=== PATIENT | male | born 1950 | race Caucasian/White ===

== ENCOUNTER 2018-07-19 16:32 | Observation (INO) | payer OTHER ==
[~2018-07-19] VITALS: Ht 170.2 cm; Wt 92.1 kg
[2018-07-19] MEDS ORDERED: ASPIRIN 81 MG CHEW TAB PO STA (17:14)
[2018-07-19] MEDS ORDERED: ASPIRIN 81 MG CHEW TAB PO ONE ×2 (17:15→20:00)
[2018-07-19 17:37] LABS: BASOPHILS % 0.6 % (0.0-1.0); EOSINOPHILS # (AUTO) 0.3 (0.0-0.4); EOSINOPHILS % 4.1 % (0.0-6.0); HEMATOCRIT 43.2 % (38.2-49.6); HEMOGLOBIN 15.3 g/dL (14.0-18.0); LYMPHOCYTES # (AUTO) 2.1 (1.0-3.2); LYMPHOCYTES % 31.2 % (18.0-39.1); MEAN CORPUSCULAR HGB CONC 35.4 g/dL (31-35); MEAN CORPUSCULAR VOLUME 90.4 fL (81-99); MONOCYTES # (AUTO) 0.6 (0.2-0.8); MONOCYTES % 8.5 % (4.4-11.3); NEUTROPHILS # (AUTO) 3.8 (2.1-6.9); NEUTROPHILS % 55.2 % (38.7-80.0); PLATELET COUNT 213 x10e3/uL (140-360); RED BLOOD COUNT 4.78 x10e6/uL (4.3-5.7); RED CELL DISTRIBUTION WIDTH 12.4 % (11.7-14.4)
[2018-07-19 17:47] LABS: INR 1.02; PARTIAL THROMBOPLASTIN TIME 29.5 seconds (23.8-35.5); PROTHROMBIN TIME 12.6 seconds (11.9-14.5)
[2018-07-19 17:56] LABS: ALANINE AMINOTRANSFERASE 61 IU/L (0-55); ALBUMIN 3.9 g/dL (3.5-5.0); ALKALINE PHOSPHATASE 102 IU/L (40-150); ANION GAP 18.2 mmol/L (8-16); BLOOD UREA NITROGEN 17 mg/dL (7-26); BUN/CREATININE RATIO 17 (6-25); CALCIUM 9.8 mg/dL (8.4-10.2); CARBON DIOXIDE 22 mmol/L (22-29); CHLORIDE 104 mmol/L (98-107); CREATINE KINASE 132 IU/L (30-200); CREATININE, SERUM 1.02 mg/dL (0.72-1.25); EST GLOMERULAR FILTRATION RATE > 60 ML/MIN (60-); GLUCOSE 88 mg/dL (74-118); POTASSIUM 4.2 mmol/L (3.5-5.1); SODIUM 140 mmol/L (136-145)
--- NOTE | 2018-07-19 18:16 | Diagnostic Imaging Report ---
EXAMINATION: CHEST SINGLE (NOT PORTABLE) INDICATION: \S\ERMD ORDER \S\[id number] \S\1737 \S\Y COMPARISON: 03/31/2011 FINDINGS: AP view TUBES and LINES: None. LUNGS: Low lung volumes. There is no evidence of pneumonia or pulmonary edema. PLEURA: No pleural effusion or pneumothorax. HEART AND MEDIASTINUM: The cardiac silhouette is enlarged, accentuated by low lung volumes. BONES AND SOFT TISSUES: No acute osseous lesion. Soft tissues are unremarkable. UPPER ABDOMEN: No free air under the diaphragm. IMPRESSION: No acute thoracic abnormality. Enlarged cardiac silhouette, accentuated by low lung volumes. Signed by: Dr. Pal Cho MD on 07/19/2018 6:11 PM
[2018-07-19 18:43] LABS: BILIRUBIN,URINE NEGATIVE (NEGATIVE); CLARITY,URINE CLEAR (CLEAR); COLOR,URINE YELLOW (YELLOW); KETONES,URINE NEGATIVE (NEGATIVE); LEUKOCYTE ESTERASE ,URINE NEGATIVE (NEGATIVE); NITRITE,URINE NEGATIVE (NEGATIVE); PROTEIN,URINE DIPSTICK NEGATIVE (NEGATIVE); URINE UROBILINOGEN 0.2 mg/dL (0.2 - 1)
[2018-07-19 19:15] LABS: EPITHELIAL CELLS,URINE RARE /LPF; MUCUS,URINE FEW (RARE)
[2018-07-19] MEDS ORDERED: ONDANSETRON HCL INJ 2 MG/ML VIAL IV PRN (20:00)
[2018-07-19] MEDS ORDERED: METFORMIN HCL1000 MG PO (20:57)
[2018-07-19] MEDS ORDERED: ENALAPRIL MALEA20 MG PO (20:57)
[2018-07-19] MEDS ORDERED: JANUVIA100 MG PO (20:57)
[2018-07-19] MEDS ORDERED: ASPIRIN 81 MG CHEW TAB ONE (21:03)
[2018-07-19 21:44] VITALS: BP 140/82
[2018-07-19 21:46] VITALS: BP 140/82
[2018-07-19 21:47] VITALS: BP 140/82
[2018-07-20 00:07] VITALS: BP 154/80
[2018-07-20 02:52] LABS: CREATINE KINASE MB 1.1 ng/mL (0-5.0)
[2018-07-20 04:01] VITALS: BP 175/89
[2018-07-20 05:27] LABS: CHOL/HDL RATIO 4.7 (3.9-4.7)
[2018-07-20 07:51] VITALS: BP 165/75
[2018-07-20] MEDS ORDERED: ASPIRIN 325 MG TAB EC PO SCH (09:00)
[2018-07-20] MEDS ORDERED: ENALAPRIL MALEATE 10 MG TAB PO SCH (09:30)
--- NOTE | 2018-07-20 09:50 | Discharge Summary ---
Please review my history and physical and discharge planning. The patient will follow up with Dr. Valverde as an outpatient. He will resume his home medications. The patient is otherwise stable. No further workup inpatient at this time. Nonspecific EKG changes. Cardiac enzymes are negative. The patient just recently put a roof on his house without any symptoms. His symptoms are more abdominal bloating with eating. There is no sign of cardiac issue at this time. Job#: [id number] LEATHA
--- NOTE | 2018-07-20 09:55 | History and Physical ---
PCP: Dr. Dontae Valverde CHIEF COMPLAINT: Abdominal bloating. HISTORY OF PRESENT ILLNESS: Patient is a 67-year-old female who has some abdominal bloating. He recalled when he had this symptom in the past he had some right lung drainage of fluid out of his lung years ago. But, at that time, he did have pneumonia. The patient is otherwise stable. Chest x-ray is unremarkable in the emergency room. The patient came to see his PCP, Dr. Valverde, and he had an EKG done. There was no comparison per patient from previous EKG. The patient was brought into the hospital for evaluation. At baseline, the patient does have compensated congestive heart failure. He also has diabetes and hypertension. He seemed to be doing okay. He is asymptomatic. The patient stated that he never had any chest pain. His lab work is otherwise unremarkable. The imaging chest x-ray showed that he has no acute thoracic abnormality. He does have enlarged cardiac silhouette, which is known. The patient is otherwise stable. EKG showed nonspecific changes, but no acute findings. PAST MEDICAL HISTORY: Hypertension, diabetes type 2, compensated heart failure and history of remote right lung fluid that was drained. HOME MEDICATIONS: List is reviewed. He is on enalapril, metformin and Januvia. ALLERGIES: NO KNOWN ALLERGIES. SOCIAL HISTORY: Patient does not smoke or use alcohol. No recreational drug use. He lives with his spouse. He just recently put a roof on his house without any symptoms. REVIEW OF SYSTEMS: Unremarkable. No chest pain or shortness of breath. No abdominal pain. PHYSICAL EXAMINATION GENERAL: The patient is in no acute distress. He is awake. VITAL SIGNS: Temperature is 97. Blood pressure 140/82. Pulse rate is 91. Respirations 18. HEENT: Normocephalic, atraumatic. Anicteric. NECK: Supple grossly. PULMONARY: Clear. CARDIOVASCULAR: Regular rate and rhythm. ABDOMEN: Soft and unremarkable. EXTREMITIES: No cyanosis or edema. NEUROLOGIC: No focal deficit. Chest x-ray is unremarkable. Cardiac enzymes are negative. EKG: Nonspecific T-wave changes. IMPRESSION 1. Abdominal bloating. 2. Baseline multiple chronic medical problems. No chest pain. No shortness of breath. PLAN: The patient should be ready to go home. I advised the patient to have an outpatient followup with a car pusher. The patient is stable. He prefers that without wanting to wait another day for possible further workup. Patient is stable for discharge home today. Resume home medications. Job#: [id number]
[2018-07-20 11:25] VITALS: BP 181/90
[2018-07-20 13:10] VITALS: BP 151/79
[2018-07-20] MEDS ORDERED: METFORMIN HCL 500 MG TAB PO SCH (17:00)
[2018-07-21] MEDS ORDERED: SITAGLIPTIN 100 MG TAB PO SCH (09:00)
== END 2018-07-20 14:30 | disposition home or self-care (01) ==
LOC: ER 16:32 → ERHOLD 20:06 → IMCU 21:22
PROVIDERS: ADMIT Internal Medicine; ATTEND Internal Medicine
DX: R14.0 Abdominal distension (gaseous) (principal); R07.9 Chest pain, unspecified; E11.9 Type 2 diabetes mellitus without complications; I11.0 Hypertensive heart disease with heart failure; I50.9 Heart failure, unspecified; R07.89 Other chest pain
CPT/HCPCS: 36415; 71045; 80048; 80053; 80061; 81001; 82550 ×2; 82553 ×2; 83880; 84484 ×2; 85025; 85610; 85730; 93005; 99284; G0378 ×2

== ENCOUNTER 2019-09-13 08:11 | Inpatient (IN) | payer OTHER ==
[~2019-09-13] VITALS: Ht 170.2 cm; Wt 88.6 kg
[~2019-09-13 08:11] MED LIST: ENALAPRIL MALEA20 MG PO; JANUVIA100 MG PO; METFORMIN HCL1000 MG PO
[2019-09-13] MEDS ORDERED: ASPIRIN 81 MG CHEW TAB PO ONE (08:30)
[2019-09-13 08:57] LABS: BASOPHILS % 0.4 % (0.0-1.0); EOSINOPHILS # (AUTO) 0.1 (0.0-0.4); EOSINOPHILS % 2.3 % (0.0-6.0); HEMATOCRIT 39.8 % (38.2-49.6); HEMOGLOBIN 13.2 g/dL (14.0-18.0); LYMPHOCYTES # (AUTO) 0.9 (1.0-3.2); LYMPHOCYTES % 17.9 % (18.0-39.1); MEAN CORPUSCULAR HEMOGLOBIN 30.9 pg (28-32); MEAN CORPUSCULAR HGB CONC 33.2 g/dL (31-35); MEAN CORPUSCULAR VOLUME 93.2 fL (81-99); MONOCYTES # (AUTO) 0.5 (0.2-0.8); NEUTROPHILS # (AUTO) 3.3 (2.1-6.9); NEUTROPHILS % 69.2 % (38.7-80.0); PLATELET COUNT 212 x10e3/uL (140-360); RED BLOOD COUNT 4.27 x10e6/uL (4.3-5.7); RED CELL DISTRIBUTION WIDTH 13.2 % (11.7-14.4)
--- NOTE | 2019-09-13 08:59 | Diagnostic Imaging Report ---
EXAMINATION: CHEST SINGLE (PORTABLE) INDICATION: Shortness of breath COMPARISON: Chest radiograph of 07/19/2018 FINDINGS: LINES/TUBES:None LUNGS:The lungs are moderately inflated. There is perihilar fullness and indistinctness of the pulmonary vasculature. No focal consolidation. PLEURA:No pleural effusion or pneumothorax. MEDIASTINUM:Prominent cardiomegaly. BONES/SOFT TISSUES:No acute osseous injury. ABDOMEN:No free air under the diaphragm. IMPRESSION: Cardiomegaly and pulmonary edema. Signed by: Quinn Tobar MD on 09/13/2019 8:56 AM
[2019-09-13 09:00] LABS: BILIRUBIN,URINE NEGATIVE (NEGATIVE); CLARITY,URINE CLEAR (CLEAR); COLOR,URINE YELLOW (YELLOW); KETONES,URINE NEGATIVE (NEGATIVE); LEUKOCYTE ESTERASE ,URINE NEGATIVE (NEGATIVE); NITRITE,URINE NEGATIVE (NEGATIVE); PROTEIN,URINE DIPSTICK NEGATIVE (NEGATIVE); URINE UROBILINOGEN 0.2 mg/dL (0.2 - 1)
[2019-09-13 09:06] LABS: BACTERIA,URINE RARE /HPF; EPITHELIAL CELLS,URINE FEW /LPF; RBC,URINE 0-5 /HPF (0-5)
[2019-09-13 09:07] LABS: INR 1.03
[2019-09-13 09:08] LABS: PARTIAL THROMBOPLASTIN TIME 33.8 seconds (23.8-35.5)
[2019-09-13 09:18] LABS: ALANINE AMINOTRANSFERASE 77 IU/L (0-55); ALBUMIN 3.6 g/dL (3.5-5.0); ALBUMIN/GLOBULIN RATIO 1.1 (0.8-2.0); ALKALINE PHOSPHATASE 89 IU/L (40-150); ANION GAP 13.1 mmol/L (8-16); BLOOD UREA NITROGEN 21 mg/dL (7-26); BUN/CREATININE RATIO 17 (6-25); CALCIUM 9.2 mg/dL (8.4-10.2); CARBON DIOXIDE 23 mmol/L (22-29); CHLORIDE 102 mmol/L (98-107); CREATINE KINASE 145 IU/L (30-200); CREATININE, SERUM 1.21 mg/dL (0.72-1.25); EST GLOMERULAR FILTRATION RATE 60 ML/MIN (60-); GLUCOSE 144 mg/dL (74-118); MAGNESIUM 1.8 MG/DL (1.3-2.1); POTASSIUM 4.1 mmol/L (3.5-5.1); SODIUM 134 mmol/L (136-145)
[2019-09-13] MEDS ORDERED: MORPHINE SULFATE 2 MG/ML SYR 1ML IV PRN (09:30)
[2019-09-13] MEDS ORDERED: ONDANSETRON HCL INJ 2MG/ML 2ML 2 MG/ML VIAL IV PRN (09:30)
[2019-09-13] MEDS ORDERED: NITROGLYCERIN 0.4 MG SUBL SL PRN (09:30)
[2019-09-13] MEDS ORDERED: FUROSEMIDE INJ 10 MG/ML 4 ML VIAL IV ONE (09:45)
[2019-09-13] MEDS: FAMOTIDINE 20 MG/2 ML VIAL IV SCH ×2 (09:59→20:44)
[2019-09-13] MEDS: ASPIRIN 81 MG ENTERIC COATED PO SCH (09:59)
[2019-09-13] MEDS ORDERED: CEFTRIAXONE SOD 1 GM/NS 50 ML 50 ML IV ONE (10:00)
[2019-09-13 11:31] VITALS: BP 137/85
[2019-09-13 12:55] VITALS: BP 137/85
--- NOTE | 2019-09-13 12:55 | Consultation ---
DATE OF CONSULTATION: 09/13/2019 Cardiology Consultation CHIEF COMPLAINT: The patient is a 69-year-old with shortness of breath and dyspnea. HISTORY OF PRESENT ILLNESS: The patient is a 69-year-old, who has had shortness of breath for the last several months, which has been getting worse over the last 3 weeks. The patient is unable to lie down flat. The patient has had no chest pain, no nausea, no vomiting, no abdominal pain. PAST MEDICAL HISTORY: Significant for: 1. Diabetes mellitus. 2. Hypertension. 3. Previous back surgery. 4. Previous knee replacement. MEDICATIONS: At home include enalapril and metformin. SOCIAL HISTORY: The patient does not drink and does not smoke. FAMILY HISTORY: There is a known family history of hypertension. PHYSICAL EXAMINATION: GENERAL: The patient is a well-developed, well-nourished male, in no obvious distress. VITAL SIGNS: Included a temperature of 95.2, pulse is 76, and blood pressure of 136/86. HEAD, EARS, EYES, NOSE, AND THROAT: The patient's cranium was normocephalic and atraumatic. Extraocular muscles were intact. Sclerae were anicteric. Pupils were equal, round, and reactive to light. There was no pallor or cyanosis of the oral mucosa. There was no erythema. NECK: Supple. No jugular venous distention. No carotid bruits. CHEST: Demonstrated rales at the bases. CARDIAC: Demonstrated a normal S1 and S2 with a short 2/6 systolic murmur. ABDOMEN: Demonstrated good bowel sounds. No tenderness and no masses. EXTREMITIES: There were no clubbing, no cyanosis, and no edema. NEUROLOGIC: The patient was alert and oriented x3. Cranial nerves II through XII were intact. Motor strength was +5/+5 in all limbs. DIAGNOSTIC DATA: The patient's EKG demonstrated normal sinus rhythm with nonspecific ST and T-wave changes. IMPRESSION: The patient is a 69-year-old, admitted with new onset congestive heart failure. RECOMMENDATIONS: My recommendations are as follows: 1. The patient will need to be diuresed with IV Lasix. 2. The patient's enalapril will need to be continued. 3. The patient will be started on beta blockers. 4. An echocardiogram has been ordered. 5. Further management decisions will be made after obtaining the results of the echocardiogram. MD SIMONE Whitney/ASHVIN /[id number] cc: Trung Morse MD
[2019-09-13] MEDS ORDERED: DEXTROSE 50% SYRINGE 50 ML IV PRN (13:00)
[2019-09-13 13:02] VITALS: BP 137/85
[2019-09-13] MEDS: INSULIN LISPRO 100 UNIT/1 ML 3ML VIAL SQ SCH ×3 (13:06→20:22)
--- NOTE | 2019-09-13 15:41 | History and Physical ---
CHIEF COMPLAINT: Shortness of breath on dyspnea and unable to lay down flat. HISTORY OF PRESENT ILLNESS: A 69-year-old male started to have orthopnea at night and shortness of breath especially with exertion. The patient has symptoms progressive for the past 2 weeks. The patient came into the hospital for evaluation after he seen his primary physician. The patient is otherwise stable. PAST MEDICAL HISTORY: Diabetes type 2, hypertension, and chronic lower back pain. PAST SURGICAL HISTORY: Lower back surgery. SOCIAL HISTORY: The patient does not smoke or use alcohol. No regular drugs. ALLERGIES: NO KNOWN ALLERGIES. HOME MEDICATIONS: Enalapril, metformin, and Januvia. PHYSICAL EXAMINATION: VITAL SIGNS: Temperature is 96, blood pressure 137/85, pulse rate 76, and respirations 18. GENERAL: The patient is not in acute distress. He is awake. HEENT: Normocephalic and atraumatic. Pupils reactive. Anicteric. NECK: Supple grossly. PULMONARY: Diminished breath sounds bilaterally with coarses. CARDIOVASCULAR: S1 and S2. Regular rate and rhythm. ABDOMEN: Soft. EXTREMITIES: 2+ edema. NEUROLOGIC: No focal deficit. LABORATORY DATA: Sodium is 134, potassium 4.1, chloride 102, bicarb 23, BUN 21, creatinine 1.2, and glucose 144. WBC is 4.8, hemoglobin 13.2, hematocrit 39.8, and platelets is 212. Echocardiogram showed ejection fraction less than 20%. IMPRESSION: 1. [id number] systolic dysfunction, congestive heart failure. The patient has heart failure previously, but not completely evaluated and treated. 2. Baseline hypertension, dyslipidemia, and diabetes type 2. PLAN: Echocardiogram official reading. Consultation with Dr. Michael Brambila. Continue with diuresis. We will monitor the patient closely. The patient will need either a LifeVest or subsequent ICD pending on cardiac workup prior to his discharge. MD DAVE Correa/MODL /[id number]
[2019-09-13 16:06] VITALS: BP 145/79
[2019-09-13] MEDS: CARVEDILOL 3.125 MG TAB PO SCH (16:38)
[2019-09-13] MEDS: ENALAPRIL MALEATE 10 MG TAB PO SCH (16:39)
[2019-09-13] MEDS: METFORMIN HCL 500 MG TAB PO SCH (16:39)
[2019-09-13] MEDS ORDERED: NON-FORMULARY MEDICATION (Enalapril Maleate 20 MG) PO SCH (17:00)
[2019-09-13] MEDS ORDERED: NON-FORMULARY MEDICATION (Metformin Hcl 1,000 MG) PO SCH (17:00)
[2019-09-13 17:43] LABS: CREATINE KINASE 142 IU/L (30-200)
[2019-09-13 20:00] VITALS: BP 118/73
[2019-09-13] MEDS: FUROSEMIDE INJ 10 MG/ML 4 ML VIAL IV SCH (20:44)
[2019-09-13 21:00] VITALS: BP 118/73
[2019-09-14] VITALS (8 sets, daily range): BP systolic 113–139; BP diastolic 59–91
[2019-09-14 04:38] LABS: HEMATOCRIT 40.3 % (38.2-49.6); HEMOGLOBIN 13.5 g/dL (14.0-18.0); MEAN CORPUSCULAR VOLUME 92.6 fL (81-99); RED BLOOD COUNT 4.35 x10e6/uL (4.3-5.7)
[2019-09-14 04:39] LABS: BASOPHILS # (AUTO) 0.1 (0.0-0.1); BASOPHILS % 0.8 % (0.0-1.0); EOSINOPHILS # (AUTO) 0.2 (0.0-0.4); EOSINOPHILS % 3.5 % (0.0-6.0); LYMPHOCYTES # (AUTO) 0.9 (1.0-3.2); LYMPHOCYTES % 13.9 % (18.0-39.1); MEAN CORPUSCULAR HGB CONC 33.5 g/dL (31-35); MONOCYTES # (AUTO) 0.6 (0.2-0.8); MONOCYTES % 8.8 % (4.4-11.3); NEUTROPHILS # (AUTO) 4.6 (2.1-6.9); NEUTROPHILS % 72.5 % (38.7-80.0); PLATELET COUNT 223 x10e3/uL (140-360)
[2019-09-14 04:51] LABS: CREATINE KINASE 100 IU/L (30-200)
[2019-09-14 05:00] LABS: SODIUM 138 mmol/L (136-145)
[2019-09-14 05:01] LABS: ALBUMIN 3.6 g/dL (3.5-5.0); ALBUMIN/GLOBULIN RATIO 1.1 (0.8-2.0); ALKALINE PHOSPHATASE 81 IU/L (40-150); ANION GAP 14.9 mmol/L (8-16); CALCIUM 9.7 mg/dL (8.4-10.2); CARBON DIOXIDE 25 mmol/L (22-29); CHLORIDE 102 mmol/L (98-107); CREATININE, SERUM 1.19 mg/dL (0.72-1.25); EST GLOMERULAR FILTRATION RATE > 60 ML/MIN (60-); GLUCOSE 127 mg/dL (74-118); POTASSIUM 3.9 mmol/L (3.5-5.1)
[2019-09-14 05:27] LABS: ALANINE AMINOTRANSFERASE 70 IU/L (0-55); BLOOD UREA NITROGEN 22 mg/dL (7-26); BUN/CREATININE RATIO 18 (6-25)
[2019-09-14 05:28] LABS: CHOL/HDL RATIO 4.6 (3.9-4.7); CHOLESTEROL 188 MD/DL (0-199); HDL CHOLESTEROL 41 MG/DL (40-60); LDL CHOLESTEROL 125 MG/DL (60-130); TRIGLYCERIDES 108 MG/DL (0-149)
--- NOTE | 2019-09-14 07:18 | NUR ---
pt alert resp even and unlabored at this time no distress noted pt able to make needs known, pt ambulating in room no c/o pain when asked, call light in reach.
[2019-09-14] MEDS: METFORMIN HCL 500 MG TAB PO SCH ×2 (08:00→20:16)
[2019-09-14] MEDS: FUROSEMIDE INJ 10 MG/ML 4 ML VIAL IV SCH ×2 (09:00→20:45)
[2019-09-14] MEDS: FAMOTIDINE 20 MG/2 ML VIAL IV SCH ×2 (09:00→20:45)
[2019-09-14] MEDS: CARVEDILOL 3.125 MG TAB PO SCH ×2 (09:00→20:16)
[2019-09-14] MEDS: ASPIRIN 81 MG ENTERIC COATED PO SCH (09:00)
[2019-09-14] MEDS: ENALAPRIL MALEATE 10 MG TAB PO SCH ×2 (09:00→20:17)
[2019-09-14] MEDS: SITAGLIPTIN 100 MG TAB PO SCH (09:00)
[2019-09-14] MEDS: POTASSIUM CHLORIDE 10MEQ EA PO SCH (09:00)
[2019-09-14] MEDS: INSULIN LISPRO 100 UNIT/1 ML 3ML VIAL SQ SCH ×4 (11:30→20:45)
[2019-09-14 12:04] LABS: CREATINE KINASE 156 IU/L (30-200)
--- NOTE | 2019-09-14 15:39 | NUR ---
Nutrition Screen Note RD Recommendation for Physician: -Recommend cardiac/diabetic diet Plan of Care: RD following, monitoring for tolerance and adequacy Nutrition reason for involvement: Diagnosis - CHF Primary Diagnose(s): CHF PMH: type 2 diabetes, HTN, chronic low back pain Ht: 67 in Wt:203 lb BMI: 31.8 kg/m2 IBW:[address] Assessment: (09/14/19) Chart reviewed. Labs and meds reviewed. Pt is a 69 year old male admitted with CHF. Pt stated his appetite has been good and eating all of his meals during admission. Per documentation in chart, pt has been eating 75-100% of meals during admission. Prior to admission, pt reported he was eating <50% of meals for 3 weeks. Pt mentioned he usually weighs 200 lbs. Pt currently has a wt of 203 lbs in chart. No N/V/D/C reported and no chewing/swallowing issues. Will continue to monitor. Current Diet: ADA Diet Malnutrition Evaluation (09/14/19) The patient does not meet criteria for a specified degree of malnutrition at this time. Will re-evaluate at follow-up as appropriate. Diet Education Needs Assessment: Pt was not interested in diet education at time of visit. Nutrition Care Level: Low Signed: Devi Pinedo, RD, LD
--- NOTE | 2019-09-14 16:58 | NUR ---
consent signed for procedure.
--- NOTE | 2019-09-14 19:25 | NUR ---
report given to oncoming nurse .pt stable.
[2019-09-15] VITALS (15 sets, daily range): BP systolic 99–160; BP diastolic 66–96
--- NOTE | 2019-09-15 07:08 | NUR ---
BEDSIDE REPORT COMPLETED WITH KARINA RN AT THIS TIME. PT IN RESTROOM AT THIS TIME. WILL CONTINUE TO MONITOR CLOSELY.
[2019-09-15] MEDS: INSULIN LISPRO 100 UNIT/1 ML 3ML VIAL SQ SCH ×4 (07:30→20:28)
[2019-09-15] MEDS: METFORMIN HCL 500 MG TAB PO SCH ×2 (08:00→18:29)
[2019-09-15] MEDS: FAMOTIDINE 20 MG/2 ML VIAL IV SCH (09:00)
[2019-09-15] MEDS: ENALAPRIL MALEATE 10 MG TAB PO SCH ×2 (09:00→18:29)
[2019-09-15] MEDS: POTASSIUM CHLORIDE 10MEQ EA PO SCH (09:00)
[2019-09-15] MEDS: SITAGLIPTIN 100 MG TAB PO SCH (09:00)
[2019-09-15] MEDS: CARVEDILOL 3.125 MG TAB PO SCH ×2 (09:00→18:28)
[2019-09-15] MEDS: FUROSEMIDE INJ 10 MG/ML 4 ML VIAL IV SCH (09:00)
[2019-09-15] MEDS: ASPIRIN 81 MG ENTERIC COATED PO SCH (09:00)
[2019-09-15] MEDS ORDERED: HEPARIN SOD (PORCINE) 1000 UNIT/ML 30ML ONE (11:37)
[2019-09-15] MEDS ORDERED: LIDOCAINE HCL 2% LOCAL 20 ML VIAL ONE (11:37)
[2019-09-15] MEDS ORDERED: VERAPAMIL HCL 2.5 MG/ML 2 ML VIAL ONE (11:37)
[2019-09-15] MEDS ORDERED: FENTANYL CITRATE/PF 100MCG/2 ML INJ ONE (11:37)
[2019-09-15] MEDS ORDERED: MIDAZOLAM HCL 2 MG/2 ML VIAL ONE (11:37)
[2019-09-15] MEDS ORDERED: IOPAMIDOL 370 MG/ML 200 ML INFUS..BTL INJ ONE ×2 (11:38→12:33)
[2019-09-15] MEDS ORDERED: HEPARIN SOD/SOD CHLORIDE 2,000 ML ONE (11:38)
[2019-09-15] MEDS ORDERED: NITROGLYCERIN/D5W 200 MCG/ML 250 ML ONE (11:39)
[2019-09-15] MEDS ORDERED: SODIUM CHLORIDE 0.9% 1000ML 1,000 ML ONE (11:39)
--- NOTE | 2019-09-15 12:02 | NUR ---
PT OFF UNIT FOR HEART CATH AT THIS TIME
--- NOTE | 2019-09-15 12:44 | NUR ---
1244bedside report received from Mario Mcguire RN. Alert oriented and appropriate, PERRLA, respirations even and unlabored to room air. Pulses x4 extremities equal and strong. Pedal pulses PT/DP x4 and marked. Cap fill brisk < 3 sec. TR band ok to remove at 1330pm.Needs potential surgical evaluation per Dr Brambila CD given to pt family/.Dc papers for tr band teaching tool,scripts and tx explained to pt. Skin warm and dry integrity appears D/I. IV 18g to left ac presents healthy w/o s/s of infiltration or complaint. 100cc removed from 0.9Ns bag in procedural area. Abdomen soft and supple. pt offered toileting, denies need to urinate or defecate. No personal affects with patient. Family/ at bedside.. Pt and family verbalizes understanding of POC. Currently w/o complaint of pain or need. ds/rn
[2019-09-15] MEDS ORDERED: ONDANSETRON HCL 4 MG ORAL DISINTEGRATING TAB PO PRN (13:15)
--- NOTE | 2019-09-15 13:30 | NUR ---
1330 RADIAL Compression removal: Initial Cuff volume 10 cc 1300 -2cc Removed No hematoma/bleeding noted with normal neurovascular function. 1315 -3cc Removed No hematoma/ bleeding noted with normal neurovascular function. 1330 -3cc Removed No hematoma/bleeding noted with normal neurovascular function. 1345 -2cc Removed No hematoma/ bleeding noted with normal neurovascular function. Air removal completed. Stasis achieved sterile 2x2,Tegaderm, Coban dressing No hematoma, bleeding noted with normal neurovascular function. Wrist splint in place. Pt instructed on POC. Ds/Rn
--- NOTE | 2019-09-15 14:15 | NUR ---
8518 Phoned report to Hattie Mcguire.NO gross issues pain,pallor ,pressure or dysrhythmia. Transported to floor care per Christina Report to tele rm and bedside nurse hand off completed. Pt left in room, call light at bedside,side rails up and aware of importance to call for help.deysi/gisella
--- NOTE | 2019-09-15 14:35 | NUR ---
PT BACK IN ROOM FROM CATH AT THIS TIME. PT ALERT AND ORIENTED X3. PT RIGHT WRIST SITE WRAPPED AND SPLINT IS IN PLACE. CAP REFILL IS <3 SECONDS. WILL CONTINUE TO MONITOR PT CLOSELY.
[2019-09-15] MEDS: FAMOTIDINE 20 MG TAB PO SCH (16:30)
--- NOTE | 2019-09-15 17:06 | NUR ---
PT EXPRESSED THAT HE HAS DECIDED HE WANTS THE STENTS PLACED AND WOULD LIKE NURSE TO CALL DR. JONES. DR. JONES PAGED AT THIS TIME.
--- NOTE | 2019-09-15 19:09 | Operative Report ---
DATE OF PROCEDURE: 09/15/2019 SURGEON: Michael Brambila MD PROCEDURE: Left heart catheterization. INDICATION: Acute systolic congestive heart failure. COMPLICATIONS: None. ANESTHESIA: Versed, fentanyl, and lidocaine. TECHNIQUE: The right wrist was draped and prepped in the usual fashion. The area was anesthetized with lidocaine. Standard Seldinger technique was used to place a 6-Micronesian sheath into the right radial artery without difficulty. A Shar catheter was used to selectively engage the left coronary artery and to selectively engage the right coronary artery. A left ventriculogram was not done. RESULTS: As follows: 1. There is a normal left main trunk. 2. Large left anterior descending artery, which gave rise to a medium-sized diagonal branch, was 50-60% cylindrical narrowing proximal portion of the left anterior descending artery. 3. There was a medium sized AV circumflex artery, which gave rise to a medium- sized first obtuse marginal branch and a large bifurcating second obtuse marginal branch. There was 70% cylindrical narrowing in the midportion of the AV circumflex artery. There was about 50% narrowing at the origin of the first obtuse marginal branch. 4. There was a large dominant right coronary artery with 99% stenosis in the mid vessel. 5. The left ventriculogram was not done, but the ejection fraction was 20% on the echocardiogram. CONCLUSION: The patient has a severe multivessel coronary artery disease and options for revascularization including coronary artery bypass grafting will be discussed with the patient. Michael Brambila MD DSH/MODL /[id number] cc: Trung Morse MD MTDD
[2019-09-16] VITALS: BP 118/76
[2019-09-16 04:00] VITALS: BP 124/82
[2019-09-16] MEDS: INSULIN LISPRO 100 UNIT/1 ML 3ML VIAL SQ SCH (07:30)
[2019-09-16 07:37] VITALS: BP 115/60
[2019-09-16 07:51] VITALS: BP 115/60
[2019-09-16] MEDS: CARVEDILOL 3.125 MG TAB PO SCH (08:00)
[2019-09-16] MEDS: METFORMIN HCL 500 MG TAB PO SCH (08:00)
[2019-09-16] MEDS: SITAGLIPTIN 100 MG TAB PO SCH (08:00)
[2019-09-16] MEDS: FAMOTIDINE 20 MG TAB PO SCH (08:00)
[2019-09-16] MEDS: ASPIRIN 81 MG ENTERIC COATED PO SCH (08:00)
[2019-09-16] MEDS: POTASSIUM CHLORIDE 10MEQ EA PO SCH (08:01)
[2019-09-16] MEDS: ENALAPRIL MALEATE 10 MG TAB PO SCH (08:01)
[2019-09-16] MEDS ORDERED: FUROSEMIDE 40 MG TAB PO SCH (09:00)
--- NOTE | 2019-09-16 09:50 | NUR ---
patient alert and oriented with at bedside. discharge instructions given at this time, patient and verbalized understanding. IV discontinued, catheter in tact and small dressing applied. patient refused wheelchair assistance but will walk with assist to personal auto for to drive home.
--- NOTE | 2019-09-16 17:45 | Discharge Summary ---
PRIMARY CARE PHYSICIAN: Lesley Valverde MD GAS PRODUCER: Dr. Michael Brabmila. FINAL DIAGNOSES: 1. Acute systolic dysfunction, congestive heart failure. Ejection fraction of 20%. 2. Status post cardiac catheterization, multivessel disease, require coronary artery bypass graft surgery. The patient refused coronary artery bypass procedures. The patient to follow up with Dr. Michael Brambila. Dr. Manpreet Everett is the cardiovascular surgeon consulted. SUMMARY: The patient is a 69-year-old male came in with congestive heart failure, shortness of breath with both at rest and on exertion and paroxysmal nocturnal dyspnea. The patient has ejection fraction 20%. He diuresis well. The patient underwent cardiac catheterization and found to have significant coronary artery disease 3-vessel disease. The patient needs bypass surgery. He refused. A LifeVest arranged. The patient to follow up with Dr. Michael Brambila. Dr. Indra Everett is consulted. The patient may follow up when he change his mind and also for high risk coronary intervention at a later date. The patient will be discharged home with enalapril 20 mg daily, Lasix 40 mg daily, potassium 10 mEq daily, Coreg 3.125 mg b.i.d. The patient is otherwise stable. He will go home today with a LifeVest on instructions given. The patient to follow up closely. MD DAVE Correa/MODL /[id number]
== END 2019-09-16 09:55 | disposition home or self-care (01) | DRG 287 ==
LOC: ER 08:11 → ERHOLD 09:24 → MED/SURG2 10:33
PROVIDERS: ADMIT Internal Medicine; ATTEND Internal Medicine
PROC: B2111ZZ Fluoroscopy of Multiple Coronary Arteries using Low Osmolar Contrast (ICD-10-PCS; principal; 2019-09-15)
PROC: 4A023N7 Measurement of Cardiac Sampling and Pressure, Left Heart, Percutaneous Approach (ICD-10-PCS; 2019-09-15)
DX: I11.0 Hypertensive heart disease with heart failure (principal); I50.23 Acute on chronic systolic (congestive) heart failure; E11.9 Type 2 diabetes mellitus without complications; E78.5 Hyperlipidemia, unspecified; Z86.73 Personal history of transient ischemic attack (TIA), and cerebral infarction without residual deficits; Z82.49 Family history of ischemic heart disease and other diseases of the circulatory system; Z79.84 Long term (current) use of oral hypoglycemic drugs; I25.10 Atherosclerotic heart disease of native coronary artery without angina pectoris
CPT/HCPCS: 36415; 71045; 80053; 80061; 81001; 82550; 82553; 82948; 83735; 83880; 84484; 85025; 85610; 85730; 87086; 93005; 93306; 93454; 99152; 99284; C1887; J0696; J1644; J1940; J2001; J2250; J3010; J7030; Q9967

== ENCOUNTER 2020-06-28 16:26 | Inpatient (IN) | payer MEDICARE, OTHER ==
[~2020-06-28] VITALS: Ht 170.2 cm; Wt 86.2 kg
[2020-06-28 16:58] LABS: BASOPHILS % 0.5 % (0.0-1.0); EOSINOPHILS # (AUTO) 0.1 (0.0-0.4); EOSINOPHILS % 2.2 % (0.0-6.0); HEMATOCRIT 36.1 % (38.2-49.6); HEMOGLOBIN 12.1 g/dL (14.0-18.0); LYMPHOCYTES # (AUTO) 1.1 (1.0-3.2); LYMPHOCYTES % 17.3 % (18.0-39.1); MEAN CORPUSCULAR HEMOGLOBIN 31.2 pg (28-32); MEAN CORPUSCULAR HGB CONC 33.5 g/dL (31-35); MONOCYTES # (AUTO) 0.7 (0.2-0.8); MONOCYTES % 10.2 % (4.4-11.3); NEUTROPHILS # (AUTO) 4.4 (2.1-6.9); NEUTROPHILS % 69.5 % (38.7-80.0); PLATELET COUNT 239 x10e3/uL (140-360); RED BLOOD COUNT 3.88 x10e6/uL (4.3-5.7); RED CELL DISTRIBUTION WIDTH 13.1 % (11.7-14.4)
[2020-06-28 17:09] LABS: INR 1.04; PROTHROMBIN TIME 14.1 seconds (11.9-14.5)
[2020-06-28 17:10] LABS: PARTIAL THROMBOPLASTIN TIME 31.5 seconds (23.8-35.5)
--- NOTE | 2020-06-28 17:15 | NUR ---
Assumed care of pt from Eloise PONCE, pt worked up in triage.
[2020-06-28 17:20] LABS: ALBUMIN 3.8 g/dL (3.5-5.0); ALBUMIN/GLOBULIN RATIO 1.1 (0.8-2.0); ANION GAP 18.2 mmol/L (8-16); CALCIUM 9.2 mg/dL (8.4-10.2); CREATININE, SERUM 1.58 mg/dL (0.72-1.25); POTASSIUM 4.2 mmol/L (3.5-5.1)
[2020-06-28 17:27] LABS: CREATINE KINASE MB 6.6 ng/mL (0-5.0)
--- NOTE | 2020-06-28 17:36 | Diagnostic Imaging Report ---
EXAMINATION: CHEST SINGLE (PORTABLE) INDICATION: Chest pain COMPARISON: Chest x-ray on 09/13/2019. FINDINGS: TUBES and LINES: None. LUNGS: Normal lung volumes. There are prominent interstitial lung markings and patchy airspace opacification of the lung bases, right more to left. PLEURA: No pleural effusion or pneumothorax. HEART AND MEDIASTINUM: The cardiomediastinal silhouette is enlarged. BONES AND SOFT TISSUES: No acute osseous lesion. Soft tissues are unremarkable. UPPER ABDOMEN: No free air under the diaphragm. IMPRESSION: 1. Cardiomegaly with pulmonary vascular congestion. 2. Patchy opacification of the bilateral lung bases, right more to left, may represent atelectasis and/or developing pneumonia in the proper clinical setting. Signed by: Damon Pop MD on 06/28/2020 5:32 PM
[2020-06-28] MEDS ORDERED: ASPIRIN 81 MG CHEW TAB PO ONE (17:45)
[2020-06-28] MEDS ORDERED: ASPIRIN 81 MG CHEW TAB ONE (17:53)
--- NOTE | 2020-06-28 17:54 | Emergency Department Note ---
History of Present Illnes History of Present Illness Chief Complaint: Respiratory History of Present Illness This is a 69 year old male arrives to the ED with complaints of shortness of breath, stating he has too much fluid on his lungs. Historian: Patient Arrival Mode: Car Onset (how long ago): day(s) Severity: mild Onset quality: gradual Duration (how long): day(s) Timing of current episode: constant Progression: worsening Chronicity: recurrent Relieving factors: none Exacerbating factors: none Past Medical/Family History Physician Review I have reviewed the patient's past medical and family history. Any updates have been documented here. Past Medical History Recent Fever: No Clinical Suspicion of Infectio: No New/Unexplained Change in Ment: No Past Medical History: Hypertension, Diabetes, CHF, CVA Other Medical History: FATHERS SIDE OF FAMILY Past Surgical History: Knee Replacement, Back Surgery Other Surgery: "FLUID REMOVED FROM LUNG" Social History Smoking Cessation: Never Smoker Counseling Performed: No Alcohol Use: None Any Illegal Drug Use: No Physically hurt or threatened: No Other Last Tetanus: UNKNOWN Any Pre-Existing Lines (PICC,: No Review of Systems Review of Systems Constitutional: Reports as per HPI EENTM: Reports no symptoms Cardiovascular: Reports no symptoms Respiratory: Reports as per HPI Gastrointestinal: Reports no symptoms Genitourinary: Reports no symptoms Musculoskeletal: Reports as per HPI Integumentary: Reports no symptoms Neurological: Reports no symptoms Psychological: Reports no symptoms Endocrine: Reports no symptoms Hematological/Lymphatic: Reports no symptoms Physical Exam Related Data Allergies: Coded Allergies: No Known Allergies (Unverified , 07/19/18) Triage Vital Signs Vital Signs Date Time Temp Pulse Resp B/P (MAP) Pulse Ox O2 Delivery O2 Flow Rate FiO2 06/28/20 16:33 98.8 98 20 109/77 99 Room Air Vital signs reviewed: Yes Physical Exam CONSTITUTIONAL Constitutional: Present well-developed, Present well-nourished, Present obese HENT HENT: Present normocephalic, Present atraumatic, Present oropharynx clear/mois t, Present nose normal HENT L/R: Present left ext ear normal, Present right ext ear normal EYES Eyes: Reports PERRL, Reports conjunctivae normal NECK Neck: Present ROM normal PULMONARY Pulmonary: Present effort normal, Present breath sounds normal CARDIOVASCULAR Cardiovascular: Present regular rhythm, Present heart sounds normal, Present capillary refill normal, Present normal rate GASTROINTESTINAL Abdominal: Present soft, Present nontender, Present bowel sounds normal GENITOURINARY Genitourinary: Present exam deferred SKIN Skin: Present warm, Present dry MUSCULOSKELETAL Musculoskeletal: Present tenderness, Present swelling NEUROLOGICAL Neurological: Present alert, Present oriented x 3, Present no gross motor or sensory deficits PSYCHOLOGICAL Psychological: Present mood/affect normal, Present judgement normal Results Laboratory Result Diagram: 06/28/20 1658 06/28/20 1638 Laboratory Laboratory Tests Test 06/28/20 16:58 06/28/20 16:38 White Blood Count 6.37 x10e3/uL (4.8-10.8) Red Blood Count 3.88 x10e6/uL (4.3-5.7) Hemoglobin 12.1 g/dL (14.0-18.0) Hematocrit 36.1 % (38.2-49.6) Mean Corpuscular Volume 93.0 fL (81-99) Mean Corpuscular Hemoglobin 31.2 pg (28-32) Mean Corpuscular Hemoglobin Concent 33.5 g/dL (31-35) Red Cell Distribution Width 13.1 % (11.7-14.4) Platelet Count 239 x10e3/uL (140-360) Neutrophils (%) (Auto) 69.5 % (38.7-80.0) Lymphocytes (%) (Auto) 17.3 % (18.0-39.1) Monocytes (%) (Auto) 10.2 % (4.4-11.3) Eosinophils (%) (Auto) 2.2 % (0.0-6.0) Basophils (%) (Auto) 0.5 % (0.0-1.0) Neutrophils # (Auto) 4.4 (2.1-6.9) Lymphocytes # (Auto) 1.1 (1.0-3.2) Monocytes # (Auto) 0.7 (0.2-0.8) Eosinophils # (Auto) 0.1 (0.0-0.4) Basophils # (Auto) 0.0 (0.0-0.1) Absolute Immature Granulocyte (auto 0.02 x10e3/uL (0-0.1) Prothrombin Time 14.1 seconds (11.9-14.5) Prothromb Time International Ratio 1.04 Activated Partial Thromboplast Time 31.5 seconds (23.8-35.5) Sodium Level 137 mmol/L (136-145) Potassium Level 4.2 mmol/L (3.5-5.1) Chloride Level 105 mmol/L (98-107) Carbon Dioxide Level 18 mmol/L (22-29) Anion Gap 18.2 mmol/L (8-16) Blood Urea Nitrogen 33 mg/dL (7-26) Creatinine 1.58 mg/dL (0.72-1.25) Estimat Glomerular Filtration Rate 44 ML/MIN (60-) BUN/Creatinine Ratio 21 (6-25) Glucose Level 111 mg/dL (74-118) Calcium Level 9.2 mg/dL (8.4-10.2) Total Bilirubin 0.6 mg/dL (0.2-1.2) Aspartate Amino Transf (AST/SGOT) 51 IU/L (5-34) Alanine Aminotransferase (ALT/SGPT) 67 IU/L (0-55) Alkaline Phosphatase 98 IU/L (40-150) Creatine Kinase 217 IU/L (30-200) Creatine Kinase MB 6.60 ng/mL (0-5.0) Troponin I 1.390 ng/mL (0-0.300) B-Type Natriuretic Peptide 1292.4 pg/mL (0-100) Total Protein 7.4 g/dL (6.5-8.1) Albumin 3.8 g/dL (3.5-5.0) Globulin 3.6 g/dL (2.3-3.5) Albumin/Globulin Ratio 1.1 (0.8-2.0) Lab results reviewed: Yes Imaging Imaging results reviewed: Yes Procedures 12 Lead ECG Interpretation ECG Interpretation : ECG: ECG 1 Shop Mechanic Helper: Interpreted by ED physician Prior ECG tracings: reviewed Rhythm: sinus rhythm T waves flattening: II, III, aVF, V6 Clinical Impression: abnormal ECG Critical Care Time Total Critical Care Time (min): 35 Critical care time exclusive o: separately billable procedures Critcal care necessary due to: cardiac failure Assessment & Plan Medical Decision Making MDM 69-year-old male arrives to the ED with complaints of shortness of breath, marked pedal edema noted. Patient's troponin elevated likely secondary to CHF. Dr. Brambila consult that. Patient given Lasix and admitted for further workup and monitoring. Assessment & Plan Final Impression: (1) CHF (congestive heart failure) (2) NSTEMI (non-ST elevated myocardial infarction) Depart Disposition: ADMITTED Last Vital Signs Date Time Temp Pulse Resp B/P (MAP) Pulse Ox O2 Delivery O2 Flow Rate FiO2 06/28/20 17:42 87 27 101/68 99 Room Air 06/28/20 16:33 98.8 Home Meds Reported Medications Enalapril Maleate (ENALAPRIL MALEATE) 20 Mg Tablet, 20 MG PO BID, #60 07/19/18 Metformin Hcl (METFORMIN HCL) 1,000 Mg Tablet, 1000 MG PO BID, #180 07/19/18 Sitagliptin Phosphate (JANUVIA) 100 Mg Tablet, 100 MG PO DAILY, #90 07/19/18 [place] DO Jun 28, 2020 17:54
[2020-06-28] MEDS ORDERED: FUROSEMIDE INJ 10 MG/ML 4 ML VIAL IV ONE (18:00)
--- OUTSIDE RECORDS SUMMARY | 2020-06-28 18:08 | XMS REPORT | Continuity of Care Document ---
Author Author [facility] t Organization [facility] Address Critical access hospital[address] [place] [address] Phone Unavailable Care Team Providers Care Slab Inspector Name Role Phone CARROLL VALVERDE MD PCP Venus SANCHEZ Attphys Unavailable Macrina VELIZ Attphys Unavailable Micki Baltazar Attphys Payers Payer Name Policy Type Policy Number Effective Date Expiration Date Li Mann [id number] 2017 00:00:00 [facility] Problems Condition Name Condition Details Condition Category Status Onset Date Resolution Date Last Treatment Date Treating Clinician Comments Source S46.091A - INJ [facility]/TEND THE ROTATOR CUF S46.091A - INJ [facility]/TEND THE ROTATOR CUF Active 09/28/2017 WILLIAM OPID [place] Diagnosis Active 2017-09-28 00:01:00 2017-10-22 08:39:00 M wendi Mckee CHF -NEW ONSET, LF SIDED FACIAL [place] CHF -NEW ONSET, LF SIDED FACIAL [place] Active 07/16/2013 [facility] Ac tive 2013-07-16 14:13:00 2013-07-24 21:49:00 M wendi Mckee Chest pain Chest pain Problem Active C [facility] Congestive heart failure CHF (congestive heart failure) Problem Active [facility] Right sided weakness Righ t sided weakness Resolved Problem 07/20/2013 [facility] Problem Resolved 2013-07-20 21:51: 18 Zuleyma Mckee Right hemiparesis (disorder) R ight hemiparesis (disorder) Resolved Problem 10/25/2017 ASHER Rider Problem Resolved 2017-10-25 01:27:14 Zuleyma Mckee CHF NOS CHF NOS Active [facility] Acti ve 2013-07-24 21:49:00 Zuleyma trotter Allergies, Adverse Reactions, Alerts Allergy Name Allergy Type Status Severity Reaction(s) Onset Date Inacti ve Date Treating Clinician Comments Source No Known Allergies DA Active U 2019-09-22 00:00:00 [facility] No Known Allergies DA Active U 2012-06-05 00:00:00 [facility] Medications Ordered Medication Name Filled Medication Name Start Date Stop Da te Current Medication? Ordering Clinician Indication Dosage Frequency Signature (SIG) Comments Components Source Lasix 40 mg oral tablet 2013-07-18 22:00:00 No Homejosh Mcnamarar ique Daniel 40 mg, 1 tab, Route: PO, Drug form: TAB, BID, Dosing Weight 91.818, kg, Start date: 07/18/13 17:00:00, Duration: 30 day, Stop date: 08/17/13 9:00:00 Zuleyma Mckee influenza virus vaccine, inactivated 2013-07-18 16:00:00 No SYSTEM SYSTEM 0.5 ml, Route: IM, Drug Form : SUSP, Start date: 07/18/13 11:00:00, Stop date: 07/18/13 11:00:00 Zuleyma Mckee Lasix 20 mg oral tablet 2013-07-18 15:54:48 Yes Clementina Colónel 20 mg, 1 tab, PO, Daily, 30 tab, 0, 0, Substitution Allowed, TAB Zuleyma Mckee potassium chloride 10 mEq oral capsule, extended release 2013-07-18 15:32:54 Yes Home Amauri Daniel 10 mEq, 1 cap, PO, BID, take it with furosemide, 60 cap, Substitution Allowedtake it with furosemide Zuleyma Mckee lisinopril 5 mg oral tablet 2013-07-18 15:30:05 Yes Home Amauri Daniel 5 mg, 1 tab, PO, Daily, 30 tab, Substitution Allowed, TAB Zuleyma Mckee glipiZIDE 2.5 mg oral tablet, extended release 2013-07-18 15:30:02 Yes Home Amauri Daniel 2.5 mg, 1 tab, PO, Daily, 30 tab, Substitution Allowed, ERTAB [facility] Lasix 40 mg oral tablet 2013-07-18 15:29:59 No Clementina Nagel Jose Juan 40 mg, 1 tab, PO, BID, 60 tab, Substitution Allowed, TAB [facility] carvedilol 6.25 mg oral tablet 2013-07-18 15:29:55 Yes Home Amauri Daniel 6.25 mg, 1 tab, PO, BID, 60 tab, Substitution Allowed, TAB [facility] aspirin 81 mg tablet, enteric coated 2013-07-18 15:29:49 Yes Home Amauri Daniel 81 mg, 1 tab, PO, Daily, 30 tab, Substit ution Allowed, ECTAB [facility] 2013-07-18 02:00:00 No Home Amauri Daniel 6.25 mg, 2 tab, Route: PO, Drug form: TAB, Q12H, Dosing Weight 91.818, kg, Start date: 07/17/13 21:00:00, Duration: 30 day, Stop date: 08/16/13 9:00:00 [facility] glipiZIDE 2013-07-17 14:49:00 No Home Amauri Daniel 2.5 mg, 1 tab, Route: PO, Drug form: ERTAB, Daily, Dosing Weight 91.818, kg, Priority: NOW, Start date: 07/17/13 9:49:00, Duration: 30 day, Stop date: 08/16/13 9:00:00 [facility] pneumococcal 23-valent vaccine 2013-07-17 14:00:00 No S YSTEM SYSTEM 0.5 ml, Route: IM, Drug Form: INJ, Daily, Start date: 07/17/13 9:00:00, Duration: 1 doses or times, Stop date: 07/17/13 9:00:00 [facility] furosemide 2013-07-17 14:00:00 No Home Amauri Daniel 40 mg, 4 mL, Route: IVP, Drug form: INJ, BID, Dosing Weight 91.818, kg, Start date: 07/17/13 9:00:00, Duration: 30 day, Stop date: 08/15/13 17:00:00 [facility] aspirin 81 mg tablet, enteric coated 2013-07-17 14:00:00 No Home Amauri Daniel 81 mg, 1 tab, [place]: PO, Drug form: ECTAB, Daily, Dosing Weight 91.818, kg, Start date: 07/17/13 9:00:00, Duration: 30 day, Stop date: 08/15/13 9:00:00 [facility] Saline Flush 0.9% 2013-07-17 02:00:00 No Home Amauri M ok 5 ml, Route: IVP, Drug Form: INJ, Dosing Weight 91.818, kg, Q12H, Start date: 07/16/13 21:00:00, Duration: 30 day, Stop date: 08/15/13 9:00:00 [facility] nitroglycerin 0.4 mg sublingual tablet 2013-07-16 23:27:00 No Home Amauri Daniel 0.4 mg, 1 tab, R oute: SL, Drug form: TAB, Q5Min, PRN Chest Pain, Start date: 07/16/13 18:27:00, Duration: 30 day, Stop date: 08/15/13 18:26:00 [facility] atropine 2013-07-16 23:27:00 No Home Amauri Daniel 0.5 mg, 5 mL, Route: IVP, Drug form: INJ, PRN, PRN Bradycardia, Start date: 07/16/13 18:27:00, Duration: 30 day, Stop date: 08/15/13 18:26:00 [facility] lisinopril 2013-07-16 23:14:00 No Kun Cassius Jacobo 5 mg, 1 tab, Route: PO, Drug form: TAB, Daily, Dosing Weight 91.818, kg, Priority: NOW, Start date: 07/16/13 18:14:00, Duration: 30 day, Stop date: 08/15/13 9:00:00 [facility] temazepam 2013-07-16 23:11:00 No Home Amauri Daniel 15 mg, 1 cap, Route: PO, Drug form: CAP, Bedtime, Dosing Weight 91.818, kg, PRN Insomnia, Start date: 07/16/13 18:11:00, Duration: 30 day, Stop date: 08/15/13 18:10:00 [facility] ondansetron 2013-07-16 23:11:00 No Home Amauri Daniel 4 mg, 2 mL, Route: IVP, Drug form: INJ, Q8H, Dosing Weight 91.818, kg, PRN Nausea & Vomiting, Start date: 07/16/13 18:11:00, Duration: 30 day, Stop date: 08/15/13 18:10:00 [facility] Saline Flush 0.9% 2013-07-16 23:11:00 No Home Amauri M ok 5 ml, Route: IVP, Drug Form: INJ, Dosing Weight 91.818, kg, PRN, PRN Line Flush, Start date: 07/16/13 18:11:00, Duration: 30 day, Stop date: 08/15/13 18:10:00 [facility] Enalapril Maleate 20 Mg Tablet Enalapril Maleate 20 Mg Tablet Yes 20 Twice A Day [facility] Metformin Hcl 1,000 Mg Tablet Metformin Hcl 1,000 Mg Tablet Yes 1000 Twice A Day [facility] Sitagliptin Phosphate (Januvia) 100 Mg Tablet Sitaglip tin Phosphate (Januvia) 100 Mg Tablet Yes 100 Daily [facility] Vital Signs Vital Name Observation Time Observation Value Comments Source Diastolic (mm Hg) 2013-07-18 17:00:00 Mem [facility] Respitory Rate 2013-07-18 17:00:00 Memori al [facility] Temperature Oral (F) 2013-07-18 17:00:00 99.1 F [facility] Heart Rate 2013-07-18 17:00:00 [facility] Systolic (mm Hg) 2013-07-18 17:00:00 Giovanni rial Conway Respitory Rate 2013-07-18 15:47:00 Memori al [facility] Respitory Rate 2013-07-18 13:00:00 Memori al [facility] Systolic (mm Hg) 2013-07-18 13:00:00 Giovanni rial Conway Diastolic (mm Hg) 2013-07-18 13:00:00 Mem orial [facility] Heart Rate 2013-07-18 13:00:00 [facility] Temperature Oral (F) 2013-07-18 13:00:00 98.5 F [facility] Diastolic (mm Hg) 2013-07-18 09:38:00 Mem o[facility] Heart Rate 2013-07-18 09:38:00 [facility] Temperature Oral (F) 2013-07-18 09:38:00 98.4 F [facility] Systolic (mm Hg) 2013-07-18 09:38:00 Giovanni feliciano [place] Weight 2013-07-16 22:24:00 [facility] Height 2013-07-16 22:24:00 170.18 cm [facility] Procedures This patient has no known procedures. Encounters Start Date/Time End Date/Time Encounter Type Admission Type [facility] Care Department Encounter ID Source 2019-09-13 09:24:00 2019-09-16 09:55:00 Discharged Inpatient 1 SHOSHANA SANCHEZ [facility] [id number] [facility] 2018-07-19 20:06:00 2018-07-20 14:30:00 Discharged Inpatient (obs) 1 BHARAT VELIZ [facility] [id number] [facility] 2017-10-22 08:30:00 2017-10-22 23:59:00 Outpatient Nolberto Baltazar [facility]IP [facility] [id number] Results Test Description Test Time Test Comments Results Result Comments Source CHEST SINGLE (PORTABLE) 2020-06-28 17:27:00 [facility] [address] [place] [address] Patient Name: MICHELLE LY MR #: [id number] : 1950 Age/Sex: 69/M Req #: [id number] Adm Physician: Ordered by: SANTA CORONA DO Report #: [id number] Location: ER Room/Bed: Procedure: [id number] DX/CHEST SINGLE (PORTABLE) Exam Date: 06/28/20 Exam Time: 1650 REPORT STATUS: Signed EXAMINATION: CHEST SINGLE (PORTABLE) INDICATION: Chest pain COMPARISON: Chest x-ray on 09/13/2019. FINDINGS: TUBES and LINES: None. LUNGS: Normal lung volumes. There are prominent interstitial lung markings and patchy airspace opacification of the lung bases, right more to left. PLEURA: No pleural effusion or pneumothorax. HEART AND MEDIASTINUM: The cardiomediastinal silhouette is enlarged. BONES AND SOFT TISSUES: No acute osseous lesion. Soft tissues are unremarkable. UPPER ABDOMEN: No free air under the diaphragm. IMPRESSION: 1. Cardiomegaly with pulmonary vascular congestion. 2. Patchy opacification of the bilateral lung bases, right more to left, may represent atelectasis and/or developing pneumonia in the proper clinical setting. Signed by: Myles Rees MD on 06/28/2020 5:32 PM Dictated By: MYLES REES MD 31 Transcribed By: SERAFIN on 06/28/201731 COPY TO: SANTA CORONA DO GLUBED 2020-06-17 10:31:00 Test Item GLUBED (test code = GLUBED) 120 mg/dL 74-106 H Performed by certified guyline operator at [facility] Novel Coronavirus [id number] 10:06:00* Test Item Value Reference Range Interpretation Comments Novel Coronavirus 2019 Inhouse (test code = [id number]) Negative Negative Positive results are indicative of the presence [id number]-[id number]-4 RNA, clinical correlation with patient historyand other diagnostic information is necessary to determinepatient infection status. Positive results do not rule outbacterial infection or co-infection with other viruses. Negative results do not preclude SARS-CoV-2 infection andshould not be used as the sole basis for patient managementdecisions. Negative results must be combined with otherclinical observations, patient history, and epidemiologicalinformation. Detection of SARS-CoV-2 RNA may be affected bysample collection methods, storage conditions, and/or stageof infection. Viral RNA mutations, vaccinations, antiviraltherapeutics, antibiotics, chemotherapeutic orimmunosuppressant drugs have not been evaluated for effectson detection. Results are for the identification of SARS-CoV-2 RNA usingthe Seo M2000 System under the FDA Emergency UseAuthorization. The testing is performed by personneltrained in the procedures for the Seo M2000 moleculardiagnostic SARS-CoV-2 assay in vitro. Novel Coronavirus [id number] 10:06:00* Test Item Value Reference Range Interpretation Comments Novel Coronavirus 2019 Inhouse (test code = [id number]) Negative Negative Positive results are indicative of the presence gsIXDY-KyW-1 RNA, clinical correlation with patient historyand other diagnostic information is necessary to determinepatient infection status. Positive results do not rule outbacterial infection or co-infection with other viruses. Negative results do not preclude SARS-CoV-2 infection andshould not be used as the sole basis for patient managementdecisions. Negative results must be combined with otherclinical observations, patient history, and epidemiologicalinformation. Detection of SARS-CoV-2 RNA may be affected bysample collection methods, storage conditions, and/or stageof infection. Viral RNA mutations, vaccinations, antiviraltherapeutics, antibiotics, chemotherapeutic orimmunosuppressant drugs have not been evaluated for effectson detection. Results are for the identification of SARS-CoV-2 RNA usingthe Seo M2000 System under the FDA Emergency UseAuthorization. The testing is performed by personneltrained in the procedures for the Seo M2000 moleculardiagnostic SARS-CoV-2 assay in vitro. BASIC METABOLIC [id number] 12:00:00* Test Item Value Reference Range Interpretation Comments SODIUM (test code = NA) 136 mmol/L 136-145 N POTASSIUM (test code = K) 4.6 mmol/L 3.5-5.1 N CHLORIDE (test code = CL) 102.0 mmol/L 98-107 N CARBON DIOXIDE (test code = CO2) 28.0 mmol/L 21-32 N ANION GAP (test code = GAP) 10.6 10-20 N GLUCOSE (test code = GLU) 114 mg/dL 74-106 H BLOOD UREA NITROGEN (test code = BUN) 29 mg/dL 7-18 H GLOMERULAR FILTRATION RATE (test code = GFR) 55 mL/min >=60 Estimated GFR by using Modified MDRD formula.Chronic kidney disease is defined as either kidney damageor GFR <60 mL/min/1.73 m2 for >3 months. CREATININE (test code = CREAT) 1.30 mg/dL 0.7-1.3 N BUN/CREATININE RATIO (test code = BUN/CREA) 23.0 10-20 H CALCIUM (test code = CA) 9.9 mg/dL 8.5-10.1 N LIPID PROFILE (CORONARY RISK)2020-06-13 12:00:00* Test Item Value Reference Range Interpretation Comments TRIGLYCERIDES (test code = TRIG) 256 mg/dL 20-150 H CHOLESTEROL (test code = CHOL) 166 mg/dL 0-200 N CHOLESTEROL/HDL RATIO (test code = CHOLHDL) 4.0 RATIO 0-4.9 N RISK ASSOCIATED WITH CHOL/HDL RATIOS: Risk Male Female1/2 AVERAGE 3.43 3.27AVERAGE 4.97 4.442X AVERAGE 9.55 7.053X AVERAGE 23.39 11.04 REFERENCE VALUE IS RELATED TO RISK LEVELS ASRECOMMENDED BY THE KELLE. HEART, LUNG, AND BLOOD INST. HDL CHOLESTEROL (test code = HDL) 40 mg/dL 40-60 N LIPOPROTEIN LDL (test code = LDL) 100 mg/dL 100-129 N Reference Interval: mg/dL mmol/L Optimal <100 <2.6Near/above optimal 100-129 2.6- 3.3Borderline High 130-159 3.4-4.1High 160-189 4.1-4.9Very High >=190 >=4.9========= This LDL result is a direct measurement.========= BASIC METABOLIC [id number] 11:48:00* Test Item Value Reference Range Interpretation Comments SODIUM (test code = NA) 136 mmol/L 136-145 N POTASSIUM (test code = K) 4.6 mmol/L 3.5-5.1 N CHLORIDE (test code = CL) 102.0 mmol/L 98-107 N CARBON DIOXIDE (test code = CO2) mmol/L 21-32 ANION GAP (test code = GAP) 10-20 GLUCOSE (test code = GLU) mg/dL 74-106 BLOOD UREA NITROGEN (test code = BUN) mg/dL 7-18 GLOMERULAR FILTRATION RATE (test code = GFR) mL/min >=60 CREATININE (test code = CREAT) mg/dL 0.7-1.3 BUN/CREATININE RATIO (test code = BUN/CREA) 10-20 CALCIUM (test code = CA) mg/dL 8.5-10.1 LIPID PROFILE (CORONARY RISK)2020-06-13 11:48:00* Test Item Value Reference Range Interpretation Comments TRIGLYCERIDES (test code = TRIG) mg/dL 20-150 CHOLESTEROL (test code = CHOL) mg/dL 0-200 CHOLESTEROL/HDL RATIO (test code = CHOLHDL) RATIO 0-4.9 HDL CHOLESTEROL (test code = HDL) mg/dL 40-60 LIPOPROTEIN LDL (test code = LDL) mg/dL 100-129 PROTHROMBIN [id number] 11:37:00* Test Item Value Reference Range Interpretation Comments PROTHROMBIN TIME PATIENT (test code = PTP) 11.9 seconds 9.0-14.0 N INTERNATIONAL NORMAL RATIO (test code = INR) 1.0 0.8-1.2 N The therapeutic range for oral anticoagulant therapy formost indications is an international normalized ratio (INR)of between 2.0 and 3.0. The recommended therapeutic INRrange for various clinical situations is listed below: Clinical Situation INR range Pulmonary e mbolism treatment (2.0-3.0)Venous thrombosis treatmentVenous thrombosis prophylaxis (high risk surgery)Prevention of systemic embolism from: Acute myocardial infarction Valvular heart disease Atrial fibrillation Mechanical prosthetic heart valves (2.5-3.5) IS PATIENT ON ANTICOAGULANTS? NTHROMBOPLASTIN TIME [id number] 11:37:00* Test Item Value Reference Range Interpretation Comments THROMBOPLASTIN TIME PARTIAL (test code = PTT) 34.5 seconds 23.0-37. 0 N IS PATIENT ON ANTICOAGULANTS? NCBC W/AUTO [id number] 11:28:00* Test Item Value Reference Range Interpretation Comments WHITE BLOOD CELL (test code = WBC) 8.2 K/mm3 4.5-12.5 N RED BLOOD CELL (test code = RBC) 4.31 mill/mm3 4.0-5.8 N HEMOGLOBIN (test code = HGB) 13.4 gram/dL 13.0-17.5 N HEMATOCRIT (test code = HCT) 40.0 % 42.0-52.0 L MEAN CELL VOLUME (test code = MCV) 92.8 fL 80-98 N MEAN CELL HGB (test code = MCH) 31.1 picogram 27.0-33.0 N MEAN CELL HGB CONCETRATION (test code = MCHC) 33.5 gram/dL 33.0-36. 0 N RED CELL DISTRIBUTION WIDTH (test code = RDW) 12.6 % 11.6-16. 2 N RED CELL DISTRIBUTION WIDTH SD (test code = RDW-SD) 42.7 fL 37 .0-51.0 N PLATELET COUNT (test code = PLT) 258 K/mm3 150-450 N MEAN PLATELET VOLUME (test code = MPV) 9.9 fL 6.7-11.0 N NEUTROPHIL % (test code = NT%) 66.1 % 39.0-69.0 N IMMATURE GRANULOCYTE % (test code = IG%) 0.4 % 0.0-5.0 N LYMPHOCYTE % (test code = LY%) 21.3 % 25.0-55.0 L MONOCYTE % (test code = MO%) 8.9 % 0.0-10.0 N EOSINOPHIL % (test code = EO%) 2.9 % 0.0-5.0 N BASOPHIL % (test code = BA%) 0.4 % 0.0-1.0 N NUCLEATED RBC % (test code = NRBC%) 0.0 % 0-0 N NEUTROPHIL # (test code = NT#) 5.39 K/mm3 1.8-7.7 N IMMATURE GRANULOCYTE # (test code = IG#) 0.03 x10 3/uL 0-0.03 N LYMPHOCYTE # (test code = LY#) 1.74 K/mm3 1.0-5.0 N MONOCYTE # (test code = MO#) 0.73 K/mm3 0-0.8 N EOSINOPHIL # (test code = EO#) 0.24 K/mm3 0.0-0.5 N BASOPHIL # (test code = BA#) 0.03 K/mm3 0.0-0.2 N NUCLEATED RBC # (test code = NRBC#) 0.00 K/mm3 0.0-0.1 N CBC W/AUTO [id number] 11:26:00* Test Item Value Reference Range Interpretation Comments WHITE BLOOD CELL (test code = WBC) K/mm3 4.5-12.5 RED BLOOD CELL (test code = RBC) mill/mm3 4.0-5.8 HEMOGLOBIN (test code = HGB) 13.4 gram/dL 13.0-17.5 N HEMATOCRIT (test code = HCT) % 42.0-52.0 MEAN CELL VOLUME (test code = MCV) fL 80-98 MEAN CELL HGB (test code = MCH) picogram 27.0-33.0 MEAN CELL HGB CONCETRATION (test code = MCHC) gram/dL 33.0-36. 0 RED CELL DISTRIBUTION WIDTH (test code = RDW) % 11.6-16. 2 RED CELL DISTRIBUTION WIDTH SD (test code = RDW-SD) fL 37 .0-51.0 PLATELET COUNT (test code = PLT) 258 K/mm3 150-450 N MEAN PLATELET VOLUME (test code = MPV) fL 6.7-11.0 NEUTROPHIL % (test code = NT%) % 39.0-69.0 IMMATURE GRANULOCYTE % (test code = IG%) % 0.0-5.0 LYMPHOCYTE % (test code = LY%) % 25.0-55.0 MONOCYTE % (test code = MO%) % 0.0-10.0 EOSINOPHIL % (test code = EO%) % 0.0-5.0 BASOPHIL % (test code = BA%) % 0.0-1.0 NEUTROPHIL # (test code = NT#) K/mm3 1.8-7.7 LYMPHOCYTE # (test code = LY#) K/mm3 1.0-5.0 MONOCYTE # (test code = MO#) K/mm3 0-0.8 EOSINOPHIL # (test code = EO#) K/mm3 0.0-0.5 BASOPHIL # (test code = BA#) K/mm3 0.0-0.2 - XR CHEST 2 [id number] 10:23:00 FAX: Carroll Block MD [phone] Paul: O St: PRE FAX: Michael Kemp MD [phone] Name: MALACHIMICHELLE [facility] : 1950 Age/S: 69/M [address] [facility] Unit #: [id number] Loc: [place] [address] Phys: Michael Brambila MD Acct: [id number] Dis Date: Status: [place] [facility] [place] #: [phone] Exam Date: 06/13/2020 1020 FAX #: [phone] Reason: PRE OP EXAMS: CPT CODE: [id number] XR CHEST 2 V 28577 HISTORY: Preop. COMPARISON: Chest x-ray from October 20, 2019. Location: [facility]. AP and lateral view of the chest: No acute infiltrates, effusion or congestion. Cardiomegaly. DJD of the dorsal spine. IMPRESSION: No acute infiltrates, effusion or congestion. at 1023 Reported and signed by: Kunal Joyner M.D. CC: Carroll Valverde MD; Michael Lyn Technologist: RT Niki(R) Trnscrd Date/Time/By: 06/13/2020 (1023) : By: [email or web address] Orig Print D/T: S: 06/13/2020 (6742) PAGE 1 Signed Report [id number] 10:43:00* Test Item Value Reference Range Interpretation Comments GLUBED (test code = GLUBED) 179 MG/DL 70-110 H Performed by certified guyline operator at [facility] BASIC METABOLIC [id number] 09:49:00* Test Item Value Reference Range Interpretation Comments SODIUM (test code = NA) 134 mEq/L 134-147 N POTASSIUM (test code = K) 4.1 mEq/L 3.4-5.0 N CHLORIDE (test code = CL) 104 mEq/L 100-108 N CARBON DIOXIDE (test code = CO2) 24 mEq/L 21-33 N ANION GAP (test code = GAP) 10 0-20 N GLUCOSE (test code = GLU) 232 mg/dL 70-110 H BLOOD UREA NITROGEN (test code = BUN) 18 mg/dL 7-18 N GLOMERULAR FILTRATION RATE (test code = GFR) 74.5 80-90 L Units of measure = ml/min/1.73 m2 CREATININE (test code = CREAT) 1.0 mg/dL 0.6-1.3 N CALCIUM (test code = CA) 8.7 mg/dL 8.0-10.5 N [id number] 07:56:00* Test Item Value Reference Range Interpretation Comments GLUBED (test code = GLUBED) 119 MG/DL 70-110 H Performed by certified guyline operator at [facility] [id number] 21:55:00* Test Item Value Reference Range Interpretation Comments GLUBED (test code = GLUBED) 180 MG/DL 70-110 H Performed by certified guyline operator at [facility] [id number] 08:51:00* Test Item Value Reference Range Interpretation Comments GLUBED (test code = GLUBED) 122 MG/DL 70-110 H Performed by certified guyline operator at [facility] - XR CHEST 2 [id number] 09:28:00 FAX: Michael Kemp MD [phone] Paul: St: PRE Name: MICHELLE LEES [facility] Maxwell Pierre : [birth year] Age/S: 69/M [address] [place] [address] Blvd Unit #: [id number] Loc: [place] [address] Phys: Michael Brambila MD Acct: [id number] Dis Date: Status: PRE SDC PHONE #: [phone] Exam Date: 10/20/2019 0859 FAX #: [phone] Reason: PREOP PCI LAD AND CIR EXAMS: CPT CODE: [id number] XR CHEST 2 V 51931 CHEST RADIOGRAPHS - PA AND LATERAL: COMPARISON: September 22, 2019 CLINICAL HISTORY: PREOP PCI LAD AND CIR Cardiomediastinal silhouette is borderline in size. Lungs are clear. No vascular congestion or p neumothorax. Spondylotic changes are present in the thoracic spin e and lumbar spine. IMPRESSION: No acut e pulmonary abnormality. at 0928 Reported and signed by: Bhavesh pierre M.D. CC: Michael Brambila MD Technologist: Hattie Ivan, RT(R) T rnscrd Date/Time/By: 10/20/2019 (927) : By: [email or web address] Orig Print D/T: S: 10/20/2019 (4808) PAGE 1 Sign ed Report PROTHROMBIN [id number] 09:26:00* Test Item Value Reference Range Interpretation Comments PROTHROMBIN TIME PATIENT (test code = PTP) 11.8 SECONDS 9.3-12.9 N INTERNATIONAL NORMAL RATIO (test code = INR) 1.1 0.8-1.2 N TARGET INR BY INDICATION Indication INR1. Prophylaxis of venous thrombosis 2.0 - 3.0 (orthopedic surgery), Prophylaxis of venous thrombosis (other than high-risk surgery), Treatment of Deep Vein Thrombosis/Pulmonary Embolism, Prevention of systemic embolism - Tissue heart valves, Acute Myocardial Infarction (to prevent systemic embolism), Valvular heart disease, Atrial Fibrillation, Bileaflet mechanical valve in aortic position.2. Mechanical prosthetic valves (high risk), 2.5 - 3.5 Presence of Lupus Anticoagulant or Antiphospholipid Antibodies, Prevention of systemic embolism - Acute Myocardial Infarction (to prevent recurrent infarct). BASIC METABOLIC [id number] 09:25:00* Test Item Value Reference Range Interpretation Comments SODIUM (test code = NA) 140 mEq/L 134-147 N POTASSIUM (test code = K) 3.9 mEq/L 3.4-5.0 N CHLORIDE (test code = CL) 105 mEq/L 100-108 N CARBON DIOXIDE (test code = CO2) 30 mEq/L 21-33 N ANION GAP (test code = GAP) 9 0-20 N GLUCOSE (test code = GLU) 87 mg/dL 70-110 N BLOOD UREA NITROGEN (test code = BUN) 26 mg/dL 7-18 H GLOMERULAR FILTRATION RATE (test code = GFR) 66.8 80-90 L Units of measure = ml/min/1.73 m2 CREATININE (test code = CREAT) 1.1 mg/dL 0.6-1.3 N CALCIUM (test code = CA) 9.7 mg/dL 8.0-10.5 N BASIC METABOLIC [id number] 09:16:00* Test Item Value Reference Range Interpretation Comments SODIUM (test code = NA) 140 mEq/L 134-147 N POTASSIUM (test code = K) 3.9 mEq/L 3.4-5.0 N CHLORIDE (test code = CL) 105 mEq/L 100-108 N CARBON DIOXIDE (test code = CO2) 30 mEq/L 21-33 N ANION GAP (test code = GAP) 9 0-20 N GLUCOSE (test code = GLU) 87 mg/dL 70-110 N BLOOD UREA NITROGEN (test code = BUN) 26 mg/dL 7-18 H GLOMERULAR FILTRATION RATE (test code = GFR) 80-90 CREATININE (test code = CREAT) mg/dL 0.6-1.3 CALCIUM (test code = CA) 9.7 mg/dL 8.0-10.5 N CBC W/AUTO [id number] 09:06:00* Test Item Value Reference Range Interpretation Comments WHITE BLOOD CELL (test code = WBC) 5.27 x10 3/uL 4.5-11.0 N RED BLOOD CELL (test code = RBC) 4.76 x10 6/uL 4.00-5.60 N HEMOGLOBIN (test code = HGB) 14.5 g/dL 12.5-16.9 N HEMATOCRIT (test code = HCT) 43.7 % 37.5-50.7 N MEAN CELL VOLUME (test code = MCV) 91.8 fL 81.0-99.0 N MEAN CELL HGB (test code = MCH) 30.5 pg 27.0-33.0 N MEAN CELL HGB CONCETRATION (test code = MCHC) 33.2 g/dL 33.0-37. 0 N RED CELL DISTRIBUTION WIDTH CV (test code = RDW) 12.2 % 11.5- 14.5 N RED CELL DISTRIBUTION WIDTH SD (test code = RDW-SD) 40.8 fL 37 .0-54.0 N PLATELET COUNT (test code = PLT) 187 x10 3/uL 150-400 N MEAN PLATELET VOLUME (test code = MPV) 9.8 fL 7.0-9.0 H NEUTROPHIL % (test code = NT%) 59.2 % 56.0-77.0 N IMMATURE GRANULOCYTE % (test code = IG%) 0.4 % 0.0-2.0 N LYMPHOCYTE % (test code = LY%) 27.3 % 14.0-32.0 N MONOCYTE % (test code = MO%) 8.9 % 4.8-9.0 N EOSINOPHIL % (test code = EO%) 3.4 % 0.3-3.7 N BASOPHIL % (test code = BA%) 0.8 % 0.0-2.0 N NUCLEATED RBC % (test code = NRBC%) 0.0 % 0-0 N NEUTROPHIL # (test code = NT#) 3.12 x10 3/uL 2.0-7.6 N IMMATURE GRANULOCYTE # (test code = IG#) 0.02 x10 3/uL 0.00-0.03 N LYMPHOCYTE # (test code = LY#) 1.44 x10 3/uL 1.0-3.8 N MONOCYTE # (test code = MO#) 0.47 x10 3/uL 0.1-0.8 N EOSINOPHIL # (test code = EO#) 0.18 x10 3/uL 0.0-0.2 N BASOPHIL # (test code = BA#) 0.04 x10 3/uL 0.0-0.2 N NUCLEATED RBC # (test code = NRBC#) 0.00 x10 3/uL 0.0-0.1 N MANUAL DIFF REQUIRED (test code = MDIFF) NO [id number] 09:35:00* Test Item Value Reference Range Interpretation Comments GLUBED (test code = GLUBED) 226 MG/DL 70-110 H Performed by certified guyline operator at [facility] BASIC METABOLIC [id number] 04:56:00* Test Item Value Reference Range Interpretation Comments SODIUM (test code = NA) 138 mEq/L 134-147 N POTASSIUM (test code = K) 4.0 mEq/L 3.4-5.0 N CHLORIDE (test code = CL) 110 mEq/L 100-108 H CARBON DIOXIDE (test code = CO2) 24 mEq/L 21-33 N ANION GAP (test code = GAP) 8 0-20 N GLUCOSE (test code = GLU) 124 mg/dL 70-110 H BLOOD UREA NITROGEN (test code = BUN) 22 mg/dL 7-18 H GLOMERULAR FILTRATION RATE (test code = GFR) 84.2 80-90 N Units of measure = ml/min/1.73 m2 CREATININE (test code = CREAT) 0.9 mg/dL 0.6-1.3 N CALCIUM (test code = CA) 8.3 mg/dL 8.0-10.5 N CBC W/AUTO [id number] 04:43:00* Test Item Value Reference Range Interpretation Comments WHITE BLOOD CELL (test code = WBC) 5.40 x10 3/uL 4.5-11.0 N RED BLOOD CELL (test code = RBC) 4.15 x10 6/uL 4.00-5.60 N HEMOGLOBIN (test code = HGB) 12.7 g/dL 12.5-16.9 N HEMATOCRIT (test code = HCT) 38.5 % 37.5-50.7 N MEAN CELL VOLUME (test code = MCV) 92.8 fL 81.0-99.0 N MEAN CELL HGB (test code = MCH) 30.6 pg 27.0-33.0 N MEAN CELL HGB CONCETRATION (test code = MCHC) 33.0 g/dL 33.0-37. 0 N RED CELL DISTRIBUTION WIDTH CV (test code = RDW) 12.6 % 11.5- 14.5 N RED CELL DISTRIBUTION WIDTH SD (test code = RDW-SD) 43.0 fL 37 .0-54.0 N PLATELET COUNT (test code = PLT) 169 x10 3/uL 150-400 N MEAN PLATELET VOLUME (test code = MPV) 10.0 fL 7.0-9.0 H NEUTROPHIL % (test code = NT%) 59.4 % 56.0-77.0 N IMMATURE GRANULOCYTE % (test code = IG%) 0.2 % 0.0-2.0 N LYMPHOCYTE % (test code = LY%) 27.6 % 14.0-32.0 N MONOCYTE % (test code = MO%) 8.9 % 4.8-9.0 N EOSINOPHIL % (test code = EO%) 3.3 % 0.3-3.7 N BASOPHIL % (test code = BA%) 0.6 % 0.0-2.0 N NUCLEATED RBC % (test code = NRBC%) 0.0 % 0-0 N NEUTROPHIL # (test code = NT#) 3.21 x10 3/uL 2.0-7.6 N IMMATURE GRANULOCYTE # (test code = IG#) 0.01 x10 3/uL 0.00-0.03 N LYMPHOCYTE # (test code = LY#) 1.49 x10 3/uL 1.0-3.8 N MONOCYTE # (test code = MO#) 0.48 x10 3/uL 0.1-0.8 N EOSINOPHIL # (test code = EO#) 0.18 x10 3/uL 0.0-0.2 N BASOPHIL # (test code = BA#) 0.03 x10 3/uL 0.0-0.2 N NUCLEATED RBC # (test code = NRBC#) 0.00 x10 3/uL 0.0-0.1 N MANUAL DIFF REQUIRED (test code = MDIFF) NO [id number] 20:54:00* Test Item Value Reference Range Interpretation Comments GLUBED (test code = GLUBED) 250 MG/DL 70-110 H Performed by certified guyline operator at [facility] [id number] 15:13:00* Test Item Value Reference Range Interpretation Comments GLUBED (test code = GLUBED) 144 MG/DL 70-110 H Performed by certified guyline operator at [facility] [id number] 09:01:00* Test Item Value Reference Range Interpretation Comments GLUBED (test code = GLUBED) 128 MG/DL 70-110 H Performed by certified guyline operator at [facility] - XR CHEST 2 [id number] 10:59:00 FAX: Michael Kemp MD [phone] Paul: St: PRE Name: MICHELLE LEES [facility] : [birth year] 54 Age/S: 69/M [address] [place] [address] Unit #: [id number] Loc: [place] [address] Phys: Michael Brambila MD Acct: [id number] Dis Date: Status: PRE SDC PHONE #: [phone] Exam Date: 09/22/20191050 FAX #: [phone] Reason: PRE-OP PCI EXAMS: CPT CODE: [id number] XR CHEST 2 V [id number] EXAM: PA and lateral chest. EXAM DATE: September 22, 2019 CLINICAL HISTORY: PRE-OP PCI COMPARISON: June 05, 2012 Cardiomegaly is noted i ncreased since the prior exam.. The lungs appear free of acute disease. Degenerative changes are identified in the intrathoracic spine. IMPRESSION: Progressive cardiomegaly. No acute findings are identi fied. at 1058 Reported and signed by: Haritha Baltazar M.D. CC: Felice Brambila MD Technologist: Taylor alvarado RT(R)(M) Trnscrd Date/Time/By: 09/22/2019 (0743 ) : By: Ary Orig Print D/T: S: 09/22/2019 (1979) PAGE 1 Signed Report BASIC METABOLIC [id number] 10:13:00* Test Item Value Reference Range Interpretation Comments SODIUM (test code = NA) 137 mEq/L 134-147 N POTASSIUM (test code = K) 4.7 mEq/L 3.4-5.0 N CHLORIDE (test code = CL) 104 mEq/L 100-108 N CARBON DIOXIDE (test code = CO2) 29 mEq/L 21-33 N ANION GAP (test code = GAP) 9 0-20 N GLUCOSE (test code = GLU) 106 mg/dL 70-110 N BLOOD UREA NITROGEN (test code = BUN) 30 mg/dL 7-18 H GLOMERULAR FILTRATION RATE (test code = GFR) 55.1 80-90 L Units of measure = ml/min/1.73 m2 CREATININE (test code = CREAT) 1.3 mg/dL 0.6-1.3 N CALCIUM (test code = CA) 9.3 mg/dL 8.0-10.5 N BASIC METABOLIC [id number] 10:09:00* Test Item Value Reference Range Interpretation Comments SODIUM (test code = NA) 137 mEq/L 134-147 N POTASSIUM (test code = K) 4.7 mEq/L 3.4-5.0 N CHLORIDE (test code = CL) 104 mEq/L 100-108 N CARBON DIOXIDE (test code = CO2) 29 mEq/L 21-33 N ANION GAP (test code = GAP) 9 0-20 N GLUCOSE (test code = GLU) 106 mg/dL 70-110 N BLOOD UREA NITROGEN (test code = BUN) 30 mg/dL 7-18 H GLOMERULAR FILTRATION RATE (test code = GFR) 80-90 CREATININE (test code = CREAT) mg/dL 0.6-1.3 CALCIUM (test code = CA) 9.3 mg/dL 8.0-10.5 N PROTHROMBIN [id number] 10:03:00* Test Item Value Reference Range Interpretation Comments PROTHROMBIN TIME PATIENT (test code = PTP) 11.7 SECONDS 9.3-12.9 N INTERNATIONAL NORMAL RATIO (test code = INR) 1.1 0.8-1.2 N TARGET INR BY INDICATION Indication INR1. Prophylaxis of venous thrombosis 2.0 - 3.0 (orthopedic surgery), Prophylaxis of venous thrombosis (other than high-risk surgery), Treatment of Deep Vein Thrombosis/Pulmonary Embolism, Prevention of systemic embolism - Tissue heart valves, Acute Myocardial Infarction (to prevent systemic embolism), Valvular heart disease, Atrial Fibrillation, Bileaflet mechanical valve in aortic position.2. Mechanical prosthetic valves (high risk), 2.5 - 3.5 Presence of Lupus Anticoagulant or Antiphospholipid Antibodies, Prevention of systemic embolism - Acute Myocardial Infarction (to prevent recurrent infarct). CBC W/AUTO [id number] 09:56:00* Test Item Value Reference Range Interpretation Comments WHITE BLOOD CELL (test code = WBC) 5.56 x10 3/uL 4.5-11.0 N RED BLOOD CELL (test code = RBC) 4.88 x10 6/uL 4.00-5.60 N HEMOGLOBIN (test code = HGB) 14.8 g/dL 12.5-16.9 N HEMATOCRIT (test code = HCT) 45.5 % 37.5-50.7 N MEAN CELL VOLUME (test code = MCV) 93.2 fL 81.0-99.0 N MEAN CELL HGB (test code = MCH) 30.3 pg 27.0-33.0 N MEAN CELL HGB CONCETRATION (test code = MCHC) 32.5 g/dL 33.0-37. 0 L RED CELL DISTRIBUTION WIDTH CV (test code = RDW) 12.3 % 11.5- 14.5 N RED CELL DISTRIBUTION WIDTH SD (test code = RDW-SD) 42.9 fL 37 .0-54.0 N PLATELET COUNT (test code = PLT) 248 x10 3/uL 150-400 N MEAN PLATELET VOLUME (test code = MPV) 9.7 fL 7.0-9.0 H NEUTROPHIL % (test code = NT%) 56.6 % 56.0-77.0 N IMMATURE GRANULOCYTE % (test code = IG%) 0.5 % 0.0-2.0 N LYMPHOCYTE % (test code = LY%) 26.4 % 14.0-32.0 N MONOCYTE % (test code = MO%) 11.5 % 4.8-9.0 H EOSINOPHIL % (test code = EO%) 4.1 % 0.3-3.7 H BASOPHIL % (test code = BA%) 0.9 % 0.0-2.0 N NUCLEATED RBC % (test code = NRBC%) 0.0 % 0-0 N NEUTROPHIL # (test code = NT#) 3.14 x10 3/uL 2.0-7.6 N IMMATURE GRANULOCYTE # (test code = IG#) 0.03 x10 3/uL 0.00-0.03 N LYMPHOCYTE # (test code = LY#) 1.47 x10 3/uL 1.0-3.8 N MONOCYTE # (test code = MO#) 0.64 x10 3/uL 0.1-0.8 N EOSINOPHIL # (test code = EO#) 0.23 x10 3/uL 0.0-0.2 H BASOPHIL # (test code = BA#) 0.05 x10 3/uL 0.0-0.2 N NUCLEATED RBC # (test code = NRBC#) 0.00 x10 3/uL 0.0-0.1 N MANUAL DIFF REQUIRED (test code = MDIFF) NO Bedside [id number] 07:38:00* Test Item Value Reference Range Interpretation Comments Bedside Glucose (test code = 77778-5) 144 70-120 H Meter ID: [id number] [facility] 2019-09-14 12:11:00* Test Item Value Reference Range Interpretation Comments Creatine Kinase MB (test code = 89790-2) 3.00 0-5.0 [facility] [id number] 12:11:00* Test Item Value Reference Range Interpretation Comments Troponin I (test code = MJP4147) < 0.001 0-0.300 [facility] CenterCreatine Cwolin5334-52-48 12:07:00* Test Item Value Reference Range Interpretation Comments Creatine Kinase (test code = 2157-6) 156 30-200 [facility] CenterTriglycerides Odxsf7245-10-47 05:28:00* Test Item Value Reference Range Interpretation Comments Triglycerides Level (test code = 2571-8) 108 0-149 [facility] CenterCholesterol Agwcw7615-96-57 05:28:00* Test Item Value Reference Range Interpretation Comments Cholesterol Level (test code = 2093-3) 188 0-199 Less than 200 mg/dL Low Hsas171 - 239 mg/dL Borderline Umdt158 m g/dl and greater High Risk [facility] CenterLDL Mtborocmyqo1882-21-92 05:28:00* Test Item Value Reference Range Interpretation Comments LDL Cholesterol (test code = 2089-1) 125 60-130 [facility] CenterHDL Myrozssgwwx6565-09-68 05:28:00* Test Item Value Reference Range Interpretation Comments HDL Cholesterol (test code = 2085-9) 41 40-60 [facility] CenterCholesterol/HDL Lraax3177-45-36 05:28:00 * Test Item Value Reference Range Interpretation Comments Cholesterol/HDL Ratio (test code = 9830-1) 4.6 3.9-4.7 [facility] CenterBlood Urea Vhelfqmp4816-64-92 05:27:00* Test Item Value Reference Range Interpretation Comments Blood Urea Nitrogen (test code = 3094-0) 22 7-26 [facility] CenterBUN/Creatinine Nagjw9046-29-80 05:27:00* Test Item Value Reference Range Interpretation Comments BUN/Creatinine Ratio (test code = 3097-3) 18 6-25 [facility] CenterAspartate Amino Transf (AST/SGOT) 2019-09-14 05:27:00* Test Item Value Reference Range Interpretation Comments Aspartate Amino Transf (AST/SGOT) (test code = Aspartate Amino Transf (AST/SGOT)) 41 5-34 H [facility] CenterAlanine Aminotransferase (ALT/SGPT) 2019-09-14 05:27:00* Test Item Value Reference Range Interpretation Comments Alanine Aminotransferase (ALT/SGPT) (test code = 1742-6) 70 0-55 H [facility] Uqkhq0810-88-36 05:02:00* Test Item Value Reference Range Interpretation Comments Sodium Level (test code = 2951-2) 138 136-145 [facility] CenterPotassium Ygirw5221-26-51 05:02:00* Test Item Value Reference Range Interpretation Comments Potassium Level (test code = 2823-3) 3.9 3.5-5.1 [facility] CenterChloride Obukk8948-48-48 05:02:00* Test Item Value Reference Range Interpretation Comments Chloride Level (test code = 2075-0) 102 98-107 [facility] CenterCarbon Dioxide Yofvq9366-15-00 05:02:00* Test Item Value Reference Range Interpretation Comments Carbon Dioxide Level (test code = 2028-9) 25 22-29 [facility] CenterAnion Jkz4340-57-04 05:02:00* Test Item Value Reference Range Interpretation Comments Anion Gap (test code = 12387-2) 14.9 8-16 [facility] CenterCreatinine2019-11-14 05:02:00* Test Item Value Reference Range Interpretation Comments Creatinine (test code = 2160-0) 1.19 0.72-1.25 [facility] CenterEstimat Glomerular Filtration Rate 2019-09-14 05:02:00* Test Item Value Reference Range Interpretation Comments Estimat Glomerular Filtration Rate (test code = 403350642) > 60 >60 Ranges were taken from the National Kidney Disease Education Program and the [facility]al Kidney Foundation literature.Reference ranges:60 or greater: Phrgrk40-04 ( for 3 consecutive months): Chronic kidney disease 15 or less: Kidney failureBrooke Army Medical CenterGlucose Bswjk3394-33-36 05:02:00* Test Item Value Reference Range Interpretation Comments Glucose Level (test code = UQI3558) 127 74-118 H [facility] CenterCalcium Hefqe9147-30-50 05:02:00* Test Item Value Reference Range Interpretation Comments Calcium Level (test code = 25542-3) 9.7 8.4-10.2 [facility] CenterTotal Qatvyafwe0443-25-49 05:02:00* Test Item Value Reference Range Interpretation Comments Total Bilirubin (test code = 1975-2) 0.5 0.2-1.2 [facility] CenterTotal Zcxobxm0417-25-17 05:02:00* Test Item Value Reference Range Interpretation Comments Total Protein (test code = 2885-2) 7.0 6.5-8.1 [facility] CenterAlbumin2019-11-14 05:02:00* Test Item Value Reference Range Interpretation Comments Albumin (test code = 1751-7) 3.6 3.5-5.0 [facility] CenterGlobulin2019-11-14 05:02:00* Test Item Value Reference Range Interpretation Comments Globulin (test code = 44814-5) 3.4 2.3-3.5 [facility] CenterAlbumin/Globulin Keqfa0094-45-50 05:02:00 * Test Item Value Reference Range Interpretation Comments Albumin/Globulin Ratio (test code = 1759-0) 1.1 0.8-2.0 [facility] CenterAlkaline Piznuttuymh3300-68-23 05:02:00* Test Item Value Reference Range Interpretation Comments Alkaline Phosphatase (test code = 6768-6) 81 40-150 [facility] CenterWhite Blood Vupmu2196-07-41 04:40:00* Test Item Value Reference Range Interpretation Comments White Blood Count (test code = 6690-2) 6.34 4.8-10.8 [facility] CenterRed Blood Bromn8419-08-36 04:40:00* Test Item Value Reference Range Interpretation Comments Red Blood Count (test code = 789-8) 4.35 4.3-5.7 [facility] CenterHemoglobin2019-11-14 04:40:00* Test Item Value Reference Range Interpretation Comments Hemoglobin (test code = 77500-7) 13.5 14.0-18.0 L [facility] CenterHematocrit2019-11-14 04:40:00* Test Item Value Reference Range Interpretation Comments Hematocrit (test code = 4544-3) 40.3 38.2-49.6 [facility] CenterMean Corpuscular Ucxiqh7903-33-20 04:40:00* Test Item Value Reference Range Interpretation Comments Mean Corpuscular Volume (test code = 787-2) 92.6 81-99 [facility] CenterMean Corpuscular Sppcmsihog3518-43-97 04:40:00* Test Item Value Reference Range Interpretation Comments Mean Corpuscular Hemoglobin (test code = 785-6) 31.0 28-32 [facility] CenterMean Corpuscular Hemoglobin Concent 2019-09-14 04:40:00* Test Item Value Reference Range Interpretation Comments Mean Corpuscular Hemoglobin Concent (test code = 786-4) 33.5 31-35 [facility] CenterRed Cell Distribution Loswi7768-06-12 04:40:00* Test Item Value Reference Range Interpretation Comments Red Cell Distribution Width (test code = 93135-6) 13.0 11.7 -14.4 [facility] CenterPlatelet Nuhhc5676-92-42 04:40:00* Test Item Value Reference Range Interpretation Comments Platelet Count (test code = 777-3) 223 140-360 [facility] CenterNeutrophils (%) (Auto)2019-09-14 04:40:00 * Test Item Value Reference Range Interpretation Comments Neutrophils (%) (Auto) (test code = 42635-2) 72.5 38.7-80.0 [facility] CenterLymphocytes (%) (Auto)2019-09-14 04:40:00 * Test Item Value Reference Range Interpretation Comments Lymphocytes (%) (Auto) (test code = 736-9) 13.9 18.0-39.1 L [facility] CenterMonocytes (%) (Auto)2019-09-14 04:40:00* Test Item Value Reference Range Interpretation Comments Monocytes (%) (Auto) (test code = 5905-5) 8.8 4.4-11.3 [facility] CenterEosinophils (%) (Auto)2019-09-14 04:40:00 * Test Item Value Reference Range Interpretation Comments Eosinophils (%) (Auto) (test code = 713-8) 3.5 0.0-6.0 [facility] CenterBasophils (%) (Auto)2019-09-14 04:40:00* Test Item Value Reference Range Interpretation Comments Basophils (%) (Auto) (test code = 706-2) 0.8 0.0-1.0 [facility] CenterIM GRANULOCYTES %2019-09-14 04:40:00* Test Item Value Reference Range Interpretation Comments IM GRANULOCYTES % (test code = IM GRANULOCYTES %) 0.5 0.0- 1.0 [facility] CenterNeutrophils # (Auto)2019-09-14 04:40:00* Test Item Value Reference Range Interpretation Comments Neutrophils # (Auto) (test code = 751-8) 4.6 2.1-6.9 [facility] CenterLymphocytes # (Auto)2019-09-14 04:40:00* Test Item Value Reference Range Interpretation Comments Lymphocytes # (Auto) (test code = 75145-6) 0.9 1.0-3.2 L [facility] CenterMonocytes # (Auto)2019-09-14 04:40:00* Test Item Value Reference Range Interpretation Comments Monocytes # (Auto) (test code = 742-7) 0.6 0.2-0.8 [facility] CenterEosinophils # (Auto)2019-09-14 04:40:00* Test Item Value Reference Range Interpretation Comments Eosinophils # (Auto) (test code = 711-2) 0.2 0.0-0.4 [facility] CenterBasophils # (Auto)2019-09-14 04:40:00* Test Item Value Reference Range Interpretation Comments Basophils # (Auto) (test code = 704-7) 0.1 0.0-0.1 [facility] CenterAbsolute Immature Granulocyte (auto 2019-09-14 04:40:00* Test Item Value Reference Range Interpretation Comments Absolute Immature Granulocyte (auto (francia t code = Absolute Immature Granulocyte (auto) 0.03 0-0.1 [facility] CenterB-Type Natriuretic Pfpxtcn4693-56-73 09:23:00* Test Item Value Reference Range Interpretation Comments B-Type Natriuretic Peptide (test code = 65064-1) 793.9 0-100 H [facility] CenterMagnesium Ewvxv6836-80-09 09:19:00* Test Item Value Reference Range Interpretation Comments Magnesium Level (test code = 35873-0) 1.8 1.3-2.1 [facility] CenterProthrombin Eawk6397-50-02 09:09:00* Test Item Value Reference Range Interpretation Comments Prothrombin Time (test code = 5902-2) 14.0 11.9-14.5 [facility] CenterProthromb Time International Ratio 2019-09-13 09:09:00* Test Item Value Reference Range Interpretation Comments Prothromb Time International Ratio (test code = 6301-6) 1.03 Oral Anticoagulant Therapy INR Values:1. Low Intensity Therapy 1.5 - 2.02 . Moderate Intensity Therapy 2.0 - 3.03. High Intensity Therapy(1) 2.5 - 3. 54. High Intensity Therapy(2) 3.0 - 4.05. Panic Value INR > 5.0 [facility] CenterActivated Partial Thromboplast Time 2019-09-13 09:09:00* Test Item Value Reference Range Interpretation Comments Activated Partial Thromboplast Time (test code = 92386-2) 33.8 23.8-35.5 [facility] CenterUrine CTQ9979-07-89 09:06:00* Test Item Value Reference Range Interpretation Comments Urine WBC (test code = 5821-4) 6-10 0-5 H [facility] CenterUrine TBY9064-43-99 09:06:00* Test Item Value Reference Range Interpretation Comments Urine RBC (test code = 44940-2) 0-5 0-5 [facility] CenterUrine Cnmcjazt0087-55-93 09:06:00* Test Item Value Reference Range Interpretation Comments Urine Bacteria (test code = 79652-6) RARE NONE [facility] CenterUrine Epithelial Jkdts4452-88-60 09:06:00 * Test Item Value Reference Range Interpretation Comments Urine Epithelial Cells (test code = 07453-4) FEW NONE [facility] CenterUrine Fkwqi5891-91-21 09:01:00* Test Item Value Reference Range Interpretation Comments Urine Color (test code = 5778-6) YELLOW YELLOW [facility] CenterUrine Irgluvt0386-31-84 09:01:00* Test Item Value Reference Range Interpretation Comments Urine Clarity (test code = 95350-3) CLEAR CLEAR [facility] CenterUrine Specific Ghsdzeh9804-37-67 09:01:00 * Test Item Value Reference Range Interpretation Comments Urine Specific [place] (test code = 5811-5) <=1.005 1.010-1.02 5 [facility] CenterUrine vV0920-00-90 09:01:00* Test Item Value Reference Range Interpretation Comments Urine pH (test code = 20985-0) 6 5-7 [facility] CenterUrine Leukocyte Ltummegt9601-06-96 09:01:00* Test Item Value Reference Range Interpretation Comments Urine Leukocyte Esterase (test code = 50249-6) NEGATIVE NEGATIV E [facility] CenterUrine Uedwfjt1569-19-15 09:01:00* Test Item Value Reference Range Interpretation Comments Urine Nitrite (test code = 41109-7) NEGATIVE NEGATIVE [facility] CenterUrine Azniikl9923-34-13 09:01:00* Test Item Value Reference Range Interpretation Comments Urine Protein (test code = 97291-2) NEGATIVE NEGATIVE [facility] Glucose (UA)2019-09-13 09:01:00* Test Item Value Reference Range Interpretation Comments Urine Glucose (UA) (test code = 76978-4) NEGATIVE NEGATIVE [facility] CenterUrine Crdxbiu4956-92-47 09:01:00* Test Item Value Reference Range Interpretation Comments Urine Ketones (test code = 34449-6) NEGATIVE NEGATIVE [facility] Sdlstwqutubf5121-50-06 09:01:00* Test Item Value Reference Range Interpretation Comments Urine Urobilinogen (test code = 14173-6) 0.2 0.2-1 [facility] CenterUrine Knfmvtgjd9845-41-45 09:01:00* Test Item Value Reference Range Interpretation Comments Urine Bilirubin (test code = 1977-8) NEGATIVE NEGATIVE [facility] CenterUrine Lqyzy7350-27-30 09:01:00* Test Item Value Reference Range Interpretation Comments Urine Blood (test code = 33285-0) NEGATIVE NEGATIVE [facility] CenterCHEST SINGLE (PORTABLE)2019-09-13 08:54:00 [facility] [address] [address] Patient Name: MICHELLE LY MR #: [id number] : 1950 Age/Sex: 69/M Req #: [id number] Adm Physician: Ordered by: SHOSHANA SANCHEZ MD Report #: [id number] Location: ER Room/Bed: Procedure: [id number] DX/ CHEST SINGLE (PORTABLE) Exam Date: 09/13/19 Exam Avel e: 0830 REPORT STATUS: Signed EX AMINATION: CHEST SINGLE (PORTABLE) INDICATION: Shortness of breath COMPARISON: Chest radiograph of 07/19/2018 FINDINGS: LINES/TUBES :None LUNGS:The lungs are moderately inflated. There is perihilar fullness and indistinctness of the pulmonary vasculature. No focal consolidation. PLEURA:No pleural effusion or pneumothorax. MEDIASTINUM:Prominent cardiomeg saul. BONES/SOFT TISSUES:No acute osseous injury. ABDOMEN:No free air u nder the diaphragm. IMPRESSION: Cardiomegaly and pulmonary edema. Signed by: Tanisha Cardenas MD on 09/13/2019 8:56 AM Dictated By: TANISHA CARDENAS MD 5 Transcribed By: Macrina ZENG on 09/13/19855 COPY TO: SHOSHANA SANCHEZ MD Triglycerides [id number] 05:28:00* Test Item Value Reference Range Interpretation Comments Triglycerides Level (test code = 2571-8) 146 0-149 [facility] [id number] 05:28:00* Test Item Value Reference Range Interpretation Comments Cholesterol Level (test code = 2093-3) 224 0-199 H Less than 200 mg/dL Low Rshi022 - 239 mg/dL Borderline Lxkc899 m g/dl and greater [facility] [id number] 05:28:00* Test Item Value Reference Range Interpretation Comments LDL Cholesterol (test code = 2089-1) 147 60-130 [facility] [id number] 05:28:00* Test Item Value Reference Range Interpretation Comments HDL Cholesterol (test code = 2085-9) 48 40-60 [facility] CenterCholesterol/HDL Tfcjh5409-86-41 05:28:00 * Test Item Value Reference Range Interpretation Comments Cholesterol/HDL Ratio (test code = 9830-1) 4.7 3.9-4.7 [facility] CenterCreat[facility] Kinase HJ9093-61-76 02:54:00* Test Item Value Reference Range Interpretation Comments Creatine Kinase MB (test code = 14857-7) 1.10 0-5.0 [facility] CenterTroponin Z7492-48-25 02:54:00* Test Item Value Reference Range Interpretation Comments Troponin I (test code = RQI1815) 0.010 0-0.300 [facility] CenterCreatine Aakgnl7741-32-63 02:27:00* Test Item Value Reference Range Interpretation Comments Creatine Kinase (test code = 2157-6) 93 30-200 [facility] CenterUrine QBX0393-01-91 19:15:00* Test Item Value Reference Range Interpretation Comments Urine WBC (test code = 5821-4) NONE 0-5 [facility] CPI6472-18-92 19:15:00* Test Item Value Reference Range Interpretation Comments Urine RBC (test code = 44775-8) NONE 0-5 [facility] Center[facility] Rpwiobfx1645-80-04 19:15:00* Test Item Value Reference Range Interpretation Comments Urine Bacteria (test code = 89595-0) NONE NONE [facility] Center[facility] Epithelial Ulgzw2966-74-76 19:15:00 * Test Item Value Reference Range Interpretation Comments Urine Epithelial Cells (test code = 54276-2) RARE NONE [facility] Center[facility] Mhxpa7675-85-46 19:15:00* Test Item Value Reference Range Interpretation Comments Urine Mucus (test code = 8247-9) FEW RARE H [facility] CenterU[facility] Jtxmh4697-23-92 18:43:00* Test Item Value Reference Range Interpretation Comments Urine Color (test code = 5778-6) YELLOW YELLOW [facility] Uabvokq1727-97-71 18:43:00* Test Item Value Reference Range Interpretation Comments Urine Clarity (test code = 51851-2) CLEAR CLEAR [facility] CenterU[facility] Specific Eutrmhz7634-28-40 18:43:00 * Test Item Value Reference Range Interpretation Comments Urine Specific [place] (test code = 5811-5) 1.020 1.010-1.02 5 [facility] nE9246-37-28 18:43:00* Test Item Value Reference Range Interpretation Comments Urine pH (test code = 02011-8) 5 5-7 [facility] Leukocyte Igmyjxvx3232-77-49 18:43:00* Test Item Value Reference Range Interpretation Comments Urine Leukocyte Esterase (test code = 5799-2) NEGATIVE NEGATIVE [facility] Uwmrlvc8184-89-86 18:43:00* Test Item Value Reference Range Interpretation Comments Urine Nitrite (test code = 42179-9) NEGATIVE NEGATIVE [facility] Jrjcbtp7581-78-49 18:43:00* Test Item Value Reference Range Interpretation Comments Urine Protein (test code = 5804-0) NEGATIVE NEGATIVE [facility] Center[facility] Glucose (UA)2018-07-19 18:43:00* Test Item Value Reference Range Interpretation Comments Urine Glucose (UA) (test code = 2349-9) NEGATIVE NEGATIVE [facility] CenterU[facility] Vpmbrnh4953-45-05 18:43:00* Test Item Value Reference Range Interpretation Comments Urine Ketones (test code = 61213-9) NEGATIVE NEGATIVE [facility] CenterU[facility] Alaahlfcbwum6290-37-48 18:43:00* Test Item Value Reference Range Interpretation Comments Urine Urobilinogen (test code = 87249-6) 0.2 0.2-1 [facility] Center[facility] Ggyojkgqz6310-27-55 18:43:00* Test Item Value Reference Range Interpretation Comments Urine Bilirubin (test code = 1978-6) NEGATIVE NEGATIVE [facility] Center[facility] Aipej6343-70-29 18:43:00* Test Item Value Reference Range Interpretation Comments Urine Blood (test code = 29346-9) NEGATIVE NEGATIVE [facility]2018-07-19 18:10:00 [facility] [address] [address] Patient Name: MICHELLE LY MR #: [id number] : 1950 Age/Sex: 67/M Req #: [id number] Adm Physician: Ordered by: BHARAT VELIZ MD Report #: [id number] Location: ER Room/Bed: Procedure: [id number] DX/CHEST SINGLE (NOT JOHNNY BLE) Exam Date: 07/19/18 Exam Time: 1737 REPOR T STATUS: Signed EXAMINATION: CHEST SINGLE (NOT PORTABLE) INDICATIO N: COMPARISON: 03/31/2011 FINDINGS: AP view TUBES and LINES: None. LUNGS: Low lung volumes. There is no evidence of pneumonia or pulmonary edema. PLEURA: No pleural effusion or pneumothorax. HEART AND MEDIASTINUM: The cardiac silhouette is enlarged, accentuated by low lung volumes. BONES AND SOFT TISSUES: No acute os seous lesion. Soft tissues are unremarkable. UPPER ABDOMEN: No free air under the diaphragm. IMPRESSION: No acute thoracic abnormality. En larged cardiac silhouette, accentuated by low lung volumes. Signed by: Dr. Pal Lang MD on 07/19/2018 6:11 PM Dictated By: PAL LANG MD Darcy ctronically Signed By: PAL LANG MD on 07/19/181810 Transcribed By: GUILLERMO Alvarado on 07/19/181810 COPY TO: BHARAT VELIZ MD B-Type Natriuretic Ugotnhs5234-57-73 18:07:00* Test Item Value Reference Range Interpretation Comments B-Type Natriuretic Peptide (test code = 81586-9) 110.1 0-100 [facility] Nxhbr1616-70-98 18:00:00* Test Item Value Reference Range Interpretation Comments Sodium Level (test code = 2951-2) 140 136-145 [facility] CenterPotassium Htbkp5673-11-96 18:00:00* Test Item Value Reference Range Interpretation Comments Potassium Level (test code = 2823-3) 4.2 3.5-5.1 [facility] CenterChloride Npwwt2351-27-99 18:00:00* Test Item Value Reference Range Interpretation Comments Chloride Level (test code = 2075-0) 104 98-107 [facility] CenterCarbon Dioxide Eckry3263-56-46 18:00:00* Test Item Value Reference Range Interpretation Comments Carbon Dioxide Level (test code = 2028-9) 22 22-29 [facility] CenterAnion Jeu6990-08-13 18:00:00* Test Item Value Reference Range Interpretation Comments Anion Gap (test code = 74619-6) 18.2 8-16 H [facility] CenterBlood Urea Dtxkgdeo1672-87-39 18:00:00* Test Item Value Reference Range Interpretation Comments Blood Urea Nitrogen (test code = 3094-0) 17 7-26 [facility] CenterCreatinine2018-09-18 18:00:00* Test Item Value Reference Range Interpretation Comments Creatinine (test code = 2160-0) 1.02 0.72-1.25 [facility] CenterBUN/Creatinine Ovfai1085-05-04 18:00:00* Test Item Value Reference Range Interpretation Comments BUN/Creatinine Ratio (test code = 3097-3) 17 6-25 [facility] CenterEstimat Glomerular Filtration Rate 2018-07-19 18:00:00* Test Item Value Reference Range Interpretation Comments Estimat Glomerular Filtration Rate (test code = 884536164) 60- >60 Ranges were taken from the National Kidney Disease Education Program and the [facility] Kid[facility] Foundation literature.Reference ranges:60 or greater: Fdmjpa40-94 ( for 3 consecutive months): Chronic kidney disease 15 or less: Kidney failureBro[facility] Medical CenterGlucose Lrnzw4011-72-01 18:00:00* Test Item Value Reference Range Interpretation Comments Glucose Level (test code = ZOF2455) 88 74-118 [facility] CenterCalcium Oelgt0893-44-01 18:00:00* Test Item Value Reference Range Interpretation Comments Calcium Level (test code = 61602-2) 9.8 8.4-10.2 [facility] CenterTotal Hxtzsgjre3845-95-85 18:00:00* Test Item Value Reference Range Interpretation Comments Total Bilirubin (test code = 1975-2) 0.5 0.2-1.2 [facility] CenterAspartate Amino Transf (AST/SGOT) 2018-07-19 18:00:00* Test Item Value Reference Range Interpretation Comments Aspartate Amino Transf (AST/SGOT) (test code = Aspartate Amino Transf (AST/SGOT)) 37 5-34 H [facility] CenterAlanine Aminotransferase (ALT/SGPT) 2018-07-19 18:00:00* Test Item Value Reference Range Interpretation Comments Alanine Aminotransferase (ALT/SGPT) (test code = 1742-6) 61 0-55 H [facility] CenterTotal Kuhfqjo7653-79-14 18:00:00* Test Item Value Reference Range Interpretation Comments Total Protein (test code = 2885-2) 7.9 6.5-8.1 [facility] CenterAlbumin2018-09-18 18:00:00* Test Item Value Reference Range Interpretation Comments Albumin (test code = 1751-7) 3.9 3.5-5.0 [facility] CenterGlobulin2018-09-18 18:00:00* Test Item Value Reference Range Interpretation Comments Globulin (test code = 17773-1) 4.0 2.3-3.5 H [facility] CenterAlbumin/Globulin Fzvjs7333-22-29 18:00:00 * Test Item Value Reference Range Interpretation Comments Albumin/Globulin Ratio (test code = 1759-0) 1.0 0.8-2.0 [facility] CenterAlkaline Solqpvvvmnc1891-36-36 18:00:00* Test Item Value Reference Range Interpretation Comments Alkaline Phosphatase (test code = 6768-6) 102 40-150 [facility] CenterProthrombin Nivb6842-27-92 17:48:00* Test Item Value Reference Range Interpretation Comments Prothrombin Time (test code = 5902-2) 12.6 11.9-14.5 [facility] CenterProthromb Time International Ratio 2018-07-19 17:48:00* Test Item Value Reference Range Interpretation Comments Prothromb Time International Ratio (test code = 6301-6) 1.02 Oral Anticoagulant Therapy INR Values:1. Low Intensity Therapy 1.5 - 2.02 . Moderate Intensity Therapy 2.0 - 3.03. High Intensity Therapy(1) 2.5 - 3. 54. High Intensity Therapy(2) 3.0 - 4.05. Panic Value INR > 5.0 [facility] CenterActivated Partial Thromboplast Time 2018-07-19 17:48:00* Test Item Value Reference Range Interpretation Comments Activated Partial Thromboplast Time (test code = 66578-9) 29.5 23.8-35.5 [facility] CenterWhite Blood Lonhi6354-78-95 17:38:00* Test Item Value Reference Range Interpretation Comments White Blood Count (test code = 6690-2) 6.80 4.8-10.8 [facility] CenterRed Blood Fiahh9816-14-77 17:38:00* Test Item Value Reference Range Interpretation Comments Red Blood Count (test code = 789-8) 4.78 4.3-5.7 [facility] CenterHemoglobin2018-09-18 17:38:00* Test Item Value Reference Range Interpretation Comments Hemoglobin (test code = 18434-8) 15.3 14.0-18.0 [facility] CenterHematocrit2018-09-18 17:38:00* Test Item Value Reference Range Interpretation Comments Hematocrit (test code = 4544-3) 43.2 38.2-49.6 [facility] CenterMean Corpuscular Ccnqec6066-61-65 17:38:00* Test Item Value Reference Range Interpretation Comments Mean Corpuscular Volume (test code = 787-2) 90.4 81-99 [facility] CenterMean Corpuscular Ibebqyvqof6603-72-02 17:38:00* Test Item Value Reference Range Interpretation Comments Mean Corpuscular Hemoglobin (test code = 785-6) 32.0 28-32 [facility] CenterMean Corpuscular Hemoglobin Concent 2018-07-19 17:38:00* Test Item Value Reference Range Interpretation Comments Mean Corpuscular Hemoglobin Concent (test code = 786-4) 35.4 31-35 H [facility] CenterRed Cell Distribution Stkpo4540-10-41 17:38:00* Test Item Value Reference Range Interpretation Comments Red Cell Distribution Width (test code = 50036-2) 12.4 11.7 -14.4 [facility] CenterPlatelet Vdhjk2571-25-16 17:38:00* Test Item Value Reference Range Interpretation Comments Platelet Count (test code = 777-3) 213 140-360 [facility] CenterNeutrophils (%) (Auto)2018-07-19 17:38:00 * Test Item Value Reference Range Interpretation Comments Neutrophils (%) (Auto) (test code = 38574-3) 55.2 38.7-80.0 [facility] CenterLymphocytes (%) (Auto)2018-07-19 17:38:00 * Test Item Value Reference Range Interpretation Comments Lymphocytes (%) (Auto) (test code = 736-9) 31.2 18.0-39.1 [facility] CenterMonocytes (%) (Auto)2018-07-19 17:38:00* Test Item Value Reference Range Interpretation Comments Monocytes (%) (Auto) (test code = 5905-5) 8.5 4.4-11.3 [facility] CenterEosinophils (%) (Auto)2018-07-19 17:38:00 * Test Item Value Reference Range Interpretation Comments Eosinophils (%) (Auto) (test code = 713-8) 4.1 0.0-6.0 [facility] CenterBasophils (%) (Auto)2018-07-19 17:38:00* Test Item Value Reference Range Interpretation Comments Basophils (%) (Auto) (test code = 706-2) 0.6 0.0-1.0 [facility] CenterIM GRANULOCYTES %2018-07-19 17:38:00* Test Item Value Reference Range Interpretation Comments IM GRANULOCYTES % (test code = IM GRANULOCYTES %) 0.4 0.0- 1.0 [facility] CenterNeutrophils # (Auto)2018-07-19 17:38:00* Test Item Value Reference Range Interpretation Comments Neutrophils # (Auto) (test code = 751-8) 3.8 2.1-6.9 [facility] CenterLymphocytes # (Auto)2018-07-19 17:38:00* Test Item Value Reference Range Interpretation Comments Lymphocytes # (Auto) (test code = 22871-4) 2.1 1.0-3.2 [facility] CenterMonocytes # (Auto)2018-07-19 17:38:00* Test Item Value Reference Range Interpretation Comments Monocytes # (Auto) (test code = 742-7) 0.6 0.2-0.8 [facility] CenterEosinophils # (Auto)2018-07-19 17:38:00* Test Item Value Reference Range Interpretation Comments Eosinophils # (Auto) (test code = 711-2) 0.3 0.0-0.4 [facility] CenterBasophils # (Auto)2018-07-19 17:38:00* Test Item Value Reference Range Interpretation Comments Basophils # (Auto) (test code = 704-7) 0.0 0.0-0.1 [facility] CenterAbsolute Immature Granulocyte (auto 2018-07-19 17:38:00* Test Item Value Reference Range Interpretation Comments Absolute Immature Granulocyte (auto (francia t code = Absolute Immature Granulocyte (auto) 0.03 0-0.1 [facility] CenterBEDSIDE GLUCOSE YEEYLVP3588-72-14 15:54:49139Xpfbmixg HermannBEDSIDE GLUCOSE NYTOAWZ4829-24-35 12:07:82072Nhehxcad CiawuwfAYVJDTPPF8143-97-77 09:28:90035Dsqnzunx RdcdtpsLHVWYRAIV1738-84-26 09:28:77032Puxckavk KckzfgqXFZOEDAKW8136-11-20 09:28:004.1[facility] BNOBPNSIE6994-58-04 09:28:0073[facility] HbzfqhyQUJBBICDG3583-19-85 09:28:38415 [facility] UqhatgjLFVKXKRGH5576-09-90 09:28:0024[facility] HermannCHEMISTRY 2013-07-18 09:28:001.1[facility] CknxjjhRRJAABWTS9552-56-76 09:28:0028[facility] YgrykhpSBFSLUGOX1975-24-96 09:28:009.0[facility] UvvchlrMXWVITJBP5275-43-52 09:28:0015.1[facility] YbzdbyuAQCYBRFWJK4750-52-29 09:28:00Normal (07/18/2013 04:28:00) [facility] NgnahjnPMQGKATMWO8733-41-57 09:28:00Normal (07/18/2013 04:28:00) [facility] NfnnfomCAGUAXLTZA2262-76-94 09:28:0076.1[facility] GZSUIWSISF2248-96-59 09:28:000.9[facility] YvlcrwpAOEQVRDVGT8020-38-93 09:28:001.5 [facility] UknrvohFXTDPLOXQB8668-50-25 09:28:000.1[facility] HermannHEMATOLOGY 2013-07-18 09:28:008.0[facility] TcblcznDWUWNITMME9052-60-68 09:28:0014.1[facility] QmvrfutVYMMPXMIKG2500-05-41 09:28:000.0[facility] PukrubgCWVXVOPRMZ9347-59-82 09:28:000.3[facility] UnadiunOXZXJIPGTO1152-05-10 09:28:008.4[facility] KPFYGSVBRR4250-29-59 09:28:001.1[facility] FeovzenCMGUGEUCKP8265-53-68 09:28:39167 [facility] YdfqrvmJIKFCBSIZQ3721-13-56 09:28:007.6[facility] HermannHEMATOLOGY 2013-07-18 09:28:0032.8[facility] UkcmsmnPEJOMKBBFJ5823-64-31 09:28:0013.6[facility] KcivhbzOEXIUTUAQO9254-74-85 09:28:005.01[facility] CjqirtpYVKNNYKAVL0775-22-37 09:28:0015.5[facility] EagkqvnGBHGZBQHGZ4422-95-55 09:28:00* Test Item Value Reference Range Interpretation Comments MCH (test code = MCH) 30.9 pg 27.0-31.0 N [facility] MdrskscUXCQXMGDRZ5970-99-66 09:28:0047.1[facility] HermannHEMATOLOGY 2013-07-18 09:28:0094.0[facility] QuucnzpYVTUJMHGZJ8827-54-69 09:28:0010.5[facility] HermannBEDSIDE GLUCOSE JRTYKHX9829-54-84 22:14:03970Vryymzje HermannCHEMISTRY 2013-07-17 09:08:0014.2[facility] WqqpnjfZOJVTPKRQ8704-88-82 09:08:0065[facility] KmscxbxXNVHNBZMK3995-09-83 09:08:008.6[facility] ZkcolkuWXDHEEXNM6973-29-94 09:08:0017[facility] OdcazaxYDKNTRADZ4044-16-30 09:08:78439Boshqfsk [facility] HZDZCRZHR8885-07-91 09:08:0027[facility] KcnwyqaTKANHCIZT1425-88-41 09:08:001.2 [facility] MdqzvtaMWPSFOTPH0998-58-70 09:08:41883Aesqnnrm HermannCHEMISTRY 2013-07-17 09:08:15395Fsmdfves BuuceldQIOFIYRZN8876-53-14 09:08:004.2[facility] QmaeosuOWYADETYB4187-31-02 09:08:004.53[facility] VkjtkdeZOXPAPRYO9526-28-86 09:08:27985Zaloannv KgpprybLZJISVPNG8389-20-83 09:08:0036[facility] GIOAFSPQI3388-30-31 09:08:0097[facility] JcfpfheHAARNTVCJ9537-11-39 09:08:99830 [facility] VsynymbQFKHRJPXZX4905-92-94 09:08:0076.1[facility] HermannHEMATOLOGY 2013-07-17 09:08:000.0[facility] CqjminsURYAQEAZDI7904-37-87 09:08:000.2[facility] OgcrzggQDQLVMHCOR5439-27-68 09:08:000.6[facility] HondfsbMGBSSUTSDN3420-32-67 09:08:006.4[facility] XenwahrFGRTDZXGUV2375-60-87 09:08:002.4[facility] FCAGYFPMIM2202-19-33 09:08:007.6[facility] HsccvvdTTVKRDJBPH3024-71-50 09:08:00 13.7[facility] DutgtwkZJCJYPGYDK2873-85-00 09:08:001.2[facility] HermannHEMATOLOGY 2013-07-17 09:08:000.2[facility] RgvezmoSAYKXZHBCB2141-62-85 09:08:007.9[facility] MinhjfcQPBJAKABSN5581-19-14 09:08:23118Lnjogjis DphgtaoIRIBJBJEIU3592-44-81 09:08:008.4[facility] UcquaxgQNOXUMWBXZ6626-83-89 09:08:004.61[facility] UYOMGMQEIY9284-24-33 09:08:00* Test Item Value Reference Range Interpretation Comments MCH (test code = MCH) 30.8 pg 27.0-31.0 N [facility] TbidvgrXRCNRJCMPT5129-50-15 09:08:0013.5[facility] HermannHEMATOLOGY 2013-07-17 09:08:0032.7[facility] VpwfhpqAXPNCDNGYM2651-98-21 09:08:0094.0[facility] ZkiaxcdVYDNTWEEYE2634-78-52 09:08:0014.2[facility] AkaxjlxPDRYARBBDX6217-26-34 09:08:0043.3[facility] AqdlhcrPNIHBPUDXQ9959-09-04 09:08:001.20[facility] LRQPNNZTCT4763-81-91 09:08:00* Test Item Value Reference Range Interpretation Comments PT (test code = PT) 15.1 s 12.0-14.7 H [facility] AzfnpjcNMZGGMMDJQ1894-31-70 09:08:00* Test Item Value Reference Range Interpretation Comments PTT (test code = PTT) 32.9 s 22.9-35.8 N [facility] VgmssnaKKXQPBIWV3728-26-30 05:47:000.8[facility] HermannCHEMISTRY 2013-07-17 05:47:00<0.02[facility] AtavhkkIDYQNBVEK3337-75-72 05:47:19278Igiqucnn XvtpxjyIWGSYXGAO3394-27-95 05:47:001.1[facility] GzwvcjcDWLMMGOAB6433-38-35 23:48:492.2[facility] DmmfdqhQDIYJKIFN8227-99-95 23:48:49<0.02[facility] GPPAUMHAA6055-33-76 23:48:71279Tdnomjnx SrvmqmlMETNTGXYH0125-33-11 23:48:492.0 [facility] TyhujibKWDDYQDZC4467-73-16 23:48:272.1[facility] HermannCHEMISTRY 2013-07-16 23:48:278.0[facility] BuromptOWLIMDOAF4343-02-45 23:48:242.790[facility] LvxsjxcLWGQJAPOO2331-48-23 23:48:2435[facility] ZhvbzddHRKGYLQZJ5084-09-67 23:48:2412.0[facility] RvbirkgSXERTIAVV3761-05-69 23:48:244.2[facility]i
--- OUTSIDE RECORDS SUMMARY | 2020-06-28 18:08 | XMS REPORT | Continuity of Care Document ---
Author Author MICHELLE Kerr [employer] Address Unknown Phone Unavailable Care Team Providers Care Sales Representative Meats Name Role Phone Biz[employer] Information Exchange Unavailable Un available Problems Problem Status Onset Date Classification Date Reported Comments Source S46.091A - INJ MUSC/TEND THE ROTATOR CUF Active 09/28/2017 [facility] [place] CHF -NEW ONSET, LF SIDED FACIAL [place] Active 07/16/2013 [facility] Right sided weakness Resolved Problem 07/20/2013 [facility] Right hemiparesis (disorder) R esolved Problem OPIBernarda [place] [facility]F NOS Active [facility] Medications Medication Details Route Status Patient Instructions Ordering Provider Order Date Source Lasix 40 mg oral tablet 40 mg, 1 tab, Route: PO, Drug form: TAB, BID, Dosing Weight 91.818, kg, Start date: 07/18/13 17:00:00, Duration: 30 day, Stop date: 08/17/13 9:00:00 PO No Longer Active Daniel 07/18/2013 [facility] influenza virus vaccine, inactivated 0.5 ml, Route: IM, Drug Form: SUSP, Start date: 07/18/13 11:00:00, Stop date: 07/18/13 11:00:00 IM No Longer Active SYSTEM 07/02 [facility] Lasix 20 mg oral tablet 20 mg, 1 tab, PO, Daily, 30 tab, 0, 0, Substitution Allowed, TAB PO Active Jose Juan 07/18/2013 [facility] potassium chloride 10 mEq oral capsule, extended release 10 mEq, 1 cap, PO, BID, take it with fur osemide, 60 cap, Substitution Allowedtake it with furosemide PO Active Daniel 07/18/2013 [facility] lisinopril 5 mg oral tablet 5 mg, 1 tab, PO, Daily, 30 tab, Substitution Allowed, TAB PO Active Daniel 07/18/2013 [facility] glipiZIDE 2.5 mg oral tablet, extended release 2.5 mg, 1 tab, PO, Daily, 30 tab, Substitution Allowed, ERTAB PO Active Daniel 07/18/2013 [facility] Lasix 40 mg oral tablet 40 mg, 1 tab, PO, BID, 60 tab, Substitution Allowed, TAB PO No Longer Active Jose Juan 07/18/2013 [facility] carvedilol 6.25 mg oral tablet 6.25 mg, 1 tab, PO, BID, 60 tab, Substitution Allowed, TAB PO Active [place] 07/18/2013 [facility] aspirin 81 mg tablet, enteric coated 81 mg, 1 tab, PO, Daily, 30 tab, Substitution Allowed, ECTAB PO Active [place] 07/18/2013 [facility] Coreg 6.25 mg, 2 tab, Route: P O, Drug form: TAB, Q12H, Dosing Weight 91.818, kg, Start date: 07/17/13 21:00:00, Duration: 30 day, Stop date: 08/16/13 9:00:00 PO No Longer Active [place] 07/18/2013 [facility] glipiZIDE 2.5 mg, 1 tab, Route : PO, Drug form: ERTAB, Daily, Dosing Weight 91.818, kg, Priority: NOW, Start date: 07/17/13 9:49:00, Duration: 30 day, Stop date: 08/16/13 9:00:00 PO No Longer Active [place] 07/17/2013 [facility] pneumococcal 23-valent vaccine 0.5 ml, Route: IM, Drug Form: INJ, Daily, Start date: 07/17/13 9:00:00, Duration: 1 doses or times, Stop date: 07/17/13 9:00:00 IM No Longer Active SYSTEM 07/17/2013 [facility] furosemide 40 mg, 4 mL, Route: IVP, Drug form: INJ, BID, Dosing Weight 91.818, kg, Start date: 07/17/13 9:00:00, Duration: 30 day, Stop date: 08/15/13 17:00:00 IVP No Longer Active [place] 07/17/2013 [facility] aspirin 81 mg tablet, enteric coated 81 mg, 1 tab, Route: PO, Drug form: ECTAB, Daily, Dosing Weight 91.818, kg, Start date: 07/17/13 9:00:00, Duration: 30 day, Stop date: 08/15/13 9:00:00 PO No Longer Active [place] 07/17/2013 [facility] Saline Flush 0.9% 5 ml, Route: IVP, Drug Form: INJ, Dosing Weight 91.818, kg, Q12H, Start date: 07/16/13 21:00:00, Duration: 30 day, Stop date: 08/15/13 9:00:00 IVP No Longer Active [place] 07/17/2013 [facility] nitroglycerin 0.4 mg sublingual tablet 0.4 mg, 1 tab, Route: SL, Drug form: TAB, Q5Min, PRN Chest Pain, Start date: 07/16/13 18:27:00, Duration: 30 day, Stop date: 08/15/13 18:26:00 SL No Longer Active [place] 07/16/2013 [facility] atropine 0.5 mg, 5 mL, Route: IVP, Drug form: INJ, PRN, PRN Bradycardia, Start date: 07/16/13 18:27:00, Duration: 30 day, Stop date: 08/15/13 18:26:00 IVP No Longer Active [place] 07/16/2013 [facility] lisinopril 5 mg, 1 tab, Route: PO, Drug form: TAB, Daily, Dosing Weight 91.818, kg, Priority: NOW, Start date: 07/16/13 18:14:00, Duration: 30 day, Stop date: 08/15/13 9:00:00 PO No Longer Active Jacobo 07/16/2013 [facility] temazepam 15 mg, 1 cap, Route: PO, Drug form: CAP, Bedtime, Dosing Weight 91.818, kg, PRN Insomnia, Start date: 07/16/13 18:11:00, Duration: 30 day, Stop date: 08/15/13 18:10:00 PO No Longer Active [place] 07/16/2013 [facility] ondansetron 4 mg, 2 mL, Route: IVP, Drug form: INJ, Q8H, Dosing Weight 91.818, kg, PRN Nausea & Vomiting, Start date: 07/16/13 18:11:00, Duration: 30 day, Stop date: 08/15/13 18:10:00 IVP No Longer Active [place] 07/16/2013 [facility] Saline Flush 0.9% 5 ml, Route: IVP, Drug Form: INJ, Dosing Weight 91.818, kg, PRN, PRN Line Flush, Start date: 07/16/13 18:11:00, Duration: 30 day, Stop date: 08/15/13 18:10:00 IVP No Longer Active Daniel 07/16/2013 [facility] Allergies, Adverse Reactions, Alerts No Known Medication Allergies Immunizations Immunization Date Given Site Status Last Updated Comments Source influenza virus vaccine, inactivated 07/18/2013 completed Faye [facility] influenza virus vaccine, inactivated 07/18/2013 Right deltoid completed Faye [facility] [place] pneumococcal 23-valent vaccine 07/17/2013 completed Elizabeth machado [facility] pneumococcal 23-valent vaccine 07/17/2013 Left Deltoid completed Smooth [facility] [place] Results Order Name Results Value Reference Range Date Interpretation Comments Source BEDSIDE GLUCOSE TESTING Gluc POC Com ment 1 Notify RN/MD 07/18/2013 NA [facility] BEDSIDE GLUCOSE TESTING Gluc POC 104 70 - 99 07/18/2013 [facility] <sup>1</sup>Interpretive Data: Upper Reportable Limit: 200 mg/dL. [facility] BEDSIDE GLUCOSE TESTING Gluc POC 100 70 - 99 07/18/2013 [facility] <sup>2</sup>Interpretive Data: Upper Reportable Limit: 200 mg/dL. [facility] CHEMISTRY Sodium Lvl 141 135 - 145 07/18/2013 Normal [facility] CHEMISTRY Chloride Lvl 102 95 - 109 07/18/2013 Normal [facility] CHEMISTRY Potassium Lvl 4.1 3.5 - 5.1 07/18/2013 Normal [facility] CHEMISTRY eGFR 73 07/18/2013 NA <sup>4</sup>Result Comment: The eGFR is calculated using the CKD-EPI formula. In most young, healthy individuals the eGFR will be >90 mL/min/1.73m2. The eGFR declines with age. An eGFR of 60-89 may be normal in some populations, particularly the elderly, for whom the CKD-EPI formula has not been extensively validated. Use of the eGFR is not recommended in the following populations:& lt;br/>
Individuals with unstable creatinine concentrations, including patients and those with serious co-morbid conditions.

Patients with extremes in muscle mass or diet.

The data above are obtained from the National Kidney Disease Education Program (NKDEP) which additionally recommends that when the eGFR is used in patients with extremes of body mass index for purposes of drug dosing, the eGFR should be multiplied by the estimated BMI. [facility] CHEMISTRY Glucose Lvl 128 70 - 99 07/18/2013 PR <sup>6</sup>Interpretive Data: Adult ref erence range values reflect the clinical guidelines
of the [place] [employer]. [facility] CHEMISTRY BUN 24 7 - 22 07/18/2013 HI [facility] CHEMISTRY Creatinine Lvl 1.1 0.5 - 1.4 07/18/2013 Normal [facility] CHEMISTRY CO2 28 24 - 32 07/18/2013 Normal [facility] CHEMISTRY Calcium Lvl 9.0 8.5 - 10.5 07/18/2013 Normal [facility] CHEMISTRY AGAP 15.1 10.0 - 20.0 07/18/2013 Normal [facility] HEMATOLOGY RBC Morph Krystal l (07/18/2013 04:28:00) 07/18/2013 Normal [facility] HEMATOLOGY Plt Morph Krystal l (07/18/2013 04:28:00) 07/18/2013 Normal [facility] HEMATOLOGY Segs 76.1 45.0 - 75.0 07/18/2013 [facility] HEMATOLOGY Monocytes # 0.9 0.0 - 0.8 07/18/2013 [facility] HEMATOLOGY Lymphocytes # 1.5 1.0 - 5.5 07/18/2013 Normal [facility] HEMATOLOGY Eosinophils # 0.1 0.0 - 0.5 07/18/2013 Normal [facility] HEMATOLOGY Segs-Bands # 8.0 1.5 - 8.1 07/18/2013 Normal [facility] HEMATOLOGY Lymphocytes 14.1 20.0 - 40.0 07/18/2013 LOW [facility] HEMATOLOGY Basophils # 0.0 0.0 - 0.2 07/18/2013 Normal [facility] HEMATOLOGY Basophils 0.3 0.0 - 1.0 07/18/2013 Normal [facility] HEMATOLOGY Monocytes 8.4 2.0 - 12.0 07/18/2013 Normal [facility] HEMATOLOGY Eosinophils 1.1 0.0 - 4.0 07/18/2013 Normal [facility] HEMATOLOGY Platelet 232 133 - 450 07/18/2013 Normal [facility] HEMATOLOGY MPV 7.6 7.4 - 10.4 07/18/2013 Normal [facility] HEMATOLOGY MCHC 32.8 32.0 - 36.0 07/18/2013 Normal [facility] HEMATOLOGY RDW 13.6 11.5 - 14.5 07/18/2013 Normal [facility] HEMATOLOGY RBC 5.01 4.70 - 6.10 07/18/2013 Normal [facility] HEMATOLOGY Hgb 15.5 14.0 - 18.0 07/18/2013 Normal [facility] HEMATOLOGY MCH 30.9 27.0 - 31.0 07/18/2013 Normal [facility] Hct 47.1 42.0 - 54.0 07/18/2013 Normal [facility] HEMATOLOGY MCV 94.0 80.0 - 94.0 07/18/2013 Normal [facility] HEMATOLOGY WBC 10.5 3.7 - 10.4 07/18/2013 HI [facility] BEDSIDE GLUCOSE TESTING Gluc POC 119 70 - 99 07/17/2013 [facility] <sup>3</sup>Interpretive Data: Upper Reportable Limit: 200 mg/dL. [facility] BEDSIDE GLUCOSE TESTING Gluc POC Com ment 1 Notify ROSARIO/ 07/17/2013 NA [facility] CHEMISTRY AGAP 14.2 10.0 - 20.0 07/17/2013 Normal [facility] CHEMISTRY eGFR 65 07/17/2013 NA <sup>5</sup>Result Comment: The eGFR is calculated using the CKD-EPI formula. In most young, healthy individuals the eGFR will be >90 mL/min/1.73m2. The eGFR declines with age. An eGFR of 60-89 may be normal in some populations, particularly the elderly, for whom the CKD-EPI formula has not been extensively validated. Use of the eGFR is not recommended in the following populations:& lt;br/>
Individuals with unstable creatinine concentrations, including patients and those with serious co-morbid conditions.

Patients with extremes in muscle mass or diet.

The data above are obtained from the National Kidney Disease Education Program (NKDEP) which additionally recommends that when the eGFR is used in patients with extremes of body mass index for purposes of drug dosing, the eGFR should be multiplied by the estimated BMI. [facility] CHEMISTRY Calcium Lvl 8.6 8.5 - 10.5 07/17/2013 Normal [facility] CHEMISTRY BUN 17 7 - 22 07/17/2013 Normal [facility] CHEMISTRY Glucose Lvl 129 70 - 99 07/17/2013 HI <sup>7</sup>Interpretive Data: Adult ref erence range values reflect the clinical guidelines
of the [place] [employer]. [facility] CHEMISTRY CO2 27 24 - 32 07/17/2013 Normal [facility] CHEMISTRY Creatinine Lvl 1.2 0.5 - 1.4 07/17/2013 Normal [facility] CHEMISTRY Sodium Lvl 140 135 - 145 07/17/2013 Normal [facility] CHEMISTRY Chloride Lvl 103 95 - 109 07/17/2013 Normal [facility] CHEMISTRY Potassium Lvl 4.2 3.5 - 5.1 07/17/2013 Normal [facility] CHEMISTRY CHD Risk 4.53 4.00 - 7.30 07/17/2013 Normal [facility] CHEMISTRY LDL 108 <=99 07/17/2013 HI [facility] CHEMISTRY HDL 36 >=61 07/17/2013 LOW [facility] CHEMISTRY Trig 97 <=149 07/17/2013 Normal [facility] CHEMISTRY Chol 163 <=199 07/17/2013 Normal [facility] HEMATOLOGY Segs 76.1 45.0 - 75.0 07/17/2013 HI [facility] HEMATOLOGY Basophils # 0.0 0.0 - 0.2 07/17/2013 Normal [facility] HEMATOLOGY Eosinophils # 0.2 0.0 - 0.5 07/17/2013 Normal [facility] HEMATOLOGY Monocytes # 0.6 0.0 - 0.8 07/17/2013 Normal [facility] HEMATOLOGY Segs-Bands # 6.4 1.5 - 8.1 07/17/2013 Normal [facility] HEMATOLOGY Eosinophils 2.4 0.0 - 4.0 07/17/2013 Normal [facility] HEMATOLOGY Monocytes 7.6 2.0 - 12.0 07/17/2013 Normal [facility] HEMATOLOGY Lymphocytes 13.7 20.0 - 40.0 07/17/2013 LOW [facility] HEMATOLOGY Lymphocytes # 1.2 1.0 - 5.5 07/17/2013 Normal [facility] HEMATOLOGY Basophils 0.2 0.0 - 1.0 07/17/2013 Normal [facility] HEMATOLOGY MPV 7.9 7.4 - 10.4 07/17/2013 Normal [facility] HEMATOLOGY Platelet 214 133 - 450 07/17/2013 Normal [facility] HEMATOLOGY WBC 8.4 3.7 - 10.4 07/17/2013 Normal [facility] HEMATOLOGY RBC 4.61 4.70 - 6.10 07/17/2013 LOW [facility] HEMATOLOGY MCH 30.8 27.0 - 31.0 07/17/2013 Normal [facility] HEMATOLOGY RDW 13.5 11.5 - 14.5 07/17/2013 Normal [facility] HEMATOLOGY MCHC 32.7 32.0 - 36.0 07/17/2013 Normal [facility] HEMATOLOGY MCV 94.0 80.0 - 94.0 07/17/2013 Normal [facility] HEMATOLOGY Hgb 14.2 14.0 - 18.0 07/17/2013 Normal [facility] HEMATOLOGY Hct 43.3 42.0 - 54.0 07/17/2013 Normal [facility] HEMATOLOGY INR 1.20 0.85 - 1.17 07/17/2013 HI <sup>8</sup>Interpretive Data: RECOMMEND ED RANGES FOR PROTIME INR:
2.0-3.0 for most medical and surgical thromboembolic states.
2.5-3.5 for artificial heart valves and recurrent embolism.

INR SHOULD BE USED ONLY FOR PATIENTS ON STABLE ANTICOAGULANT THERAPY. [facility] HEMATOLOGY PT 15.1 12.0 - 14.7 07/17/2013 HI [facility] HEMATOLOGY PTT 32.9 22.9 - 35.8 07/17/2013 Normal <sup>9</sup>Interpretive Data: Heparin T herapeutic Range: 57 - 92 Seconds [facility] CHEMISTRY CK MB Index 0.8 0.0 - 2.5 07/17/2013 Normal [facility] CHEMISTRY Troponin-I <0.02 0.00 - 0.40 07/17/2013 Normal [facility] CHEMISTRY Total CK 139 12 - 191 07/17/2013 Normal [facility] CHEMISTRY CK MB 1.1 0.5 - 3.6 07/17/2013 Normal [facility] CHEMISTRY CK MB 2.2 0.5 - 3.6 07/16/2013 Normal [facility] CHEMISTRY Troponin-I <0.02 0.00 - 0.40 07/16/2013 Normal [facility] CHEMISTRY Total CK 108 12 - 191 07/16/2013 Normal [facility] CHEMISTRY CK MB Index 2.0 0.0 - 2.5 07/16/2013 Normal [facility] CHEMISTRY Magnesium Lvl 2.1 1.8 - 2.4 07/16/2013 Normal [facility] CHEMISTRY Hgb A1C 8.0 <=5.6 07/16/2013 HI [facility] CHEMISTRY TSH 2.790 0.360 - 3.740 07/16/2013 Normal [facility] CHEMISTRY T3 Uptake 35 31 - 39 07/16/2013 Normal [facility] CHEMISTRY T4 12.0 4.7 - 13.3 07/16/2013 Normal [facility] CHEMISTRY FTI 4.2 07/16/2013 NA [facility] Pathology Reports No Data Provided for This Section Diagnostic Reports Report Value Date Source Shoulder w contrast MRI EXAMIN ATION: MR right shoulder with contrast HISTORY: S46.091A Other injury of muscle(s) and tendon(s) of the rotator cuff of right shoulder, initial encounter; anterior right shoulder pain; right rotator cuff tear; right glenoid labral tear COMPARISON: Fluoroscopic images from arthrogram dated same day are reviewed. TECHNIQUE: Multiplanar, multisequence magnetic resonance imaging of the right shoulder is performed with a local coil following the intra-articular administration of contrast which is dictated separately. Transverse, oblique coronal, and oblique sagittal images are obtained. FINDINGS: Biceps: There is medial subluxation of the long head of the biceps tendon from the bicipital groove within an interstitial tear involving the distal cranial fibers of the subscapularis tendon. There is underlying mild biceps tendinosis, but the long head of the biceps tendon remains attached at the superior bicipital labral complex. Labrum: There is a SLAP tear of the glenoid labrum extending from the 12 o'clock position of the superior bicipital labral complex to the 10 o'clock position of the posterosuperior labrum. There is small paralabral cyst formation along the posterosuperior glenoid. The labrum below the glenoid equator is intact. Rotator cuff tendons: There is a full-thickness tear at the footprint of the supraspinatus tendon extending from the anterior leading edge measuring 1.2 cm in anteroposterior dimension with mild retraction of the torn distal tendon fibers by approximately 1.2 cm. The tear extends posteriorly with a partial- thickness, articular sided component involving the footprint of the posterior supraspinatus tendon and there is also moderate grade, partial-thickness, predominantly interstitial tearing at the footprint of the posterior infraspinatus tendon with interstitial delaminating component extending medially along the infraspinatus tendon towards the myotendinous junction. There is underlying severe supraspinatus and infraspinatus tendinosis. The teres minor tendon is intact. There is a low to moderate grade, partial-thickness, interstitial tear involving the distal cranial fibers of the subscapularis tendon with medial subluxation of the long head of the biceps tendon within this interstitial tear. There is underlying mild subscapularis tendinosis, but no full-thickness subscapularis tendon tear. Muscles: There is normal signal intensity and muscle bulk of the rotator cuff musculature. Acromio-osseous outlet: There is a type I, anteriorly downsloping acromion with a subacromial spur. There is no os acromiale. The coracoacromial and coracoclavicular ligaments are intact. There is moderate degenerative arthrosis of the acromioclavicular joint. Bone: Osseous degenerative changes are noted at the acromioclavicular joint. There are no acute fractures. There are no suspicious bone marrow replacing lesions. Cartilage: Again, there is moderate degenerative arthrosis of the acromioclavicular joint with associated chondrosis. There is no focal high-grade glenohumeral chondral defect. Soft tissue: Intra-articular contrast extends into the subacromial subdeltoid bursa through the full-thickness rotator cuff defect, as measured on fluoroscopic images from arthrogram dated same day. The inferior glenohumeral capsular ligaments are intact. IMPRESSION: 1. Full-thickness tear at the footprint of the right supraspinatus tendon extending from the anterior leading edge with measurements as above. The tear extends posteriorly with a partial-thickness, articular sided component involving the footprint of the posterior right supraspinatus tendon and there is also moderate grade, partial-thickness, predominantly interstitial tearing at the footprint of the posterior right infraspinatus tendon with interstitial delaminating component extending medially along the infraspinatus tendon towards the myotendinous junction. There is underlying severe right supraspinatus and infraspinatus tendinosis, but no right supraspinatus or infraspinatus muscular fatty atrophy. 2. Low to moderate grade, partial-thickn ess, interstitial tear involving the distal cranial fibers of the right subscapularis tendon with medial subluxation of the long head of the biceps tendon within this interstitial tear. There is underlying mild right subscapularis tendinosis, but no full-thickness subscapularis tendon tear and no subscapularis muscular fatty atrophy. 3. SLAP tear of the right glenoid labrum extending from the 12 o'clock position of the superior bicipital labral complex to the 10 o'clock position of the posterosuperior labrum labrum with small paralabral cyst formation along the posterosuperior glenoid. 4. Again, there is medial subluxation of the long head of the right biceps tendon from the bicipital groove within an interstitial tear involving the distal cranial fibers of the right subscapularis tendon. The long head of the biceps tendon remains attached at the superior bicipital labral complex with underlying mild right biceps tendinosis. 5. Moderate right acromioclavicular dege nerative arthrosis. 6. Anteriorly downsloping acromion with a subacromial spur. 7. No focal high-grade right glenohumera l chondral defect identified. 10/22/2017 ASHER Rider Inj Arthrogram Shoulder Unilat DX Exam: Fluoroscopic guided right shoulder arthrogram Reason for Exam: Pain Comparison Exam: None Discussion: On pump servicer helper view, there are no acute bony abnormalities identified within the right shoulder. No suspicious osteoblastic or osteolytic lesions. Right shoulder was prepped and draped in a sterile fashion. 1% lidocaine was used as local anesthesia. Under fluoroscopic guidance, the tip of a 22-gauge needle was placed into the right shoulder joint. Approximately none cc of a mixture of Dotarem and Omnipaque was successfully injected. External and internal rotation images were obtained pre- and postinjection of contrast material. Findings highly suspicious for full-thickness rotator cuff tear. No immediate post procedure complications. Please see interpretation of right shoulder MRI performed same day for further details. Fluoro time is 23 seconds. 4 images. Impression: 1. Successful fluoroscopic guided right shoulder arthrogram. 10/22/2017 ASHER Rider Consultation Notes No Data Provided for This Section Discharge Summaries No Data Provided for This Section History and Physicals No Data Provided for This Section Vital Signs Vital Sign Value Date Comments Source Diastolic (mm Hg) 62 07/18/2013 [facility] Respitory Rate 18 07/18/2013 [facility] Temperature Oral (F) 99.1 F 07/18/2013 [facility] Heart Rate 70 07/18/2013 [facility] Systolic (mm Hg) 100 07/18/2013 [facility] Respitory Rate 12 07/18/2013 [facility] Respitory Rate 18 07/18/2013 [facility] Systolic (mm Hg) 124 07/18/2013 [facility] Diastolic (mm Hg) 74 07/18/2013 [facility] Heart Rate 73 07/18/2013 [facility] Temperature Oral (F) 98.5 F 07/18/2013 [facility] Diastolic (mm Hg) 78 07/18/2013 [facility] Heart Rate 62 07/18/2013 [facility] Temperature Oral (F) 98.4 F 07/18/2013 [facility] Systolic (mm Hg) 131 07/18/2013 [facility] Weight 91.818 07/16/2013 [facility] Height 170.18 cm 07/16/2013 [facility] Encounters Location Location Details Encounter Type Encounter Number Reason For Visit Attending Provider ADM Date DC Date Status Source [facility] Inpatient [id number] CHF -NEW ONSET, L F SIDED FACIAL [place] IWONA SHETTY 07/16/2013 07/18/2013 Active [facility] [place] [facility] [id number] Nolberto Baltazar 10/22/2017 10/23/2017 ASHER Rider Procedures No Data Provided for This Section Assessment and Plan No Data Provided for This Section Plan of Care No Data Provided for This Section Social History Social History Date Source Social History TypeResponse ASHER Rider Family History No Data Provided for This Section Advance Directives No Data Provided for This Section Functional Status No Data Provided for This Section
--- OUTSIDE RECORDS SUMMARY | 2020-06-28 18:31 | XMS REPORT | Continuity of Care Document ---
Author Author [facility] t Organization [facility] Address [facility] [place] [address] Phone Unavailable Care Team Providers Care Plasterer Stucco Name Role Phone CARROLL VALVERDE MD PCP Venus SANCHEZ Attphys Unavailable Macrina VELIZ Attphys Unavailable Micki Baltazar Attphys Payers Payer Name Policy Type Policy Number Effective Date Expiration Date Li Mann [id number] 2017 00:00:00 [facility] Problems Condition Name Condition Details Condition Category Status Onset Date Resolution Date Last Treatment Date Treating Clinician Comments Source S46.091A - INJ [facility]TEND THE ROTATOR CUF S46.091A - INJ [facility]/TEND THE ROTATOR CUF Active 09/28/2017 WILLIAM OPID [place] Diagnosis Active 2017-09-28 00:01:00 2017-10-22 08:39:00 M wendi Mckee CHF -[place], LF SIDED FACIAL [place] CHF -[place], LF SIDED FACIAL [place] Active 07/16/2013 [facility] Ac tive 2013-07-16 14:13:00 2013-07-24 21:49:00 M wendi Mckee Chest pain Chest pain Problem Active [facility] Congestive heart failure CHF (congestive heart failure) Problem Active [facility] Right sided weakness Righ t sided weakness [...] Known Allergies DA Active U 2019-09-22 00:00:00 [facility] No Known Allergies DA Active U 2012-06-05 00:00:00 [facility] Medications Ordered Medication Name Filled Medication [...] PO, Daily, 30 tab, Substitution Allowed, ERTAB [facility] Lasix 40 mg oral tablet 2013-07-18 15:29:59 No Clementina Nagel Jose Juan 40 mg, 1 tab, PO, BID, 60 tab, Substitution Allowed, TAB [facility] carvedilol 6.25 mg oral tablet 2013-07-18 15:29:55 Yes Home Amauri Daniel 6.25 mg, 1 tab, PO, BID, 60 tab, Substitution Allowed, TAB [facility] aspirin 81 mg tablet, enteric coated 2013-07-18 15:29:49 Yes Home Amauri Daniel 81 mg, 1 tab, PO, Daily, 30 tab, Substit ution Allowed, ECTAB [facility] Coreg 2013-07-18 02:00:00 No Home Amauri Daniel 6.25 mg, 2 tab, Route: PO, Drug form: TAB, Q12H, Dosing Weight 91.818, kg, Start date: 07/17/13 21:00:00, Duration: 30 day, Stop date: 08/16/13 9:00:00 [facility] glipiZIDE 2013-07-17 14:49:00 No Home Amauri Daniel 2.5 mg, 1 tab, Route: PO, Drug form: ERTAB, Daily, Dosing Weight 91.818, kg, Priority: NOW, Start date: 07/17/13 9:49:00, Duration: 30 day, Stop date: 08/16/13 9:00:00 [facility] pneumococcal 23-valent vaccine 2013-07-17 14:00:00 No S YSTEM SYSTEM 0.5 ml, Route: IM, Drug Form: INJ, Daily, Start date: 07/17/13 9:00:00, Duration: 1 doses or times, Stop date: 07/17/13 9:00:00 [facility] furosemide 2013-07-17 14:00:00 No Home Amauri Daniel 40 mg, 4 mL, Route: IVP, Drug form: INJ, BID, Dosing Weight 91.818, kg, Start date: 07/17/13 9:00:00, Duration: 30 day, Stop date: 08/15/13 17:00:00 [facility] aspirin 81 mg tablet, enteric coated 2013-07-17 14:00:00 No Home Amauri Daniel 81 mg, 1 tab, [place]: PO, Drug form: ECTAB, Daily, Dosing Weight 91.818, kg, Start date: 07/17/13 9:00:00, Duration: 30 day, Stop date: 08/15/13 9:00:00 [facility] Saline Flush 0.9% 2013-07-17 02:00:00 No Home Amauri M ok 5 ml, Route: IVP, Drug Form: INJ, Dosing Weight 91.818, kg, Q12H, Start date: 07/16/13 21:00:00, Duration: 30 day, Stop date: 08/15/13 9:00:00 [facility] nitroglycerin 0.4 mg sublingual tablet 2013-07-16 23:27:00 No Home Amauri Daniel 0.4 mg, 1 tab, R oute: SL, Drug form: TAB, Q5Min, PRN Chest Pain, Start date: 07/16/13 18:27:00, Duration: 30 day, Stop date: 08/15/13 18:26:00 [facility] atropine 2013-07-16 23:27:00 No Home Amauri Daniel 0.5 mg, 5 mL, Route: IVP, Drug form: INJ, PRN, PRN Bradycardia, Start date: 07/16/13 18:27:00, Duration: 30 day, Stop date: 08/15/13 18:26:00 [facility] lisinopril 2013-07-16 23:14:00 No Kun Cassius Jacobo 5 mg, 1 tab, Route: PO, Drug form: TAB, Daily, Dosing Weight 91.818, kg, Priority: NOW, Start date: 07/16/13 18:14:00, Duration: 30 day, Stop date: 08/15/13 9:00:00 [facility] temazepam 2013-07-16 23:11:00 No Home Amauri Daniel 15 mg, 1 cap, Route: PO, Drug form: CAP, Bedtime, Dosing Weight 91.818, kg, PRN Insomnia, Start date: 07/16/13 18:11:00, Duration: 30 day, Stop date: 08/15/13 18:10:00 [facility] ondansetron 2013-07-16 23:11:00 No Home Amauri Daniel 4 mg, 2 mL, Route: IVP, Drug form: INJ, Q8H, Dosing Weight 91.818, kg, PRN Nausea & Vomiting, Start date: 07/16/13 18:11:00, Duration: 30 day, Stop date: 08/15/13 18:10:00 [facility] Saline Flush 0.9% 2013-07-16 23:11:00 No Home Amauri M ok 5 ml, Route: IVP, Drug Form: INJ, Dosing Weight 91.818, kg, PRN, PRN Line Flush, Start date: 07/16/13 18:11:00, Duration: 30 day, Stop date: 08/15/13 18:10:00 [facility] Enalapril Maleate 20 Mg Tablet Enalapril Maleate 20 Mg Tablet Yes 20 Twice A Day [facility] Metformin Hcl 1,000 Mg Tablet Metformin Hcl 1,000 Mg Tablet Yes 1000 Twice A Day [facility] Sitagliptin Phosphate (Januvia) 100 Mg Tablet Sitaglip tin Phosphate (Januvia) 100 Mg Tablet Yes 100 Daily [facility] Vital Signs Vital Name Observation Time Observation Value Comments Source Diastolic (mm Hg) 2013-07-18 17:00:00 Mem [facility] Respitory Rate 2013-07-18 17:00:00 Memori [facility] Temperature Oral (F) 2013-07-18 17:00:00 99.1 F [facility] Heart Rate 2013-07-18 17:00:00 [facility] Systolic (mm Hg) 2013-07-18 17:00:00 Giovanni rial [place] Respitory Rate 2013-07-18 15:47:00 Mem[facility] al [facility] Respitory Rate 2013-07-18 13:00:00 Memori [facility] Systolic (mm Hg) 2013-07-18 13:00:00 Giovanni rial [place] Diastolic (mm Hg) 2013-07-18 13:00:00 Mem orial [place] Heart Rate 2013-07-18 13:00:00 [facility] Temperature Oral (F) 2013-07-18 13:00:00 98.5 F [facility] [place] Diastolic (mm Hg) 2013-07-18 09:38:00 Mem o[facility] Heart Rate 2013-07-18 09:38:00 [facility] Temperature Oral (F) 2013-07-18 09:38:00 98.4 F [facility] Systolic (mm Hg) 2013-07-18 09:38:00 Giovanni feliciano [place] Weight 2013-07-16 22:24:00 [facility] [place] Height 2013-07-16 22:24:00 170.18 cm [facility] Procedures This patient has no known procedures. Encounters Start Date/Time End Date/Time Encounter Type Admission Type [facility] Care Department Encounter ID Source 2019-09-13 09:24:00 2019-09-16 09:55:00 Discharged Inpatient 1 [facility] [id number] [facility] 2018-07-19 20:06:00 2018-07-20 14:30:00 Discharged Inpatient (obs) 1 BHARAT VELIZ [facility] [id number] [facility] 2017-10-22 08:30:00 2017-10-22 23:59:00 Outpatient Nolberto Baltazar HOIP HOIP [id number] Results Test Description Test Time Test Comments Results Result Comments Source CHEST SINGLE (PORTABLE) 2020-06-28 17:27:00 [facility] [address] [place] [address] Patient Name: MICHELLE LY MR #: [id number] : 1950 Age/Sex: 69/M Req #: [id number] Adm Physician: Ordered by: S[place] DO Report #: [id number] Location: ER Room/Bed: Procedure: [id number] DX/CHEST SINGLE (PORTABLE) Exam Date: 06/28/20 Exam [...] 120 mg/dL 74-106 H Performed by certified dispenser operator at [facility] Novel Coronavirus [id number] 10:06:00* Test Item Value Reference Range Interpretation Comments Novel Coronavirus 2019 Inhouse (test code = [id number]) Negative Negative Positive results are indicative of the presence ihZHBV-EvY-3 RNA, clinical correlation with patient historyand other [...] moleculardiagnostic SARS-CoV-2 assay in vitro. Novel Coronavirus [id number] 10:06:00* Test Item Value Reference Range Interpretation Comments Novel Coronavirus 2019 Inhouse (test code = [id number]) Negative Negative Positive results are indicative of the presence hxURGG-TzT-1 RNA, clinical correlation with patient historyand other [...] moleculardiagnostic SARS-CoV-2 assay in vitro. BASIC METABOLIC [id number] 12:00:00* Test Item Value Reference Range Interpretation [...] result is a direct measurement.========= BASIC METABOLIC [id number] 11:48:00* Test Item Value Reference Range Interpretation [...] (test code = LDL) mg/dL 100-129 PROTHROMBIN [id number] 11:37:00* Test Item Value Reference Range Interpretation [...] (2.5-3.5) IS PATIENT ON ANTICOAGULANTS? NTHROMBOPLASTIN TIME [id number] 11:37:00* Test Item Value Reference Range Interpretation Comments THROMBOPLASTIN TIME PARTIAL (test code = PTT) 34.5 seconds 23.0-37. 0 N IS PATIENT ON ANTICOAGULANTS? NCBC W/AUTO [id number] 11:28:00* Test Item Value Reference Range Interpretation [...] NRBC#) 0.00 K/mm3 0.0-0.1 N CBC W/AUTO [id number] 11:26:00* Test Item Value Reference Range Interpretation [...] BA#) K/mm3 0.0-0.2 - XR CHEST 2 [id number] 10:23:00 FAX: Carroll Block MD [phone] [place]: O St: PRE FAX: Michael Kemp MD [phone] Name: MALACHIMICHELLE [facility] : 1950 Age/S: 69/M [address] [facility] Unit #: [id number] Loc: [place] [address] Phys: Michael Brambila MD Acct: [id number] Dis Date: Status: PRE [facility] PHONE #: [phone] Exam Date: 06/13/2020 1020 FAX #: [phone] Reason: PRE OP EXAMS: CPT CODE: [id number] XR CHEST 2 V 76571 HISTORY: Preop. COMPARISON: Chest x-ray from October 20, 2019. Location: [facility]. AP and lateral view of the chest: No acute infiltrates, effusion or congestion. Cardiomegaly. DJD of the dorsal spine. IMPRESSION: No acute infiltrates, effusion or congestion. at 1023 Reported and signed by: Kunal Joyner M.D. CC: Carroll Valverde MD; Michael Lyn Technologist: RT Niki(R) Trnscrd Date/Time/By: 06/13/2020 (1023) : By: [email or web address] Orig Print D/T: S: 06/13/2020 (2347) PAGE 1 Signed Report [id number] 10:43:00* Test Item Value Reference Range Interpretation Comments GLUBED (test code = GLUBED) 179 MG/DL 70-110 H Performed by certified dispenser operator at [facility] BASIC METABOLIC [id number] 09:49:00* Test Item Value Reference Range Interpretation [...] code = CA) 8.7 mg/dL 8.0-10.5 N [id number] 07:56:00* Test Item Value Reference Range Interpretation Comments GLUBED (test code = GLUBED) 119 MG/DL 70-110 H Performed by certified dispenser operator at [facility] [id number] 21:55:00* Test Item Value Reference Range Interpretation Comments GLUBED (test code = GLUBED) 180 MG/DL 70-110 H Performed by certified dispenser operator at [facility] [id number] 08:51:00* Test Item Value Reference Range Interpretation Comments GLUBED (test code = GLUBED) 122 MG/DL 70-110 H Performed by certified dispenser operator at [facility] - XR CHEST 2 [id number] 09:28:00 FAX: Michael Kemp MD [phone] [place]: St: PRE Name: MICHELLE LEES [facility] Pierre : [birth year] Age/S: 69/M [address] [place] [address] Blvd Unit #: [id number] Loc: [place] [address] Phys: Michael Brambila MD Acct: [id number] Dis Date: Status: PRE SDC PHONE #: [phone] Exam Date: 10/20/2019 0859 FAX #: [phone] Reason: PREOP PCI LAD AND CIR EXAMS: CPT CODE: [id number] XR CHEST 2 V 21898 CHEST RADIOGRAPHS - PA AND LATERAL: COMPARISON: [...] By: [email or web address] Orig Print D/T: S: 10/20/2019 (1004) PAGE 1 Sign ed Report PROTHROMBIN [id number] 09:26:00* Test Item Value Reference Range Interpretation [...] Infarction (to prevent recurrent infarct). BASIC METABOLIC [id number] 09:25:00* Test Item Value Reference Range Interpretation [...] CA) 9.7 mg/dL 8.0-10.5 N BASIC METABOLIC [id number] 09:16:00* Test Item Value Reference Range Interpretation [...] CA) 9.7 mg/dL 8.0-10.5 N CBC W/AUTO [id number] 09:06:00* Test Item Value Reference Range Interpretation [...] DIFF REQUIRED (test code = MDIFF) NO [id number] 09:35:00* Test Item Value Reference Range Interpretation Comments GLUBED (test code = GLUBED) 226 MG/DL 70-110 H Performed by certified dispenser operator at [facility] BASIC METABOLIC [id number] 04:56:00* Test Item Value Reference Range Interpretation [...] CA) 8.3 mg/dL 8.0-10.5 N CBC W/AUTO [id number] 04:43:00* Test Item Value Reference Range Interpretation [...] DIFF REQUIRED (test code = MDIFF) NO [id number] 20:54:00* Test Item Value Reference Range Interpretation Comments GLUBED (test code = GLUBED) 250 MG/DL 70-110 H Performed by certified dispenser operator at [facility] [id number] 15:13:00* Test Item Value Reference Range Interpretation Comments GLUBED (test code = GLUBED) 144 MG/DL 70-110 H Performed by certified dispenser operator at [facility] [id number] 09:01:00* Test Item Value Reference Range Interpretation Comments GLUBED (test code = GLUBED) 128 MG/DL 70-110 H Performed by certified dispenser operator at [facility] - XR CHEST 2 [id number] 10:59:00 FAX: Michael Kemp MD [phone] [place]: St: PRE Name: MICHELLE LEES [facility] : [birth year] Age/S: 69/M [address] [place] [address] Unit #: [id number] Loc: [place] [address] Phys: Michael Brambila MD Acct: [id number] Dis Date: Status: PRE SDC PHONE #: [phone] Exam Date: 09/22/20191050 FAX #: [phone] Reason: PRE-OP PCI EXAMS: CPT CODE: [id number] XR CHEST 2 V 93365 EXAM: PA and lateral chest. EXAM DATE: September 22, 2019 CLINICAL HISTORY: PRE-OP PCI COMPARISON: June 05, 2012 Cardiomegaly is noted i ncreased since the prior exam.. The lungs appear free of acute disease. Degenerative changes are identified in the intrathoracic spine. IMPRESSION: Progressive cardiomegaly. No acute findings are identi fied. at 1057 Reported and signed by: Haritha Baltazar M.D. CC: Felice Brambila MD Technologist: Taylor alvarado RT(R)(M) Trnscrd Date/Time/By: 09/22/2019 (9847 ) : By: Ary Orig Print D/T: S: 09/22/2019 (1278) PAGE 1 Signed Report BASIC METABOLIC [id number] 10:13:00* Test Item Value Reference Range Interpretation [...] CA) 9.3 mg/dL 8.0-10.5 N BASIC METABOLIC [id number] 10:09:00* Test Item Value Reference Range Interpretation [...] = CA) 9.3 mg/dL 8.0-10.5 N PROTHROMBIN [id number] 10:03:00* Test Item Value Reference Range Interpretation [...] Infarction (to prevent recurrent infarct). CBC W/AUTO [id number] 09:56:00* Test Item Value Reference Range Interpretation [...] REQUIRED (test code = MDIFF) NO Bedside [id number] 07:38:00* Test Item Value Reference Range Interpretation Comments Bedside Glucose (test code = 05793-5) 144 70-120 H Meter ID: [id number] [facility] MB 2019-09-14 12:11:00* Test Item Value Reference Range Interpretation Comments Creatine Kinase MB (test code = 95792-0) 3.00 0-5.0 [facility]Troponin [id number] 12:11:00* Test Item Value Reference Range Interpretation Comments Troponin I (test code = TAW3428) < 0.001 0-0.300 [facility] HospitalCreatine [id number] 12:07:00* Test Item Value Reference Range Interpretation Comments Creatine Kinase (test code = 2157-6) 156 30-200 [facility] HospitalTriglycerides [id number] 05:28:00* Test Item Value Reference Range Interpretation Comments Triglycerides Level (test code = 2571-8) 108 0-149 [facility] HospitalCholesterol [id number] 05:28:00* Test Item Value Reference Range Interpretation Comments Cholesterol Level (test code = 2093-3) 188 0-199 Less than 200 mg/dL Low Ucpp573 - 239 mg/dL Borderline Reua027 m g/dl and greater High Risk [facility] HospitalLDL Ypardzooeet3872-29-72 05:28:00* Test Item Value Reference Range Interpretation Comments LDL Cholesterol (test code = 2089-1) 125 60-130 [facility] HospitalHDL Mtvbwnoqfoi9668-01-58 05:28:00* Test Item Value Reference Range Interpretation Comments HDL Cholesterol (test code = 2085-9) 41 40-60 [facility] HospitalCholesterol/HDL [id number] 05:28:00 * Test Item Value Reference Range Interpretation Comments Cholesterol/HDL Ratio (test code = 9830-1) 4.6 3.9-4.7 [facility] HospitalBlood Urea Gzyedmvv9827-08-17 05:27:00* Test Item Value Reference Range Interpretation Comments Blood Urea Nitrogen (test code = 3094-0) 22 7-26 [facility] HospitalBUN/Creatinine [id number] 05:27:00* Test Item Value Reference Range Interpretation Comments BUN/Creatinine Ratio (test code = 3097-3) 18 6-25 [facility] HospitalAspartate Amino Transf (AST/SGOT) 2019-09-14 05:27:00* Test Item Value Reference Range Interpretation Comments Aspartate Amino Transf (AST/SGOT) (test code = Aspartate Amino Transf (AST/SGOT)) 41 5-34 H [facility] HospitalAlanine Aminotransferase (ALT/SGPT) 2019-09-14 05:27:00* Test Item Value Reference Range Interpretation Comments Alanine Aminotransferase (ALT/SGPT) (test code = 1742-6) 70 0-55 H [facility] Saaal7155-07-82 05:02:00* Test Item Value Reference Range Interpretation Comments Sodium Level (test code = 2951-2) 138 136-145 [facility] HospitalPotassium Nsvag1179-65-58 05:02:00* Test Item Value Reference Range Interpretation Comments Potassium Level (test code = 2823-3) 3.9 3.5-5.1 [facility] HospitalChloride [id number] 05:02:00* Test Item Value Reference Range Interpretation Comments Chloride Level (test code = 2075-0) 102 98-107 [facility] HospitalCarbon Dioxide [id number] 05:02:00* Test Item Value Reference Range Interpretation Comments Carbon Dioxide Level (test code = 2028-9) 25 22-29 [facility] HospitalAnion [id number] 05:02:00* Test Item Value Reference Range Interpretation Comments Anion Gap (test code = 00393-9) 14.9 8-16 [facility] HospitalCreatinine2019-11-14 05:02:00* Test Item Value Reference Range Interpretation Comments Creatinine (test code = 2160-0) 1.19 0.72-1.25 [facility] HospitalEstimat Glomerular Filtration Rate 2019-09-14 05:02:00* Test Item Value Reference Range Interpretation Comments Estimat Glomerular Filtration Rate (test code = 722877860) > 60 >60 Ranges were taken from the National Kidney Disease Education Program and the [facility] Kidney Foundation literature.Reference ranges:60 or greater: Lmgsch97-06 ( for 3 consecutive months): Chronic kidney disease 15 or less: Kidney failureMemorial Hermann Katy HospitalGlucose Jvwsr5728-83-77 05:02:00* Test Item Value Reference Range Interpretation Comments Glucose Level (test code = OQL0338) 127 74-118 H [facility] HospitalCalcium Gnhcm2062-41-38 05:02:00* Test Item Value Reference Range Interpretation Comments Calcium Level (test code = 56989-4) 9.7 8.4-10.2 [facility] HospitalTotal Butybixbr3784-36-78 05:02:00* Test Item Value Reference Range Interpretation Comments Total Bilirubin (test code = 1975-2) 0.5 0.2-1.2 [facility] HospitalTotal Vbitaab3671-10-57 05:02:00* Test Item Value Reference Range Interpretation Comments Total Protein (test code = 2885-2) 7.0 6.5-8.1 [facility] HospitalAlbumin2019-11-14 05:02:00* Test Item Value Reference Range Interpretation Comments Albumin (test code = 1751-7) 3.6 3.5-5.0 [facility] HospitalGlobulin2019-11-14 05:02:00* Test Item Value Reference Range Interpretation Comments Globulin (test code = 73839-8) 3.4 2.3-3.5 [facility] HospitalAlbumin/Globulin Lscqi5125-30-36 05:02:00 * Test Item Value Reference Range Interpretation Comments Albumin/Globulin Ratio (test code = 1759-0) 1.1 0.8-2.0 [facility] HospitalAlkaline Sqawdkxjkwp8915-46-02 05:02:00* Test Item Value Reference Range Interpretation Comments Alkaline Phosphatase (test code = 6768-6) 81 40-150 [facility] HospitalWhite Blood Pbbol6639-85-13 04:40:00* Test Item Value Reference Range Interpretation Comments White Blood Count (test code = 6690-2) 6.34 4.8-10.8 [facility] HospitalRed Blood Pxpic9256-85-49 04:40:00* Test Item Value Reference Range Interpretation Comments Red Blood Count (test code = 789-8) 4.35 4.3-5.7 [facility] HospitalHemoglobin2019-11-14 04:40:00* Test Item Value Reference Range Interpretation Comments Hemoglobin (test code = 95533-5) 13.5 14.0-18.0 L [facility] HospitalHematocrit2019-11-14 04:40:00* Test Item Value Reference Range Interpretation Comments Hematocrit (test code = 4544-3) 40.3 38.2-49.6 [facility] HospitalMean Corpuscular Akwxda9702-64-11 04:40:00* Test Item Value Reference Range Interpretation Comments Mean Corpuscular Volume (test code = 787-2) 92.6 81-99 [facility] HospitalMean Corpuscular Fwfroremuy3516-56-56 04:40:00* Test Item Value Reference Range Interpretation Comments Mean Corpuscular Hemoglobin (test code = 785-6) 31.0 28-32 [facility] HospitalMean Corpuscular Hemoglobin Concent 2019-09-14 04:40:00* Test Item Value Reference Range Interpretation Comments Mean Corpuscular Hemoglobin Concent (test code = 786-4) 33.5 31-35 [facility] HospitalRed Cell Distribution Jhwwv4880-33-65 04:40:00* Test Item Value Reference Range Interpretation Comments Red Cell Distribution Width (test code = 58516-5) 13.0 11.7 -14.4 [facility] HospitalPlatelet Trtty8817-02-40 04:40:00* Test Item Value Reference Range Interpretation Comments Platelet Count (test code = 777-3) 223 140-360 [facility] HospitalNeutrophils (%) (Auto)2019-09-14 04:40:00 * Test Item Value Reference Range Interpretation Comments Neutrophils (%) (Auto) (test code = 18286-9) 72.5 38.7-80.0 [facility] HospitalLymphocytes (%) (Auto)2019-09-14 04:40:00 * Test Item Value Reference Range Interpretation Comments Lymphocytes (%) (Auto) (test code = 736-9) 13.9 18.0-39.1 L [facility] HospitalMonocytes (%) (Auto)2019-09-14 04:40:00* Test Item Value Reference Range Interpretation Comments Monocytes (%) (Auto) (test code = 5905-5) 8.8 4.4-11.3 [facility] HospitalEosinophils (%) (Auto)2019-09-14 04:40:00 * Test Item Value Reference Range Interpretation Comments Eosinophils (%) (Auto) (test code = 713-8) 3.5 0.0-6.0 [facility] HospitalBasophils (%) (Auto)2019-09-14 04:40:00* Test Item Value Reference Range Interpretation Comments Basophils (%) (Auto) (test code = 706-2) 0.8 0.0-1.0 [facility] HospitalIM GRANULOCYTES %2019-09-14 04:40:00* Test Item Value Reference Range Interpretation Comments IM GRANULOCYTES % (test code = IM GRANULOCYTES %) 0.5 0.0- 1.0 [facility] HospitalNeutrophils # (Auto)2019-09-14 04:40:00* Test Item Value Reference Range Interpretation Comments Neutrophils # (Auto) (test code = 751-8) 4.6 2.1-6.9 [facility] HospitalLymphocytes # (Auto)2019-09-14 04:40:00* Test Item Value Reference Range Interpretation Comments Lymphocytes # (Auto) (test code = 16558-3) 0.9 1.0-3.2 L [facility] HospitalMonocytes # (Auto)2019-09-14 04:40:00* Test Item Value Reference Range Interpretation Comments Monocytes # (Auto) (test code = 742-7) 0.6 0.2-0.8 [facility] HospitalEosinophils # (Auto)2019-09-14 04:40:00* Test Item Value Reference Range Interpretation Comments Eosinophils # (Auto) (test code = 711-2) 0.2 0.0-0.4 [facility] HospitalBasophils # (Auto)2019-09-14 04:40:00* Test Item Value Reference Range Interpretation Comments Basophils # (Auto) (test code = 704-7) 0.1 0.0-0.1 [facility] HospitalAbsolute Immature Granulocyte (auto 2019-09-14 04:40:00* Test Item Value Reference Range Interpretation Comments Absolute Immature Granulocyte (auto (francia t code = Absolute Immature Granulocyte (auto) 0.03 0-0.1 [facility] HospitalB[facility] Natriuretic Esjbkea9173-41-89 09:23:00* Test Item Value Reference Range Interpretation Comments B-Type Natriuretic Peptide (test code = 15373-4) 793.9 0-100 H [facility] HospitalMagnesium Vmjcz8069-15-44 09:19:00* Test Item Value Reference Range Interpretation Comments Magnesium Level (test code = 41595-1) 1.8 1.3-2.1 [facility] HospitalProthrombin Phzo9287-79-60 09:09:00* Test Item Value Reference Range Interpretation Comments Prothrombin Time (test code = 5902-2) 14.0 11.9-14.5 [facility] HospitalProthromb Time International Ratio 2019-09-13 09:09:00* Test Item Value Reference Range Interpretation Comments Prothromb Time International Ratio (test code = 6301-6) 1.03 Oral Anticoagulant Therapy INR Values:1. Low Intensity Therapy 1.5 - 2.02 . Moderate Intensity Therapy 2.0 - 3.03. High Intensity Therapy(1) 2.5 - 3. 54. High Intensity Therapy(2) 3.0 - 4.05. Panic Value INR > 5.0 [facility] HospitalActivated Partial Thromboplast Time 2019-09-13 09:09:00* Test Item Value Reference Range Interpretation Comments Activated Partial Thromboplast Time (test code = 15249-9) 33.8 23.8-35.5 [facility] HospitalUrine SEP2938-78-43 09:06:00* Test Item Value Reference Range Interpretation Comments Urine WBC (test code = 5821-4) 6-10 0-5 H [facility] HospitalUrine NTE0147-96-40 09:06:00* Test Item Value Reference Range Interpretation Comments Urine RBC (test code = 85006-4) 0-5 0-5 [facility] HospitalUrine Tvllohsw3485-11-03 09:06:00* Test Item Value Reference Range Interpretation Comments Urine Bacteria (test code = 86415-7) RARE NONE [facility] HospitalUrine Epithelial Gkqea2457-74-30 09:06:00 * Test Item Value Reference Range Interpretation Comments Urine Epithelial Cells (test code = 54120-0) FEW NONE [facility] HospitalUrine Fwbly1858-81-54 09:01:00* Test Item Value Reference Range Interpretation Comments Urine Color (test code = 5778-6) YELLOW YELLOW [facility] HospitalUrine Lzhzmio8942-83-45 09:01:00* Test Item Value Reference Range Interpretation Comments Urine Clarity (test code = 60757-2) CLEAR CLEAR [facility] HospitalUrine Specific Rrqfqeo3214-40-23 09:01:00 * Test Item Value Reference Range Interpretation Comments Urine Specific [place] (test code = 5811-5) <=1.005 1.010-1.02 5 [facility] HospitalUrine pL3844-80-93 09:01:00* Test Item Value Reference Range Interpretation Comments Urine pH (test code = 08107-5) 6 5-7 [facility] HospitalU[facility] Leukocyte Rwesmgti1242-70-84 09:01:00* Test Item Value Reference Range Interpretation Comments Urine Leukocyte Esterase (test code = 12358-3) NEGATIVE NEGATIV E [facility] HospitalU[facility] Cnrgxlx0049-57-85 09:01:00* Test Item Value Reference Range Interpretation Comments Urine Nitrite (test code = 70148-9) NEGATIVE NEGATIVE [facility] HospitalUrine Xczlzqa9599-16-87 09:01:00* Test Item Value Reference Range Interpretation Comments Urine Protein (test code = 19273-2) NEGATIVE NEGATIVE [facility] Glucose (UA)2019-09-13 09:01:00* Test Item Value Reference Range Interpretation Comments Urine Glucose (UA) (test code = 40736-9) NEGATIVE NEGATIVE [facility] HospitalU[facility] Oggjexm8024-86-89 09:01:00* Test Item Value Reference Range Interpretation Comments Urine Ketones (test code = 49838-9) NEGATIVE NEGATIVE [facility] Ckuedcaacrut7109-60-67 09:01:00* Test Item Value Reference Range Interpretation Comments Urine Urobilinogen (test code = 75734-3) 0.2 0.2-1 [facility] HospitalUrine Chyuaehjt0627-72-96 09:01:00* Test Item Value Reference Range Interpretation Comments Urine Bilirubin (test code = 1977-8) NEGATIVE NEGATIVE [facility] HospitalUrine Gtblp0107-43-40 09:01:00* Test Item Value Reference Range Interpretation Comments Urine Blood (test code = 61417-1) NEGATIVE NEGATIVE [facility] HospitalCHEST SINGLE (PORTABLE)2019-09-13 08:54:00 [facility] [address] [address] Patient Name: MICHELLE LY MR #: [id number] : 1950 Age/Sex: 69/M Req #: [id number] Adm Physician: Ordered by: SHOSHANA SANCHEZ MD Report #: [id number] Location: ER Room/Bed: Procedure: [id number] DX/ CHEST SINGLE (PORTABLE) Exam Date: 09/13/19 [...] 09/13/19855 COPY TO: SHOSHANA SANCHEZ MD Triglycerides Roczv6801-01-43 05:28:00* Test Item Value Reference Range Interpretation Comments Triglycerides Level (test code = 2571-8) 146 0-149 [facility] HospitalCholesterol Yuvyv9301-33-38 05:28:00* Test Item Value Reference Range Interpretation Comments Cholesterol Level (test code = 2093-3) 224 0-199 H Less than 200 mg/dL Low Yaoz417 - 239 mg/dL Borderline Tlad639 m g/dl and greater High Risk [facility] HospitalLDL Gvekjtttsht9518-78-60 05:28:00* Test Item Value Reference Range Interpretation Comments LDL Cholesterol (test code = 2089-1) 147 60-130 H [facility] HospitalHDL Ylyxjtxfjft1866-69-31 05:28:00* Test Item Value Reference Range Interpretation Comments HDL Cholesterol (test code = 2085-9) 48 40-60 [facility] HospitalCholesterol/HDL Ydzxg3905-74-28 05:28:00 * Test Item Value Reference Range Interpretation Comments Cholesterol/HDL Ratio (test code = 9830-1) 4.7 3.9-4.7 [facility] HospitalCreatine Kinase RR9041-50-41 02:54:00* Test Item Value Reference Range Interpretation Comments Creatine Kinase MB (test code = 43533-1) 1.10 0-5.0 [facility] HospitalTroponin T2030-97-72 02:54:00* Test Item Value Reference Range Interpretation Comments Troponin I (test code = TZM9885) 0.010 0-0.300 [facility] HospitalCreatine Wpcjdj4179-46-87 02:27:00* Test Item Value Reference Range Interpretation Comments Creatine Kinase (test code = 2157-6) 93 30-200 [facility] HospitalUrine DDO2750-09-67 19:15:00* Test Item Value Reference Range Interpretation Comments Urine WBC (test code = 5821-4) NONE 0-5 [facility] HospitalUrine JVR1005-39-58 19:15:00* Test Item Value Reference Range Interpretation Comments Urine RBC (test code = 75065-7) NONE 0-5 [facility] HospitalUrine Qjmjyezi6483-30-89 19:15:00* Test Item Value Reference Range Interpretation Comments Urine Bacteria (test code = 27549-8) NONE NONE [facility] HospitalUrine Epithelial Ggnqe2661-55-56 19:15:00 * Test Item Value Reference Range Interpretation Comments Urine Epithelial Cells (test code = 11869-6) RARE NONE [facility] HospitalUrine Vpqmx6568-10-79 19:15:00* Test Item Value Reference Range Interpretation Comments Urine Mucus (test code = 8247-9) FEW RARE H [facility] HospitalUrine Yfavu9458-28-59 18:43:00* Test Item Value Reference Range Interpretation Comments Urine Color (test code = 5778-6) YELLOW YELLOW [facility] HospitalUrine Rryguwf5539-55-19 18:43:00* Test Item Value Reference Range Interpretation Comments Urine Clarity (test code = 29017-6) CLEAR CLEAR [facility] HospitalUrine Specific Fyejpbl3422-09-55 18:43:00 * Test Item Value Reference Range Interpretation Comments Urine Specific [place] (test code = 5811-5) 1.020 1.010-1.02 5 [facility] HospitalUrine eJ1962-55-69 18:43:00* Test Item Value Reference Range Interpretation Comments Urine pH (test code = 10107-9) 5 5-7 [facility] HospitalUrine Leukocyte Sclkrkdj4525-32-62 18:43:00* Test Item Value Reference Range Interpretation Comments Urine Leukocyte Esterase (test code = 5799-2) NEGATIVE NEGATIVE [facility] Zebmuim6733-75-93 18:43:00* Test Item Value Reference Range Interpretation Comments Urine Nitrite (test code = 77840-3) NEGATIVE NEGATIVE [facility] HospitalUrine Mobamlk3747-71-86 18:43:00* Test Item Value Reference Range Interpretation Comments Urine Protein (test code = 5804-0) NEGATIVE NEGATIVE [facility] HospitalUrine Glucose (UA)2018-07-19 18:43:00* Test Item Value Reference Range Interpretation Comments Urine Glucose (UA) (test code = 2349-9) NEGATIVE NEGATIVE [facility] HospitalUrine Zttzltl2604-56-60 18:43:00* Test Item Value Reference Range Interpretation Comments Urine Ketones (test code = 79908-5) NEGATIVE NEGATIVE [facility] HospitalUrine Elsvzxyxxroy2638-46-16 18:43:00* Test Item Value Reference Range Interpretation Comments Urine Urobilinogen (test code = 29754-1) 0.2 0.2-1 [facility] HospitalUrine Bjplypdox2517-02-30 18:43:00* Test Item Value Reference Range Interpretation Comments Urine Bilirubin (test code = 1978-6) NEGATIVE NEGATIVE [facility] HospitalUrine Ssudw5700-53-12 18:43:00* Test Item Value Reference Range Interpretation Comments Urine Blood (test code = 56253-4) NEGATIVE NEGATIVE [facility]2018-07-19 18:10:00 [facility] [address] [address] Patient Name: MICHELLE LY MR #: [id number] : 1950 Age/Sex: 67/M Req #: [id number] Adm Physician: Ordered by: BHARAT VELIZ MD Report #: [id number] Location: ER Room/Bed: Procedure: [id number] DX/CHEST SINGLE (NOT JOHNNY BLE) Exam Date: [...] COPY TO: BHARAT VELIZ MD B-Type Natriuretic Wwahabn0026-14-35 18:07:00* Test Item Value Reference Range Interpretation Comments B-Type Natriuretic Peptide (test code = 76296-0) 110.1 0-100 [facility] Twqpk3799-67-01 18:00:00* Test Item Value Reference Range Interpretation Comments Sodium Level (test code = 2951-2) 140 136-145 [facility] HospitalPotassium Inask5221-30-46 18:00:00* Test Item Value Reference Range Interpretation Comments Potassium Level (test code = 2823-3) 4.2 3.5-5.1 [facility] HospitalChloride Fufuu2558-92-07 18:00:00* Test Item Value Reference Range Interpretation Comments Chloride Level (test code = 2075-0) 104 98-107 [facility] HospitalCarbon Dioxide Anogr9939-28-74 18:00:00* Test Item Value Reference Range Interpretation Comments Carbon Dioxide Level (test code = 2028-9) 22 22-29 [facility] HospitalAnion Jgu4001-58-08 18:00:00* Test Item Value Reference Range Interpretation Comments Anion Gap (test code = 27943-8) 18.2 8-16 H [facility] HospitalBlood Urea Usopygmp7958-34-45 18:00:00* Test Item Value Reference Range Interpretation Comments Blood Urea Nitrogen (test code = 3094-0) 17 7-26 [facility] HospitalCreatinine2018-09-18 18:00:00* Test Item Value Reference Range Interpretation Comments Creatinine (test code = 2160-0) 1.02 0.72-1.25 [facility] HospitalBUN/Creatinine Eugnf7270-03-20 18:00:00* Test Item Value Reference Range Interpretation Comments BUN/Creatinine Ratio (test code = 3097-3) 17 6-25 [facility] HospitalEstimat Glomerular Filtration Rate 2018-07-19 18:00:00* Test Item Value Reference Range Interpretation Comments Estimat Glomerular Filtration Rate (test code = 363699754) 60- >60 Ranges were taken from the National Kidney Disease Education Program and the [facility] literature.Reference ranges:60 or greater: Fqylqu29-53 ( for 3 consecutive months): Chronic kidney disease 15 or less: Kidney failureMemorial Hermann Katy HospitalGlucose Aajwi1621-69-61 18:00:00* Test Item Value Reference Range Interpretation Comments Glucose Level (test code = KRL6680) 88 74-118 [facility] HospitalCalcium Amxru1369-35-06 18:00:00* Test Item Value Reference Range Interpretation Comments Calcium Level (test code = 44724-0) 9.8 8.4-10.2 [facility] HospitalTotal Joofmsgpl3530-86-58 18:00:00* Test Item Value Reference Range Interpretation Comments Total Bilirubin (test code = 1975-2) 0.5 0.2-1.2 [facility] HospitalAspartate Amino Transf (AST/SGOT) 2018-07-19 18:00:00* Test Item Value Reference Range Interpretation Comments Aspartate Amino Transf (AST/SGOT) (test code = Aspartate Amino Transf (AST/SGOT)) 37 5-34 H [facility] HospitalAlanine Aminotransferase (ALT/SGPT) 2018-07-19 18:00:00* Test Item Value Reference Range Interpretation Comments Alanine Aminotransferase (ALT/SGPT) (test code = 1742-6) 61 0-55 H [facility] HospitalTotal Sserhfa0270-91-80 18:00:00* Test Item Value Reference Range Interpretation Comments Total Protein (test code = 2885-2) 7.9 6.5-8.1 [facility] HospitalAlbumin2018-09-18 18:00:00* Test Item Value Reference Range Interpretation Comments Albumin (test code = 1751-7) 3.9 3.5-5.0 [facility] HospitalGlobulin2018-09-18 18:00:00* Test Item Value Reference Range Interpretation Comments Globulin (test code = 57085-9) 4.0 2.3-3.5 H [facility] HospitalAlbumin/Globulin Uuxty0250-86-38 18:00:00 * Test Item Value Reference Range Interpretation Comments Albumin/Globulin Ratio (test code = 1759-0) 1.0 0.8-2.0 [facility] HospitalAlkaline Jgkbtlsdrjx2660-58-44 18:00:00* Test Item Value Reference Range Interpretation Comments Alkaline Phosphatase (test code = 6768-6) 102 40-150 [facility] HospitalProthrombin Lvxl8601-96-19 17:48:00* Test Item Value Reference Range Interpretation Comments Prothrombin Time (test code = 5902-2) 12.6 11.9-14.5 [facility] HospitalProthromb Time International Ratio 2018-07-19 17:48:00* Test Item Value Reference Range Interpretation Comments Prothromb Time International Ratio (test code = 6301-6) 1.02 Oral Anticoagulant Therapy INR Values:1. Low Intensity Therapy 1.5 - 2.02 . Moderate Intensity Therapy 2.0 - 3.03. High Intensity Therapy(1) 2.5 - 3. 54. High Intensity Therapy(2) 3.0 - 4.05. Panic Value INR > 5.0 [facility] HospitalActivated Partial Thromboplast Time 2018-07-19 17:48:00* Test Item Value Reference Range Interpretation Comments Activated Partial Thromboplast Time (test code = 00376-0) 29.5 23.8-35.5 [facility] HospitalWhite Blood Vuzuj0718-36-12 17:38:00* Test Item Value Reference Range Interpretation Comments White Blood Count (test code = 6690-2) 6.80 4.8-10.8 [facility] HospitalRed Blood Iuosr8568-07-31 17:38:00* Test Item Value Reference Range Interpretation Comments Red Blood Count (test code = 789-8) 4.78 4.3-5.7 [facility] HospitalHemoglobin2018-09-18 17:38:00* Test Item Value Reference Range Interpretation Comments Hemoglobin (test code = 14355-6) 15.3 14.0-18.0 [facility] HospitalHematocrit2018-09-18 17:38:00* Test Item Value Reference Range Interpretation Comments Hematocrit (test code = 4544-3) 43.2 38.2-49.6 [facility] HospitalMean Corpuscular Byhexh4801-94-12 17:38:00* Test Item Value Reference Range Interpretation Comments Mean Corpuscular Volume (test code = 787-2) 90.4 81-99 [facility] HospitalMean Corpuscular Dappvcqxga5325-02-27 17:38:00* Test Item Value Reference Range Interpretation Comments Mean Corpuscular Hemoglobin (test code = 785-6) 32.0 28-32 [facility] HospitalMean Corpuscular Hemoglobin Concent 2018-07-19 17:38:00* Test Item Value Reference Range Interpretation Comments Mean Corpuscular Hemoglobin Concent (test code = 786-4) 35.4 31-35 H [facility] HospitalRed Cell Distribution Rlyli5364-56-02 17:38:00* Test Item Value Reference Range Interpretation Comments Red Cell Distribution Width (test code = 71433-0) 12.4 11.7 -14.4 [facility] HospitalPlatelet Ixnax5363-63-74 17:38:00* Test Item Value Reference Range Interpretation Comments Platelet Count (test code = 777-3) 213 140-360 [facility] HospitalNeutrophils (%) (Auto)2018-07-19 17:38:00 * Test Item Value Reference Range Interpretation Comments Neutrophils (%) (Auto) (test code = 97002-3) 55.2 38.7-80.0 [facility] HospitalLymphocytes (%) (Auto)2018-07-19 17:38:00 * Test Item Value Reference Range Interpretation Comments Lymphocytes (%) (Auto) (test code = 736-9) 31.2 18.0-39.1 [facility] HospitalMonocytes (%) (Auto)2018-07-19 17:38:00* Test Item Value Reference Range Interpretation Comments Monocytes (%) (Auto) (test code = 5905-5) 8.5 4.4-11.3 [facility] HospitalEosinophils (%) (Auto)2018-07-19 17:38:00 * Test Item Value Reference Range Interpretation Comments Eosinophils (%) (Auto) (test code = 713-8) 4.1 0.0-6.0 [facility] HospitalBasophils (%) (Auto)2018-07-19 17:38:00* Test Item Value Reference Range Interpretation Comments Basophils (%) (Auto) (test code = 706-2) 0.6 0.0-1.0 [facility] HospitalIM GRANULOCYTES %2018-07-19 17:38:00* Test Item Value Reference Range Interpretation Comments IM GRANULOCYTES % (test code = IM GRANULOCYTES %) 0.4 0.0- 1.0 [facility] HospitalNeutrophils # (Auto)2018-07-19 17:38:00* Test Item Value Reference Range Interpretation Comments Neutrophils # (Auto) (test code = 751-8) 3.8 2.1-6.9 [facility] HospitalLymphocytes # (Auto)2018-07-19 17:38:00* Test Item Value Reference Range Interpretation Comments Lymphocytes # (Auto) (test code = 33904-7) 2.1 1.0-3.2 [facility] HospitalMonocytes # (Auto)2018-07-19 17:38:00* Test Item Value Reference Range Interpretation Comments Monocytes # (Auto) (test code = 742-7) 0.6 0.2-0.8 [facility] HospitalEosinophils # (Auto)2018-07-19 17:38:00* Test Item Value Reference Range Interpretation Comments Eosinophils # (Auto) (test code = 711-2) 0.3 0.0-0.4 [facility] HospitalBasophils # (Auto)2018-07-19 17:38:00* Test Item Value Reference Range Interpretation Comments Basophils # (Auto) (test code = 704-7) 0.0 0.0-0.1 [facility] HospitalAbsolute Immature Granulocyte (auto 2018-07-19 17:38:00* Test Item Value Reference Range Interpretation Comments Absolute Immature Granulocyte (auto (francia t code = Absolute Immature Granulocyte (auto) 0.03 0-0.1 [facility] HospitalBEDSIDE GLUCOSE ZCRQUBQ4543-06-65 15:54:90181Akadlwbw HermannBEDSIDE GLUCOSE LBJNVAW9404-13-04 12:07:51298Poqrjzaq XrhjvfiKWVZHWQUX3511-18-71 09:28:83224Yojpogtu EwghhwkZSBYKAJSS3153-51-29 09:28:61692Ockdoafn BkkkxltUYOJOVGVE8637-03-63 09:28:004.1[facility] [place] HLEKADAQQ0025-00-88 09:28:0073[facility] WtqxovmKAOIPDSLT5459-53-64 09:28:15131 [facility] OrkaatwLFATTQIZZ1304-78-48 09:28:0024[facility] HermannCHEMISTRY 2013-07-18 09:28:001.1[facility] AkmqfriGKBKDFLNT5679-34-84 09:28:0028[facility] AewkberCZASDOYGG1329-61-61 09:28:009.0[facility] SfvebuhNVQRVLULD5207-08-50 09:28:0015.1[facility] HjoyeyfACXFHFKGAX1390-14-54 09:28:00Normal (07/18/2013 04:28:00) [facility] OsfdobzVUIDJONVNT2693-97-90 09:28:00Normal (07/18/2013 04:28:00) [facility] IinmnaeVDFEJYTXSD8589-35-80 09:28:0076.1[facility] Rafi TFLFQRWKCR8691-81-44 09:28:000.9[facility] CoeotekABGRTYMADM4218-30-36 09:28:001.5 [facility] EapozuxLTXYOCTIAC0644-72-42 09:28:000.1[facility] HermannHEMATOLOGY 2013-07-18 09:28:008.0[facility] XfgkinjDKHVRTFBUN1172-27-18 09:28:0014.1[facility] WgznixfSCPVVTKGUJ2576-85-66 09:28:000.0[facility] JphnyirGSGGPPFRGN9375-13-20 09:28:000.3[facility] OmiaqofOQENMAXVMR1813-47-03 09:28:008.4[facility] [place] IEIKXFMYTZ0266-66-82 09:28:001.1[facility] GcpikxiQICWLXWPHG6100-62-82 09:28:06500 [facility] LirlgxsZAKNJPXWXV8537-50-03 09:28:007.6[facility] HermannHEMATOLOGY 2013-07-18 09:28:0032.8[facility] UxlxgbvYMDZTYGHIA7648-73-14 09:28:0013.6[facility] YsfopqcYVLJWWSHPF8509-26-43 09:28:005.01[facility] PkorbriUUOXNPZIOG8548-45-51 09:28:0015.5[facility] RknmilsQMGWAJIMNA5393-73-24 09:28:00* Test Item Value Reference Range Interpretation Comments MCH (test code = MCH) 30.9 pg 27.0-31.0 N [facility] IojlovqKNAATLZBCZ9107-60-81 09:28:0047.1[facility] HermannHEMATOLOGY 2013-07-18 09:28:0094.0[facility] CydteveYUQOZZORDJ0805-97-53 09:28:0010.5[facility] HermannBEDSIDE GLUCOSE ULZQGFF1818-45-57 22:14:27845Czewbfjk HermannCHEMISTRY 2013-07-17 09:08:0014.2[facility] GyijrbvQNNYDPGHO0288-77-92 09:08:0065[facility] XxhvbaiMYLTADNIL0733-02-45 09:08:008.6[facility] DedjrocMTPDPDPBI4791-97-54 09:08:0017[facility] HgrlgadBCBLZVURQ5524-90-20 09:08:73557Xzcgyvtb [place] IVYJFNNHO6499-02-06 09:08:0027[facility] GjxzxupTFETDIPPO3314-89-89 09:08:001.2 [facility] IurvmetYPSGJDGLR3735-75-92 09:08:85249Hsjbcmtq HermannCHEMISTRY 2013-07-17 09:08:64231Opihhqbj JnrpuibQVMHGAGOV0742-48-90 09:08:004.2[facility] McloejnGJDDVUJSE3358-10-23 09:08:004.53[facility] IfhtkzaLWIWDGBJP3899-27-87 09:08:96415Brxjnfro QyuqovgICBOZRGVR6098-93-84 09:08:0036[facility] ZDYZRHWVU8594-54-31 09:08:0097[facility] VnwmyvwGIMZCJXJL7657-16-77 09:08:76792 [facility] EpqxwbvMDUEJVCCOR0194-44-79 09:08:0076.1[facility] HermannHEMATOLOGY 2013-07-17 09:08:000.0[facility] LofxoqiBOGRAQXHHF1033-25-92 09:08:000.2[facility] PxcixeaSPKRJUOIZN8640-55-99 09:08:000.6[facility] MbziiftRTISYQLIRK4002-65-27 09:08:006.4[facility] YnztrgdGLYKSDMUKY1492-39-80 09:08:002.4[facility] AWWMQPLEAL2741-23-14 09:08:007.6[facility] XdyostlRCRUJILXQJ2299-26-62 09:08:00 13.7[facility] JcaixfyMYAHNQJGYK3583-64-17 09:08:001.2[facility] HermannHEMATOLOGY 2013-07-17 09:08:000.2[facility] EjnpciwYSNPMWSNQK9857-70-58 09:08:007.9[facility] GotgypvMDUZZUWJXT9710-77-72 09:08:79549Axkdzrrr AqxoatfWLHKXIHDRB7276-54-30 09:08:008.4[facility] CcpxacgHIAHLRQKGV8614-61-35 09:08:004.61[facility] [place] RSEJLTEQVA3775-59-94 09:08:00* Test Item Value Reference Range Interpretation Comments MCH (test code = MCH) 30.8 pg 27.0-31.0 N [facility] GoflogaIRKYLGOAAK1671-82-23 09:08:0013.5[facility] HermannHEMATOLOGY 2013-07-17 09:08:0032.7[facility] GlkecszKERNAIXQUR2176-15-44 09:08:0094.0[facility] TphofqzZQHYJEOHGB0521-75-06 09:08:0014.2[facility] XyxylvfREHMFJAQPY2242-21-62 09:08:0043.3[facility] JknwpcfQYKJWBRDNQ9697-81-29 09:08:001.20[facility] CDUCJXMIQZ9121-07-15 09:08:00* Test Item Value Reference Range Interpretation Comments PT (test code = PT) 15.1 s 12.0-14.7 H [facility] RhnvjtcMSQSLYHYKS7626-96-70 09:08:00* Test Item Value Reference Range Interpretation Comments PTT (test code = PTT) 32.9 s 22.9-35.8 N [facility] GjejgjbLHLPEIOSZ9274-47-46 05:47:000.8[facility] HermannCHEMISTRY 2013-07-17 05:47:00<0.02[facility] IxehhbpWHQUKMGPQ5005-84-62 05:47:24589Jxzsnajl CetansbBVHWKVXUZ4550-81-34 05:47:001.1[facility] ZdvjpzzQFGZGTHTA1480-71-47 23:48:492.2[facility] EymwekaDCAFJELWI4577-74-41 23:48:49<0.02[facility] TBGGXYWJE3902-81-60 23:48:60302Eblohdtl TskrazbSNAVPMZYI3691-84-05 23:48:492.0 [facility] ApzxfasEXCCCDLHZ5489-96-02 23:48:272.1[facility] HermannCHEMISTRY 2013-07-16 23:48:278.0[facility] OcxdvdiJPOXFDXFW2391-19-02 23:48:242.790[facility] FaynewzAIFYEERNO6063-34-34 23:48:2435[facility] RtcacywQWJGKMISZ1407-25-71 23:48:2412.0[facility] HgqvxgsTRCTFDYEX3802-60-85 23:48:244.2[facility] Rafi
--- OUTSIDE RECORDS SUMMARY | 2020-06-28 18:31 | XMS REPORT | Continuity of Care Document ---
Author Author MICHELLE Kerr Wicron Address Unknown Phone Unavailable Care Team Providers Care Refractory Specialist Name Role Phone [employer] Unavailable Un available Problems Problem Status Onset Date Classification Date Reported Comments Source S46.091A - INJ MUSC/TEND THE ROTATOR CUF Active 09/28/2017 [facility] [place] CHF -NEW ONSET, LF SIDED FACIAL TINGLING Active 07/16/2013 [facility] Right sided weakness Resolved Problem 07/20/2013 [facility] Right hemiparesis (disorder) R esolved Problem OP[facility] [place] CHF NOS Active [facility] Medications Medication Details Route Status Patient Instructions Ordering Provider Order Date Source Lasix 40 mg oral tablet 40 mg, 1 tab, Route: PO, Drug form: TAB, BID, Dosing Weight 91.818, kg, Start date: 07/18/13 17:00:00, Duration: 30 day, Stop date: 08/17/13 9:00:00 PO No Longer Active Daniel 07/18/2013 [facility] influenza virus vaccine, inactivated 0.5 ml, Route: IM, Drug Form: SUSP, Start date: 07/18/13 11:00:00, Stop date: 07/18/13 11:00:00 IM No Longer Active SYSTEM 07/02 [facility] Lasix 20 mg oral tablet 20 mg, 1 tab, PO, Daily, 30 tab, 0, 0, Substitution Allowed, TAB PO Active Jose Juan 07/18/2013 [facility] potassium chloride 10 mEq oral capsule, extended release 10 mEq, 1 cap, PO, BID, take it with fur osemide, 60 cap, Substitution Allowedtake it with furosemide PO Active Daniel 07/18/2013 [facility] lisinopril 5 mg oral tablet 5 mg, 1 tab, PO, Daily, 30 tab, Substitution Allowed, TAB PO Active Daniel 07/18/2013 [facility] glipiZIDE 2.5 mg oral tablet, extended release 2.5 mg, 1 tab, PO, Daily, 30 tab, Substitution Allowed, ERTAB PO Active Daniel 07/18/2013 [facility] Lasix 40 mg oral tablet 40 mg, 1 tab, PO, BID, 60 tab, Substitution Allowed, TAB PO No Longer Active Jose Juan 07/18/2013 [facility] carvedilol 6.25 mg oral tablet 6.25 mg, 1 tab, PO, BID, 60 tab, Substitution Allowed, TAB PO Active [facility] 07/18/2013 [facility] aspirin 81 mg tablet, enteric coated 81 mg, 1 tab, PO, Daily, 30 tab, Substitution Allowed, ECTAB PO Active [facility] 07/18/2013 [facility] Coreg 6.25 mg, 2 tab, Route: P O, Drug form: TAB, Q12H, Dosing Weight 91.818, kg, Start date: 07/17/13 21:00:00, Duration: 30 day, Stop date: 08/16/13 9:00:00 PO No Longer Active [facility] 07/18/2013 [facility] glipiZIDE 2.5 mg, 1 tab, Route : PO, Drug form: ERTAB, Daily, Dosing Weight 91.818, kg, Priority: NOW, Start date: 07/17/13 9:49:00, Duration: 30 day, Stop date: 08/16/13 9:00:00 PO No Longer Active [facility] 07/17/2013 [facility] pneumococcal 23-valent vaccine 0.5 ml, Route: IM, Drug Form: INJ, Daily, Start date: 07/17/13 9:00:00, Duration: 1 doses or times, Stop date: 07/17/13 9:00:00 IM No Longer Active SYSTEM 07/17/2013 [facility] furosemide 40 mg, 4 mL, Route: IVP, Drug form: INJ, BID, Dosing Weight 91.818, kg, Start date: 07/17/13 9:00:00, Duration: 30 day, Stop date: 08/15/13 17:00:00 IVP No Longer Active [facility] 07/17/2013 [facility] aspirin 81 mg tablet, enteric coated 81 mg, 1 tab, Route: PO, Drug form: ECTAB, Daily, Dosing Weight 91.818, kg, Start date: 07/17/13 9:00:00, Duration: 30 day, Stop date: 08/15/13 9:00:00 PO No Longer Active [facility] 07/17/2013 [facility] Saline Flush 0.9% 5 ml, Route: IVP, Drug Form: INJ, Dosing Weight 91.818, kg, Q12H, Start date: 07/16/13 21:00:00, Duration: 30 day, Stop date: 08/15/13 9:00:00 IVP No Longer Active [facility] 07/17/2013 [facility] nitroglycerin 0.4 mg sublingual tablet 0.4 mg, 1 tab, Route: SL, Drug form: TAB, Q5Min, PRN Chest Pain, Start date: 07/16/13 18:27:00, Duration: 30 day, Stop date: 08/15/13 18:26:00 SL No Longer Active [facility] 07/16/2013 [facility] atropine 0.5 mg, 5 mL, Route: IVP, Drug form: INJ, PRN, PRN Bradycardia, Start date: 07/16/13 18:27:00, Duration: 30 day, Stop date: 08/15/13 18:26:00 IVP No Longer Active [facility] 07/16/2013 [facility] lisinopril 5 mg, 1 tab, Route: PO, Drug form: TAB, Daily, Dosing Weight 91.818, kg, Priority: NOW, Start date: 07/16/13 18:14:00, Duration: 30 day, Stop date: 08/15/13 9:00:00 PO No Longer Active Jacobo 07/16/2013 [facility] temazepam 15 mg, 1 cap, Route: PO, Drug form: CAP, Bedtime, Dosing Weight 91.818, kg, PRN Insomnia, Start date: 07/16/13 18:11:00, Duration: 30 day, Stop date: 08/15/13 18:10:00 PO No Longer Active [facility] 07/16/2013 [facility] ondansetron 4 mg, 2 mL, Route: IVP, Drug form: INJ, Q8H, Dosing Weight 91.818, kg, PRN Nausea & Vomiting, Start date: 07/16/13 18:11:00, Duration: 30 day, Stop date: 08/15/13 18:10:00 IVP No Longer Active [facility] 07/16/2013 [facility] Saline Flush 0.9% 5 ml, Route: IVP, Drug Form: INJ, Dosing Weight 91.818, kg, PRN, PRN Line Flush, Start date: 07/16/13 18:11:00, Duration: 30 day, Stop date: 08/15/13 18:10:00 IVP No Longer Active Daniel 07/16/2013 [facility] Allergies, Adverse Reactions, Alerts No Known Medication Allergies Immunizations Immunization Date Given Site Status Last Updated Comments Source influenza virus vaccine, inactivated 07/18/2013 completed Faye [facility] influenza virus vaccine, inactivated 07/18/2013 Right deltoid completed Faye [facility] [place] pneumococcal 23-valent vaccine 07/17/2013 completed Elizabeth machado [facility] pneumococcal 23-valent vaccine 07/17/2013 Left Deltoid completed Smooth [facility] [place] Results Order Name Results Value Reference Range Date Interpretation Comments Source BEDSIDE GLUCOSE TESTING Gluc POC Com ment 1 Notify RN/MD 07/18/[address] [facility] BEDSIDE GLUCOSE TESTING Gluc POC 104 70 - 99 07/18/2013 [facility] <sup>1</sup>Interpretive Data: Upper Reportable Limit: 200 mg/dL. [facility] BEDSIDE GLUCOSE TESTING Gluc POC 100 70 - 99 07/18/2013 [facility] <sup>2</sup>Interpretive Data: Upper Reportable Limit: 200 mg/dL. [facility] CHEMISTRY Sodium Lvl 141 135 - 145 07/18/2013 Normal [facility] CHEMISTRY Chloride Lvl 102 95 - 109 07/18/2013 Normal [facility] CHEMISTRY Potassium Lvl 4.1 3.5 - 5.1 07/18/2013 Normal [facility] CHEMISTRY eGFR 73 07/18/2013 NA <sup>4</sup>Result [...] should be multiplied by the estimated BMI. [facility] CHEMISTRY Glucose Lvl 128 70 - 99 07/18/2013 [place] <sup>6</sup>Interpretive Data: Adult ref erence range values reflect the clinical guidelines
of the [place] [employer]. [facility] CHEMISTRY BUN 24 7 - 22 07/18/2013 HI [facility] CHEMISTRY Creatinine Lvl 1.1 0.5 - 1.4 07/18/2013 Normal [facility] CHEMISTRY CO2 28 24 - 32 07/18/2013 Normal [facility] CHEMISTRY Calcium Lvl 9.0 8.5 - 10.5 07/18/2013 Normal [facility] CHEMISTRY AGAP 15.1 10.0 - 20.0 07/18/2013 Normal [facility] HEMATOLOGY RBC Morph Krystal l (07/18/2013 04:28:00) 07/18/2013 Normal [facility] HEMATOLOGY Plt Morph Krystal l (07/18/2013 04:28:00) 07/18/2013 Normal [facility] HEMATOLOGY Segs 76.1 45.0 - 75.0 07/18/2013 [facility] HEMATOLOGY Monocytes # 0.9 0.0 - 0.8 07/18/2013 [facility] HEMATOLOGY Lymphocytes # 1.5 1.0 - 5.5 07/18/2013 Normal [facility] HEMATOLOGY Eosinophils # 0.1 0.0 - 0.5 07/18/2013 Normal [facility] HEMATOLOGY Segs-Bands # 8.0 1.5 - 8.1 07/18/2013 Normal [facility] HEMATOLOGY Lymphocytes 14.1 20.0 - 40.0 07/18/2013 LOW [facility] HEMATOLOGY Basophils # 0.0 0.0 - 0.2 07/18/2013 Normal [facility] HEMATOLOGY Basophils 0.3 0.0 - 1.0 07/18/2013 Normal [facility] HEMATOLOGY Monocytes 8.4 2.0 - 12.0 07/18/2013 Normal [facility] HEMATOLOGY Eosinophils 1.1 0.0 - 4.0 07/18/2013 Normal [facility] HEMATOLOGY Platelet 232 133 - 450 07/18/2013 Normal [facility] HEMATOLOGY MPV 7.6 7.4 - 10.4 07/18/2013 Normal [facility] HEMATOLOGY MCHC 32.8 32.0 - 36.0 07/18/2013 Normal [facility] HEMATOLOGY RDW 13.6 11.5 - 14.5 07/18/2013 Normal [facility] HEMATOLOGY RBC 5.01 4.70 - 6.10 07/18/2013 Normal [facility] HEMATOLOGY Hgb 15.5 14.0 - 18.0 07/18/2013 Normal [facility] HEMATOLOGY MCH 30.9 27.0 - 31.0 07/18/2013 Normal [facility] Hct 47.1 42.0 - 54.0 07/18/2013 Normal [facility] HEMATOLOGY MCV 94.0 80.0 - 94.0 07/18/2013 Normal [facility] HEMATOLOGY WBC 10.5 3.7 - 10.4 07/18/2013 HI [facility] BEDSIDE GLUCOSE TESTING Gluc POC 119 70 - 99 07/17/2013 [facility] <sup>3</sup>Interpretive Data: Upper Reportable Limit: 200 mg/dL. [facility] BEDSIDE GLUCOSE TESTING Gluc POC Com ment 1 Notify ROSARIO/ 07/17/[address] [facility] CHEMISTRY AGAP 14.2 10.0 - 20.0 07/17/2013 Normal [facility] CHEMISTRY eGFR 65 07/17/2013 NA <sup>5</sup>Result [...] should be multiplied by the estimated BMI. [facility] CHEMISTRY Calcium Lvl 8.6 8.5 - 10.5 07/17/2013 Normal [facility] CHEMISTRY BUN 17 7 - 22 07/17/2013 Normal [facility] CHEMISTRY Glucose Lvl 129 70 - 99 07/17/2013 [facility] <sup>7</sup>Interpretive Data: Adult ref erence range values reflect the clinical guidelines
of the [place] [employer]. [facility] CHEMISTRY CO2 27 24 [...] Monocytes 7.6 2.0 - 12.0 07/17/2013 Normal [facility] HEMATOLOGY Lymphocytes 13.7 20.0 - 40.0 07/17/2013 LOW [facility] HEMATOLOGY Lymphocytes # 1.2 1.0 - 5.5 07/17/2013 Normal [facility] HEMATOLOGY Basophils 0.2 0.0 - 1.0 07/17/2013 Normal [facility] HEMATOLOGY MPV 7.9 7.4 - 10.4 07/17/2013 Normal [facility] HEMATOLOGY Platelet 214 133 - 450 07/17/2013 Normal [facility] HEMATOLOGY WBC 8.4 3.7 - 10.4 07/17/2013 Normal [facility] HEMATOLOGY RBC 4.61 4.70 - 6.10 07/17/2013 LOW [facility] HEMATOLOGY MCH 30.8 27.0 - 31.0 07/17/2013 Normal [facility] HEMATOLOGY RDW 13.5 11.5 - 14.5 07/17/2013 Normal [facility] HEMATOLOGY MCHC 32.7 32.0 - 36.0 07/17/2013 Normal [facility] HEMATOLOGY MCV 94.0 80.0 - 94.0 07/17/2013 Normal [facility] HEMATOLOGY Hgb 14.2 14.0 - 18.0 07/17/2013 Normal [facility] HEMATOLOGY Hct 43.3 42.0 - 54.0 07/17/2013 Normal [facility] HEMATOLOGY INR 1.20 0.85 - 1.17 07/17/2013 [facility] <sup>8</sup>Interpretive Data: RECOMMEND ED RANGES FOR PROTIME INR:
2.0-3.0 for most medical and surgical thromboembolic states.
2.5-3.5 for artificial heart valves and recurrent embolism.

INR SHOULD BE USED ONLY FOR PATIENTS ON STABLE ANTICOAGULANT THERAPY. [facility] HEMATOLOGY PT 15.1 12.0 - 14.7 07/17/2013 HI [facility] HEMATOLOGY PTT 32.9 22.9 - 35.8 07/17/2013 Normal <sup>9</sup>Interpretive Data: Heparin T herapeutic Range: 57 - 92 Seconds [facility] CHEMISTRY CK MB Index 0.8 0.0 - 2.5 07/17/2013 Normal [facility] CHEMISTRY Troponin-I <0.02 0.00 - 0.40 07/17/2013 Normal [facility] CHEMISTRY Total CK 139 12 - 191 07/17/2013 Normal [facility] CHEMISTRY CK MB 1.1 0.5 - 3.6 07/17/2013 Normal [facility] CHEMISTRY CK MB 2.2 0.5 - 3.6 07/16/2013 Normal [facility] CHEMISTRY Troponin-I <0.02 0.00 - 0.40 07/16/2013 Normal [facility] CHEMISTRY Total CK 108 12 - 191 07/16/2013 Normal [facility] CHEMISTRY CK MB Index 2.0 0.0 - 2.5 07/16/2013 Normal [facility] CHEMISTRY Magnesium Lvl 2.1 1.8 - 2.4 07/16/2013 Normal [facility] CHEMISTRY Hgb A1C 8.0 <=5.6 07/16/2013 HI [facility] CHEMISTRY TSH 2.790 0.360 - 3.740 07/16/2013 Normal [facility] CHEMISTRY T3 Uptake 35 31 - 39 07/16/2013 Normal [facility] CHEMISTRY T4 12.0 4.7 - 13.3 07/16/2013 Normal [facility] CHEMISTRY FTI 4.2 07/16/2013 NA [facility] Pathology Reports No Data Provided for [...] Exam: Pain Comparison Exam: None Discussion: On lorry weigher view, there are no acute bony abnormalities [...] Comments Source Diastolic (mm Hg) 62 07/18/2013 [facility] Respitory Rate 18 07/18/2013 [facility] Temperature Oral (F) 99.1 F 07/18/2013 [facility] Heart Rate 70 07/18/2013 [facility] Systolic (mm Hg) 100 07/18/2013 [facility] Respitory Rate 12 07/18/2013 [facility] Respitory Rate 18 07/18/2013 [facility] Systolic (mm Hg) 124 07/18/2013 [facility] Diastolic (mm Hg) 74 07/18/2013 [facility] Heart Rate 73 07/18/2013 [facility] Temperature Oral (F) 98.5 F 07/18/2013 [facility] Diastolic (mm Hg) 78 07/18/2013 [facility] Heart Rate 62 07/18/2013 [facility] Temperature Oral (F) 98.4 F 07/18/2013 [facility] Systolic (mm Hg) 131 07/18/2013 [facility] Weight 91.818 07/16/2013 [facility] Height 170.18 cm 07/16/2013 [facility] Encounters Location Location Details Encounter Type Encounter Number Reason For Visit Attending Provider ADM Date DC Date Status Source [facility] Inpatient [id number] CHF -NEW ONSET, L F SIDED FACIAL TINGLING IWONA SHETTY 07/16/2013 07/18/2013 Active [facility] [place] [facility] [id number] Nolberto Baltazar 10/22/2017 10/23/2017 ASHER Rider [...]
--- OUTSIDE RECORDS SUMMARY | 2020-06-28 18:33 | XMS REPORT | Continuity of Care Document ---
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 Phone [employer] Unavailable Un available Problems Problem Status Onset Date Classification Date Reported Comments Source S46.091A - INJ MUSC/TEND THE ROTATOR CUF Active 09/28/2017 [facility] [place] CHF -[place], LF SIDED FACIAL [place] Active 07/16/2013 [facility] Right sided weakness Resolved Problem 07/20/2013 [facility] Right hemiparesis (disorder) R esolved Problem OPIBernarda [place] CHF NOS Active [facility] Medications Medication Details Route Status Patient Instructions Ordering Provider Order Date Source Lasix 40 mg oral tablet 40 mg, 1 tab, Route: PO, Drug form: TAB, BID, Dosing Weight 91.818, kg, Start date: 07/18/13 17:00:00, Duration: 30 day, Stop date: 08/17/13 9:00:00 PO No Longer Active Daniel 07/18/2013 [facility] influenza virus vaccine, inactivated 0.5 ml, Route: IM, Drug Form: SUSP, Start date: 07/18/13 11:00:00, Stop date: 07/18/13 11:00:00 IM No Longer Active SYSTEM 07/02 [facility] Lasix 20 mg oral tablet 20 mg, 1 tab, PO, Daily, 30 tab, 0, 0, Substitution Allowed, TAB PO Active Jose Juan 07/18/2013 [facility] potassium chloride 10 mEq oral capsule, extended release 10 mEq, 1 cap, PO, BID, take it with fur osemide, 60 cap, Substitution Allowedtake it with furosemide PO Active Daniel 07/18/2013 [facility] lisinopril 5 mg oral tablet 5 mg, 1 tab, PO, Daily, 30 tab, Substitution Allowed, TAB PO Active Daniel 07/18/2013 [facility] glipiZIDE 2.5 mg oral tablet, extended release 2.5 mg, 1 tab, PO, Daily, 30 tab, Substitution Allowed, ERTAB PO Active Daniel 07/18/2013 [facility] Lasix 40 mg oral tablet 40 mg, 1 tab, PO, BID, 60 tab, Substitution Allowed, TAB PO No Longer Active Jose Juan 07/18/2013 [facility] carvedilol 6.25 mg oral tablet 6.25 mg, 1 tab, PO, BID, 60 tab, Substitution Allowed, TAB PO Active [facility] [place]/18[place]2013 [facility] aspirin 81 mg tablet, enteric coated 81 mg, 1 tab, PO, Daily, 30 tab, Substitution Allowed, ECTAB PO Active [facility] 07/18/2013 [facility] Coreg 6.25 mg, 2 tab, Route: P O, Drug form: TAB, Q12H, Dosing Weight 91.818, kg, Start date: 07/17/13 21:00:00, Duration: 30 day, Stop date: 08/16/13 9:00:00 PO No Longer Active [facility] [place]/18/2013 [facility] glipiZIDE 2.5 mg, 1 tab, Route : PO, Drug form: ERTAB, Daily, Dosing Weight 91.818, kg, Priority: NOW, Start date: 07/17/13 9:49:00, Duration: 30 day, Stop date: 08/16/13 9:00:00 PO No Longer Active [facility] 07/17/2013 [facility] pneumococcal 23-valent vaccine 0.5 ml, Route: IM, Drug Form: INJ, Daily, Start date: 07/17/13 9:00:00, Duration: 1 doses or times, Stop date: 07/17/13 9:00:00 IM No Longer Active SYSTEM 07/17/2013 [facility] furosemide 40 mg, 4 mL, Route: IVP, Drug form: INJ, BID, Dosing Weight 91.818, kg, Start date: 07/17/13 9:00:00, Duration: 30 day, Stop date: 08/15/13 17:00:00 IVP No Longer Active [facility] 07/17/2013 [facility] aspirin 81 mg tablet, enteric coated 81 mg, 1 tab, Route: PO, Drug form: ECTAB, Daily, Dosing Weight 91.818, kg, Start date: 07/17/13 9:00:00, Duration: 30 day, Stop date: 08/15/13 9:00:00 PO No Longer Active [facility] 07/17/2013 [facility] Saline Flush 0.9% 5 ml, Route: IVP, Drug Form: INJ, Dosing Weight 91.818, kg, Q12H, Start date: 07/16/13 21:00:00, Duration: 30 day, Stop date: 08/15/13 9:00:00 IVP No Longer Active [facility] 07/17/2013 [facility] nitroglycerin 0.4 mg sublingual tablet 0.4 mg, 1 tab, Route: SL, Drug form: TAB, Q5Min, PRN Chest Pain, Start date: 07/16/13 18:27:00, Duration: 30 day, Stop date: 08/15/13 18:26:00 SL No Longer Active [facility] 07/16/2013 [facility] atropine 0.5 mg, 5 mL, Route: IVP, Drug form: INJ, PRN, PRN Bradycardia, Start date: 07/16/13 18:27:00, Duration: 30 day, Stop date: 08/15/13 18:26:00 IVP No Longer Active [facility] 07/16/2013 [facility] lisinopril 5 mg, 1 tab, Route: PO, Drug form: TAB, Daily, Dosing Weight 91.818, kg, Priority: NOW, Start date: 07/16/13 18:14:00, Duration: 30 day, Stop date: 08/15/13 9:00:00 PO No Longer Active Jacobo 07/16/2013 [facility] temazepam 15 mg, 1 cap, Route: PO, Drug form: CAP, Bedtime, Dosing Weight 91.818, kg, PRN Insomnia, Start date: 07/16/13 18:11:00, Duration: 30 day, Stop date: 08/15/13 18:10:00 PO No Longer Active [facility] 07/16/2013 [facility] ondansetron 4 mg, 2 mL, Route: IVP, Drug form: INJ, Q8H, Dosing Weight 91.818, kg, PRN Nausea & Vomiting, Start date: 07/16/13 18:11:00, Duration: 30 day, Stop date: 08/15/13 18:10:00 IVP No Longer Active [facility] 07/16/2013 [facility] Saline Flush 0.9% 5 ml, Route: IVP, Drug Form: INJ, Dosing Weight 91.818, kg, PRN, PRN Line Flush, Start date: 07/16/13 18:11:00, Duration: 30 day, Stop date: 08/15/13 18:10:00 IVP No Longer Active Daniel 07/16/2013 [facility] Allergies, Adverse Reactions, Alerts No Known Medication Allergies Immunizations Immunization Date Given Site Status Last Updated Comments Source influenza virus vaccine, inactivated 07/18/2013 completed Faye [facility] influenza virus vaccine, inactivated 07/18/2013 Right deltoid completed Faye [facility] [place] pneumococcal 23-valent vaccine 07/17/2013 completed Elizabeth machado [facility] pneumococcal 23-valent vaccine 07/17/2013 Left Deltoid completed Smooth [facility] [place] Results Order Name Results Value Reference Range Date Interpretation Comments Source BEDSIDE GLUCOSE TESTING Gluc POC Com ment 1 Notify RN/MD 07/18/2013 NA [facility] BEDSIDE GLUCOSE TESTING Gluc POC 104 70 - 99 07/18/2013 [facility] <sup>1</sup>Interpretive Data: Upper Reportable Limit: 200 mg/dL. [facility] BEDSIDE GLUCOSE TESTING Gluc POC 100 70 - 99 07/18/2013 [facility] <sup>2</sup>Interpretive Data: Upper Reportable Limit: 200 mg/dL. [facility] CHEMISTRY Sodium Lvl 141 135 - 145 07/18/2013 Normal [facility] CHEMISTRY Chloride Lvl 102 95 - 109 07/18/2013 Normal [facility] CHEMISTRY Potassium Lvl 4.1 3.5 - 5.1 07/18/2013 Normal [facility] CHEMISTRY eGFR 73 07/18/2013 NA <sup>4</sup>Result [...] should be multiplied by the estimated BMI. [facility] CHEMISTRY Glucose Lvl 128 70 - 99 07/18/2013 [place] <sup>6</sup>Interpretive Data: Adult ref erence range values reflect the clinical guidelines
of the [place] [employer]. [facility] CHEMISTRY BUN 24 7 - 22 07/18/2013 HI [facility] CHEMISTRY Creatinine Lvl 1.1 0.5 - 1.4 07/18/2013 Normal [facility] CHEMISTRY CO2 28 24 - 32 07/18/2013 Normal [facility] CHEMISTRY Calcium Lvl 9.0 8.5 - 10.5 07/18/2013 Normal [facility] CHEMISTRY AGAP 15.1 10.0 - 20.0 07/18/2013 Normal [facility] HEMATOLOGY RBC Morph Krystal l (07/18/2013 04:28:00) 07/18/2013 Normal [facility] HEMATOLOGY Plt Morph Krystal l (07/18/2013 04:28:00) 07/18/2013 Normal [facility] HEMATOLOGY Segs 76.1 45.0 - 75.0 07/18/2013 [facility] HEMATOLOGY Monocytes # 0.9 0.0 - 0.8 07/18/2013 [facility] HEMATOLOGY Lymphocytes # 1.5 1.0 - 5.5 07/18/2013 Normal [facility] HEMATOLOGY Eosinophils # 0.1 0.0 - 0.5 07/18/2013 Normal [facility] HEMATOLOGY Segs-Bands # 8.0 1.5 - 8.1 07/18/2013 Normal [facility] HEMATOLOGY Lymphocytes 14.1 20.0 - 40.0 07/18/2013 LOW [facility] HEMATOLOGY Basophils # 0.0 0.0 - 0.2 07/18/2013 Normal [facility] HEMATOLOGY Basophils 0.3 0.0 - 1.0 07/18/2013 Normal [facility] HEMATOLOGY Monocytes 8.4 2.0 - 12.0 07/18/2013 Normal [facility] HEMATOLOGY Eosinophils 1.1 0.0 - 4.0 07/18/2013 Normal [facility] HEMATOLOGY Platelet 232 133 - 450 07/18/2013 Normal [facility] HEMATOLOGY MPV 7.6 7.4 - 10.4 07/18/2013 Normal [facility] HEMATOLOGY MCHC 32.8 32.0 - 36.0 07/18/2013 Normal [facility] HEMATOLOGY RDW 13.6 11.5 - 14.5 07/18/2013 Normal [facility] HEMATOLOGY RBC 5.01 4.70 - 6.10 07/18/2013 Normal [facility] HEMATOLOGY Hgb 15.5 14.0 - 18.0 07/18/2013 Normal [facility] HEMATOLOGY MCH 30.9 27.0 - 31.0 07/18/2013 Normal [facility] Hct 47.1 42.0 - 54.0 07/18/2013 Normal [facility] HEMATOLOGY MCV 94.0 80.0 - 94.0 07/18/2013 Normal [facility] HEMATOLOGY WBC 10.5 3.7 - 10.4 07/18/2013 HI [facility] BEDSIDE GLUCOSE TESTING Gluc POC 119 70 - 99 07/17/2013 [facility] <sup>3</sup>Interpretive Data: Upper Reportable Limit: 200 mg/dL. [facility] BEDSIDE GLUCOSE TESTING Gluc POC Com ment 1 Notify ROSARIO/ 07/17/2013 NA [facility] CHEMISTRY AGAP 14.2 10.0 - 20.0 07/17/2013 Normal [facility] CHEMISTRY eGFR 65 07/17/2013 NA <sup>5</sup>Result [...] should be multiplied by the estimated BMI. [facility] CHEMISTRY Calcium Lvl 8.6 8.5 - 10.5 07/17/2013 Normal [facility] CHEMISTRY BUN 17 7 - 22 07/17/2013 Normal [facility] CHEMISTRY Glucose Lvl 129 70 - 99 07/17/2013 [place] <sup>7</sup>Interpretive Data: Adult ref erence range values reflect the clinical guidelines
of the [place] [employer]. [place] CHEMISTRY CO2 27 24 [...] Monocytes 7.6 2.0 - 12.0 07/17/2013 Normal [facility] HEMATOLOGY Lymphocytes 13.7 20.0 - 40.0 07/17/2013 LOW [facility] HEMATOLOGY Lymphocytes # 1.2 1.0 - 5.5 07/17/2013 Normal [facility] HEMATOLOGY Basophils 0.2 0.0 - 1.0 07/17/2013 Normal [facility] HEMATOLOGY MPV 7.9 7.4 - 10.4 07/17/2013 Normal [facility] HEMATOLOGY Platelet 214 133 - 450 07/17/2013 Normal [facility] HEMATOLOGY WBC 8.4 3.7 - 10.4 07/17/2013 Normal [facility] HEMATOLOGY RBC 4.61 4.70 - 6.10 07/17/2013 LOW [facility] HEMATOLOGY MCH 30.8 27.0 - 31.0 07/17/2013 Normal [facility] HEMATOLOGY RDW 13.5 11.5 - 14.5 07/17/2013 Normal [facility] HEMATOLOGY MCHC 32.7 32.0 - 36.0 07/17/2013 Normal [facility] HEMATOLOGY MCV 94.0 80.0 - 94.0 07/17/2013 Normal [facility] HEMATOLOGY Hgb 14.2 14.0 - 18.0 07/17/2013 Normal [facility] HEMATOLOGY Hct 43.3 42.0 - 54.0 07/17/2013 Normal [facility] HEMATOLOGY INR 1.20 0.85 - 1.17 07/17/2013 HI <sup>8</sup>Interpretive Data: RECOMMEND ED RANGES FOR PROTIME INR:
2.0-3.0 for most medical and surgical thromboembolic states.
2.5-3.5 for artificial heart valves and recurrent embolism.

INR SHOULD BE USED ONLY FOR PATIENTS ON STABLE ANTICOAGULANT THERAPY. [facility] HEMATOLOGY PT 15.1 12.0 - 14.7 07/17/2013 HI [facility] HEMATOLOGY PTT 32.9 22.9 - 35.8 07/17/2013 Normal <sup>9</sup>Interpretive Data: Heparin T herapeutic Range: 57 - 92 Seconds [facility] CHEMISTRY CK MB Index 0.8 0.0 - 2.5 07/17/2013 Normal [facility] CHEMISTRY Troponin-I <0.02 0.00 - 0.40 07/17/2013 Normal [facility] CHEMISTRY Total CK 139 12 - 191 07/17/2013 Normal [facility] CHEMISTRY CK MB 1.1 0.5 - 3.6 07/17/2013 Normal [facility] CHEMISTRY CK MB 2.2 0.5 - 3.6 07/16/2013 Normal [facility] CHEMISTRY Troponin-I <0.02 0.00 - 0.40 07/16/2013 Normal [facility] CHEMISTRY Total CK 108 12 - 191 07/16/2013 Normal [facility] CHEMISTRY CK MB Index 2.0 0.0 - 2.5 07/16/2013 Normal [facility] CHEMISTRY Magnesium Lvl 2.1 1.8 - 2.4 07/16/2013 Normal [facility] CHEMISTRY Hgb A1C 8.0 <=5.6 07/16/2013 HI [facility] CHEMISTRY TSH 2.790 0.360 - 3.740 07/16/2013 Normal [facility] CHEMISTRY T3 Uptake 35 31 - 39 07/16/2013 Normal [facility] CHEMISTRY T4 12.0 4.7 - 13.3 07/16/2013 Normal [facility] CHEMISTRY FTI 4.2 07/16/2013 NA [facility] Pathology Reports No Data Provided for [...] Exam: Pain Comparison Exam: None Discussion: On booking supervisor view, there are no acute bony abnormalities [...] Comments Source Diastolic (mm Hg) 62 07/18/2013 [facility] Respitory Rate 18 07/18/2013 [facility] Temperature Oral (F) 99.1 F 07/18/2013 [facility] Heart Rate 70 07/18/2013 [facility] Systolic (mm Hg) 100 07/18/2013 [facility] Respitory Rate 12 07/18/2013 [facility] Respitory Rate 18 07/18/2013 [facility] Systolic (mm Hg) 124 07/18/2013 [facility] Diastolic (mm Hg) 74 07/18/2013 [facility] Heart Rate 73 07/18/2013 [facility] Temperature Oral (F) 98.5 F 07/18/2013 [facility] Diastolic (mm Hg) 78 07/18/2013 [facility] Heart Rate 62 07/18/2013 [facility] Temperature Oral (F) 98.4 F 07/18/2013 [facility] Systolic (mm Hg) 131 07/18/2013 [facility] Weight 91.818 07/16/2013 [facility] Height 170.18 cm 07/16/2013 [facility] Encounters Location Location Details Encounter Type Encounter Number Reason For Visit Attending Provider ADM Date DC Date Status Source [facility] Inpatient [id number] CHF [place], L F SIDED FACIAL [place] IWONA SHETTY 07/16/2013 07/18/2013 Active [facility] [place] [facility] [id number] Nolberto Baltazar 10/22/2017 10/23/2017 ASHER Rider [...]
--- OUTSIDE RECORDS SUMMARY | 2020-06-28 18:34 | XMS REPORT | Continuity of Care Document ---
Author Author [facility] t Organization [facility] Address Formerly [facility] [place] [address] Phone Unavailable Care Team Providers Care Electrical Control Assembler Name Role Phone CARROLL VALVERDE MD PCP Venus SANCHEZ Attphys Unavailable Macrina EVLIZ Attphys Unavailable Micki Baltazar Attphys Payers Payer Name Policy Type Policy Number Effective Date Expiration Date Li Mann [id number] 2017 00:00:00 [facility] Problems Condition Name Condition Details Condition Category Status Onset Date Resolution Date Last Treatment Date Treating Clinician Comments Source S46.091A - INJ [facility]/TEND THE ROTATOR CUF S46.091A - INJ [facility]/TEND THE ROTATOR CUF Active 09/28/2017 WILLIAM OPID [place] Diagnosis Active 2017-09-28 00:01:00 2017-10-22 08:39:00 M wendi Mckee CHF -NEW [place], LF SIDED FACIAL [place] CHF -NEW [place]NSET, LF SIDED FACIAL [place] Active 07/16/2013 [facility] tive 2013-07-16 14:13:00 2013-07-24 21:49:00 M wendi Mckee Chest pain Chest pain Problem Active C [facility] Congestive heart failure CHF (congestive heart failure) Problem Active [facility] Right sided weakness Righ t sided [...] Known Allergies DA Active U 2019-09-22 00:00:00 [facility] No Known Allergies DA Active U 2012-06-05 00:00:00 [facility] Medications Ordered Medication Name Filled Medication Name [...] PO, Daily, 30 tab, Substitution Allowed, ERTAB [facility] Lasix 40 mg oral tablet 2013-07-18 15:29:59 No Clementina Nagel Jose Juan 40 mg, 1 tab, PO, BID, 60 tab, Substitution Allowed, [facility] 6.25 mg oral tablet 2013-07-18 15:29:55 Yes Home Amauri Daniel 6.25 mg, 1 tab, PO, BID, 60 tab, Substitution Allowed, TAB [facility] aspirin 81 mg tablet, enteric coated 2013-07-18 15:29:49 Yes Home Amauri Daniel 81 mg, 1 tab, PO, Daily, 30 tab, Substit ution Allowed, ECTAB [facility] Coreg 2013-07-18 02:00:00 No Home Amauri Daniel 6.25 mg, 2 tab, Route: PO, Drug form: TAB, Q12H, Dosing Weight 91.818, kg, Start date: 07/17/13 21:00:00, Duration: 30 day, Stop date: 08/16/13 9:00:00 [facility] glipiZIDE 2013-07-17 14:49:00 No Home Amauri Daniel 2.5 mg, 1 tab, Route: PO, Drug form: ERTAB, Daily, Dosing Weight 91.818, kg, Priority: NOW, Start date: 07/17/13 9:49:00, Duration: 30 day, Stop date: 08/16/13 9:00:00 [facility] pneumococcal 23-valent vaccine 2013-07-17 14:00:00 No S YSTEM SYSTEM 0.5 ml, Route: IM, Drug Form: INJ, Daily, Start date: 07/17/13 9:00:00, Duration: 1 doses or times, Stop date: 07/17/13 9:00:00 [facility] furosemide 2013-07-17 14:00:00 No Home Amauri Daniel 40 mg, 4 mL, Route: IVP, Drug form: INJ, BID, Dosing Weight 91.818, kg, Start date: 07/17/13 9:00:00, Duration: 30 day, Stop date: 08/15/13 17:00:00 [facility] aspirin 81 mg tablet, enteric coated 2013-07-17 14:00:00 No Home Amauri Daniel 81 mg, 1 tab, [place]: PO, Drug form: ECTAB, Daily, Dosing Weight 91.818, kg, Start date: 07/17/13 9:00:00, Duration: 30 day, Stop date: 08/15/13 9:00:00 [facility] Saline Flush 0.9% 2013-07-17 02:00:00 No Home Amauri M ok 5 ml, Route: IVP, Drug Form: INJ, Dosing Weight 91.818, kg, Q12H, Start date: 07/16/13 21:00:00, Duration: 30 day, Stop date: 08/15/13 9:00:00 [facility] nitroglycerin 0.4 mg sublingual tablet 2013-07-16 23:27:00 No Home Amauri Daniel 0.4 mg, 1 tab, R oute: SL, Drug form: TAB, Q5Min, PRN Chest Pain, Start date: 07/16/13 18:27:00, Duration: 30 day, Stop date: 08/15/13 18:26:00 [facility] atropine 2013-07-16 23:27:00 No Home Amauri Daniel 0.5 mg, 5 mL, Route: IVP, Drug form: INJ, PRN, PRN Bradycardia, Start date: 07/16/13 18:27:00, Duration: 30 day, Stop date: 08/15/13 18:26:00 [facility] lisinopril 2013-07-16 23:14:00 No Kun Cassius Jacobo 5 mg, 1 tab, Route: PO, Drug form: TAB, Daily, Dosing Weight 91.818, kg, Priority: NOW, Start date: 07/16/13 18:14:00, Duration: 30 day, Stop date: 08/15/13 9:00:00 [facility] temazepam 2013-07-16 23:11:00 No Home Amauri Daniel 15 mg, 1 cap, Route: PO, Drug form: CAP, Bedtime, Dosing Weight 91.818, kg, PRN Insomnia, Start date: 07/16/13 18:11:00, Duration: 30 day, Stop date: 08/15/13 18:10:00 [facility] ondansetron 2013-07-16 23:11:00 No Home Amauri Daniel 4 mg, 2 mL, Route: IVP, Drug form: INJ, Q8H, Dosing Weight 91.818, kg, PRN Nausea & Vomiting, Start date: 07/16/13 18:11:00, Duration: 30 day, Stop date: 08/15/13 18:10:00 [facility] Saline Flush 0.9% 2013-07-16 23:11:00 No Home Amauri M ok 5 ml, Route: IVP, Drug Form: INJ, Dosing Weight 91.818, kg, PRN, PRN Line Flush, Start date: 07/16/13 18:11:00, Duration: 30 day, Stop date: 08/15/13 18:10:00 [facility] Enalapril Maleate 20 Mg Tablet Enalapril Maleate 20 Mg Tablet Yes 20 Twice A Day [facility] Metformin Hcl 1,000 Mg Tablet Metformin Hcl 1,000 Mg Tablet Yes 1000 Twice A Day [facility] Sitagliptin Phosphate (Januvia) 100 Mg Tablet Sitaglip tin Phosphate (Januvia) 100 Mg Tablet Yes 100 Daily [facility] Vital Signs Vital Name Observation Time Observation Value Comments Source Diastolic (mm Hg) 2013-07-18 17:00:00 [facility] Respitory Rate 2013-07-18 17:00:00 [facility] Temperature Oral (F) 2013-07-18 17:00:00 99.1 F [facility] Heart Rate 2013-07-18 17:00:00 [facility] Systolic (mm Hg) 2013-07-18 17:00:00 Giovanni rial [place] Respitory Rate 2013-07-18 15:47:00 Memori al [facility] Respitory Rate 2013-07-18 13:00:00 Memori [facility] Systolic (mm Hg) 2013-07-18 13:00:00 Giovanni rial [place] Diastolic (mm Hg) 2013-07-18 13:00:00 Mem orial [place] Heart Rate 2013-07-18 13:00:00 [facility] Temperature Oral (F) 2013-07-18 13:00:00 98.5 F [facility] [place] Diastolic (mm Hg) 2013-07-18 09:38:00 Mem orial [facility] Heart Rate 2013-07-18 09:38:00 [facility] Temperature Oral (F) 2013-07-18 09:38:00 98.4 F [facility] Systolic (mm Hg) 2013-07-18 09:38:00 Giovanni feliciano [place] Weight 2013-07-16 22:24:00 [facility] [place] Height 2013-07-16 22:24:00 170.18 cm [facility] Procedures This patient has no known procedures. Encounters Start Date/Time End Date/Time Encounter Type Admission Type [facility] Care Department Encounter ID Source 2019-09-13 09:24:00 2019-09-16 09:55:00 Discharged Inpatient 1 SHOSHANA SANCHEZ [facility] [id number] [facility] 2018-07-19 20:06:00 2018-07-20 14:30:00 Discharged Inpatient (obs) 1 BHARAT VELIZ [facility] [id number] [facility] 2017-10-22 08:30:00 2017-10-22 23:59:00 Outpatient Nolberto Baltazar HOIP [facility]IP [id number] Results Test Description Test Time Test Comments Results Result Comments Source CHEST SINGLE (PORTABLE) 2020-06-28 17:27:00 [facility] [address] [place] [address] Patient Name: MICHELLE LY MR #: [id number] : 1950 Age/Sex: 69/M Req #: [id number] Adm Physician: Ordered by: [place] DO Report #: [id number] Location: ER Room/Bed: Procedure: [id number] DX/CHEST SINGLE (PORTABLE) Exam Date: 06/28/20 Exam [...] on 06/28/2020 5:32 PM Dictated By: MYLES RESE MD 31 Transcribed By: SERAFIN on 06/28/201731 COPY TO: [place] DO GLUBED 2020-06-17 10:31:00 Test Item GLUBED (test code = GLUBED) 120 mg/dL 74-106 H Performed by certified chain mortiser operator at [facility] Novel Coronavirus [id number] 10:06:00* Test Item Value Reference Range Interpretation Comments Novel Coronavirus 2019 Inhouse (test code = RYYOW35YW) Negative Negative Positive results are indicative of the presence yeTNZO-EvY-6 RNA, clinical correlation with patient historyand other [...] moleculardiagnostic SARS-CoV-2 assay in vitro. Novel Coronavirus [id number] 10:06:00* Test Item Value Reference Range Interpretation Comments Novel Coronavirus 2019 Inhouse (test code = [id number]) Negative Negative Positive results are indicative of the presence zkYREY-HmB-7 RNA, clinical correlation with patient historyand other [...] moleculardiagnostic SARS-CoV-2 assay in vitro. BASIC METABOLIC [id number] 12:00:00* Test Item Value Reference Range Interpretation [...] result is a direct measurement.========= BASIC METABOLIC [id number] 11:48:00* Test Item Value Reference Range Interpretation [...] (test code = LDL) mg/dL 100-129 PROTHROMBIN [id number] 11:37:00* Test Item Value Reference Range Interpretation [...] (2.5-3.5) IS PATIENT ON ANTICOAGULANTS? NTHROMBOPLASTIN TIME [id number] 11:37:00* Test Item Value Reference Range Interpretation Comments THROMBOPLASTIN TIME PARTIAL (test code = PTT) 34.5 seconds 23.0-37. 0 N IS PATIENT ON ANTICOAGULANTS? NCBC W/AUTO [id number] 11:28:00* Test Item Value Reference Range Interpretation [...] NRBC#) 0.00 K/mm3 0.0-0.1 N CBC W/AUTO [id number] 11:26:00* Test Item Value Reference Range Interpretation [...] BA#) K/mm3 0.0-0.2 - XR CHEST 2 [id number] 10:23:00 FAX: Carroll Block MD [phone] [place]: O St: PRE FAX: Michael Kemp MD [phone] Name: MALACHIMICHELLE [facility] : 1950 Age/S: 69/M [address] [facility] Unit #: [id number] Loc: [place] [address] Phys: Michael Brambila MD Acct: [id number] Dis Date: Status: PRE [facility] PHONE #: [phone] Exam Date: 06/13/2020 1020 FAX #: [phone] Reason: PRE OP EXAMS: CPT CODE: [id number] XR CHEST 2 V 61783 HISTORY: Preop. COMPARISON: Chest x-ray from October 20, 2019. Location: [facility]. AP and lateral view of the chest: No acute infiltrates, effusion or congestion. Cardiomegaly. DJD of the dorsal spine. IMPRESSION: No acute infiltrates, effusion or congestion. at 1023 Reported and signed by: Kunal Joyner M.D. CC: Carroll Valverde MD; Michael Lyn Technologist: RT Niki(R) Trnscrd Date/Time/By: 06/13/2020 (1023) : By: [email or web address] Orig Print D/T: S: 06/13/2020 (1912) PAGE 1 Signed Report [id number] 10:43:00* Test Item Value Reference Range Interpretation Comments GLUBED (test code = GLUBED) 179 MG/DL 70-110 H Performed by certified chain mortiser operator at [facility] BASIC METABOLIC [id number] 09:49:00* Test Item Value Reference Range Interpretation [...] code = CA) 8.7 mg/dL 8.0-10.5 N [id number] 07:56:00* Test Item Value Reference Range Interpretation Comments GLUBED (test code = GLUBED) 119 MG/DL 70-110 H Performed by certified chain mortiser operator at [facility] [id number] 21:55:00* Test Item Value Reference Range Interpretation Comments GLUBED (test code = GLUBED) 180 MG/DL 70-110 H Performed by certified chain mortiser operator at [facility] [id number] 08:51:00* Test Item Value Reference Range Interpretation Comments GLUBED (test code = GLUBED) 122 MG/DL 70-110 H Performed by certified chain mortiser operator at [facility] - XR CHEST 2 [id number] 09:28:00 FAX: Michael Kemp MD [phone] [place]: St: PRE Name: MICHELLE LEES [facility] : [birth year] Age/S: 69/M [address] [place] [address] Blvd Unit #: [id number] Loc: [place] [address] Phys: Michael Brambila MD Acct: [id number] Dis Date: Status: PRE SDC PHONE #: [phone] Exam Date: 10/20/2019 0859 FAX #: [phone] Reason: PREOP PCI LAD AND CIR EXAMS: CPT CODE: [id number] XR CHEST 2 V 53759 CHEST RADIOGRAPHS - PA AND LATERAL: COMPARISON: [...] By: [email or web address] Orig Print D/T: S: 10/20/2019 (7753) PAGE 1 Sign ed Report PROTHROMBIN [id number] 09:26:00* Test Item Value Reference Range Interpretation [...] Infarction (to prevent recurrent infarct). BASIC METABOLIC [id number] 09:25:00* Test Item Value Reference Range Interpretation [...] CA) 9.7 mg/dL 8.0-10.5 N BASIC METABOLIC [id number] 09:16:00* Test Item Value Reference Range Interpretation [...] CA) 9.7 mg/dL 8.0-10.5 N CBC W/AUTO [id number] 09:06:00* Test Item Value Reference Range Interpretation [...] DIFF REQUIRED (test code = MDIFF) NO [id number] 09:35:00* Test Item Value Reference Range Interpretation Comments GLUBED (test code = GLUBED) 226 MG/DL 70-110 H Performed by certified chain mortiser operator at [facility] BASIC METABOLIC [id number] 04:56:00* Test Item Value Reference Range Interpretation [...] CA) 8.3 mg/dL 8.0-10.5 N CBC W/AUTO [id number] 04:43:00* Test Item Value Reference Range Interpretation [...] DIFF REQUIRED (test code = MDIFF) NO [id number] 20:54:00* Test Item Value Reference Range Interpretation Comments GLUBED (test code = GLUBED) 250 MG/DL 70-110 H Performed by certified chain mortiser operator at [facility] [id number] 15:13:00* Test Item Value Reference Range Interpretation Comments GLUBED (test code = GLUBED) 144 MG/DL 70-110 H Performed by certified chain mortiser operator at [facility] [id number] 09:01:00* Test Item Value Reference Range Interpretation Comments GLUBED (test code = GLUBED) 128 MG/DL 70-110 H Performed by certified chain mortiser operator at [facility] - XR CHEST 2 [id number] 10:59:00 FAX: Michael Kemp MD [phone] [place]: St: PRE Name: MICHELLE LEES [facility] : [birth year] Age/S: 69/M [address] [place] [address] Unit #: [id number] Loc: [place] [address] Phys: Michael Brambila MD Acct: [id number] Dis Date: Status: PRE SDC PHONE #: [phone] Exam Date: 09/22/20191050 FAX #: [phone] Reason: PRE-OP PCI EXAMS: CPT CODE: [id number] XR CHEST 2 V 83011 EXAM: PA and lateral chest. EXAM DATE: [...] Technologist: Taylor alvarado RT(R)(M) Trnscrd Date/Time/By: 09/22/2019 (0247 ) : By: Ary Orig Print D/T: S: 09/22/2019 (9217) PAGE 1 Signed Report BASIC METABOLIC [id number] 10:13:00* Test Item Value Reference Range Interpretation [...] CA) 9.3 mg/dL 8.0-10.5 N BASIC METABOLIC [id number] 10:09:00* Test Item Value Reference Range Interpretation [...] = CA) 9.3 mg/dL 8.0-10.5 N PROTHROMBIN [id number] 10:03:00* Test Item Value Reference Range Interpretation [...] Infarction (to prevent recurrent infarct). CBC W/AUTO [id number] 09:56:00* Test Item Value Reference Range Interpretation [...] REQUIRED (test code = MDIFF) NO Bedside [id number] 07:38:00* Test Item Value Reference Range Interpretation Comments Bedside Glucose (test code = 42782-8) 144 70-120 H Meter ID: [id number] [facility] Kinase MB 2019-09-14 12:11:00* Test Item Value Reference Range Interpretation Comments Creatine Kinase MB (test code = 72855-3) 3.00 0-5.0 [facility]roponin [id number] 12:11:00* Test Item Value Reference Range Interpretation Comments Troponin I (test code = LBN8001) < 0.001 0-0.300 [facility] HospitalCreatine [id number] 12:07:00* Test Item Value Reference Range Interpretation Comments Creatine Kinase (test code = 2157-6) 156 30-200 [facility] HospitalTriglycerides [id number] 05:28:00* Test Item Value Reference Range Interpretation Comments Triglycerides Level (test code = 2571-8) 108 0-149 [facility] HospitalCholesterol [id number] 05:28:00* Test Item Value Reference Range Interpretation Comments Cholesterol Level (test code = 2093-3) 188 0-199 Less than 200 mg/dL Low Mhrg143 - 239 mg/dL Borderline Mfmk930 m g/dl and greater High Risk [facility] HospitalLDL Axaoqblbwlv8075-29-37 05:28:00* Test Item Value Reference Range Interpretation Comments LDL Cholesterol (test code = 2089-1) 125 60-130 [facility] HospitalHDL Jfuyyfptsus8511-63-76 05:28:00* Test Item Value Reference Range Interpretation Comments HDL Cholesterol (test code = 2085-9) 41 40-60 [facility] HospitalCholesterol/HDL Sgpdu2491-95-66 05:28:00 * Test Item Value Reference Range Interpretation Comments Cholesterol/HDL Ratio (test code = 9830-1) 4.6 3.9-4.7 [facility] HospitalBlood Urea Evfcocit3891-10-57 05:27:00* Test Item Value Reference Range Interpretation Comments Blood Urea Nitrogen (test code = 3094-0) 22 7-26 [facility] HospitalBUN/Creatinine Pmdwo1953-66-05 05:27:00* Test Item Value Reference Range Interpretation Comments BUN/Creatinine Ratio (test code = 3097-3) 18 6-25 [facility] HospitalAspartate Amino Transf (AST/SGOT) 2019-09-14 05:27:00* Test Item Value Reference Range Interpretation Comments Aspartate Amino Transf (AST/SGOT) (test code = Aspartate Amino Transf (AST/SGOT)) 41 5-34 H [facility] HospitalAlanine Aminotransferase (ALT/SGPT) 2019-09-14 05:27:00* Test Item Value Reference Range Interpretation Comments Alanine Aminotransferase (ALT/SGPT) (test code = 1742-6) 70 0-55 H [facility] [id number] 05:02:00* Test Item Value Reference Range Interpretation Comments Sodium Level (test code = 2951-2) 138 136-145 [facility] HospitalPotassium [id number] 05:02:00* Test Item Value Reference Range Interpretation Comments Potassium Level (test code = 2823-3) 3.9 3.5-5.1 [facility] HospitalChloride [id number] 05:02:00* Test Item Value Reference Range Interpretation Comments Chloride Level (test code = 2075-0) 102 98-107 [facility] HospitalCarbon Dioxide [id number] 05:02:00* Test Item Value Reference Range Interpretation Comments Carbon Dioxide Level (test code = 2028-9) 25 22-29 [facility] HospitalAnion [id number] 05:02:00* Test Item Value Reference Range Interpretation Comments Anion Gap (test code = 03627-7) 14.9 8-16 [facility] HospitalCreatinine2019-11-14 05:02:00* Test Item Value Reference Range Interpretation Comments Creatinine (test code = 2160-0) 1.19 0.72-1.25 [facility] HospitalEstimat Glomerular Filtration Rate 2019-09-14 05:02:00* Test Item Value Reference Range Interpretation Comments Estimat Glomerular Filtration Rate (test code = 053432349) > 60 >60 Ranges were taken from the National Kidney Disease Education Program and the [facility] Foundation literature.Reference ranges:60 or greater: Lujxle31-48 ( for 3 consecutive months): Chronic kidney disease 15 or less: Kidney failureMayhill HospitalGlucose Zqcrn0431-71-73 05:02:00* Test Item Value Reference Range Interpretation Comments Glucose Level (test code = AHG6327) 127 74-118 H [facility] HospitalCalcium Bkytd7359-40-85 05:02:00* Test Item Value Reference Range Interpretation Comments Calcium Level (test code = 00580-8) 9.7 8.4-10.2 [facility] HospitalTotal Vstrfwiea0361-30-04 05:02:00* Test Item Value Reference Range Interpretation Comments Total Bilirubin (test code = 1975-2) 0.5 0.2-1.2 [facility] HospitalTotal Slkxetd6372-90-52 05:02:00* Test Item Value Reference Range Interpretation Comments Total Protein (test code = 2885-2) 7.0 6.5-8.1 [facility] HospitalAlbumin2019-11-14 05:02:00* Test Item Value Reference Range Interpretation Comments Albumin (test code = 1751-7) 3.6 3.5-5.0 [facility] HospitalGlobulin2019-11-14 05:02:00* Test Item Value Reference Range Interpretation Comments Globulin (test code = 84718-8) 3.4 2.3-3.5 [facility] HospitalAlbumin/Globulin Bohhv5667-76-90 05:02:00 * Test Item Value Reference Range Interpretation Comments Albumin/Globulin Ratio (test code = 1759-0) 1.1 0.8-2.0 [facility] HospitalAlkaline Svsoixlclvq3446-11-45 05:02:00* Test Item Value Reference Range Interpretation Comments Alkaline Phosphatase (test code = 6768-6) 81 40-150 [facility] HospitalWhite Blood Xcboe4206-01-62 04:40:00* Test Item Value Reference Range Interpretation Comments White Blood Count (test code = 6690-2) 6.34 4.8-10.8 [facility] HospitalRed Blood Xzygk7165-97-46 04:40:00* Test Item Value Reference Range Interpretation Comments Red Blood Count (test code = 789-8) 4.35 4.3-5.7 [facility] HospitalHemoglobin2019-11-14 04:40:00* Test Item Value Reference Range Interpretation Comments Hemoglobin (test code = 91359-7) 13.5 14.0-18.0 L [facility] HospitalHematocrit2019-11-14 04:40:00* Test Item Value Reference Range Interpretation Comments Hematocrit (test code = 4544-3) 40.3 38.2-49.6 [facility] HospitalMean Corpuscular Hkvgvo6475-84-79 04:40:00* Test Item Value Reference Range Interpretation Comments Mean Corpuscular Volume (test code = 787-2) 92.6 81-99 [facility] HospitalMean Corpuscular Xkbxazopbq2174-16-07 04:40:00* Test Item Value Reference Range Interpretation Comments Mean Corpuscular Hemoglobin (test code = 785-6) 31.0 28-32 [facility] HospitalMean Corpuscular Hemoglobin Concent 2019-09-14 04:40:00* Test Item Value Reference Range Interpretation Comments Mean Corpuscular Hemoglobin Concent (test code = 786-4) 33.5 31-35 [facility] HospitalRed Cell Distribution Apbco8052-99-13 04:40:00* Test Item Value Reference Range Interpretation Comments Red Cell Distribution Width (test code = 61840-6) 13.0 11.7 -14.4 [facility] HospitalPlatelet Hfpks6135-56-04 04:40:00* Test Item Value Reference Range Interpretation Comments Platelet Count (test code = 777-3) 223 140-360 [facility] HospitalNeutrophils (%) (Auto)2019-09-14 04:40:00 * Test Item Value Reference Range Interpretation Comments Neutrophils (%) (Auto) (test code = 45438-1) 72.5 38.7-80.0 [facility] HospitalLymphocytes (%) (Auto)2019-09-14 04:40:00 * Test Item Value Reference Range Interpretation Comments Lymphocytes (%) (Auto) (test code = 736-9) 13.9 18.0-39.1 L [facility] HospitalMonocytes (%) (Auto)2019-09-14 04:40:00* Test Item Value Reference Range Interpretation Comments Monocytes (%) (Auto) (test code = 5905-5) 8.8 4.4-11.3 [facility] HospitalEosinophils (%) (Auto)2019-09-14 04:40:00 * Test Item Value Reference Range Interpretation Comments Eosinophils (%) (Auto) (test code = 713-8) 3.5 0.0-6.0 [facility] HospitalBasophils (%) (Auto)2019-09-14 04:40:00* Test Item Value Reference Range Interpretation Comments Basophils (%) (Auto) (test code = 706-2) 0.8 0.0-1.0 [facility] HospitalIM GRANULOCYTES %2019-09-14 04:40:00* Test Item Value Reference Range Interpretation Comments IM GRANULOCYTES % (test code = IM GRANULOCYTES %) 0.5 0.0- 1.0 [facility] HospitalNeutrophils # (Auto)2019-09-14 04:40:00* Test Item Value Reference Range Interpretation Comments Neutrophils # (Auto) (test code = 751-8) 4.6 2.1-6.9 [facility] HospitalLymphocytes # (Auto)2019-09-14 04:40:00* Test Item Value Reference Range Interpretation Comments Lymphocytes # (Auto) (test code = 91148-9) 0.9 1.0-3.2 L [facility] HospitalMonocytes # (Auto)2019-09-14 04:40:00* Test Item Value Reference Range Interpretation Comments Monocytes # (Auto) (test code = 742-7) 0.6 0.2-0.8 [facility] HospitalEosinophils # (Auto)2019-09-14 04:40:00* Test Item Value Reference Range Interpretation Comments Eosinophils # (Auto) (test code = 711-2) 0.2 0.0-0.4 [facility] HospitalBasophils # (Auto)2019-09-14 04:40:00* Test Item Value Reference Range Interpretation Comments Basophils # (Auto) (test code = 704-7) 0.1 0.0-0.1 [facility] HospitalAbsolute Immature Granulocyte (auto 2019-09-14 04:40:00* Test Item Value Reference Range Interpretation Comments Absolute Immature Granulocyte (auto (francia t code = Absolute Immature Granulocyte (auto) 0.03 0-0.1 [facility] HospitalB-Type Natriuretic Ckvepvo6382-49-15 09:23:00* Test Item Value Reference Range Interpretation Comments B-Type Natriuretic Peptide (test code = 46865-1) 793.9 0-100 H [facility] HospitalMagnesium Meygs9652-56-67 09:19:00* Test Item Value Reference Range Interpretation Comments Magnesium Level (test code = 43623-7) 1.8 1.3-2.1 [facility] HospitalProthrombin Innt8699-88-24 09:09:00* Test Item Value Reference Range Interpretation Comments Prothrombin Time (test code = 5902-2) 14.0 11.9-14.5 [facility] HospitalProthromb Time International Ratio 2019-09-13 09:09:00* Test Item Value Reference Range Interpretation Comments Prothromb Time International Ratio (test code = 6301-6) 1.03 Oral Anticoagulant Therapy INR Values:1. Low Intensity Therapy 1.5 - 2.02 . Moderate Intensity Therapy 2.0 - 3.03. High Intensity Therapy(1) 2.5 - 3. 54. High Intensity Therapy(2) 3.0 - 4.05. Panic Value INR > 5.0 [facility] Partial Thromboplast Time 2019-09-13 09:09:00* Test Item Value Reference Range Interpretation Comments Activated Partial Thromboplast Time (test code = 71753-5) 33.8 23.8-35.5 [facility] PSL7756-31-58 09:06:00* Test Item Value Reference Range Interpretation Comments Urine WBC (test code = 5821-4) 6-10 0-5 H [facility] FIT8259-30-98 09:06:00* Test Item Value Reference Range Interpretation Comments Urine RBC (test code = 57001-5) 0-5 0-5 [facility] Xdbqhphq7328-98-17 09:06:00* Test Item Value Reference Range Interpretation Comments Urine Bacteria (test code = 63416-2) RARE NONE [facility] Epithelial Fyhgv3191-84-31 09:06:00 * Test Item Value Reference Range Interpretation Comments Urine Epithelial Cells (test code = 90740-0) FEW NONE [facility] Gekof1021-04-32 09:01:00* Test Item Value Reference Range Interpretation Comments Urine Color (test code = 5778-6) YELLOW YELLOW [facility] Qvbtllv2408-81-39 09:01:00* Test Item Value Reference Range Interpretation Comments Urine Clarity (test code = 54904-8) CLEAR CLEAR [facility] Specific Tnzwwen2745-39-02 09:01:00 * Test Item Value Reference Range Interpretation Comments Urine Specific [place] (test code = 5811-5) <=1.005 1.010-1.02 5 [facility] gX7523-47-01 09:01:00* Test Item Value Reference Range Interpretation Comments Urine pH (test code = 29830-8) 6 5-7 [facility] Leukocyte Frcnlrkj8840-48-96 09:01:00* Test Item Value Reference Range Interpretation Comments Urine Leukocyte Esterase (test code = 20643-5) NEGATIVE NEGATIV E [facility] Nuykncz7971-01-61 09:01:00* Test Item Value Reference Range Interpretation Comments Urine Nitrite (test code = 17442-2) NEGATIVE NEGATIVE [facility] Wkgsask8868-76-38 09:01:00* Test Item Value Reference Range Interpretation Comments Urine Protein (test code = 23351-6) NEGATIVE NEGATIVE [facility] Glucose (UA)2019-09-13 09:01:00* Test Item Value Reference Range Interpretation Comments Urine Glucose (UA) (test code = 40749-8) NEGATIVE NEGATIVE [facility] Rwpulia0167-45-03 09:01:00* Test Item Value Reference Range Interpretation Comments Urine Ketones (test code = 60735-4) NEGATIVE NEGATIVE [facility] Ulmbhbsjgoaf1305-23-55 09:01:00* Test Item Value Reference Range Interpretation Comments Urine Urobilinogen (test code = 08946-0) 0.2 0.2-1 [facility] Qixtjzvyh7405-62-31 09:01:00* Test Item Value Reference Range Interpretation Comments Urine Bilirubin (test code = 1977-8) NEGATIVE NEGATIVE [facility] Efouz1199-51-59 09:01:00* Test Item Value Reference Range Interpretation Comments Urine Blood (test code = 78282-7) NEGATIVE NEGATIVE [facility] HospitalCHEST SINGLE (PORTABLE)2019-09-13 08:54:00 [facility] [address] [address] Patient Name: MICHELLE LY MR #: [id number] : 1950 Age/Sex: 69/M Req #: [id number] Adm Physician: Ordered by: SHOSHANA SANCHEZ MD Report #: [id number] Location: ER Room/Bed: Procedure: [id number] DX/ CHEST SINGLE (PORTABLE) Exam Date: 09/13/19 [...] 09/13/19855 COPY TO: SHOSHANA SANCHEZ MD Triglycerides Uewer6096-86-32 05:28:00* Test Item Value Reference Range Interpretation Comments Triglycerides Level (test code = 2571-8) 146 0-149 [facility]Cholesterol Rblri6401-97-60 05:28:00* Test Item Value Reference Range Interpretation Comments Cholesterol Level (test code = 2093-3) 224 0-199 H Less than 200 mg/dL Low Gayf104 - 239 mg/dL Borderline Qbzv949 m g/dl and greater High Risk [facility] HospitalLDL Sihrlpbzopp4023-72-37 05:28:00* Test Item Value Reference Range Interpretation Comments LDL Cholesterol (test code = 2089-1) 147 60-130 H [facility] HospitalHDL Efayaxgmiit3579-53-68 05:28:00* Test Item Value Reference Range Interpretation Comments HDL Cholesterol (test code = 2085-9) 48 40-60 [facility] HospitalCholesterol/HDL Xuoew1374-27-83 05:28:00 * Test Item Value Reference Range Interpretation Comments Cholesterol/HDL Ratio (test code = 9830-1) 4.7 3.9-4.7 [facility] HospitalCreatine Kinase PS0823-17-74 02:54:00* Test Item Value Reference Range Interpretation Comments Creatine Kinase MB (test code = 04891-8) 1.10 0-5.0 [facility] HospitalTroponin R1474-84-02 02:54:00* Test Item Value Reference Range Interpretation Comments Troponin I (test code = SCQ2840) 0.010 0-0.300 [facility] HospitalCreatine Soyiwe6518-96-08 02:27:00* Test Item Value Reference Range Interpretation Comments Creatine Kinase (test code = 2157-6) 93 30-200 [facility] MCJ4019-03-66 19:15:00* Test Item Value Reference Range Interpretation Comments Urine WBC (test code = 5821-4) NONE 0-5 [facility] CYA5325-91-51 19:15:00* Test Item Value Reference Range Interpretation Comments Urine RBC (test code = 78471-8) NONE 0-5 [facility] Qtisaqtl5725-45-31 19:15:00* Test Item Value Reference Range Interpretation Comments Urine Bacteria (test code = 49991-4) NONE NONE [facility] Epithelial Kyaor2679-28-51 19:15:00 * Test Item Value Reference Range Interpretation Comments Urine Epithelial Cells (test code = 71465-6) RARE NONE [facility] Kehbc8769-45-14 19:15:00* Test Item Value Reference Range Interpretation Comments Urine Mucus (test code = 8247-9) FEW RARE H [facility] Onuik6672-92-91 18:43:00* Test Item Value Reference Range Interpretation Comments Urine Color (test code = 5778-6) YELLOW YELLOW [facility] Mualrjz1953-51-58 18:43:00* Test Item Value Reference Range Interpretation Comments Urine Clarity (test code = 15131-9) CLEAR CLEAR [facility] Specific Breaaiu7813-00-11 18:43:00 * Test Item Value Reference Range Interpretation Comments Urine Specific [place] (test code = 5811-5) 1.020 1.010-1.02 5 [facility] eW2254-33-30 18:43:00* Test Item Value Reference Range Interpretation Comments Urine pH (test code = 35154-9) 5 5-7 [facility] Leukocyte Arjkiyvc6596-22-33 18:43:00* Test Item Value Reference Range Interpretation Comments Urine Leukocyte Esterase (test code = 5799-2) NEGATIVE NEGATIVE [facility] Bbroxcg2585-38-09 18:43:00* Test Item Value Reference Range Interpretation Comments Urine Nitrite (test code = 98562-9) NEGATIVE NEGATIVE [facility] Xjuymvf6802-19-20 18:43:00* Test Item Value Reference Range Interpretation Comments Urine Protein (test code = 5804-0) NEGATIVE NEGATIVE [facility] Glucose (UA)2018-07-19 18:43:00* Test Item Value Reference Range Interpretation Comments Urine Glucose (UA) (test code = 2349-9) NEGATIVE NEGATIVE [facility] Vzscdwz6617-32-02 18:43:00* Test Item Value Reference Range Interpretation Comments Urine Ketones (test code = 02488-0) NEGATIVE NEGATIVE [facility] Xcqzjxxzjuxq5444-37-27 18:43:00* Test Item Value Reference Range Interpretation Comments Urine Urobilinogen (test code = 03344-9) 0.2 0.2-1 [facility] HospitalUrine Wkeslrhab4716-48-80 18:43:00* Test Item Value Reference Range Interpretation Comments Urine Bilirubin (test code = 1978-6) NEGATIVE NEGATIVE [facility] Zaxfk9002-26-72 18:43:00* Test Item Value Reference Range Interpretation Comments Urine Blood (test code = 08766-5) NEGATIVE NEGATIVE [facility]2018-07-19 18:10:00 [facility] [address] [address] Patient Name: MICHELLE LY MR #: [id number] : 1950 Age/Sex: 67/M Req #: [id number] Adm Physician: Ordered by: BHARAT VELIZ MD Report #: [id number] Location: ER Room/Bed: Procedure: [id number] DX/CHEST SINGLE (NOT JOHNNY BLE) Exam Date: [...] COPY TO: BHARAT VELIZ MD B-Type Natriuretic Shvepsc8239-98-64 18:07:00* Test Item Value Reference Range Interpretation Comments B-Type Natriuretic Peptide (test code = 28477-7) 110.1 0-100 [facility] Lpxtv5374-46-88 18:00:00* Test Item Value Reference Range Interpretation Comments Sodium Level (test code = 2951-2) 140 136-145 [facility] HospitalPotassium Lyacy8722-67-70 18:00:00* Test Item Value Reference Range Interpretation Comments Potassium Level (test code = 2823-3) 4.2 3.5-5.1 [facility] HospitalChloride Zdhsz7250-48-14 18:00:00* Test Item Value Reference Range Interpretation Comments Chloride Level (test code = 2075-0) 104 98-107 [facility] HospitalCarbon Dioxide Jnukr8845-30-45 18:00:00* Test Item Value Reference Range Interpretation Comments Carbon Dioxide Level (test code = 2028-9) 22 22-29 [facility] HospitalAnion Sty3924-79-40 18:00:00* Test Item Value Reference Range Interpretation Comments Anion Gap (test code = 74298-1) 18.2 8-16 H [facility] HospitalBlood Urea Cgjvscgc1683-45-72 18:00:00* Test Item Value Reference Range Interpretation Comments Blood Urea Nitrogen (test code = 3094-0) 17 7-26 [facility] HospitalCreatinine2018-09-18 18:00:00* Test Item Value Reference Range Interpretation Comments Creatinine (test code = 2160-0) 1.02 0.72-1.25 [facility] HospitalBUN/Creatinine Diudj1285-24-23 18:00:00* Test Item Value Reference Range Interpretation Comments BUN/Creatinine Ratio (test code = 3097-3) 17 6-25 [facility] HospitalEstimat Glomerular Filtration Rate 2018-07-19 18:00:00* Test Item Value Reference Range Interpretation Comments Estimat Glomerular Filtration Rate (test code = 690638995) 60- >60 Ranges were taken from the National Kidney Disease Education Program and the [facility] [employer] literature.Reference ranges:60 or greater: Scicad28-05 ( for 3 consecutive months): Chronic kidney disease 15 or less: Kidney failureMayhill HospitalGlucose Zhbdv7613-97-18 18:00:00* Test Item Value Reference Range Interpretation Comments Glucose Level (test code = VNW2718) 88 74-118 [facility] HospitalCalcium Ywyrs8116-59-31 18:00:00* Test Item Value Reference Range Interpretation Comments Calcium Level (test code = 26232-9) 9.8 8.4-10.2 [facility] HospitalTotal Tbdyqiwym8761-99-87 18:00:00* Test Item Value Reference Range Interpretation Comments Total Bilirubin (test code = 1975-2) 0.5 0.2-1.2 [facility] HospitalAspartate Amino Transf (AST/SGOT) 2018-07-19 18:00:00* Test Item Value Reference Range Interpretation Comments Aspartate Amino Transf (AST/SGOT) (test code = Aspartate Amino Transf (AST/SGOT)) 37 5-34 H [facility] HospitalAlanine Aminotransferase (ALT/SGPT) 2018-07-19 18:00:00* Test Item Value Reference Range Interpretation Comments Alanine Aminotransferase (ALT/SGPT) (test code = 1742-6) 61 0-55 H [facility] HospitalTotal Llesvxx9233-54-98 18:00:00* Test Item Value Reference Range Interpretation Comments Total Protein (test code = 2885-2) 7.9 6.5-8.1 [facility] HospitalAlbumin2018-09-18 18:00:00* Test Item Value Reference Range Interpretation Comments Albumin (test code = 1751-7) 3.9 3.5-5.0 [facility] HospitalGlobulin2018-09-18 18:00:00* Test Item Value Reference Range Interpretation Comments Globulin (test code = 17546-7) 4.0 2.3-3.5 H [facility] HospitalAlbumin/Globulin Rfwwx0653-63-96 18:00:00 * Test Item Value Reference Range Interpretation Comments Albumin/Globulin Ratio (test code = 1759-0) 1.0 0.8-2.0 [facility] HospitalAlkaline Fcatuntuqga1589-87-45 18:00:00* Test Item Value Reference Range Interpretation Comments Alkaline Phosphatase (test code = 6768-6) 102 40-150 [facility] HospitalProthrombin Ptxr6636-67-86 17:48:00* Test Item Value Reference Range Interpretation Comments Prothrombin Time (test code = 5902-2) 12.6 11.9-14.5 [facility] HospitalProthromb Time International Ratio 2018-07-19 17:48:00* Test Item Value Reference Range Interpretation Comments Prothromb Time International Ratio (test code = 6301-6) 1.02 Oral Anticoagulant Therapy INR Values:1. Low Intensity Therapy 1.5 - 2.02 . Moderate Intensity Therapy 2.0 - 3.03. High Intensity Therapy(1) 2.5 - 3. 54. High Intensity Therapy(2) 3.0 - 4.05. Panic Value INR > 5.0 [facility] HospitalActivated Partial Thromboplast Time 2018-07-19 17:48:00* Test Item Value Reference Range Interpretation Comments Activated Partial Thromboplast Time (test code = 70701-4) 29.5 23.8-35.5 [facility] HospitalWhite Blood Khojj1596-25-30 17:38:00* Test Item Value Reference Range Interpretation Comments White Blood Count (test code = 6690-2) 6.80 4.8-10.8 [facility] HospitalRed Blood Oqdnb7979-94-79 17:38:00* Test Item Value Reference Range Interpretation Comments Red Blood Count (test code = 789-8) 4.78 4.3-5.7 [facility] HospitalHemoglobin2018-09-18 17:38:00* Test Item Value Reference Range Interpretation Comments Hemoglobin (test code = 48694-2) 15.3 14.0-18.0 [facility] HospitalHematocrit2018-09-18 17:38:00* Test Item Value Reference Range Interpretation Comments Hematocrit (test code = 4544-3) 43.2 38.2-49.6 [facility] HospitalMean Corpuscular Olxdbm5411-80-07 17:38:00* Test Item Value Reference Range Interpretation Comments Mean Corpuscular Volume (test code = 787-2) 90.4 81-99 [facility] HospitalMean Corpuscular Cnneqfynyh3332-29-06 17:38:00* Test Item Value Reference Range Interpretation Comments Mean Corpuscular Hemoglobin (test code = 785-6) 32.0 28-32 [facility] HospitalMean Corpuscular Hemoglobin Concent 2018-07-19 17:38:00* Test Item Value Reference Range Interpretation Comments Mean Corpuscular Hemoglobin Concent (test code = 786-4) 35.4 31-35 H [facility] HospitalRed Cell Distribution Mlkxl2286-46-58 17:38:00* Test Item Value Reference Range Interpretation Comments Red Cell Distribution Width (test code = 80378-6) 12.4 11.7 -14.4 [facility] HospitalPlatelet Nxnag0927-40-55 17:38:00* Test Item Value Reference Range Interpretation Comments Platelet Count (test code = 777-3) 213 140-360 [facility] HospitalNeutrophils (%) (Auto)2018-07-19 17:38:00 * Test Item Value Reference Range Interpretation Comments Neutrophils (%) (Auto) (test code = 23956-2) 55.2 38.7-80.0 [facility] HospitalLymphocytes (%) (Auto)2018-07-19 17:38:00 * Test Item Value Reference Range Interpretation Comments Lymphocytes (%) (Auto) (test code = 736-9) 31.2 18.0-39.1 [facility] HospitalMonocytes (%) (Auto)2018-07-19 17:38:00* Test Item Value Reference Range Interpretation Comments Monocytes (%) (Auto) (test code = 5905-5) 8.5 4.4-11.3 [facility] HospitalEosinophils (%) (Auto)2018-07-19 17:38:00 * Test Item Value Reference Range Interpretation Comments Eosinophils (%) (Auto) (test code = 713-8) 4.1 0.0-6.0 [facility] HospitalBasophils (%) (Auto)2018-07-19 17:38:00* Test Item Value Reference Range Interpretation Comments Basophils (%) (Auto) (test code = 706-2) 0.6 0.0-1.0 [facility] HospitalIM GRANULOCYTES %2018-07-19 17:38:00* Test Item Value Reference Range Interpretation Comments IM GRANULOCYTES % (test code = IM GRANULOCYTES %) 0.4 0.0- 1.0 [facility] HospitalNeutrophils # (Auto)2018-07-19 17:38:00* Test Item Value Reference Range Interpretation Comments Neutrophils # (Auto) (test code = 751-8) 3.8 2.1-6.9 [facility] HospitalLymphocytes # (Auto)2018-07-19 17:38:00* Test Item Value Reference Range Interpretation Comments Lymphocytes # (Auto) (test code = 37480-9) 2.1 1.0-3.2 [facility] HospitalMonocytes # (Auto)2018-07-19 17:38:00* Test Item Value Reference Range Interpretation Comments Monocytes # (Auto) (test code = 742-7) 0.6 0.2-0.8 [facility] HospitalEosinophils # (Auto)2018-07-19 17:38:00* Test Item Value Reference Range Interpretation Comments Eosinophils # (Auto) (test code = 711-2) 0.3 0.0-0.4 [facility] HospitalBasophils # (Auto)2018-07-19 17:38:00* Test Item Value Reference Range Interpretation Comments Basophils # (Auto) (test code = 704-7) 0.0 0.0-0.1 [facility] HospitalAbsolute Immature Granulocyte (auto 2018-07-19 17:38:00* Test Item Value Reference Range Interpretation Comments Absolute Immature Granulocyte (auto (francia t code = Absolute Immature Granulocyte (auto) 0.03 0-0.1 [facility] HospitalBEDSIDE GLUCOSE OQPQRYN2278-17-85 15:54:22887Mnomurih HermannBEDSIDE GLUCOSE RMNLIGH7527-69-53 12:07:19211Nvkedeoi EqhthcfZLMFUUJIJ3447-27-88 09:28:91762Wyamqkit JbfajwuKWATVEYDZ3931-53-78 09:28:70250Trscmyjp FzpsebgLAELIXUHL8602-34-43 09:28:004.1[facility] HIXNTJIOB2943-12-16 09:28:0073[facility] OtmtuhwPKFKFSKCS3442-46-43 09:28:58436 [facility] WfapiudJYEYFVGLY7157-31-72 09:28:0024[facility] HermannCHEMISTRY 2013-07-18 09:28:001.1[facility] AjzbytrIEPNAPNUB8120-59-29 09:28:0028[facility] NbhtturCJBEZGTXW4523-39-64 09:28:009.0[facility] JmzpwciFBOJOZRUO5209-09-54 09:28:0015.1[facility] UvzjidvYBVERSAMSG4967-14-64 09:28:00Normal (07/18/2013 04:28:00) [facility] YtrcjifPDQWIVZCBY1532-50-70 09:28:00Normal (07/18/2013 04:28:00) [facility] RcmqyrtITAWWXIFPU5669-97-34 09:28:0076.1[facility]i MHBDIXEGQH4974-00-05 09:28:000.9[facility] VdvjcxsSVJGVWETOR3848-88-04 09:28:001.5 [facility] KxlknwzLHMQARIOYZ4467-11-43 09:28:000.1[facility] HermannHEMATOLOGY 2013-07-18 09:28:008.0[facility] HvossufTHTGXRKEIC3172-65-99 09:28:0014.1[facility] TkmncvkLNGMLEOQZI3402-60-30 09:28:000.0[facility] YiharowYRCQYHIJTX6575-40-12 09:28:000.3[facility] NcdjustBOMHEQFBPJ6677-61-14 09:28:008.4[facility] CGLICEPMGM1362-84-64 09:28:001.1[facility] EwbqhxuBDNYAPVYYX8625-69-91 09:28:72848 [facility] JerjakiOLTBMVASYP7259-54-18 09:28:007.6[facility] HermannHEMATOLOGY 2013-07-18 09:28:0032.8[facility] IyffzvePCKYIHHZFF1175-50-66 09:28:0013.6[facility] DkimvkdBWHWJQMUAN4564-33-35 09:28:005.01[facility] KpnwsmzAFOOFRJTOJ0099-62-58 09:28:0015.5[facility] KjyeqhwPZAJPUUMAZ2460-82-45 09:28:00* Test Item Value Reference Range Interpretation Comments MCH (test code = MCH) 30.9 pg 27.0-31.0 N [facility] MoxrqlvPXZXAJGUBG3209-65-78 09:28:0047.1[facility] HermannHEMATOLOGY 2013-07-18 09:28:0094.0[facility] IxgqkypHZDTFFFMXX4421-58-12 09:28:0010.5[facility] HermannBEDSIDE GLUCOSE BAXIDKF6804-37-81 22:14:24493Uafgkmgj HermannCHEMISTRY 2013-07-17 09:08:0014.2[facility] FxndpryAODSFJHCR5446-02-28 09:08:0065[facility] QszvrieADDTYBUXL5546-97-89 09:08:008.6[facility] AphjichEYXRFUBWU1863-69-45 09:08:0017[facility] IykubamDNIMMPQPU5852-26-64 09:08:23122Psqwmjwe [place] FDRVNOXCU9302-82-39 09:08:0027[facility] MdqdvvtCEGYOWEHG7736-17-77 09:08:001.2 [facility] XyudnvxQIHHKFAVE9769-67-49 09:08:09785Yhakthci HermannCHEMISTRY 2013-07-17 09:08:08790Uzvqcogt EsxdsooLNZGCFXXO8102-30-03 09:08:004.2[facility] ZnxkqujCDBHSJRRR0276-75-72 09:08:004.53[facility] PddyvwoRXQGFRCVL6052-60-23 09:08:91222Wrpfdgtl AmboouyKWMXETZKI0752-62-38 09:08:0036[facility] YOWLJPMQY4922-12-14 09:08:0097[facility] AxeayczWQJPLRZIT0947-34-79 09:08:71703 [facility] AudruoaWSAQHLSKGI8699-34-32 09:08:0076.1[facility] HermannHEMATOLOGY 2013-07-17 09:08:000.0[facility] VnxxtgqVOLCTDEUKY8135-97-54 09:08:000.2[facility] ZdhsosvAIGJHPYRMJ7825-44-56 09:08:000.6[facility] HoxeaweMGXNZRJIBP4738-60-14 09:08:006.4[facility] MooevqrOFPMKREMQC3218-43-65 09:08:002.4[facility] THBUARQYCU1669-53-79 09:08:007.6[facility] AfxzjsoPGQHBTIFCG8727-58-53 09:08:00 13.7[facility] FbhwyoqUXCJZWSGVZ8932-08-82 09:08:001.2[facility] HermannHEMATOLOGY 2013-07-17 09:08:000.2[facility] KevhdukDEDSRSTRXE3980-61-84 09:08:007.9[facility] FiqwcynEUOKDQNEQV3947-38-82 09:08:65199Tnjjtvjg ZtvwsklRMRAVTDDTE9748-51-52 09:08:008.4[facility] XvvreohWHEVQNDVCY1504-47-02 09:08:004.61[facility] HWQVSTWCKV2215-35-63 09:08:00* Test Item Value Reference Range Interpretation Comments MCH (test code = MCH) 30.8 pg 27.0-31.0 N [facility] MsojxpxKWTDDHUAFR3952-84-42 09:08:0013.5[facility] HermannHEMATOLOGY 2013-07-17 09:08:0032.7[facility] DinrppuYOCLRIYEDP8820-38-27 09:08:0094.0[facility] GoatsrsTRDCZJJAEB0081-53-46 09:08:0014.2[facility] KvyrwsyNHDNNYENIF4828-59-41 09:08:0043.3[facility] JthtuhgORFKVXXTZL0723-51-96 09:08:001.20[facility] FPDCCNYGBU6999-19-49 09:08:00* Test Item Value Reference Range Interpretation Comments PT (test code = PT) 15.1 s 12.0-14.7 H [facility] OhjdxvoFIWMTUBVGG3359-00-97 09:08:00* Test Item Value Reference Range Interpretation Comments PTT (test code = PTT) 32.9 s 22.9-35.8 N [facility] FolufkoAMFEXSWXQ1091-24-36 05:47:000.8[facility] HermannCHEMISTRY 2013-07-17 05:47:00<0.02[facility] UhcbvtfIDCSKFYCR1173-45-37 05:47:85548Ngymahuw DbkriuiFBGOIPAHF9557-91-65 05:47:001.1[facility] AsbghzaSLPIXGWGQ4022-26-58 23:48:492.2[facility] QyhemrmPWTQKEDWO6224-52-56 23:48:49<0.02[facility] RRTCKBWPC1775-54-30 23:48:16164Zyxqltvd CdrzhqtBIVPOLWNW0088-52-79 23:48:492.0 [facility] HylvfrcBRROVVUBI8232-73-66 23:48:272.1[facility] HermannCHEMISTRY 2013-07-16 23:48:278.0[facility] YtohjdvMYLPJPVKT8639-44-48 23:48:242.790[facility] HiokspuUGZVZKKIQ2207-11-96 23:48:2435[facility] BpxrnwiSFJVJJUMG7921-23-37 23:48:2412.0[facility] RdahhecQBOUBDYEM0207-98-74 23:48:244.2[facility] Rafi
--- OUTSIDE RECORDS SUMMARY | 2020-06-28 18:35 | XMS REPORT | Continuity of Care Document ---
Author Author MICHELLE Kerr [employer] Address Unknown Phone Unavailable Care Team Providers Care Cad Engineer Name Role Phone [employer] Unavailable Un available Problems Problem Status Onset Date Classification Date Reported Comments Source S46.091A - INJ MUSC/TEND THE ROTATOR CUF Active 09/28/2017 [facility] CHF -NEW ONSET, LF SIDED FACIAL TINGLING Active 07/16/2013 [facility] Right sided weakness Resolved Problem 07/20/2013 [facility] Right hemiparesis (disorder) R esolved Problem [facility] NOS Active [facility] Medications Medication Details Route Status Patient Instructions Ordering Provider Order Date Source Lasix 40 mg oral tablet 40 mg, 1 tab, Route: PO, Drug form: TAB, BID, Dosing Weight 91.818, kg, Start date: 07/18/13 17:00:00, Duration: 30 day, Stop date: 08/17/13 9:00:00 PO No Longer Active Daniel 07/18/2013 [facility] influenza virus vaccine, inactivated 0.5 ml, Route: IM, Drug Form: SUSP, Start date: 07/18/13 11:00:00, Stop date: 07/18/13 11:00:00 IM No Longer Active SYSTEM 07/02 [facility] Lasix 20 mg oral tablet 20 mg, 1 tab, PO, Daily, 30 tab, 0, 0, Substitution Allowed, TAB PO Active Jose Juan 07/18/2013 [facility] potassium chloride 10 mEq oral capsule, extended release 10 mEq, 1 cap, PO, BID, take it with fur osemide, 60 cap, Substitution Allowedtake it with furosemide PO Active Daniel 07/18/2013 [facility] lisinopril 5 mg oral tablet 5 mg, 1 tab, PO, Daily, 30 tab, Substitution Allowed, TAB PO Active Daniel 07/18/2013 [facility] glipiZIDE 2.5 mg oral tablet, extended release 2.5 mg, 1 tab, PO, Daily, 30 tab, Substitution Allowed, ERTAB PO Active Daniel 07/18/2013 [facility] Lasix 40 mg oral tablet 40 mg, 1 tab, PO, BID, 60 tab, Substitution Allowed, TAB PO No Longer Active Jose Juan 07/18/2013 [facility] carvedilol 6.25 mg oral tablet 6.25 mg, 1 tab, PO, BID, 60 tab, Substitution Allowed, TAB PO Active [facility] [place] 07/18/2013 [facility] aspirin 81 mg tablet, enteric coated 81 mg, 1 tab, PO, Daily, 30 tab, Substitution Allowed, ECTAB PO Active [facility] [place] 07/18/2013 [facility] Coreg 6.25 mg, 2 tab, Route: P O, Drug form: TAB, Q12H, Dosing Weight 91.818, kg, Start date: 07/17/13 21:00:00, Duration: 30 day, Stop date: 08/16/13 9:00:00 PO No Longer Active [facility] [place] 07/18/2013 [facility] glipiZIDE 2.5 mg, 1 tab, Route : PO, Drug form: ERTAB, Daily, Dosing Weight 91.818, kg, Priority: NOW, Start date: 07/17/13 9:49:00, Duration: 30 day, Stop date: 08/16/13 9:00:00 PO No Longer Active [facility] [place] 07/17/2013 [facility] pneumococcal 23-valent vaccine 0.5 ml, Route: IM, Drug Form: INJ, Daily, Start date: 07/17/13 9:00:00, Duration: 1 doses or times, Stop date: 07/17/13 9:00:00 IM No Longer Active SYSTEM 07/17/2013 [facility] furosemide 40 mg, 4 mL, Route: IVP, Drug form: INJ, BID, Dosing Weight 91.818, kg, Start date: 07/17/13 9:00:00, Duration: 30 day, Stop date: 08/15/13 17:00:00 IVP No Longer Active [facility] [place] 07/17/2013 [facility] aspirin 81 mg tablet, enteric coated 81 mg, 1 tab, Route: PO, Drug form: ECTAB, Daily, Dosing Weight 91.818, kg, Start date: 07/17/13 9:00:00, Duration: 30 day, Stop date: 08/15/13 9:00:00 PO No Longer Active [facility] [place] 07/17/2013 [facility] Saline Flush 0.9% 5 ml, Route: IVP, Drug Form: INJ, Dosing Weight 91.818, kg, Q12H, Start date: 07/16/13 21:00:00, Duration: 30 day, Stop date: 08/15/13 9:00:00 IVP No Longer Active [facility] [place] 07/17/2013 [facility] nitroglycerin 0.4 mg sublingual tablet 0.4 mg, 1 tab, Route: SL, Drug form: TAB, Q5Min, PRN Chest Pain, Start date: 07/16/13 18:27:00, Duration: 30 day, Stop date: 08/15/13 18:26:00 SL No Longer Active [facility] [place] 07/16/2013 [facility] atropine 0.5 mg, 5 mL, Route: IVP, Drug form: INJ, PRN, PRN Bradycardia, Start date: 07/16/13 18:27:00, Duration: 30 day, Stop date: 08/15/13 18:26:00 IVP No Longer Active [facility] [place] 07/16/2013 [facility] lisinopril 5 mg, 1 tab, Route: PO, Drug form: TAB, Daily, Dosing Weight 91.818, kg, Priority: NOW, Start date: 07/16/13 18:14:00, Duration: 30 day, Stop date: 08/15/13 9:00:00 PO No Longer Active Jacobo 07/16/2013 [facility] temazepam 15 mg, 1 cap, Route: PO, Drug form: CAP, Bedtime, Dosing Weight 91.818, kg, PRN Insomnia, Start date: 07/16/13 18:11:00, Duration: 30 day, Stop date: 08/15/13 18:10:00 PO No Longer Active [facility] [place] 07/16/2013 [facility] ondansetron 4 mg, 2 mL, Route: IVP, Drug form: INJ, Q8H, Dosing Weight 91.818, kg, PRN Nausea & Vomiting, Start date: 07/16/13 18:11:00, Duration: 30 day, Stop date: 08/15/13 18:10:00 IVP No Longer Active [facility] [place] 07/16/2013 [facility] Saline Flush 0.9% 5 ml, Route: IVP, Drug Form: INJ, Dosing Weight 91.818, kg, PRN, PRN Line Flush, Start date: 07/16/13 18:11:00, Duration: 30 day, Stop date: 08/15/13 18:10:00 IVP No Longer Active Daniel 07/16/2013 [facility] Allergies, Adverse Reactions, Alerts No Known Medication Allergies Immunizations Immunization Date Given Site Status Last Updated Comments Source influenza virus vaccine, inactivated 07/18/2013 completed Faye [facility] influenza virus vaccine, inactivated 07/18/2013 Right deltoid completed Faye [facility] [place] pneumococcal 23-valent vaccine 07/17/2013 completed Elizabeth machado [facility] pneumococcal 23-valent vaccine 07/17/2013 Left Deltoid completed Smooth [facility] Results Order Name Results Value Reference Range Date Interpretation Comments Source BEDSIDE GLUCOSE TESTING Gluc POC Com ment 1 Notify RN/MD 07/18/2013 NA [facility] BEDSIDE GLUCOSE TESTING Gluc POC 104 70 - 99 07/18/2013 [facility] <sup>1</sup>Interpretive Data: Upper Reportable Limit: 200 mg/dL. [facility] BEDSIDE GLUCOSE TESTING Gluc POC 100 70 - 99 07/18/2013 [facility] <sup>2</sup>Interpretive Data: Upper Reportable Limit: 200 mg/dL. [facility] CHEMISTRY Sodium Lvl 141 135 - 145 07/18/2013 Normal [facility] CHEMISTRY Chloride Lvl 102 95 - 109 07/18/2013 Normal [facility] CHEMISTRY Potassium Lvl 4.1 3.5 - 5.1 07/18/2013 Normal [facility] CHEMISTRY eGFR 73 07/18/2013 NA <sup>4</sup>Result [...] should be multiplied by the estimated BMI. [facility] CHEMISTRY Glucose Lvl 128 70 - 99 07/18/2013 [place] <sup>6</sup>Interpretive Data: Adult ref erence range values reflect the clinical guidelines
of the [place] [employer]. [facility] CHEMISTRY BUN 24 7 - 22 07/18/2013 HI [facility] CHEMISTRY Creatinine Lvl 1.1 0.5 - 1.4 07/18/2013 Normal [facility] CHEMISTRY CO2 28 24 - 32 07/18/2013 Normal [facility] CHEMISTRY Calcium Lvl 9.0 8.5 - 10.5 07/18/2013 Normal [facility] CHEMISTRY AGAP 15.1 10.0 - 20.0 07/18/2013 Normal [facility] HEMATOLOGY RBC Morph Krystal l (07/18/2013 04:28:00) 07/18/2013 Normal [facility] HEMATOLOGY Plt Morph Krystal l (07/18/2013 04:28:00) 07/18/2013 Normal [facility] HEMATOLOGY Segs 76.1 45.0 - 75.0 07/18/2013 [facility] HEMATOLOGY Monocytes # 0.9 0.0 - 0.8 07/18/2013 [facility] HEMATOLOGY Lymphocytes # 1.5 1.0 - 5.5 07/18/2013 Normal [facility] HEMATOLOGY Eosinophils # 0.1 0.0 - 0.5 07/18/2013 Normal [facility] HEMATOLOGY Segs-Bands # 8.0 1.5 - 8.1 07/18/2013 Normal [facility] HEMATOLOGY Lymphocytes 14.1 20.0 - 40.0 07/18/2013 LOW [facility] HEMATOLOGY Basophils # 0.0 0.0 - 0.2 07/18/2013 Normal [facility] HEMATOLOGY Basophils 0.3 0.0 - 1.0 07/18/2013 Normal [facility] HEMATOLOGY Monocytes 8.4 2.0 - 12.0 07/18/2013 Normal [facility] HEMATOLOGY Eosinophils 1.1 0.0 - 4.0 07/18/2013 Normal [facility] HEMATOLOGY Platelet 232 133 - 450 07/18/2013 Normal [facility] HEMATOLOGY MPV 7.6 7.4 - 10.4 07/18/2013 Normal [facility] HEMATOLOGY MCHC 32.8 32.0 - 36.0 07/18/2013 Normal [facility] HEMATOLOGY RDW 13.6 11.5 - 14.5 07/18/2013 Normal [facility] HEMATOLOGY RBC 5.01 4.70 - 6.10 07/18/2013 Normal [facility] HEMATOLOGY Hgb 15.5 14.0 - 18.0 07/18/2013 Normal [facility] HEMATOLOGY MCH 30.9 27.0 - 31.0 07/18/2013 Normal [facility] Hct 47.1 42.0 - 54.0 07/18/2013 Normal [facility] HEMATOLOGY MCV 94.0 80.0 - 94.0 07/18/2013 Normal [facility] HEMATOLOGY WBC 10.5 3.7 - 10.4 07/18/2013 HI [facility] BEDSIDE GLUCOSE TESTING Gluc POC 119 70 - 99 07/17/2013 [facility] <sup>3</sup>Interpretive Data: Upper Reportable Limit: 200 mg/dL. [facility] BEDSIDE GLUCOSE TESTING Gluc POC Com ment 1 Notify ROSARIO/ 07/17/2013 NA [facility] CHEMISTRY AGAP 14.2 10.0 - 20.0 07/17/2013 Normal [facility] CHEMISTRY eGFR 65 07/17/2013 NA <sup>5</sup>Result [...] should be multiplied by the estimated BMI. [facility] CHEMISTRY Calcium Lvl 8.6 8.5 - 10.5 07/17/2013 Normal [facility] CHEMISTRY BUN 17 7 - 22 07/17/2013 Normal [facility] CHEMISTRY Glucose Lvl 129 70 - 99 07/17/2013 [facility] <sup>7</sup>Interpretive Data: Adult ref erence range values reflect the clinical guidelines
of the [place] [employer]. [facility] CHEMISTRY CO2 27 24 [...] Monocytes 7.6 2.0 - 12.0 07/17/2013 Normal [facility] HEMATOLOGY Lymphocytes 13.7 20.0 - 40.0 07/17/2013 LOW [facility] HEMATOLOGY Lymphocytes # 1.2 1.0 - 5.5 07/17/2013 Normal [facility] HEMATOLOGY Basophils 0.2 0.0 - 1.0 07/17/2013 Normal [facility] HEMATOLOGY MPV 7.9 7.4 - 10.4 07/17/2013 Normal [facility] HEMATOLOGY Platelet 214 133 - 450 07/17/2013 Normal [facility] HEMATOLOGY WBC 8.4 3.7 - 10.4 07/17/2013 Normal [facility] HEMATOLOGY RBC 4.61 4.70 - 6.10 07/17/2013 LOW [facility] HEMATOLOGY MCH 30.8 27.0 - 31.0 07/17/2013 Normal [facility] HEMATOLOGY RDW 13.5 11.5 - 14.5 07/17/2013 Normal [facility] HEMATOLOGY MCHC 32.7 32.0 - 36.0 07/17/2013 Normal [facility] HEMATOLOGY MCV 94.0 80.0 - 94.0 07/17/2013 Normal [facility] HEMATOLOGY Hgb 14.2 14.0 - 18.0 07/17/2013 Normal [facility] HEMATOLOGY Hct 43.3 42.0 - 54.0 07/17/2013 Normal [facility] HEMATOLOGY INR 1.20 0.85 - 1.17 07/17/2013 [facility] <sup>8</sup>Interpretive Data: RECOMMEND ED RANGES FOR PROTIME INR:
2.0-3.0 for most medical and surgical thromboembolic states.
2.5-3.5 for artificial heart valves and recurrent embolism.

INR SHOULD BE USED ONLY FOR PATIENTS ON STABLE ANTICOAGULANT THERAPY. [facility] HEMATOLOGY PT 15.1 12.0 - 14.7 07/17/2013 HI [facility] HEMATOLOGY PTT 32.9 22.9 - 35.8 07/17/2013 Normal <sup>9</sup>Interpretive Data: Heparin T herapeutic Range: 57 - 92 Seconds [facility] CHEMISTRY CK MB Index 0.8 0.0 - 2.5 07/17/2013 Normal [facility] CHEMISTRY Troponin-I <0.02 0.00 - 0.40 07/17/2013 Normal [facility] CHEMISTRY Total CK 139 12 - 191 07/17/2013 Normal [facility] CHEMISTRY CK MB 1.1 0.5 - 3.6 07/17/2013 Normal [facility] CHEMISTRY CK MB 2.2 0.5 - 3.6 07/16/2013 Normal [facility] CHEMISTRY Troponin-I <0.02 0.00 - 0.40 07/16/2013 Normal [facility] CHEMISTRY Total CK 108 12 - 191 07/16/2013 Normal [facility] CHEMISTRY CK MB Index 2.0 0.0 - 2.5 07/16/2013 Normal [facility] CHEMISTRY Magnesium Lvl 2.1 1.8 - 2.4 07/16/2013 Normal [facility] CHEMISTRY Hgb A1C 8.0 <=5.6 07/16/2013 HI [facility] CHEMISTRY TSH 2.790 0.360 - 3.740 07/16/2013 Normal [facility] CHEMISTRY T3 Uptake 35 31 - 39 07/16/2013 Normal [facility] CHEMISTRY T4 12.0 4.7 - 13.3 07/16/2013 Normal [facility] CHEMISTRY FTI 4.2 07/16/2013 NA [facility] Pathology Reports No Data Provided for [...] Exam: Pain Comparison Exam: None Discussion: On infrastructure analyst view, there are no acute bony abnormalities [...] Comments Source Diastolic (mm Hg) 62 07/18/2013 [facility] Respitory Rate 18 07/18/2013 [facility] Temperature Oral (F) 99.1 F 07/18/2013 [facility] Heart Rate 70 07/18/2013 [facility] Systolic (mm Hg) 100 07/18/2013 [facility] Respitory Rate 12 07/18/2013 [facility] Respitory Rate 18 07/18/2013 [facility] Systolic (mm Hg) 124 07/18/2013 [facility] Diastolic (mm Hg) 74 07/18/2013 [facility] Heart Rate 73 07/18/2013 [facility] Temperature Oral (F) 98.5 F 07/18/2013 [facility] Diastolic (mm Hg) 78 07/18/2013 [facility] Heart Rate 62 07/18/2013 [facility] Temperature Oral (F) 98.4 F 07/18/2013 [facility] Systolic (mm Hg) 131 07/18/2013 [facility] Weight 91.818 07/16/2013 [facility] Height 170.18 cm 07/16/2013 [facility] Encounters Location Location Details Encounter Type Encounter Number Reason For Visit Attending Provider ADM Date DC Date Status Source [facility] Inpatient [id number] CHF -NEW ONSET, L F SIDED FACIAL TINGLING IWONA SHETTY 07/16/2013 07/18/2013 Active [facility] [id number] 00 Nolberto Baltazar 10/22/2017 10/23/2017 ASHER Rider [...]
--- OUTSIDE RECORDS SUMMARY | 2020-06-28 18:36 | XMS REPORT | Continuity of Care Document ---
Author Author [facility] t Organization [facility] Address Formerly [facility] [place] [address] Phone Unavailable Care Team Providers Care Operations Research Scientist Name Role Phone CARROLL VALVERDE MD PCP Venus SANCHEZ Attphys Unavailable Macrina VELIZ Attphys Unavailable Micki Baltazar Attphys Payers Payer Name Policy Type Policy Number Effective Date Expiration Date Li Mann [id number] 2017 00:00:00 [facility] Problems Condition Name Condition Details Condition Category Status Onset Date Resolution Date Last Treatment Date Treating Clinician Comments Source S46.091A - INJ [facility] [facility]OTATOR CUF S46.091A - INJ [facility]/TEND THE ROTATOR CUF Active 09/28/2017 WILLIAM OPID [place] Diagnosis Active 2017-09-28 00:01:00 2017-10-22 08:39:00 M wendi Mckee CHF -NEW ONSET, LF SIDED FACIAL [place] CHF -NEW ONSET, LF SIDED FACIAL [place] Active 07/16/2013 [facility] tive 2013-07-16 14:13:00 2013-07-24 21:49:00 M wendi Mckee Chest pain Chest pain Problem Active [facility] Congestive heart failure CHF (congestive heart failure) Problem Active [facility] Right sided weakness Righ t sided weakness [...] Known Allergies DA Active U 2019-09-22 00:00:00 [facility] No Known Allergies DA Active U 2012-06-05 00:00:00 [facility] Medications Ordered Medication Name Filled Medication [...] PO, Daily, 30 tab, Substitution Allowed, ERTAB [facility] Lasix 40 mg oral tablet 2013-07-18 15:29:59 No Clementina Nagel Jose Juan 40 mg, 1 tab, PO, BID, 60 tab, Substitution Allowed, TAB [facility] carvedilol 6.25 mg oral tablet 2013-07-18 15:29:55 Yes Home Amauri Daniel 6.25 mg, 1 tab, PO, BID, 60 tab, Substitution Allowed, TAB [facility] aspirin 81 mg tablet, enteric coated 2013-07-18 15:29:49 Yes Home Amauri Daniel 81 mg, 1 tab, PO, Daily, 30 tab, Substit ution Allowed, ECTAB [facility] Coreg 2013-07-18 02:00:00 No Home Amauri Daniel 6.25 mg, 2 tab, Route: PO, Drug form: TAB, Q12H, Dosing Weight 91.818, kg, Start date: 07/17/13 21:00:00, Duration: 30 day, Stop date: 08/16/13 9:00:00 [facility] glipiZIDE 2013-07-17 14:49:00 No Home Amauri Daniel 2.5 mg, 1 tab, Route: PO, Drug form: ERTAB, Daily, Dosing Weight 91.818, kg, Priority: NOW, Start date: 07/17/13 9:49:00, Duration: 30 day, Stop date: 08/16/13 9:00:00 [facility] pneumococcal 23-valent vaccine 2013-07-17 14:00:00 No S YSTEM SYSTEM 0.5 ml, Route: IM, Drug Form: INJ, Daily, Start date: 07/17/13 9:00:00, Duration: 1 doses or times, Stop date: 07/17/13 9:00:00 [facility] furosemide 2013-07-17 14:00:00 No Home Amauri Daniel 40 mg, 4 mL, Route: IVP, Drug form: INJ, BID, Dosing Weight 91.818, kg, Start date: 07/17/13 9:00:00, Duration: 30 day, Stop date: 08/15/13 17:00:00 [facility] aspirin 81 mg tablet, enteric coated 2013-07-17 14:00:00 No Home Amauri Daniel 81 mg, 1 tab, [place]: PO, Drug form: ECTAB, Daily, Dosing Weight 91.818, kg, Start date: 07/17/13 9:00:00, Duration: 30 day, Stop date: 08/15/13 9:00:00 [facility] Saline Flush 0.9% 2013-07-17 02:00:00 No Home Amauri M ok 5 ml, Route: IVP, Drug Form: INJ, Dosing Weight 91.818, kg, Q12H, Start date: 07/16/13 21:00:00, Duration: 30 day, Stop date: 08/15/13 9:00:00 [facility] nitroglycerin 0.4 mg sublingual tablet 2013-07-16 23:27:00 No Home Amauri Daniel 0.4 mg, 1 tab, R oute: SL, Drug form: TAB, Q5Min, PRN Chest Pain, Start date: 07/16/13 18:27:00, Duration: 30 day, Stop date: 08/15/13 18:26:00 [facility] atropine 2013-07-16 23:27:00 No Home Amauri Daniel 0.5 mg, 5 mL, Route: IVP, Drug form: INJ, PRN, PRN Bradycardia, Start date: 07/16/13 18:27:00, Duration: 30 day, Stop date: 08/15/13 18:26:00 [facility] lisinopril 2013-07-16 23:14:00 No Kun Cassius Jacobo 5 mg, 1 tab, Route: PO, Drug form: TAB, Daily, Dosing Weight 91.818, kg, Priority: NOW, Start date: 07/16/13 18:14:00, Duration: 30 day, Stop date: 08/15/13 9:00:00 [facility] temazepam 2013-07-16 23:11:00 No Home Amauri Daniel 15 mg, 1 cap, Route: PO, Drug form: CAP, Bedtime, Dosing Weight 91.818, kg, PRN Insomnia, Start date: 07/16/13 18:11:00, Duration: 30 day, Stop date: 08/15/13 18:10:00 [facility] ondansetron 2013-07-16 23:11:00 No Home Amauri Daniel 4 mg, 2 mL, Route: IVP, Drug form: INJ, Q8H, Dosing Weight 91.818, kg, PRN Nausea & Vomiting, Start date: 07/16/13 18:11:00, Duration: 30 day, Stop date: 08/15/13 18:10:00 [facility] Saline Flush 0.9% 2013-07-16 23:11:00 No Home Amauri M ok 5 ml, Route: IVP, Drug Form: INJ, Dosing Weight 91.818, kg, PRN, PRN Line Flush, Start date: 07/16/13 18:11:00, Duration: 30 day, Stop date: 08/15/13 18:10:00 [facility] Enalapril Maleate 20 Mg Tablet Enalapril Maleate 20 Mg Tablet Yes 20 Twice A Day [facility] Metformin Hcl 1,000 Mg Tablet Metformin Hcl 1,000 Mg Tablet Yes 1000 Twice A Day [facility] Sitagliptin Phosphate (Januvia) 100 Mg Tablet Sitaglip tin Phosphate (Januvia) 100 Mg Tablet Yes 100 Daily [facility] Vital Signs Vital Name Observation Time Observation Value Comments Source Diastolic (mm Hg) 2013-07-18 17:00:00 Mem [facility] Respitory Rate 2013-07-18 17:00:00 [facility] Temperature Oral (F) 2013-07-18 17:00:00 99.1 F [facility] Heart Rate 2013-07-18 17:00:00 [facility] Systolic (mm Hg) 2013-07-18 17:00:00 Giovanni rial [place] Respitory Rate 2013-07-18 15:47:00 Memori [facility] Respitory Rate 2013-07-18 13:00:00 Memori [facility] Systolic (mm Hg) 2013-07-18 13:00:00 Giovanni rial [place] Diastolic (mm Hg) 2013-07-18 13:00:00 Mem orial [place] Heart Rate 2013-07-18 13:00:00 [facility] Temperature Oral (F) 2013-07-18 13:00:00 98.5 F [facility] [place] Diastolic (mm Hg) 2013-07-18 09:38:00 Mem orial [facility] Heart Rate 2013-07-18 09:38:00 [facility] Temperature Oral (F) 2013-07-18 09:38:00 98.4 F [facility] Systolic (mm Hg) 2013-07-18 09:38:00 Giovanni feliciano [place] Weight 2013-07-16 22:24:00 [facility] [place] Height 2013-07-16 22:24:00 170.18 cm [facility] Procedures This patient has no known procedures. Encounters Start Date/Time End Date/Time Encounter Type Admission Type [facility] Care Department Encounter ID Source 2019-09-13 09:24:00 2019-09-16 09:55:00 Discharged Inpatient 1 SHOSHANA SANCHEZ [facility] [id number] [facility] 2018-07-19 20:06:00 2018-07-20 14:30:00 Discharged Inpatient (obs) 1 BHARAT VELIZ [facility] [id number] [facility] 2017-10-22 08:30:00 2017-10-22 23:59:00 Outpatient Nolberto Baltazar HOIP HOIP [id number] Results Test Description Test Time Test Comments Results Result Comments Source CHEST SINGLE (PORTABLE) 2020-06-28 17:27:00 [facility] [address] [place] [address] Patient Name: MICHELLE LY MR #: [id number] : 1950 Age/Sex: 69/M Req #: [id number] Adm Physician: Ordered by: SANTA [place] DO Report #: [id number] Location: ER Room/Bed: Procedure: [id number] DX/CHEST SINGLE (PORTABLE) Exam Date: 06/28/20 Exam [...] 120 mg/dL 74-106 H Performed by certified quality control operator at [facility] Novel Coronavirus [id number] 10:06:00* Test Item Value Reference Range Interpretation Comments Novel Coronavirus 2019 Inhouse (test code = [id number]) Negative Negative Positive results are indicative of the presence icKWEF-YlZ-1 RNA, clinical correlation with patient historyand other [...] moleculardiagnostic SARS-CoV-2 assay in vitro. Novel Coronavirus [id number] 10:06:00* Test Item Value Reference Range Interpretation Comments Novel Coronavirus 2019 Inhouse (test code = TVNKI44AR) Negative Negative Positive results are indicative of the presence zyIIAG-EkY-9 RNA, clinical correlation with patient historyand other [...] moleculardiagnostic SARS-CoV-2 assay in vitro. BASIC METABOLIC [id number] 12:00:00* Test Item Value Reference Range Interpretation [...] result is a direct measurement.========= BASIC METABOLIC [id number] 11:48:00* Test Item Value Reference Range Interpretation [...] (test code = LDL) mg/dL 100-129 PROTHROMBIN [id number] 11:37:00* Test Item Value Reference Range Interpretation [...] (2.5-3.5) IS PATIENT ON ANTICOAGULANTS? NTHROMBOPLASTIN TIME [id number] 11:37:00* Test Item Value Reference Range Interpretation Comments THROMBOPLASTIN TIME PARTIAL (test code = PTT) 34.5 seconds 23.0-37. 0 N IS PATIENT ON ANTICOAGULANTS? NCBC W/AUTO [id number] 11:28:00* Test Item Value Reference Range Interpretation [...] NRBC#) 0.00 K/mm3 0.0-0.1 N CBC W/AUTO [id number] 11:26:00* Test Item Value Reference Range Interpretation [...] BA#) K/mm3 0.0-0.2 - XR CHEST 2 [id number] 10:23:00 FAX: Carroll Block MD [phone] Au Train: O St: PRE FAX: Michael Kemp MD [phone] Name: MALACHIMICHELLE [facility] : 1950 Age/S: 69/M [address] [facility] Unit #: [id number] Loc: [place] [address] Phys: Michael Brambila MD Acct: [id number] Dis Date: Status: PRE [facility] PHONE #: [phone] Exam Date: 06/13/2020 1020 FAX #: [phone] Reason: PRE OP EXAMS: CPT CODE: [id number] XR CHEST 2 V 67607 HISTORY: Preop. COMPARISON: Chest x-ray from October 20, 2019. Location: [facility]. AP and lateral view of the chest: No acute infiltrates, effusion or congestion. Cardiomegaly. DJD of the dorsal spine. IMPRESSION: No acute infiltrates, effusion or congestion. at 1023 Reported and signed by: Kunal Joyner M.D. CC: Carroll Valverde MD; Michael Lyn Technologist: RT Niki(R) Trnscrd Date/Time/By: 06/13/2020 (1023) : By: [email or web address] Orig Print D/T: S: 06/13/2020 (6457) PAGE 1 Signed Report [id number] 10:43:00* Test Item Value Reference Range Interpretation Comments GLUBED (test code = GLUBED) 179 MG/DL 70-110 H Performed by certified quality control operator at [facility] BASIC METABOLIC [id number] 09:49:00* Test Item Value Reference Range Interpretation [...] code = CA) 8.7 mg/dL 8.0-10.5 N [id number] 07:56:00* Test Item Value Reference Range Interpretation Comments GLUBED (test code = GLUBED) 119 MG/DL 70-110 H Performed by certified quality control operator at [facility] [id number] 21:55:00* Test Item Value Reference Range Interpretation Comments GLUBED (test code = GLUBED) 180 MG/DL 70-110 H Performed by certified quality control operator at [facility] [id number] 08:51:00* Test Item Value Reference Range Interpretation Comments GLUBED (test code = GLUBED) 122 MG/DL 70-110 H Performed by certified quality control operator at [facility] - XR CHEST 2 [id number] 09:28:00 FAX: Michael Kemp MD [phone] Au Train: St: PRE Name: MICHELLE LEES [facility] Pierre : [birth year] Age/S: 69/M [address] [place] [address] Blvd Unit #: [id number] Loc: [place] [address] Phys: Michael Brambila MD Acct: [id number] Dis Date: Status: PRE SDC PHONE #: [phone] Exam Date: 10/20/2019 0859 FAX #: [phone] Reason: PREOP PCI LAD AND CIR EXAMS: CPT CODE: [id number] XR CHEST 2 V 35806 CHEST RADIOGRAPHS - PA AND LATERAL: COMPARISON: [...] By: [email or web address] Orig Print D/T: S: 10/20/2019 (7992) PAGE 1 Sign ed Report PROTHROMBIN [id number] 09:26:00* Test Item Value Reference Range Interpretation [...] Infarction (to prevent recurrent infarct). BASIC METABOLIC [id number] 09:25:00* Test Item Value Reference Range Interpretation [...] CA) 9.7 mg/dL 8.0-10.5 N BASIC METABOLIC [id number] 09:16:00* Test Item Value Reference Range Interpretation [...] CA) 9.7 mg/dL 8.0-10.5 N CBC W/AUTO [id number] 09:06:00* Test Item Value Reference Range Interpretation [...] DIFF REQUIRED (test code = MDIFF) NO [id number] 09:35:00* Test Item Value Reference Range Interpretation Comments GLUBED (test code = GLUBED) 226 MG/DL 70-110 H Performed by certified quality control operator at [facility] BASIC METABOLIC [id number] 04:56:00* Test Item Value Reference Range Interpretation [...] CA) 8.3 mg/dL 8.0-10.5 N CBC W/AUTO [id number] 04:43:00* Test Item Value Reference Range Interpretation [...] DIFF REQUIRED (test code = MDIFF) NO [id number] 20:54:00* Test Item Value Reference Range Interpretation Comments GLUBED (test code = GLUBED) 250 MG/DL 70-110 H Performed by certified quality control operator at [facility] [id number] 15:13:00* Test Item Value Reference Range Interpretation Comments GLUBED (test code = GLUBED) 144 MG/DL 70-110 H Performed by certified quality control operator at [facility] [id number] 09:01:00* Test Item Value Reference Range Interpretation Comments GLUBED (test code = GLUBED) 128 MG/DL 70-110 H Performed by certified quality control operator at [facility] - XR CHEST 2 [id number] 10:59:00 FAX: Michael Kemp MD [phone] Au Train: St: PRE Name: MICHELLE LEES [facility] : [birth year] Age/S: 69/M [address] [place] [address] Unit #: [id number] Loc: [place] [address] Phys: Michael Brambila MD Acct: [id number] Dis Date: Status: PRE SDC PHONE #: [phone] Exam Date: 09/22/20191050 FAX #: [phone] Reason: PRE-OP PCI EXAMS: CPT CODE: [id number] XR CHEST 2 V 24261 EXAM: PA and lateral chest. EXAM DATE: [...] Technologist: Taylor alvarado RT(R)(M) Trnscrd Date/Time/By: 09/22/2019 (4065 ) : By: Ary Orig Print D/T: S: 09/22/2019 (3123) PAGE 1 Signed Report BASIC METABOLIC [id number] 10:13:00* Test Item Value Reference Range Interpretation [...] CA) 9.3 mg/dL 8.0-10.5 N BASIC METABOLIC [id number] 10:09:00* Test Item Value Reference Range Interpretation [...] = CA) 9.3 mg/dL 8.0-10.5 N PROTHROMBIN [id number] 10:03:00* Test Item Value Reference Range Interpretation [...] Infarction (to prevent recurrent infarct). CBC W/AUTO [id number] 09:56:00* Test Item Value Reference Range Interpretation [...] REQUIRED (test code = MDIFF) NO Bedside [id number] 07:38:00* Test Item Value Reference Range Interpretation Comments Bedside Glucose (test code = 18879-6) 144 70-120 H Meter ID: [id number] [facility] 2019-09-14 12:11:00* Test Item Value Reference Range Interpretation Comments Creatine Kinase MB (test code = 21105-8) 3.00 0-5.0 [facility] [id number] 12:11:00* Test Item Value Reference Range Interpretation Comments Troponin I (test code = DOJ6866) < 0.001 0-0.300 [facility] AliceCreatine Iifhas4388-45-30 12:07:00* Test Item Value Reference Range Interpretation Comments Creatine Kinase (test code = 2157-6) 156 30-200 [facility] AliceTriglycerides Hwlwj4510-14-78 05:28:00* Test Item Value Reference Range Interpretation Comments Triglycerides Level (test code = 2571-8) 108 0-149 [facility] AliceCholesterol [id number] 05:28:00* Test Item Value Reference Range Interpretation Comments Cholesterol Level (test code = 2093-3) 188 0-199 Less than 200 mg/dL Low Atew068 - 239 mg/dL Borderline Dgos398 m g/dl and greater High Risk [facility] AliceLDL Vubwmplaplb0354-28-59 05:28:00* Test Item Value Reference Range Interpretation Comments LDL Cholesterol (test code = 2089-1) 125 60-130 [facility] AliceHDL [id number] 05:28:00* Test Item Value Reference Range Interpretation Comments HDL Cholesterol (test code = 2085-9) 41 40-60 [facility] AliceCholesterol/HDL Mvxef1441-96-74 05:28:00 * Test Item Value Reference Range Interpretation Comments Cholesterol/HDL Ratio (test code = 9830-1) 4.6 3.9-4.7 [facility] AliceBlood Urea [id number] 05:27:00* Test Item Value Reference Range Interpretation Comments Blood Urea Nitrogen (test code = 3094-0) 22 7-26 [facility] AliceBUN/Creatinine [id number] 05:27:00* Test Item Value Reference Range Interpretation Comments BUN/Creatinine Ratio (test code = 3097-3) 18 6-25 [facility] AliceAspartate Amino Transf (AST/SGOT) 2019-09-14 05:27:00* Test Item Value Reference Range Interpretation Comments Aspartate Amino Transf (AST/SGOT) (test code = Aspartate Amino Transf (AST/SGOT)) 41 5-34 H [facility] AliceAlanine Aminotransferase (ALT/SGPT) 2019-09-14 05:27:00* Test Item Value Reference Range Interpretation Comments Alanine Aminotransferase (ALT/SGPT) (test code = 1742-6) 70 0-55 [facility] [id number] 05:02:00* Test Item Value Reference Range Interpretation Comments Sodium Level (test code = 2951-2) 138 136-145 [facility] AlicePotassium [id number] 05:02:00* Test Item Value Reference Range Interpretation Comments Potassium Level (test code = 2823-3) 3.9 3.5-5.1 [facility] AliceChloride Llcfj4193-09-31 05:02:00* Test Item Value Reference Range Interpretation Comments Chloride Level (test code = 2075-0) 102 98-107 [facility] AliceCarbon Dioxide [id number] 05:02:00* Test Item Value Reference Range Interpretation Comments Carbon Dioxide Level (test code = 2028-9) 25 22-29 [facility] AliceAnion [id number] 05:02:00* Test Item Value Reference Range Interpretation Comments Anion Gap (test code = 04995-4) 14.9 8-16 [facility] AliceCreatinine2019-11-14 05:02:00* Test Item Value Reference Range Interpretation Comments Creatinine (test code = 2160-0) 1.19 0.72-1.25 [facility] AliceEstimat Glomerular Filtration Rate 2019-09-14 05:02:00* Test Item Value Reference Range Interpretation Comments Estimat Glomerular Filtration Rate (test code = 434544060) > 60 >60 Ranges were taken from the National Kidney Disease Education Program and the [facility] camp[facility] Kidney Foundation literature.Reference ranges:60 or greater: Btwnid46-91 ( for 3 consecutive months): Chronic kidney disease 15 or less: Kidney failureCHRISTUS Spohn Hospital AliceGlucose Llwul1453-24-53 05:02:00* Test Item Value Reference Range Interpretation Comments Glucose Level (test code = FJW9080) 127 74-118 H [facility] AliceCalcium Jsuek5604-27-34 05:02:00* Test Item Value Reference Range Interpretation Comments Calcium Level (test code = 65517-9) 9.7 8.4-10.2 [facility] AliceTotal Ovzrgpuhz2452-38-54 05:02:00* Test Item Value Reference Range Interpretation Comments Total Bilirubin (test code = 1975-2) 0.5 0.2-1.2 [facility] AliceTotal Blifbvs2397-13-65 05:02:00* Test Item Value Reference Range Interpretation Comments Total Protein (test code = 2885-2) 7.0 6.5-8.1 [facility] AliceAlbumin2019-11-14 05:02:00* Test Item Value Reference Range Interpretation Comments Albumin (test code = 1751-7) 3.6 3.5-5.0 [facility] AliceGlobulin2019-11-14 05:02:00* Test Item Value Reference Range Interpretation Comments Globulin (test code = 26922-0) 3.4 2.3-3.5 [facility] AliceAlbumin/Globulin [id number] 05:02:00 * Test Item Value Reference Range Interpretation Comments Albumin/Globulin Ratio (test code = 1759-0) 1.1 0.8-2.0 [facility] AliceAlkaline Icilaaltekx6317-96-06 05:02:00* Test Item Value Reference Range Interpretation Comments Alkaline Phosphatase (test code = 6768-6) 81 40-150 [facility] AliceWhite Blood Bwdvw3519-78-61 04:40:00* Test Item Value Reference Range Interpretation Comments White Blood Count (test code = 6690-2) 6.34 4.8-10.8 [facility] AliceRed Blood Jhrar1046-67-13 04:40:00* Test Item Value Reference Range Interpretation Comments Red Blood Count (test code = 789-8) 4.35 4.3-5.7 [facility] AliceHemoglobin2019-11-14 04:40:00* Test Item Value Reference Range Interpretation Comments Hemoglobin (test code = 56584-6) 13.5 14.0-18.0 L [facility] AliceHematocrit2019-11-14 04:40:00* Test Item Value Reference Range Interpretation Comments Hematocrit (test code = 4544-3) 40.3 38.2-49.6 [facility] AliceMean Corpuscular Pdrikv5077-66-52 04:40:00* Test Item Value Reference Range Interpretation Comments Mean Corpuscular Volume (test code = 787-2) 92.6 81-99 [facility] AliceMean Corpuscular Aolnjgyqew6807-61-24 04:40:00* Test Item Value Reference Range Interpretation Comments Mean Corpuscular Hemoglobin (test code = 785-6) 31.0 28-32 [facility] AliceMean Corpuscular Hemoglobin Concent 2019-09-14 04:40:00* Test Item Value Reference Range Interpretation Comments Mean Corpuscular Hemoglobin Concent (test code = 786-4) 33.5 31-35 [facility] AliceRed Cell Distribution Tfgfz1983-37-64 04:40:00* Test Item Value Reference Range Interpretation Comments Red Cell Distribution Width (test code = 11197-6) 13.0 11.7 -14.4 [facility] AlicePlatelet Lkavv8476-34-90 04:40:00* Test Item Value Reference Range Interpretation Comments Platelet Count (test code = 777-3) 223 140-360 [facility] AliceNeutrophils (%) (Auto)2019-09-14 04:40:00 * Test Item Value Reference Range Interpretation Comments Neutrophils (%) (Auto) (test code = 05299-5) 72.5 38.7-80.0 [facility] AliceLymphocytes (%) (Auto)2019-09-14 04:40:00 * Test Item Value Reference Range Interpretation Comments Lymphocytes (%) (Auto) (test code = 736-9) 13.9 18.0-39.1 L [facility] AliceMonocytes (%) (Auto)2019-09-14 04:40:00* Test Item Value Reference Range Interpretation Comments Monocytes (%) (Auto) (test code = 5905-5) 8.8 4.4-11.3 [facility] AliceEosinophils (%) (Auto)2019-09-14 04:40:00 * Test Item Value Reference Range Interpretation Comments Eosinophils (%) (Auto) (test code = 713-8) 3.5 0.0-6.0 [facility] AliceBasophils (%) (Auto)2019-09-14 04:40:00* Test Item Value Reference Range Interpretation Comments Basophils (%) (Auto) (test code = 706-2) 0.8 0.0-1.0 [facility] AliceIM GRANULOCYTES %2019-09-14 04:40:00* Test Item Value Reference Range Interpretation Comments IM GRANULOCYTES % (test code = IM GRANULOCYTES %) 0.5 0.0- 1.0 [facility] AliceNeutrophils # (Auto)2019-09-14 04:40:00* Test Item Value Reference Range Interpretation Comments Neutrophils # (Auto) (test code = 751-8) 4.6 2.1-6.9 [facility] AliceLymphocytes # (Auto)2019-09-14 04:40:00* Test Item Value Reference Range Interpretation Comments Lymphocytes # (Auto) (test code = 80444-3) 0.9 1.0-3.2 L [facility] AliceMonocytes # (Auto)2019-09-14 04:40:00* Test Item Value Reference Range Interpretation Comments Monocytes # (Auto) (test code = 742-7) 0.6 0.2-0.8 [facility] AliceEosinophils # (Auto)2019-09-14 04:40:00* Test Item Value Reference Range Interpretation Comments Eosinophils # (Auto) (test code = 711-2) 0.2 0.0-0.4 [facility] AliceBasophils # (Auto)2019-09-14 04:40:00* Test Item Value Reference Range Interpretation Comments Basophils # (Auto) (test code = 704-7) 0.1 0.0-0.1 [facility] AliceAbsolute Immature Granulocyte (auto 2019-09-14 04:40:00* Test Item Value Reference Range Interpretation Comments Absolute Immature Granulocyte (auto (francia t code = Absolute Immature Granulocyte (auto) 0.03 0-0.1 [facility] AliceB-Type Natriuretic Swyiayz6180-72-42 09:23:00* Test Item Value Reference Range Interpretation Comments B-Type Natriuretic Peptide (test code = 44989-4) 793.9 0-100 [facility] AliceMagnesium Kvppl6748-72-84 09:19:00* Test Item Value Reference Range Interpretation Comments Magnesium Level (test code = 88268-8) 1.8 1.3-2.1 [facility] AliceProthrombin Rlsc5359-78-53 09:09:00* Test Item Value Reference Range Interpretation Comments Prothrombin Time (test code = 5902-2) 14.0 11.9-14.5 [facility] AliceProthromb Time International Ratio 2019-09-13 09:09:00* Test Item Value Reference Range Interpretation Comments Prothromb Time International Ratio (test code = 6301-6) 1.03 Oral Anticoagulant Therapy INR Values:1. Low Intensity Therapy 1.5 - 2.02 . Moderate Intensity Therapy 2.0 - 3.03. High Intensity Therapy(1) 2.5 - 3. 54. High Intensity Therapy(2) 3.0 - 4.05. Panic Value INR > 5.0 [facility] AliceActivated Partial Thromboplast Time 2019-09-13 09:09:00* Test Item Value Reference Range Interpretation Comments Activated Partial Thromboplast Time (test code = 63233-3) 33.8 23.8-35.5 [facility] AliceUrine YOT1482-69-81 09:06:00* Test Item Value Reference Range Interpretation Comments Urine WBC (test code = 5821-4) 6-10 0-5 H [facility] AliceUrine PHF0154-02-38 09:06:00* Test Item Value Reference Range Interpretation Comments Urine RBC (test code = 48142-1) 0-5 0-5 [facility] AliceUrine Qqrjpwsh0088-67-55 09:06:00* Test Item Value Reference Range Interpretation Comments Urine Bacteria (test code = 48240-3) RARE NONE [facility] AliceUrine Epithelial Redwg1573-13-20 09:06:00 * Test Item Value Reference Range Interpretation Comments Urine Epithelial Cells (test code = 98472-3) FEW NONE [facility] AliceUrine Hqkeu6434-45-82 09:01:00* Test Item Value Reference Range Interpretation Comments Urine Color (test code = 5778-6) YELLOW YELLOW [facility] AliceUrine Mqzkdvl1152-01-55 09:01:00* Test Item Value Reference Range Interpretation Comments Urine Clarity (test code = 96791-6) CLEAR CLEAR [facility] AliceUrine Specific Gwelawp3542-89-30 09:01:00 * Test Item Value Reference Range Interpretation Comments Urine Specific [place] (test code = 5811-5) <=1.005 1.010-1.02 5 [facility] AliceUrine dH4249-04-41 09:01:00* Test Item Value Reference Range Interpretation Comments Urine pH (test code = 07060-4) 6 5-7 [facility] AliceU[facility] Leukocyte Yfljxmws8211-84-30 09:01:00* Test Item Value Reference Range Interpretation Comments Urine Leukocyte Esterase (test code = 77989-7) NEGATIVE NEGATIV E [facility] AliceUrine Egyxjjg3621-62-44 09:01:00* Test Item Value Reference Range Interpretation Comments Urine Nitrite (test code = 33760-0) NEGATIVE NEGATIVE [facility] AliceUrine Dcgykks7073-44-25 09:01:00* Test Item Value Reference Range Interpretation Comments Urine Protein (test code = 73568-1) NEGATIVE NEGATIVE [facility] Glucose (UA)2019-09-13 09:01:00* Test Item Value Reference Range Interpretation Comments Urine Glucose (UA) (test code = 97618-7) NEGATIVE NEGATIVE [facility] AliceUrine Xxiedtu7830-60-95 09:01:00* Test Item Value Reference Range Interpretation Comments Urine Ketones (test code = 04380-9) NEGATIVE NEGATIVE [facility] Ipgrbzwduuri7304-29-42 09:01:00* Test Item Value Reference Range Interpretation Comments Urine Urobilinogen (test code = 10123-1) 0.2 0.2-1 [facility] AliceUrine Ynsndvhzd7755-41-27 09:01:00* Test Item Value Reference Range Interpretation Comments Urine Bilirubin (test code = 1977-8) NEGATIVE NEGATIVE [facility] AliceUrine Keadf1678-23-62 09:01:00* Test Item Value Reference Range Interpretation Comments Urine Blood (test code = 14636-1) NEGATIVE NEGATIVE [facility] AliceCHEST SINGLE (PORTABLE)2019-09-13 08:54:00 [facility] [address] [address] Patient Name: MICHELLE LY MR #: [id number] : 1950 Age/Sex: 69/M Req #: [id number] Adm Physician: Ordered by: SHOSHANA SANCHEZ MD Report #: [id number] Location: ER Room/Bed: Procedure: [id number] DX/ CHEST SINGLE (PORTABLE) Exam Date: 09/13/19 [...] 09/13/19855 COPY TO: SHOSHANA SANCHEZ MD Triglycerides Jakct0336-62-33 05:28:00* Test Item Value Reference Range Interpretation Comments Triglycerides Level (test code = 2571-8) 146 0-149 [facility] AliceCholesterol Jkyiq7474-32-49 05:28:00* Test Item Value Reference Range Interpretation Comments Cholesterol Level (test code = 2093-3) 224 0-199 H Less than 200 mg/dL Low Pfbg038 - 239 mg/dL Borderline Fzsk585 m g/dl and greater High Risk [facility] AliceLDL Njikkctjuyd1443-02-12 05:28:00* Test Item Value Reference Range Interpretation Comments LDL Cholesterol (test code = 2089-1) 147 60-130 H [facility] AliceHDL Cansjrzpizq1718-54-24 05:28:00* Test Item Value Reference Range Interpretation Comments HDL Cholesterol (test code = 2085-9) 48 40-60 [facility] AliceCholesterol/HDL Qhowg1502-12-48 05:28:00 * Test Item Value Reference Range Interpretation Comments Cholesterol/HDL Ratio (test code = 9830-1) 4.7 3.9-4.7 [facility] AliceCreatine Kinase VJ6031-17-63 02:54:00* Test Item Value Reference Range Interpretation Comments Creatine Kinase MB (test code = 10092-6) 1.10 0-5.0 [facility] AliceTroponin I1049-08-79 02:54:00* Test Item Value Reference Range Interpretation Comments Troponin I (test code = ZZW1677) 0.010 0-0.300 [facility] AliceCreatine Imrrgk2644-79-54 02:27:00* Test Item Value Reference Range Interpretation Comments Creatine Kinase (test code = 2157-6) 93 30-200 [facility] AliceUrine RTQ5011-18-04 19:15:00* Test Item Value Reference Range Interpretation Comments Urine WBC (test code = 5821-4) NONE 0-5 [facility] AliceUrine CVT4843-13-02 19:15:00* Test Item Value Reference Range Interpretation Comments Urine RBC (test code = 54568-9) NONE 0-5 [facility] AliceUrine Rwroadzo3537-10-97 19:15:00* Test Item Value Reference Range Interpretation Comments Urine Bacteria (test code = 31967-8) NONE NONE [facility] AliceUrine Epithelial Uwcae6695-95-96 19:15:00 * Test Item Value Reference Range Interpretation Comments Urine Epithelial Cells (test code = 38215-1) RARE NONE [facility] AliceUrine Aacsd3357-90-36 19:15:00* Test Item Value Reference Range Interpretation Comments Urine Mucus (test code = 8247-9) FEW RARE H [facility] AliceUrine Odokd6185-05-38 18:43:00* Test Item Value Reference Range Interpretation Comments Urine Color (test code = 5778-6) YELLOW YELLOW [facility] AliceUrine Iedzvdf0691-39-33 18:43:00* Test Item Value Reference Range Interpretation Comments Urine Clarity (test code = 32410-7) CLEAR CLEAR [facility] AliceUrine Specific Guakell2574-05-33 18:43:00 * Test Item Value Reference Range Interpretation Comments Urine Specific [place] (test code = 5811-5) 1.020 1.010-1.02 5 [facility] AliceUrine yX3577-35-43 18:43:00* Test Item Value Reference Range Interpretation Comments Urine pH (test code = 97949-8) 5 5-7 [facility] AliceUrine Leukocyte Edqppsat9464-54-45 18:43:00* Test Item Value Reference Range Interpretation Comments Urine Leukocyte Esterase (test code = 5799-2) NEGATIVE NEGATIVE [facility] Wydntzs0604-31-10 18:43:00* Test Item Value Reference Range Interpretation Comments Urine Nitrite (test code = 88568-6) NEGATIVE NEGATIVE [facility] AliceUrine Bccecbk0518-67-91 18:43:00* Test Item Value Reference Range Interpretation Comments Urine Protein (test code = 5804-0) NEGATIVE NEGATIVE [facility] AliceUrine Glucose (UA)2018-07-19 18:43:00* Test Item Value Reference Range Interpretation Comments Urine Glucose (UA) (test code = 2349-9) NEGATIVE NEGATIVE [facility] AliceUrine Rwhteor5407-90-63 18:43:00* Test Item Value Reference Range Interpretation Comments Urine Ketones (test code = 90586-8) NEGATIVE NEGATIVE [facility] AliceUrine Potgjypeiqco5900-19-60 18:43:00* Test Item Value Reference Range Interpretation Comments Urine Urobilinogen (test code = 62046-6) 0.2 0.2-1 [facility] AliceUrine Lmccdbppg0194-59-63 18:43:00* Test Item Value Reference Range Interpretation Comments Urine Bilirubin (test code = 1978-6) NEGATIVE NEGATIVE [facility] AliceUrine Goouu3115-18-57 18:43:00* Test Item Value Reference Range Interpretation Comments Urine Blood (test code = 92213-7) NEGATIVE NEGATIVE [facility]2018-07-19 18:10:00 [facility] [address] [address] Patient Name: MICHELLE LY MR #: [id number] : 1950 Age/Sex: 67/M Req #: [id number] Adm Physician: Ordered by: BHARAT VELIZ MD Report #: [id number] Location: ER Room/Bed: Procedure: [id number] DX/CHEST SINGLE (NOT JOHNNY BLE) Exam Date: [...] COPY TO: BHARAT VELIZ MD B-Type Natriuretic Njcftka8078-18-90 18:07:00* Test Item Value Reference Range Interpretation Comments B-Type Natriuretic Peptide (test code = 67263-8) 110.1 0-100 [facility] Zhxxy0270-35-85 18:00:00* Test Item Value Reference Range Interpretation Comments Sodium Level (test code = 2951-2) 140 136-145 [facility] AlicePotassium Ynxue8938-09-66 18:00:00* Test Item Value Reference Range Interpretation Comments Potassium Level (test code = 2823-3) 4.2 3.5-5.1 [facility] AliceChloride Tjnli1120-09-25 18:00:00* Test Item Value Reference Range Interpretation Comments Chloride Level (test code = 2075-0) 104 98-107 [facility] AliceCarbon Dioxide Kvekz5706-28-17 18:00:00* Test Item Value Reference Range Interpretation Comments Carbon Dioxide Level (test code = 2028-9) 22 22-29 [facility] AliceAnion Svi8452-20-64 18:00:00* Test Item Value Reference Range Interpretation Comments Anion Gap (test code = 34986-6) 18.2 8-16 H [facility] AliceBlood Urea Mpamzpzo9388-52-79 18:00:00* Test Item Value Reference Range Interpretation Comments Blood Urea Nitrogen (test code = 3094-0) 17 7-26 [facility] AliceCreatinine2018-09-18 18:00:00* Test Item Value Reference Range Interpretation Comments Creatinine (test code = 2160-0) 1.02 0.72-1.25 [facility] AliceBUN/Creatinine Fqmcl3652-14-27 18:00:00* Test Item Value Reference Range Interpretation Comments BUN/Creatinine Ratio (test code = 3097-3) 17 6-25 [facility] AliceEstimat Glomerular Filtration Rate 2018-07-19 18:00:00* Test Item Value Reference Range Interpretation Comments Estimat Glomerular Filtration Rate (test code = 533579707) 60- >60 Ranges were taken from the National Kidney Disease Education Program and the [facility] [employer] literature.Reference ranges:60 or greater: Tecjpj56-53 ( for 3 consecutive months): Chronic kidney disease 15 or less: Kidney failureCHRISTUS Spohn Hospital AliceGlucose Enhxn5878-10-55 18:00:00* Test Item Value Reference Range Interpretation Comments Glucose Level (test code = COJ9214) 88 74-118 [facility] AliceCalcium Frjif8500-39-84 18:00:00* Test Item Value Reference Range Interpretation Comments Calcium Level (test code = 65428-3) 9.8 8.4-10.2 [facility] AliceTotal Tfkyrxolk9693-68-76 18:00:00* Test Item Value Reference Range Interpretation Comments Total Bilirubin (test code = 1975-2) 0.5 0.2-1.2 [facility] AliceAspartate Amino Transf (AST/SGOT) 2018-07-19 18:00:00* Test Item Value Reference Range Interpretation Comments Aspartate Amino Transf (AST/SGOT) (test code = Aspartate Amino Transf (AST/SGOT)) 37 5-34 H [facility] AliceAlanine Aminotransferase (ALT/SGPT) 2018-07-19 18:00:00* Test Item Value Reference Range Interpretation Comments Alanine Aminotransferase (ALT/SGPT) (test code = 1742-6) 61 0-55 H [facility] AliceTotal Xlcoiql8344-05-51 18:00:00* Test Item Value Reference Range Interpretation Comments Total Protein (test code = 2885-2) 7.9 6.5-8.1 [facility] AliceAlbumin2018-09-18 18:00:00* Test Item Value Reference Range Interpretation Comments Albumin (test code = 1751-7) 3.9 3.5-5.0 [facility] AliceGlobulin2018-09-18 18:00:00* Test Item Value Reference Range Interpretation Comments Globulin (test code = 21118-1) 4.0 2.3-3.5 H [facility] AliceAlbumin/Globulin Aldue3979-61-25 18:00:00 * Test Item Value Reference Range Interpretation Comments Albumin/Globulin Ratio (test code = 1759-0) 1.0 0.8-2.0 [facility] AliceAlkaline Lquyjsiilzw3555-28-53 18:00:00* Test Item Value Reference Range Interpretation Comments Alkaline Phosphatase (test code = 6768-6) 102 40-150 [facility] AliceProthrombin Nplq1941-88-13 17:48:00* Test Item Value Reference Range Interpretation Comments Prothrombin Time (test code = 5902-2) 12.6 11.9-14.5 [facility] AliceProthromb Time International Ratio 2018-07-19 17:48:00* Test Item Value Reference Range Interpretation Comments Prothromb Time International Ratio (test code = 6301-6) 1.02 Oral Anticoagulant Therapy INR Values:1. Low Intensity Therapy 1.5 - 2.02 . Moderate Intensity Therapy 2.0 - 3.03. High Intensity Therapy(1) 2.5 - 3. 54. High Intensity Therapy(2) 3.0 - 4.05. Panic Value INR > 5.0 [facility] AliceActivated Partial Thromboplast Time 2018-07-19 17:48:00* Test Item Value Reference Range Interpretation Comments Activated Partial Thromboplast Time (test code = 14177-7) 29.5 23.8-35.5 [facility] AliceWhite Blood Ujyqz3596-75-37 17:38:00* Test Item Value Reference Range Interpretation Comments White Blood Count (test code = 6690-2) 6.80 4.8-10.8 [facility] AliceRed Blood Hqikj0595-84-92 17:38:00* Test Item Value Reference Range Interpretation Comments Red Blood Count (test code = 789-8) 4.78 4.3-5.7 [facility] AliceHemoglobin2018-09-18 17:38:00* Test Item Value Reference Range Interpretation Comments Hemoglobin (test code = 32665-0) 15.3 14.0-18.0 [facility] AliceHematocrit2018-09-18 17:38:00* Test Item Value Reference Range Interpretation Comments Hematocrit (test code = 4544-3) 43.2 38.2-49.6 [facility] AliceMean Corpuscular Ahvoxd3479-70-43 17:38:00* Test Item Value Reference Range Interpretation Comments Mean Corpuscular Volume (test code = 787-2) 90.4 81-99 [facility] AliceMean Corpuscular Wcpencehvj2316-70-92 17:38:00* Test Item Value Reference Range Interpretation Comments Mean Corpuscular Hemoglobin (test code = 785-6) 32.0 28-32 [facility] AliceMean Corpuscular Hemoglobin Concent 2018-07-19 17:38:00* Test Item Value Reference Range Interpretation Comments Mean Corpuscular Hemoglobin Concent (test code = 786-4) 35.4 31-35 H [facility] AliceRed Cell Distribution Oteut1204-65-80 17:38:00* Test Item Value Reference Range Interpretation Comments Red Cell Distribution Width (test code = 91796-0) 12.4 11.7 -14.4 [facility] AlicePlatelet Exfac0446-15-00 17:38:00* Test Item Value Reference Range Interpretation Comments Platelet Count (test code = 777-3) 213 140-360 [facility] AliceNeutrophils (%) (Auto)2018-07-19 17:38:00 * Test Item Value Reference Range Interpretation Comments Neutrophils (%) (Auto) (test code = 18995-8) 55.2 38.7-80.0 [facility] AliceLymphocytes (%) (Auto)2018-07-19 17:38:00 * Test Item Value Reference Range Interpretation Comments Lymphocytes (%) (Auto) (test code = 736-9) 31.2 18.0-39.1 [facility] AliceMonocytes (%) (Auto)2018-07-19 17:38:00* Test Item Value Reference Range Interpretation Comments Monocytes (%) (Auto) (test code = 5905-5) 8.5 4.4-11.3 [facility] AliceEosinophils (%) (Auto)2018-07-19 17:38:00 * Test Item Value Reference Range Interpretation Comments Eosinophils (%) (Auto) (test code = 713-8) 4.1 0.0-6.0 [facility] AliceBasophils (%) (Auto)2018-07-19 17:38:00* Test Item Value Reference Range Interpretation Comments Basophils (%) (Auto) (test code = 706-2) 0.6 0.0-1.0 [facility] AliceIM GRANULOCYTES %2018-07-19 17:38:00* Test Item Value Reference Range Interpretation Comments IM GRANULOCYTES % (test code = IM GRANULOCYTES %) 0.4 0.0- 1.0 [facility] AliceNeutrophils # (Auto)2018-07-19 17:38:00* Test Item Value Reference Range Interpretation Comments Neutrophils # (Auto) (test code = 751-8) 3.8 2.1-6.9 [facility] AliceLymphocytes # (Auto)2018-07-19 17:38:00* Test Item Value Reference Range Interpretation Comments Lymphocytes # (Auto) (test code = 29865-9) 2.1 1.0-3.2 [facility] AliceMonocytes # (Auto)2018-07-19 17:38:00* Test Item Value Reference Range Interpretation Comments Monocytes # (Auto) (test code = 742-7) 0.6 0.2-0.8 [facility] AliceEosinophils # (Auto)2018-07-19 17:38:00* Test Item Value Reference Range Interpretation Comments Eosinophils # (Auto) (test code = 711-2) 0.3 0.0-0.4 [facility] AliceBasophils # (Auto)2018-07-19 17:38:00* Test Item Value Reference Range Interpretation Comments Basophils # (Auto) (test code = 704-7) 0.0 0.0-0.1 [facility] AliceAbsolute Immature Granulocyte (auto 2018-07-19 17:38:00* Test Item Value Reference Range Interpretation Comments Absolute Immature Granulocyte (auto (francia t code = Absolute Immature Granulocyte (auto) 0.03 0-0.1 [facility] AliceBEDSIDE GLUCOSE PTQDSTC3859-92-64 15:54:33327Wsgwlbhg HermannBEDSIDE GLUCOSE XZSHJAR0678-88-67 12:07:22345Febjqeat KnayussASIGEYAUM9637-77-92 09:28:40747Qjxbaxnf YgzecqvOFRGLWNTY7922-02-73 09:28:45166Hmutiulj XrtbfimSLPBIFRXA7667-12-62 09:28:004.1[facility] LSORDKDSI2645-84-70 09:28:0073[facility] PpxncwtVTUHZESCV2680-77-54 09:28:29269 [facility] RqhhshdBZVBUYSAW4131-57-46 09:28:0024[facility] HermannCHEMISTRY 2013-07-18 09:28:001.1[facility] AgjcftgQJGVUDBYF1599-88-68 09:28:0028[facility] OjpzfygJRHWVTYKT4501-08-58 09:28:009.0[facility] MewtrlfKCAMTZHEV6483-33-10 09:28:0015.1[facility] OesccvoEIBIDTMXYS8211-46-84 09:28:00Normal (07/18/2013 04:28:00) [facility] WmqpwidIEVAGNTJLR5206-73-10 09:28:00Normal (07/18/2013 04:28:00) [facility] UrzaeqiYBXTAIBXZB5770-81-29 09:28:0076.1[facility]i ZZNDGNKCHV2443-13-47 09:28:000.9[facility] WjmupuwAXZFXUTGYL7080-09-74 09:28:001.5 [facility] CnuwuwxKSMUYEIPLQ7962-65-50 09:28:000.1[facility] HermannHEMATOLOGY 2013-07-18 09:28:008.0[facility] WxrilekFKEOEDDNOL9092-58-75 09:28:0014.1[facility] XbftmnjPKCQZUGVSP7817-96-45 09:28:000.0[facility] IpnafsnVGSMWZFGTB5146-80-49 09:28:000.3[facility] ZjrynupTGUUXAXSTP1193-12-58 09:28:008.4[facility] ONYNAQFOSX5935-37-00 09:28:001.1[facility] UslvlnzUJLAPACQWU8480-90-74 09:28:28581 [facility] LxjrjrlMXNCANACVN8183-27-37 09:28:007.6[facility] HermannHEMATOLOGY 2013-07-18 09:28:0032.8[facility] MkqoaxsYQBOCJSGDA2975-74-20 09:28:0013.6[facility] ClsyvgmTTITRIKJPG2610-78-92 09:28:005.01[facility] WauyfmiLSZUDZPUIK9379-25-03 09:28:0015.5[facility] XbnnctsYAHPXMHMGR0513-34-04 09:28:00* Test Item Value Reference Range Interpretation Comments MCH (test code = MCH) 30.9 pg 27.0-31.0 N [facility] OdkymqeKTCLHBOOWS8726-22-13 09:28:0047.1[facility] HermannHEMATOLOGY 2013-07-18 09:28:0094.0[facility] UsxilqxMIKDDPRGWF7650-14-77 09:28:0010.5[facility] HermannBEDSIDE GLUCOSE GGMWKGV8871-31-30 22:14:58354Awdycfty HermannCHEMISTRY 2013-07-17 09:08:0014.2[facility] GilasrsQGLDLIXHP2859-99-48 09:08:0065[facility] UhnelkkMTLLNYCVP4259-59-67 09:08:008.6[facility] JwlwbkiEBFRLCBXD4671-21-05 09:08:0017[facility] DqvcxjdFYEBYCYYH0181-16-77 09:08:95676Cfjcsflj [place] RSFLMSKHC6277-94-35 09:08:0027[facility] RrkvujcLYGTFPASX5691-25-31 09:08:001.2 [facility] FmzzvfbAUCVBAMJV5959-62-50 09:08:86081Awlbdpdz HermannCHEMISTRY 2013-07-17 09:08:31149Ttrtuife MhnglcqJCNKYACCH3808-26-01 09:08:004.2[facility] FxrcxztEOHOQPNAS2724-18-84 09:08:004.53[facility] RrnztenVJNHTCYTV2280-65-78 09:08:61383Qjekdifq YmqsxkqBEWAOKXZF8999-00-45 09:08:0036[facility] WJZVEETBJ3846-42-93 09:08:0097[facility] YtxwgwuDCEMARDJM0534-05-73 09:08:94152 [facility] SizwiwsRGFAUANJPO6565-94-93 09:08:0076.1[facility] HermannHEMATOLOGY 2013-07-17 09:08:000.0[facility] UtvozyjKFQIVAZTYZ9763-78-12 09:08:000.2[facility] OgfsngwAEEARSQEUA3238-90-25 09:08:000.6[facility] TkqlzevERQUZGOGRT0553-35-80 09:08:006.4[facility] WkfnzpzTUQNXZMTEE9493-08-26 09:08:002.4[facility] GICGXRGONH3494-07-30 09:08:007.6[facility] SfnburgRAVGRAXPLR5451-17-01 09:08:00 13.7[facility] VfrurlaOYFYWVLSNR1715-09-22 09:08:001.2[facility] HermannHEMATOLOGY 2013-07-17 09:08:000.2[facility] MyylgnzXUEAGLKJQP8308-28-61 09:08:007.9[facility] HeejkeqZNOPTBJLEA1905-20-74 09:08:26759Rjestyhs XnrhyoeUHGGOVHOPB4334-53-95 09:08:008.4[facility] NavoacaBQFLWZYIEJ4818-68-66 09:08:004.61[facility] SASLUAUUDW1172-17-19 09:08:00* Test Item Value Reference Range Interpretation Comments MCH (test code = MCH) 30.8 pg 27.0-31.0 N [facility] ZdsrqboHYFZFXHWNV5560-93-13 09:08:0013.5[facility] HermannHEMATOLOGY 2013-07-17 09:08:0032.7[facility] PlxqenpMBMLQLYDUV8966-70-20 09:08:0094.0[facility] CoteqvwJFFWIGAXPE9387-59-90 09:08:0014.2[facility] UgkezshRZQYJMIMPZ3797-50-03 09:08:0043.3[facility] ExgdpzrONTPGZEEJW9909-07-51 09:08:001.20[facility] EJTQBLXFTK7476-98-34 09:08:00* Test Item Value Reference Range Interpretation Comments PT (test code = PT) 15.1 s 12.0-14.7 H [facility] QbklitqJDULLNQZHO2811-18-01 09:08:00* Test Item Value Reference Range Interpretation Comments PTT (test code = PTT) 32.9 s 22.9-35.8 N [facility] KggktazRPIJYTBRE0063-29-24 05:47:000.8[facility] HermannCHEMISTRY 2013-07-17 05:47:00<0.02[facility] AhjtrtfUPSVMCUIU8660-11-30 05:47:85381Kndtsklw UbcnpkpSDSMCFTNV6223-03-70 05:47:001.1[facility] OtqqfnkRAVFMRPXU7677-09-92 23:48:492.2[facility] YwxnsyvTILRRZCUU4674-71-94 23:48:49<0.02[facility] LGLKHDBJJ7279-85-74 23:48:37663Kseedhdl NtxcsmgBYJMLTGRK7371-59-86 23:48:492.0 [facility] CeaelbdZKNPOPCZK8631-58-77 23:48:272.1[facility] HermannCHEMISTRY 2013-07-16 23:48:278.0[facility] UdncsqgCWSGUMYHY3905-11-52 23:48:242.790[facility] YwgctxcHVIJFRSBN4416-16-74 23:48:2435[facility] ZgiuwlqGUUJRLPHM8593-53-06 23:48:2412.0[facility] UhtpzgqUZHTSDXIW8390-64-31 23:48:244.2[facility] Rafi
--- NOTE | 2020-06-28 20:30 | NUR ---
Received pt. from ER via wheelchair accompanied by hospital personnel. Alert and oriented x3. Respirations are even, unlabored. IV 20 gauge saline lock to his R antecubital.
[2020-06-28] MEDS ORDERED: FUROSEMIDE INJ 10 MG/ML 4 ML VIAL IV SCH (21:00)
[2020-06-28 21:34] LABS: CREATINE KINASE MB 5.9 ng/mL (0-5.0)
--- NOTE | 2020-06-28 22:04 | NUR ---
Paged Michael Mittal.
--- NOTE | 2020-06-28 22:46 | NUR ---
Paged Michael Mittal.
[2020-06-28] MEDS: FUROSEMIDE INJ 10 MG/ML 4 ML VIAL IV SCH (23:05)
--- NOTE | 2020-06-28 23:39 | NUR ---
No return call from Michael Mittal. Called Michael Mittal on cell phone which ER nurse gave to me. She said he had called ER. Notified Michael Mittal troponin went up to 1.596. No orders received.
[2020-06-29] VITALS: BP 109/77
[2020-06-29 00:47] VITALS: BP 109/77
[2020-06-29 04:07] VITALS: BP 102/77
[2020-06-29 05:12] LABS: CHOL/HDL RATIO 3.7 (3.9-4.7)
--- NOTE | 2020-06-29 05:32 | NUR ---
Paged Terry Tubbs
[2020-06-29 06:54] LABS: CREATINE KINASE MB 5.1 ng/mL (0-5.0)
[2020-06-29] MEDS: FUROSEMIDE INJ 10 MG/ML 4 ML VIAL IV SCH (06:56)
[2020-06-29] MEDS ORDERED: CENTRUM SILVER1 EAC6 PO (07:19)
[2020-06-29] MEDS ORDERED: PLAVIX75 MG PO (07:19)
[2020-06-29] MEDS ORDERED: FUROSEMIDE40 MG PO (07:19)
[2020-06-29] MEDS ORDERED: KLOR-CON M1010 MEQ PO (07:19)
[2020-06-29] MEDS ORDERED: LIPITOR10 MG PO (07:19)
[2020-06-29] MEDS ORDERED: ASPIRIN CHEW81 MG PO (07:19)
--- NOTE | 2020-06-29 07:41 | NUR ---
Paged Michael Mittal for CKMB 5.10,TROPONIN 1.790.
[2020-06-29 08:00] VITALS: BP 107/60
[2020-06-29] MEDS ORDERED: METFORMIN HCL 500 MG TAB PO SCH (08:00)
--- NOTE | 2020-06-29 08:02 | NUR ---
Paged Michael Mittal for CKMB 5.10, TROPONIN 1.790. Michael Mittal has not returned my call.
--- NOTE | 2020-06-29 08:20 | NUR ---
Michael Mittal has not returned my call. John PONCE said she would follow up and notify Michael Mittal of the CKMB 5.10,Troponin 1.790.
[2020-06-29 08:53] LABS: BASOPHILS % 0.5 % (0.0-1.0); EOSINOPHILS # (AUTO) 0.1 (0.0-0.4); EOSINOPHILS % 2.4 % (0.0-6.0); HEMATOCRIT 36.6 % (38.2-49.6); HEMOGLOBIN 11.8 g/dL (14.0-18.0); LYMPHOCYTES # (AUTO) 1.1 (1.0-3.2); LYMPHOCYTES % 18.8 % (18.0-39.1); MEAN CORPUSCULAR HEMOGLOBIN 30.5 pg (28-32); MEAN CORPUSCULAR HGB CONC 32.2 g/dL (31-35); MEAN CORPUSCULAR VOLUME 94.6 fL (81-99); MONOCYTES # (AUTO) 0.6 (0.2-0.8); MONOCYTES % 10.5 % (4.4-11.3); NEUTROPHILS % 67.5 % (38.7-80.0); PLATELET COUNT 249 x10e3/uL (140-360); RED BLOOD COUNT 3.87 x10e6/uL (4.3-5.7); RED CELL DISTRIBUTION WIDTH 13.4 % (11.7-14.4)
[2020-06-29] MEDS ORDERED: ENALAPRIL MALEATE 10 MG TAB PO SCH (09:00)
[2020-06-29] MEDS ORDERED: POTASSIUM CHLORIDE 20 MEQ TAB CR PO SCH (09:00)
[2020-06-29] MEDS ORDERED: CARVEDILOL 3.125 MG TAB PO SCH (09:00)
[2020-06-29 09:05] LABS: ANION GAP 19.5 mmol/L (8-16); CALCIUM 9.4 mg/dL (8.4-10.2); CREATININE, SERUM 1.65 mg/dL (0.72-1.25); POTASSIUM 4.5 mmol/L (3.5-5.1)
--- NOTE | 2020-06-29 09:37 | Consultation ---
DATE OF CONSULTATION: 06/29/2020 Cardiology Consultation CHIEF COMPLAINT: The patient is a 69-year-old with shortness of breath. HISTORY OF PRESENT ILLNESS: The patient is a 69-year-old, well known to me who was severe three-vessel coronary artery disease and recent catheterization with an ejection fraction of 25%. The patient was scheduled to see the cardiovascular surgeon next week for evaluation for surgery. The patient came to the emergency room feeling short of breath and the patient had no chest pain. The patient was given IV Lasix and his symptoms improved. The patient was observed overnight on telemetry. PAST MEDICAL HISTORY: Significant for: 1. Coronary artery disease. 2. Known chronic systolic congestive heart failure. 3. Known ejection fraction of 25%. 4. Recent cardiac catheterization demonstrating severe three-vessel coronary artery disease with in-stent restenosis. SOCIAL HISTORY: The patient does not drink and does not smoke. FAMILY HISTORY: There is a known family history of coronary artery disease. PHYSICAL EXAMINATION: GENERAL: The patient is a well-developed, well-nourished male, in no obvious distress. VITAL SIGNS: Include a temperature of 98.8, pulse was 76, blood pressure was 130/70. HEAD, EARS, EYES, NOSE, AND THROAT: The patient's cranium was normocephalic and atraumatic. Extraocular muscles were intact. Sclerae were anicteric. Pupils were equal, round, reactive to light. There was no pallor or cyanosis of the oral mucosa. There was no erythema or edema of the throat. NECK: Supple. No jugular venous distention. No carotid bruits. CHEST: Demonstrated rales bilaterally. CARDIAC: Demonstrated normal S1 and S2 with a short 2/6 systolic murmur. ABDOMEN: Demonstrated good bowel sounds. No tenderness and no masses. EXTREMITIES: There was 1+ edema bilaterally. NEUROLOGIC: The patient was alert and oriented x3. Cranial nerves II through XII are intact. Motor strength was +5/+5 in all limbs. IMAGING DATA: The patient's EKG demonstrated normal sinus rhythm with nonspecific ST and T-wave changes. IMPRESSION: The patient is a 69-year-old, admitted with an episode of acute on chronic systolic congestive heart failure, which rapidly improved with one dose of IV Lasix. The patient has already had extensive cardiac workup and is scheduled to see the cardiovascular surgeon next week to be evaluated for coronary artery bypass graft. RECOMMENDATIONS: 1. It is okay for the patient to be discharged. 2. The patient has been given prescriptions for enalapril, Lasix, Coreg and potassium. 3. The patient already has a LifeVest at home. 4. The patient is okay to be discharged from my standpoint. MD SIMONE Whitney/ASHVIN /[id number]
[2020-06-29] MEDS ORDERED: CLOPIDOGREL BISULFATE 75 MG TAB PO SCH (10:15)
[2020-06-29] MEDS ORDERED: ASPIRIN 81 MG CHEW TAB PO SCH (10:15)
--- NOTE | 2020-06-29 10:53 | Discharge Summary ---
PRIMARY CARE PHYSICIAN: Lesley Valverde MD RELEASE SPECIALIST: Dr. Michael Brambila. FINAL DIAGNOSIS: [id number] systolic dysfunction congestive heart failure exacerbation. HOSPITAL COURSE: The patient is a 69-year-old male with acute exacerbation of known congestive heart failure, ischemic. The patient does have a LifeVest, for which he is not wearing. The patient was told to be compliant and wear his LifeVest. The patient does have a plan for bypass next week with his cardiovascular surgeon. The patient is otherwise stable. He gets fluid overload due to not taking furosemide on a regular basis. His furosemide was now increased from 40 mg daily to 40 mg twice a day for now until he follows up with his cardiovascular surgeon for bypass surgery. The patient is otherwise stable. He is ambulatory. He is not requiring oxygen. He had no chest pain. He is stable and back to baseline, compensated. The patient will be discharged home, resume home medication. I suggest the patient to stop metformin due to his chronic kidney disease, creatinine of 1.6. I also increased the Lasix to twice a day. The patient is stable discharged home. Activity as tolerated. Cardiac diabetic diet. Follow up as instructed. Must wear the LifeVest, for which he already has. MD DAVE Correa/ASHVIN /[id number]
[2020-06-29] MEDS ORDERED: COREG3.125 MG PO (12:28)
== END 2020-06-29 13:02 | disposition home or self-care (01) | DRG 280 ==
LOC: ER 17:40 → ERHOLD 17:51 → IMCU 20:45
PROVIDERS: ADMIT Internal Medicine; ATTEND Internal Medicine
DX: I21.4 Non-ST elevation (NSTEMI) myocardial infarction (principal); I50.23 Acute on chronic systolic (congestive) heart failure; I13.0 Hypertensive heart and chronic kidney disease with heart failure and stage 1 through stage 4 chronic kidney disease, or unspecified chronic kidney disease; I25.118 Atherosclerotic heart disease of native coronary artery with other forms of angina pectoris; N18.9 Chronic kidney disease, unspecified; I25.10 Atherosclerotic heart disease of native coronary artery without angina pectoris; Z11.59 Encounter for screening for other viral diseases
CPT/HCPCS: 36415; 71045; 80048; 80053; 80061; 80186; 80200; 82550; 82553; 82948; 83880; 84484; 85025; 85610; 85730; 93005; 99284; J1940; U0002

== ENCOUNTER 2020-07-08 12:19 | Observation (INO) | payer MEDICARE ==
[~2020-07-08] VITALS: Ht 170.2 cm; Wt 90.0 kg
[~2020-07-08 12:19] MED LIST changes: +ASPIRIN CHEW81 MG PO; +CENTRUM SILVER1 EAC6 PO; +COREG3.125 MG PO; +FUROSEMIDE40 MG PO; +KLOR-CON M1010 MEQ PO; +LIPITOR10 MG PO; +PLAVIX75 MG PO
--- OUTSIDE RECORDS SUMMARY | 2020-07-08 12:47 | XMS REPORT | Continuity of Care Document ---
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 Phone [employer] Unavailable Un available Problems Problem Status Onset Date Classification Date Reported Comments Source S46.091A - INJ MUSC/TEND THE ROTATOR CUF Active 09/28/2017 [facility] [place] CHF -NEW ONSET, LF SIDED FACIAL TINGLING Active 07/16/2013 [facility] Right sided weakness Resolved Problem 07/20/2013 [facility] Right hemiparesis (disorder) R esolved Problem OPIBernarda [place] CHF NOS Active [facility] Medications Medication Details Route Status Patient Instructions Ordering Provider Order Date Source Lasix 40 mg oral tablet 40 mg, 1 tab, Route: PO, Drug form: TAB, BID, Dosing Weight 91.818, kg, Start date: 07/18/13 17:00:00, Duration: 30 day, Stop date: 08/17/13 9:00:00 PO No Longer Active Daniel 07/18/2013 [facility] influenza virus vaccine, inactivated 0.5 ml, Route: IM, Drug Form: SUSP, Start date: 07/18/13 11:00:00, Stop date: 07/18/13 11:00:00 IM No Longer Active SYSTEM 07/02 [facility] Lasix 20 mg oral tablet 20 mg, 1 tab, PO, Daily, 30 tab, 0, 0, Substitution Allowed, TAB PO Active Jose Juan 07/18/2013 [facility] potassium chloride 10 mEq oral capsule, extended release 10 mEq, 1 cap, PO, BID, take it with fur osemide, 60 cap, Substitution Allowedtake it with furosemide PO Active Daniel 07/18/2013 [facility] lisinopril 5 mg oral tablet 5 mg, 1 tab, PO, Daily, 30 tab, Substitution Allowed, TAB PO Active Daniel 07/18/2013 [facility] glipiZIDE 2.5 mg oral tablet, extended release 2.5 mg, 1 tab, PO, Daily, 30 tab, Substitution Allowed, ERTAB PO Active Daniel 07/18/2013 [facility] Lasix 40 mg oral tablet 40 mg, 1 tab, PO, BID, 60 tab, Substitution Allowed, TAB PO No Longer Active Jose Juan 07/18/2013 [facility] carvedilol 6.25 mg oral tablet 6.25 mg, 1 tab, PO, BID, 60 tab, Substitution Allowed, TAB PO Active [facility] 07/18/2013 [facility] aspirin 81 mg tablet, enteric coated 81 mg, 1 tab, PO, Daily, 30 tab, Substitution Allowed, ECTAB PO Active [facility] 07/18/2013 [facility] Coreg 6.25 mg, 2 tab, Route: P O, Drug form: TAB, Q12H, Dosing Weight 91.818, kg, Start date: 07/17/13 21:00:00, Duration: 30 day, Stop date: 08/16/13 9:00:00 PO No Longer Active [facility] 07/18/2013 [facility] glipiZIDE 2.5 mg, 1 tab, Route : PO, Drug form: ERTAB, Daily, Dosing Weight 91.818, kg, Priority: NOW, Start date: 07/17/13 9:49:00, Duration: 30 day, Stop date: 08/16/13 9:00:00 PO No Longer Active [facility] 07/17/2013 [facility] pneumococcal 23-valent vaccine 0.5 ml, Route: IM, Drug Form: INJ, Daily, Start date: 07/17/13 9:00:00, Duration: 1 doses or times, Stop date: 07/17/13 9:00:00 IM No Longer Active SYSTEM 07/17/2013 [facility] furosemide 40 mg, 4 mL, Route: IVP, Drug form: INJ, BID, Dosing Weight 91.818, kg, Start date: 07/17/13 9:00:00, Duration: 30 day, Stop date: 08/15/13 17:00:00 IVP No Longer Active [facility] 07/17/2013 [facility] aspirin 81 mg tablet, enteric coated 81 mg, 1 tab, Route: PO, Drug form: ECTAB, Daily, Dosing Weight 91.818, kg, Start date: 07/17/13 9:00:00, Duration: 30 day, Stop date: 08/15/13 9:00:00 PO No Longer Active [facility] 07/17/2013 [facility] Saline Flush 0.9% 5 ml, Route: IVP, Drug Form: INJ, Dosing Weight 91.818, kg, Q12H, Start date: 07/16/13 21:00:00, Duration: 30 day, Stop date: 08/15/13 9:00:00 IVP No Longer Active [facility] 07/17/2013 [facility] nitroglycerin 0.4 mg sublingual tablet 0.4 mg, 1 tab, Route: SL, Drug form: TAB, Q5Min, PRN Chest Pain, Start date: 07/16/13 18:27:00, Duration: 30 day, Stop date: 08/15/13 18:26:00 SL No Longer Active [facility] 07/16/2013 [facility] atropine 0.5 mg, 5 mL, Route: IVP, Drug form: INJ, PRN, PRN Bradycardia, Start date: 07/16/13 18:27:00, Duration: 30 day, Stop date: 08/15/13 18:26:00 IVP No Longer Active [facility] 07/16/2013 [facility] lisinopril 5 mg, 1 tab, Route: PO, Drug form: TAB, Daily, Dosing Weight 91.818, kg, Priority: NOW, Start date: 07/16/13 18:14:00, Duration: 30 day, Stop date: 08/15/13 9:00:00 PO No Longer Active Jacobo 07/16/2013 [facility] temazepam 15 mg, 1 cap, Route: PO, Drug form: CAP, Bedtime, Dosing Weight 91.818, kg, PRN Insomnia, Start date: 07/16/13 18:11:00, Duration: 30 day, Stop date: 08/15/13 18:10:00 PO No Longer Active [facility] 07/16/2013 [facility] ondansetron 4 mg, 2 mL, Route: IVP, Drug form: INJ, Q8H, Dosing Weight 91.818, kg, PRN Nausea & Vomiting, Start date: 07/16/13 18:11:00, Duration: 30 day, Stop date: 08/15/13 18:10:00 IVP No Longer Active [facility] 07/16/2013 [facility] Saline Flush 0.9% 5 ml, Route: IVP, Drug Form: INJ, Dosing Weight 91.818, kg, PRN, PRN Line Flush, Start date: 07/16/13 18:11:00, Duration: 30 day, Stop date: 08/15/13 18:10:00 IVP No Longer Active Daniel 07/16/2013 [facility] Allergies, Adverse Reactions, Alerts No Known Medication Allergies Immunizations Immunization Date Given Site Status Last Updated Comments Source influenza virus vaccine, inactivated 07/18/2013 completed Faye [facility] influenza virus vaccine, inactivated 07/18/2013 Right deltoid completed Faye [facility] [place] pneumococcal 23-valent vaccine 07/17/2013 completed Elizabeth machado [facility] pneumococcal 23-valent vaccine 07/17/2013 Left Deltoid completed Smooth [facility] [place] Results Order Name Results Value Reference Range Date Interpretation Comments Source BEDSIDE GLUCOSE TESTING Gluc POC Com ment 1 Notify RN/MD 07/18/2013 NA [facility] BEDSIDE GLUCOSE TESTING Gluc POC 104 70 - 99 07/18/2013 [place] <sup>1</sup>Interpretive Data: Upper Reportable Limit: 200 mg/dL. [facility] BEDSIDE GLUCOSE TESTING Gluc POC 100 70 - 99 07/18/2013 [place] <sup>2</sup>Interpretive Data: Upper Reportable Limit: 200 mg/dL. [facility] CHEMISTRY Sodium Lvl 141 135 - 145 07/18/2013 Normal [facility] CHEMISTRY Chloride Lvl 102 95 - 109 07/18/2013 Normal [facility] CHEMISTRY Potassium Lvl 4.1 3.5 - 5.1 07/18/2013 Normal [facility] CHEMISTRY eGFR 73 07/18/2013 NA <sup>4</sup>Result Comment: [...] should be multiplied by the estimated BMI. [facility] CHEMISTRY Glucose Lvl 128 70 - 99 07/18/2013 [place] <sup>6</sup>Interpretive Data: Adult ref erence range values reflect the clinical guidelines
of the [place] [employer]. [facility] CHEMISTRY BUN 24 7 - 22 07/18/2013 [place] [facility] CHEMISTRY Creatinine Lvl 1.1 0.5 - 1.4 07/18/2013 Normal [facility] CHEMISTRY CO2 28 24 - 32 07/18/2013 Normal [facility] CHEMISTRY Calcium Lvl 9.0 8.5 - 10.5 07/18/2013 Normal [facility] CHEMISTRY AGAP 15.1 10.0 - 20.0 07/18/2013 Normal [facility] HEMATOLOGY RBC Morph Krystal l (07/18/2013 04:28:00) 07/18/2013 Normal [facility] HEMATOLOGY Plt Morph Krystal l (07/18/2013 04:28:00) 07/18/2013 Normal [facility] HEMATOLOGY Segs 76.1 45.0 - 75.0 07/18/2013 [facility] HEMATOLOGY Monocytes # 0.9 0.0 - 0.8 07/18/2013 [facility] HEMATOLOGY Lymphocytes # 1.5 1.0 - 5.5 07/18/2013 Normal [facility] HEMATOLOGY Eosinophils # 0.1 0.0 - 0.5 07/18/2013 Normal [facility] HEMATOLOGY Segs-Bands # 8.0 1.5 - 8.1 07/18/2013 Normal [facility] HEMATOLOGY Lymphocytes 14.1 20.0 - 40.0 07/18/2013 LOW [facility] HEMATOLOGY Basophils # 0.0 0.0 - 0.2 07/18/2013 Normal [facility] HEMATOLOGY Basophils 0.3 0.0 - 1.0 07/18/2013 Normal [facility] HEMATOLOGY Monocytes 8.4 2.0 - 12.0 07/18/2013 Normal [facility] HEMATOLOGY Eosinophils 1.1 0.0 - 4.0 07/18/2013 Normal [facility] HEMATOLOGY Platelet 232 133 - 450 07/18/2013 Normal [facility] HEMATOLOGY MPV 7.6 7.4 - 10.4 07/18/2013 Normal [facility] HEMATOLOGY MCHC 32.8 32.0 - 36.0 07/18/2013 Normal [facility] HEMATOLOGY RDW 13.6 11.5 - 14.5 07/18/2013 Normal [facility] HEMATOLOGY RBC 5.01 4.70 - 6.10 07/18/2013 Normal [facility] HEMATOLOGY Hgb 15.5 14.0 - 18.0 07/18/2013 Normal [facility] HEMATOLOGY MCH 30.9 27.0 - 31.0 07/18/2013 Normal [facility] Hct 47.1 42.0 - 54.0 07/18/2013 Normal [facility] HEMATOLOGY MCV 94.0 80.0 - 94.0 07/18/2013 Normal [facility] HEMATOLOGY WBC 10.5 3.7 - 10.4 07/18/2013 HI [facility] BEDSIDE GLUCOSE TESTING Gluc POC 119 70 - 99 07/17/2013 [place] <sup>3</sup>Interpretive Data: Upper Reportable Limit: 200 mg/dL. [facility] BEDSIDE GLUCOSE TESTING Gluc POC Com ment 1 Notify ROSARIO/ 07/17/2013 NA [facility] CHEMISTRY AGAP 14.2 10.0 - 20.0 07/17/2013 Normal [facility] CHEMISTRY eGFR 65 07/17/2013 NA <sup>5</sup>Result Comment: [...] should be multiplied by the estimated BMI. [facility] CHEMISTRY Calcium Lvl 8.6 8.5 - 10.5 07/17/2013 Normal [facility] CHEMISTRY BUN 17 7 - 22 07/17/2013 Normal [facility] CHEMISTRY Glucose Lvl 129 70 - 99 07/17/2013 [place] <sup>7</sup>Interpretive Data: Adult ref erence range values reflect the clinical guidelines
of the [place] [employer]. [facility] CHEMISTRY CO2 27 24 [...] Monocytes 7.6 2.0 - 12.0 07/17/2013 Normal [facility] HEMATOLOGY Lymphocytes 13.7 20.0 - 40.0 07/17/2013 LOW [facility] HEMATOLOGY Lymphocytes # 1.2 1.0 - 5.5 07/17/2013 Normal [facility] HEMATOLOGY Basophils 0.2 0.0 - 1.0 07/17/2013 Normal [facility] HEMATOLOGY MPV 7.9 7.4 - 10.4 07/17/2013 Normal [facility] HEMATOLOGY Platelet 214 133 - 450 07/17/2013 Normal [facility] HEMATOLOGY WBC 8.4 3.7 - 10.4 07/17/2013 Normal [facility] HEMATOLOGY RBC 4.61 4.70 - 6.10 07/17/2013 LOW [facility] HEMATOLOGY MCH 30.8 27.0 - 31.0 07/17/2013 Normal [facility] HEMATOLOGY RDW 13.5 11.5 - 14.5 07/17/2013 Normal [facility] HEMATOLOGY MCHC 32.7 32.0 - 36.0 07/17/2013 Normal [facility] HEMATOLOGY MCV 94.0 80.0 - 94.0 07/17/2013 Normal [facility] HEMATOLOGY Hgb 14.2 14.0 - 18.0 07/17/2013 Normal [facility] HEMATOLOGY Hct 43.3 42.0 - 54.0 07/17/2013 Normal [facility] HEMATOLOGY INR 1.20 0.85 - 1.17 07/17/2013 [place] <sup>8</sup>Interpretive Data: RECOMMEND ED RANGES FOR PROTIME INR:
2.0-3.0 for most medical and surgical thromboembolic states.
2.5-3.5 for artificial heart valves and recurrent embolism.

INR SHOULD BE USED ONLY FOR PATIENTS ON STABLE ANTICOAGULANT THERAPY. [facility] HEMATOLOGY PT 15.1 12.0 - 14.7 07/17/2013 HI [facility] HEMATOLOGY PTT 32.9 22.9 - 35.8 07/17/2013 Normal <sup>9</sup>Interpretive Data: Heparin T herapeutic Range: 57 - 92 Seconds [facility] CHEMISTRY CK MB Index 0.8 0.0 - 2.5 07/17/2013 Normal [facility] CHEMISTRY Troponin-I <0.02 0.00 - 0.40 07/17/2013 Normal [facility] CHEMISTRY Total CK 139 12 - 191 07/17/2013 Normal [facility] CHEMISTRY CK MB 1.1 0.5 - 3.6 07/17/2013 Normal [facility] CHEMISTRY CK MB 2.2 0.5 - 3.6 07/16/2013 Normal [facility] CHEMISTRY Troponin-I <0.02 0.00 - 0.40 07/16/2013 Normal [facility] CHEMISTRY Total CK 108 12 - 191 07/16/2013 Normal [facility] CHEMISTRY CK MB Index 2.0 0.0 - 2.5 07/16/2013 Normal [facility] CHEMISTRY Magnesium Lvl 2.1 1.8 - 2.4 07/16/2013 Normal [facility] CHEMISTRY Hgb A1C 8.0 <=5.6 07/16/2013 HI [facility] CHEMISTRY TSH 2.790 0.360 - 3.740 07/16/2013 Normal [facility] CHEMISTRY T3 Uptake 35 31 - 39 07/16/2013 Normal [facility] CHEMISTRY T4 12.0 4.7 - 13.3 07/16/2013 Normal [facility] CHEMISTRY FTI 4.2 07/16/2013 NA [facility] Pathology Reports No Data Provided for This [...] Exam: Pain Comparison Exam: None Discussion: On him assistant view, there are no acute bony abnormalities [...] Comments Source Diastolic (mm Hg) 62 07/18/2013 [facility] Respitory Rate 18 07/18/2013 [facility] Temperature Oral (F) 99.1 F 07/18/2013 [facility] Heart Rate 70 07/18/2013 [facility] Systolic (mm Hg) 100 07/18/2013 [facility] Respitory Rate 12 07/18/2013 [facility] Respitory Rate 18 07/18/2013 [facility] Systolic (mm Hg) 124 07/18/2013 [facility] Diastolic (mm Hg) 74 07/18/2013 [facility] Heart Rate 73 07/18/2013 [facility] Temperature Oral (F) 98.5 F 07/18/2013 [facility] Diastolic (mm Hg) 78 07/18/2013 [facility] Heart Rate 62 07/18/2013 [facility] Temperature Oral (F) 98.4 F 07/18/2013 [facility] Systolic (mm Hg) 131 07/18/2013 [facility] Weight 91.818 07/16/2013 [facility] Height 170.18 cm 07/16/2013 [facility] Encounters Location Location Details Encounter Type Encounter Number Reason For Visit Attending Provider ADM Date DC Date Status Source [facility] Inpatient [id number] CHF -NEW ONSET, L F SIDED FACIAL [place] IWONA SHETTY 07/16/2013 07/18/2013 Active [facility] [place] [facility] [id number] Nolberto Baltazar 10/22/2017 10/23/2017 ASHER Rider [...]
--- OUTSIDE RECORDS SUMMARY | 2020-07-08 12:48 | XMS REPORT | Continuity of Care Document ---
Author Author [facility] t Organization [facility] Address [facility] [place] [address] Phone Unavailable Care Team Providers Care Designer/Writer Name Role Phone ELLY COLÓN, MD HODGES PCP Venus SANCHEZ Attphys Unavailable Macrina VELIZ Attphys Unavailable Micki Baltazar Attphys Payers Payer Name Policy Type Policy Number Effective Date Expiration Date Li higginbotham [facility] [id number] 2017 00:00:00 [facility] [id number] 2017 00:00:00 [facility] Problems Condition Name Condition Details Condition Category Status Onset Date Resolution Date Last Treatment Date Treating Clinician Comments Source S46.091A - INJ [facility]/TEND THE ROTATOR CUF S46.091A - INJ [facility]/TEND THE ROTATOR CUF Active 09/28/2017 WILLIAM OPID [place] Diagnosis Active 2017-09-28 00:01:00 2017-10-22 08:39:00 M wendi Mckee CHF -NEW ONSET, LF SIDED FACIAL [place] CHF -NEW ONSET, LF SIDED FACIAL [place] Active 07/16/2013 [facility] Ac tive 2013-07-16 14:13:00 2013-07-24 21:49:00 M wendi Mckee Chest pain Chest pain Problem Active [facility] Congestive heart failure CHF (congestive heart failure) Problem Active [facility] Non-ST elevation myocardial infarction (NSTEMI) Problem Active [facility] Right sided weakness Righ t sided weakness Resolved Problem 07/20/2013 Nick Problem Resolved 2013-07-20 21:51: 18 [facility] Right hemiparesis (disorder) R ight hemiparesis (disorder) Resolved Problem 10/25/2017 ASHER Rider Problem Resolved 2017-10-25 01:27:14 [facility] CHF NOS CHF NOS Active [facility] Diagnosis Acti ve 2013-07-24 21:49:00 [facility]ule[facility] Allergies, Adverse Reactions, Alerts Allergy Name Allergy Type Status Severity Reaction(s) Onset Date Inacti ve Date Treating Clinician Comments Source No Known Allergies DA Active U 2019-09-22 00:00:00 [facility] No Known Allergies DA Active U 2012-06-05 00:00:00 [facility] Social History Social Habit Start Date Stop Date Quantity Comments Source Sex Assigned At 1950 00:00:00 1950 00:00:00 Male [facility] Medications Ordered Medication Name Filled Medication Name Start Date Stop Da te Current Medication? Ordering Clinician Indication Dosage Frequency Signature (SIG) Comments Components Source Lasix 40 mg oral tablet 2013-07-18 22:00:00 No Home Olivares ique Daniel 40 mg, 1 tab, Route: PO, Drug form: TAB, BID, Dosing Weight 91.818, kg, Start date: 07/18/13 17:00:00, Duration: 30 day, Stop date: 08/17/13 9:00:00 [facility] influenza virus vaccine, inactivated 2013-07-18 16:00:00 No SYSTEM SYSTEM 0.5 ml, Route: IM, Drug Form : SUSP, Start date: 07/18/13 11:00:00, Stop date: 07/18/13 11:00:00 [facility] Lasix 20 mg oral tablet 2013-07-18 15:54:48 Yes Clementina Nagel Jose Juan 20 mg, 1 tab, PO, Daily, 30 tab, 0, 0, Substitution Allowed, TAB [facility] potassium chloride 10 mEq oral capsule, extended release 2013-07-18 15:32:54 Yes Home Amauri Daniel 10 mEq, 1 cap, PO, BID, take it with furosemide, 60 cap, Substitution Allowedtake it with furosemide [facility] Rafi lisinopril 5 mg oral tablet 2013-07-18 15:30:05 Yes Home Amauri Daniel 5 mg, 1 tab, PO, Daily, 30 tab, Substitution Allowed, TAB [facility] glipiZIDE 2.5 mg oral tablet, extended release 2013-07-18 15:30:02 Yes Home Amauri Daniel 2.5 mg, 1 tab, PO, Daily, 30 tab, Substitution Allowed, ERTAB [facility] Lasix 40 mg oral tablet 2013-07-18 15:29:59 No Clementina Nagel Jose Juan 40 mg, 1 tab, PO, BID, 60 tab, Substitution Allowed, TAB [facility] Rafi carvedilol 6.25 mg oral tablet 2013-07-18 15:29:55 Yes Home Amauri Daniel 6.25 mg, 1 tab, PO, BID, 60 tab, Substitution Allowed, TAB [facility] aspirin 81 mg tablet, enteric coated 2013-07-18 15:29:49 Yes Home Amauri Daniel 81 mg, 1 tab, PO, Daily, 30 tab, Substit ution Allowed, ECTAB [facility] Coreg 2013-07-18 02:00:00 No Home Amauri Daniel 6.25 mg, 2 tab, Route: PO, Drug form: TAB, Q12H, Dosing Weight 91.818, kg, Start date: 07/17/13 21:00:00, Duration: 30 day, Stop date: 08/16/13 9:00:00 [facility] glipiZIDE 2013-07-17 14:49:00 No Home Amauri Daniel 2.5 mg, 1 tab, Route: PO, Drug form: ERTAB, Daily, Dosing Weight 91.818, kg, Priority: NOW, Start date: 07/17/13 9:49:00, Duration: 30 day, Stop date: 08/16/13 9:00:00 [facility] pneumococcal 23-valent vaccine 2013-07-17 14:00:00 No S YSTEM SYSTEM 0.5 ml, Route: IM, Drug Form: INJ, Daily, Start date: 07/17/13 9:00:00, Duration: 1 doses or times, Stop date: 07/17/13 9:00:00 [facility] furosemide 2013-07-17 14:00:00 No Home Amauri Daniel 40 mg, 4 mL, Route: IVP, Drug form: INJ, BID, Dosing Weight 91.818, kg, Start date: 07/17/13 9:00:00, Duration: 30 day, Stop date: 08/15/13 17:00:00 [facility] aspirin 81 mg tablet, enteric coated 2013-07-17 14:00:00 No Home Amauri Daniel 81 mg, 1 tab, Ro chadwick: PO, Drug form: ECTAB, Daily, Dosing Weight 91.818, kg, Start date: 07/17/13 9:00:00, Duration: 30 day, Stop date: 08/15/13 9:00:00 [facility] Saline Flush 0.9% 2013-07-17 02:00:00 No Home Amauri M ok 5 ml, Route: IVP, Drug Form: INJ, Dosing Weight 91.818, kg, Q12H, Start date: 07/16/13 21:00:00, Duration: 30 day, Stop date: 08/15/13 9:00:00 [facility] nitroglycerin 0.4 mg sublingual tablet 2013-07-16 23:27:00 No Home Amauri Daniel 0.4 mg, 1 tab, R oute: SL, Drug form: TAB, Q5Min, PRN Chest Pain, Start date: 07/16/13 18:27:00, Duration: 30 day, Stop date: 08/15/13 18:26:00 [facility] atropine 2013-07-16 23:27:00 No Ohme Amauri Daniel 0.5 mg, 5 mL, Route: IVP, Drug form: INJ, PRN, PRN Bradycardia, Start date: 07/16/13 18:27:00, Duration: 30 day, Stop date: 08/15/13 18:26:00 [facility] lisinopril 2013-07-16 23:14:00 No Kun Cassius Jacobo 5 mg, 1 tab, Route: PO, Drug form: TAB, Daily, Dosing Weight 91.818, kg, Priority: NOW, Start date: 07/16/13 18:14:00, Duration: 30 day, Stop date: 08/15/13 9:00:00 [facility] temazepam 2013-07-16 23:11:00 No Home Amauri Daniel 15 mg, 1 cap, Route: PO, Drug form: CAP, Bedtime, Dosing Weight 91.818, kg, PRN Insomnia, Start date: 07/16/13 18:11:00, Duration: 30 day, Stop date: 08/15/13 18:10:00 [facility] ondansetron 2013-07-16 23:11:00 No Home Amauri Daniel 4 mg, 2 mL, Route: IVP, Drug form: INJ, Q8H, Dosing Weight 91.818, kg, PRN Nausea & Vomiting, Start date: 07/16/13 18:11:00, Duration: 30 day, Stop date: 08/15/13 18:10:00 [facility] Saline Flush 0.9% 2013-07-16 23:11:00 No Home Amauri M ok 5 ml, Route: IVP, Drug Form: INJ, Dosing Weight 91.818, kg, PRN, PRN Line Flush, Start date: 07/16/13 18:11:00, Duration: 30 day, Stop date: 08/15/13 18:10:00 [facility] Aspirin (Aspirin Chew) 81 Mg CHEW Aspirin (Aspirin Chew) 81 Mg CHEW Yes 81 Daily [facility] Atorvastatin Calcium (Lipitor*) 10 Mg TABLET Atorvasta tin Calcium (Lipitor*) 10 Mg TABLET Yes 20 Daily At 1700 [facility] Carvedilol (Coreg) 3.125 Mg TAB Carvedilol (Coreg) 3.125 Mg TAB Yes Twice A Day [facility] Clopidogrel Bisulfate (Plavix) 75 Mg TABLET Clopidogre l Bisulfate (Plavix) 75 Mg TABLET Yes 75 Daily [facility] Furosemide Furosemide Yes 40 Daily [facility] Multivit-Min/Fa/Lycopen/Lutein (Centrum Silver Men Tab let) 1 Each TABLET Multivit-Min/Fa/Lycopen/Lutein (Centrum Silver Men Tablet) 1 Each TABLET Yes [facility] Potassium Chloride (Klor-Con M10) 10 Meq TAB.ER.PRT Po tassium Chloride (Klor-Con M10) 10 Meq TAB.ER.PRT Yes Daily [facility] Enalapril Maleate Enalapril Maleate 2020-06-29 00:00:00 No 20 Twice A Day [facility] Metformin Hcl Metformin Hcl 2020-06-29 00:00:00 No 1000 Daily [facility] Sitagliptin Phosphate (Januvia) 100 Mg TABLET Sitaglip tin Phosphate (Januvia) 100 Mg TABLET 2020-06-29 00:00:00 No 100 Daily [facility] Vital Signs Vital Name Observation Time Observation Value Comments Source Body Temperature 2020-06-29 08:00:00 97.9 [degF] [facility] Weight 2020-06-28 23:47:00 190 [lb_av] [facility] BMI (Body Mass Index) 2020-06-28 23:47:00 29.8 kg/m2 [facility] Diastolic (mm Hg) 2013-07-18 17:00:00 Mem orial [place] Respitory Rate 2013-07-18 17:00:00 Memori al [facility]i Temperature Oral (F) 2013-07-18 17:00:00 99.1 F [facility] Heart Rate 2013-07-18 17:00:00 [facility] [place] Systolic (mm Hg) 2013-07-18 17:00:00 Giovanni rial [place] Respitory Rate 2013-07-18 15:47:00 Memori al Raif Respitory Rate 2013-07-18 13:00:00 Memori al [facility] Systolic (mm Hg) 2013-07-18 13:00:00 Giovanni rial [place] Diastolic (mm Hg) 2013-07-18 13:00:00 Mem orial Rafi Heart Rate 2013-07-18 13:00:00 [facility] Temperature Oral (F) 2013-07-18 13:00:00 98.5 F [facility] [place] Diastolic (mm Hg) 2013-07-18 09:38:00 Mem orial [facility] Heart Rate 2013-07-18 09:38:00 [facility] [place] Temperature Oral (F) 2013-07-18 09:38:00 98.4 F [facility] [place] Systolic (mm Hg) 2013-07-18 09:38:00 Giovanni Mckee Weight 2013-07-16 22:24:00 [facility] Height 2013-07-16 22:24:00 170.18 cm [facility] Procedures Procedure Date / Time Performed Performing Clinician Rachid maldonado FLUOROSCOPY OF MULT COR ART USING L OSM CONTRAST 2019-09-15 00:0 0:00 [facility] MEASURE OF CARDIAC SAMPL & PRESSURE, L HEART, PERC APPROACH 2019-09-15 00:00:00 [facility] Plan of Care Planned Activity Planned Date Details Comments Source Instructions Heart Healthy Diet [facility] Encounters Start Date/Time End Date/Time Encounter Type Admission Type [employer] Facility Care Department Encounter ID Source 2020-06-28 17:51:00 2020-06-29 13:02:00 Discharged Inpatient [facility] [id number] [facility] dical [place] 2019-09-13 08:24:00 2019-09-16 08:55:00 Discharged Inpatient 1 SHOSHANA SANCHEZ [facility] [id number] [facility] 2018-07-19 20:06:00 2018-07-20 14:30:00 Discharged Inpatient (obs) 1 BHARAT VELIZ [facility] [id number] [facility] 2017-10-22 08:30:00 2017-10-22 23:59:00 Outpatient Nolberto Baltazar HOIP HOIP [id number] Results Test Description Test Time Test Comments Results Result Comments Source TROPONIN-I 2020-07-06 04:20:00 Test Item TROPONIN-I (test code = TROPI) 0.217 ng/mL 0-0.045 HH Results called to [id number] by AYDINGP 07/06/20 [id number] results verified and read back by Nurse? Y COMMENTS TO LITERACY COORDINATOR: COLLECT 3 HOURS AFTER PREVIOUS SAMPLECOVID 19 INHOUSE [id number] 20:14:00* Test Item Value Reference Range Interpretation Comments COVID 19 INHOUSE AG (test code = [id number]) NEGATIVE B-TYPE NATRIURETIC [id number] 19:44:00* Test Item Value Reference Range Interpretation Comments B-TYPE NATRIURETIC PEPTIDE (test code = BNP) 2660.17 pgram/mL 0-100 H BASIC METABOLIC [id number] 19:39:00* Test Item Value Reference Range Interpretation Comments SODIUM (test code = NA) 138 mmol/L 136-145 N POTASSIUM (test code = K) 4.3 mmol/L 3.5-5.1 N CHLORIDE (test code = CL) 104.0 mmol/L 98-107 N CARBON DIOXIDE (test code = CO2) 25.0 mmol/L 21-32 N ANION GAP (test code = GAP) 13.3 10-20 N GLUCOSE (test code = GLU) 207 mg/dL 74-106 H BLOOD UREA NITROGEN (test code = BUN) 32 mg/dL 7-18 H GLOMERULAR FILTRATION RATE (test code = GFR) 47 mL/min >=60 Estimated GFR by using Modified MDRD formula.Chronic kidney disease is defined as either kidney damageor GFR <60 mL/min/1.73 m2 for >3 months. CREATININE (test code = CREAT) 1.50 mg/dL 0.7-1.3 H BUN/CREATININE RATIO (test code = BUN/CREA) 21.1 10-20 H CALCIUM (test code = CA) 8.9 mg/dL 8.5-10.1 N [id number] 19:39:00* Test Item Value Reference Range Interpretation Comments TROPONIN-I (test code = TROPI) 0.234 ng/mL 0-0.045 HH Results called to [id number] by ANASTACIA 07/05/20 1936Critical results verified and read back by Nurse? Y PROTHROMBIN [id number] 19:30:00* Test Item Value Reference Range Interpretation Comments PROTHROMBIN TIME PATIENT (test code = PTP) 15.7 seconds 9.0-14.0 H INTERNATIONAL NORMAL RATIO (test code = INR) 1.4 0.8-1.2 H The therapeutic range for oral anticoagulant therapy [...] (2.5-3.5) IS PATIENT ON ANTICOAGULANTS? NTHROMBOPLASTIN TIME [id number] 19:30:00* Test Item Value Reference Range Interpretation Comments THROMBOPLASTIN TIME PARTIAL (test code = PTT) 31.3 seconds 23.0-37. 0 N IS PATIENT ON ANTICOAGULANTS? N- XR CHEST 1 [id number] 19:30:00 FAX: Dontae Block MD [phone] [place]: St: [facility] FAX: Devi Shen DO Name: MICHELLE LY [facility] : 1950 Age/S: 69/M [address] [facility] Unit #: [id number] Loc: [place] [address] Phys: Devi Shen DO Acct: [id number] Dis Date: Status: REG ER PHONE #: [phone] Exam Date: 07/05/20201917 FAX #: [phone] Reason: Shortness of Breath EXAMS: CPT CODE: [id number] XR CHEST 1 V 46061 REASON FOR EXAM: Shortness of Breath EXAM ORDER DATE: 07/05/2020 6:36 PM Ordering: DO Venus Fernandez ttending:Devi Shen DO Location:[facility] PROCEDURE: - XR C HEST 1 V COMPARISON: 06/13/2020 FINDINGS: Portable A P frontal view of the chest obtained at 7:21 PM shows clear lungs without evidence of consolidation. The heart size is minimally enlarged. Pulmonary vasculatures are minimally congested. IMPRESSION: Congestive h eart failure with interstitial pulmonary edema and very small left pleur al effusion at 1 930 Reported and signed by: Simón Brooks M.D. CC: Dontae Valverde MD; Devi Shen DO Technologist: Bethel HUTCHINSON RT(R) Trnscrd Date/Time/By: 01/2020 (1929) : By: Ramón.VTL Orig Print D/T: S: 07/05/2020 (1932) PAGE 1 Signed Report BASIC METABOLIC [id number] 19:24:00* Test Item Value Reference Range Interpretation Comments SODIUM (test code = NA) 138 mmol/L 136-145 N POTASSIUM (test code = K) 4.3 mmol/L 3.5-5.1 N CHLORIDE (test code = CL) 104.0 mmol/L 98-107 N CARBON DIOXIDE (test code = CO2) mmol/L 21-32 ANION GAP (test code = GAP) 10-20 GLUCOSE (test code = GLU) mg/dL 74-106 BLOOD UREA NITROGEN (test code = BUN) mg/dL 7-18 GLOMERULAR FILTRATION RATE (test code = GFR) mL/min >=60 CREATININE (test code = CREAT) mg/dL 0.7-1.3 BUN/CREATININE RATIO (test code = BUN/CREA) 10-20 CALCIUM (test code = CA) 8.9 mg/dL 8.5-10.1 N [id number] 19:24:00* Test Item Value Reference Range Interpretation Comments TROPONIN-I (test code = TROPI) ng/mL 0-0.045 CBC W/O [id number] 19:14:00* Test Item Value Reference Range Interpretation Comments WHITE BLOOD CELL (test code = WBC) 6.4 K/mm3 4.5-12.5 N RED BLOOD CELL (test code = RBC) 3.78 mill/mm3 4.0-5.8 L HEMOGLOBIN (test code = HGB) 12.0 gram/dL 13.0-17.5 L HEMATOCRIT (test code = HCT) 35.9 % 42.0-52.0 L MEAN CELL VOLUME (test code = MCV) 95.0 fL 80-98 N MEAN CELL HGB (test code = MCH) 31.7 picogram 27.0-33.0 N MEAN CELL HGB CONCETRATION (test code = MCHC) 33.4 gram/dL 33.0-36. 0 N RED CELL DISTRIBUTION WIDTH (test code = RDW) 13.7 % 11.6-16. 2 N PLATELET COUNT (test code = PLT) 252 K/mm3 150-450 N MEAN PLATELET VOLUME (test code = MPV) 9.3 fL 6.7-11.0 N CBC W/O [id number] 19:11:00* Test Item Value Reference Range Interpretation Comments WHITE BLOOD CELL (test code = WBC) K/mm3 4.5-12.5 RED BLOOD CELL (test code = RBC) mill/mm3 4.0-5.8 HEMOGLOBIN (test code = HGB) gram/dL 13.0-17.5 HEMATOCRIT (test code = HCT) % 42.0-52.0 MEAN CELL VOLUME (test code = MCV) fL 80-98 MEAN CELL HGB (test code = MCH) picogram 27.0-33.0 MEAN CELL HGB CONCETRATION (test code = MCHC) gram/dL 33.0-36. 0 RED CELL DISTRIBUTION WIDTH (test code = RDW) % 11.6-16. 2 PLATELET COUNT (test code = PLT) 252 K/mm3 150-450 N MEAN PLATELET VOLUME (test code = MPV) fL 6.7-11.0 Capillary blood glucose measurement by glucometer (mass/volume)2020-06-29 08:41:00* Test Item Value Reference Range Interpretation Comments Bedside Glucose (test code = 87137-7) 139 70-120 Meter ID: [id number] [facility] count (number/volume)2020-06-29 04:25:00* Test Item Value Reference Range Interpretation Comments White Blood Count (test code = 6690-2) 5.89 4.8-10.8 [facility] erythrocytes automated count (number/volume)2020-06-29 04:25:00* Test Item Value Reference Range Interpretation Comments Red Blood Count (test code = 789-8) 3.87 4.3-5.7 [facility] hemoglobin measurement (moles/volume)2020-06-29 04:25:00* Test Item Value Reference Range Interpretation Comments Hemoglobin (test code = 98166-8) 11.8 14.0-18.0 [facility] Center[facility]ated blood hematocrit (volume fraction)2020-06-29 04:25:00* Test Item Value Reference Range Interpretation Comments Hematocrit (test code = 4544-3) 36.6 38.2-49.6 [facility] Center[facility] erythrocyte mean corpuscular [id number] 04:25:00* Test Item Value Reference Range Interpretation Comments Mean Corpuscular Volume (test code = 787-2) 94.6 81-99 [facility] Center[facility] erythrocyte mean corpuscular hemoglobin (mass per erythrocyte)2020-06-29 04:25:00* Test Item Value Reference Range Interpretation Comments Mean Corpuscular Hemoglobin (test code = 785-6) 30.5 28-32 [facility] CenterAutom[facility] erythrocyte mean corpuscular hemoglobin concentration measurement (mass/volume)2020-06-29 04:25:00* Test Item Value Reference Range Interpretation Comments Mean Corpuscular Hemoglobin Concent (test code = 786-4) 32.2 31-35 [facility] CenterRDW [id number] 04:25:00* Test Item Value Reference Range Interpretation Comments Red Cell Distribution Width (test code = 40249-3) 13.4 11.7 -14.4 [facility] Center[facility] blood platelet count (count/volume)2020-06-29 04:25:00* Test Item Value Reference Range Interpretation Comments Platelet Count (test code = 777-3) 249 140-360 [facility] CenterAutom[facility] blood segmented neutrophil count as percentage of total [id number] 04:25:00* Test Item Value Reference Range Interpretation Comments Neutrophils (%) (Auto) (test code = 32161-5) 67.5 38.7-80.0 [facility] CenterAutomated blood lymphocyte count as percentage ot total [id number] 04:25:00* Test Item Value Reference Range Interpretation Comments Lymphocytes (%) (Auto) (test code = 736-9) 18.8 18.0-39.1 [facility] CenterAutomated blood monocyte count as percentage of total ludvvsdgoz1812-02-19 04:25:00* Test Item Value Reference Range Interpretation Comments Monocytes (%) (Auto) (test code = 5905-5) 10.5 4.4-11.3 [facility] CenterAutomated blood eosinophil count as percentage of total sdhvrbaohl0667-12-85 04:25:00* Test Item Value Reference Range Interpretation Comments Eosinophils (%) (Auto) (test code = 713-8) 2.4 0.0-6.0 [facility] CenterAutomated blood basophil count as percentage of total [id number] 04:25:00* Test Item Value Reference Range Interpretation Comments Basophils (%) (Auto) (test code = 706-2) 0.5 0.0-1.0 [facility] CenterFluoroscopic procedure less than one hour [id number] 04:25:00* Test Item Value Reference Range Interpretation Comments IM GRANULOCYTES % (test code = IM GRANULOCYTES %) 0.3 0.0- 1.0 [facility] CenterAutom[facility] blood neutrophil count 2020-06-29 04:25:00* Test Item Value Reference Range Interpretation Comments Neutrophils # (Auto) (test code = 751-8) 4.0 2.1-6.9 [facility] Center[facility] lymphocytes count (number/volume) 2020-06-29 04:25:00* Test Item Value Reference Range Interpretation Comments Lymphocytes # (Auto) (test code = 64432-5) 1.1 1.0-3.2 [facility] CenterBlood monocytes automated count (number/volume)2020-06-29 04:25:00* Test Item Value Reference Range Interpretation Comments Monocytes # (Auto) (test code = 742-7) 0.6 0.2-0.8 [facility] CenterAutomated blood eosinophil count 2020-06-29 04:25:00* Test Item Value Reference Range Interpretation Comments Eosinophils # (Auto) (test code = 711-2) 0.1 0.0-0.4 [facility] CenterAutomated blood basophil count (count/volume)2020-06-29 04:25:00* Test Item Value Reference Range Interpretation Comments Basophils # (Auto) (test code = 704-7) 0.0 0.0-0.1 [facility] CenterFluoroscopic procedure less than one hour [id number] 04:25:00* Test Item Value Reference Range Interpretation Comments Absolute Immature Granulocyte (auto (francia t code = Absolute Immature Granulocyte (auto) 0.02 0-0.1 [facility] Centererum or plasma sodium measurement (moles/volume)2020-06-29 04:25:00* Test Item Value Reference Range Interpretation Comments Sodium Level (test code = 2951-2) 140 136-145 [facility] Centererum or plasma potassium measurement (moles/volume)2020-06-29 04:25:00* Test Item Value Reference Range Interpretation Comments Potassium Level (test code = 2823-3) 4.5 3.5-5.1 [facility] Centererum or plasma chloride measurement (moles/volume)2020-06-29 04:25:00* Test Item Value Reference Range Interpretation Comments Chloride Level (test code = 2075-0) 104 98-107 [facility] Centererum or plasma carbon dioxide, total measurement (moles/volume)2020-06-29 04:25:00* Test Item Value Reference Range Interpretation Comments Carbon Dioxide Level (test code = 2028-9) 21 22-29 [facility] Centererum or plasma anion [id number] 04:25:00* Test Item Value Reference Range Interpretation Comments Anion Gap (test code = 17929-1) 19.5 8-16 [facility] Centererum or plasma urea nitrogen measurement (mass/volume)2020-06-29 04:25:00* Test Item Value Reference Range Interpretation Comments Blood Urea Nitrogen (test code = 3094-0) 33 7-26 [facility] Centererum or plasma creatinine measurement (mass/volume)2020-06-29 04:25:00* Test Item Value Reference Range Interpretation Comments Creatinine (test code = 2160-0) 1.65 0.72-1.25 [facility] Centererum or plasma urea nitrogen/creatinine mass [id number] 04:25:00* Test Item Value Reference Range Interpretation Comments BUN/Creatinine Ratio (test code = 3097-3) 20 6-25 [facility] CenterEstimated glomerular filtration rate (GFR) xlmesuqpxgdze7427-35-56 04:25:00* Test Item Value Reference Range Interpretation Comments Estimat Glomerular Filtration Rate (test code = 714132934) 42 >60 Ranges were taken from the National Kidney Disease Education Program and the [facility] literature.Reference ranges:60 or greater: [place]27-91 ( for 3 consecutive months): Chronic kidney disease 15 or less: Kidney failureDallas Regional Medical CenterGlucose fxopgutdlfv6956-47-57 04:25:00* Test Item Value Reference Range Interpretation Comments Glucose Level (test code = UTN0095) 110 74-118 [facility] Centererum or plasma calcium measurement (mass/volume)2020-06-29 04:25:00* Test Item Value Reference Range Interpretation Comments Calcium Level (test code = 54292-8) 9.4 8.4-10.2 [facility] Centererum or plasma triglyceride measurement (mass/volume)2020-06-29 04:25:00* Test Item Value Reference Range Interpretation Comments Triglycerides Level (test code = 2571-8) 117 0-149 [facility] Centererum or plasma cholesterol measurement (mass/volume)2020-06-29 04:25:00* Test Item Value Reference Range Interpretation Comments Cholesterol Level (test code = 2093-3) 121 0-199 Less than 200 mg/dL Low Dtog609 - 239 mg/dL Borderline Aubj026 m g/dl and greater High Risk [facility] Centererum or plasma cholesterol in LDL measurement (mass/volume) 2020-06-29 04:25:00* Test Item Value Reference Range Interpretation Comments LDL Cholesterol (test code = 2089-1) 65 60-130 [facility] cholesterol in HDL measurement (mass/volume)2020-06-29 04:25:00* Test Item Value Reference Range Interpretation Comments HDL Cholesterol (test code = 2085-9) 33 40-60 [facility] or plasma total cholesterol/cholesterol in HDL mass yhjww3680-16-14 04:25:00* Test Item Value Reference Range Interpretation Comments Cholesterol/HDL Ratio (test code = 9830-1) 3.7 3.9-4.7 [facility] or plasma creatine kinase measurement (enzymatic activity/volume)2020-06-29 04:25:00* Test Item Value Reference Range Interpretation Comments Creatine Kinase (test code = 2157-6) 185 30-200 [facility] or plasma creatine kinase MB measurement (mass/volume)2020-06-29 04:25:00* Test Item Value Reference Range Interpretation Comments Creatine Kinase MB (test code = 28945-5) 5.10 0-5.0 Results called to JR ENRIQUE at 0653 on 06/29/20 by Trenton Bran. RB [place].[facility] CenterTroponin I measurement by highly sensitive enzyme btjqpahdwhp7899-75-79 04:25:00* Test Item Value Reference Range Interpretation Comments Troponin I (test code = 90753-8) 1.790 0-0.300 Elevated result called to RJ ENRIQUE at 0650 on 06/29/20 by Trenton Bran. [facility] CenterCHEST SINGLE (PORTABLE)2020-06-28 17:27:00 [facility] [address] [place] [address] Patient Name: MICHELLE LY MR #: [id number] : 1950 Age/Sex: 69/M Req #: [id number] Adm Physician: Ordered by: SANTA COR[place] DO Report #: [id number] Location: ER Room/Bed: Procedure: 7030-6712 DX/CHEST SI NGLE (PORTABLE) Exam Date: 06/28/20 Exam Time: 1650 REPORT STATUS: Signed EXAMINATIO N: CHEST SINGLE (PORTABLE) INDICATION: Chest pain COMPARISON: Chest x-ray on 09/13/2019. FINDINGS: TUBES and LINES: None. LUNGS: Normal lung volumes. There are prominent interstitial lung markings and patchy airspace opacification of the lung bases, right more to left. PLEU RA: No pleural effusion or pneumothorax. HEART AND MEDIASTINUM: The cardi omediastinal silhouette is enlarged. BONES AND SOFT TISSUES: No acute osse ous lesion. Soft tissues are unremarkable. UPPER ABDOMEN: No free air un cat the diaphragm. IMPRESSION: 1. Cardiomegaly with pulmonary va scular congestion. 2. Patchy opacification of the bilateral lung bases, right more to left, may represent atelectasis and/or developing pneumonia in the pr oper clinical setting. Signed by: Myles Rees MD on 06/28/2020 5:32 P M Dictated By: MYLES REES MD 31 Transcribed By: SERAFIN on 06/28/201731 COPY TO: SANTA CORONA DO Prothrombin time (PT) in platelet poor plasma by coagulation degkt7088-88-47 16:58:00* Test Item Value Reference Range Interpretation Comments Prothrombin Time (test code = 5902-2) 14.1 11.9-14.5 [facility] CenterINR in Platelet poor plasma by Coagulation ksdzl5663-84-22 16:58:00* Test Item Value Reference Range Interpretation Comments Prothromb Time International Ratio (test code = 6301-6) 1.04 Oral Anticoagulant Therapy INR Values:1. Low Intensity Therapy 1.5 - 2.02 . Moderate Intensity Therapy 2.0 - 3.03. High Intensity Therapy(1) 2.5 - 3. 54. High Intensity Therapy(2) 3.0 - 4.05. Panic Value INR > 5.0 [facility] CenterActivated partial thromboplastin time (aPTT) in platelet poor plasma by coagulation kehno7478-51-53 16:58:00* Test Item Value Reference Range Interpretation Comments Activated Partial Thromboplast Time (test code = 17484-8) 31.5 23.8-35.5 [facility] or plasma total bilirubin measurement (mass/volume)2020-06-28 16:38:00* Test Item Value Reference Range Interpretation Comments Total Bilirubin (test code = 1975-2) 0.6 0.2-1.2 [facility] CenterFluoroscopic procedure less than one hour ezxaldpi0357-41-07 16:38:00* Test Item Value Reference Range Interpretation Comments Aspartate Amino Transf (AST/SGOT) (test code = Aspartate Amino Transf (AST/SGOT)) 51 5-34 [facility]ererum or plasma alanine aminotransferase measurement (enzymatic activity/volume)2020-06-28 16:38:00* Test Item Value Reference Range Interpretation Comments Alanine Aminotransferase (ALT/SGPT) (test code = 1742-6) 67 0-55 [facility]ererum or plasma protein measurement (mass/volume)2020-06-28 16:38:00* Test Item Value Reference Range Interpretation Comments Total Protein (test code = 2885-2) 7.4 6.5-8.1 [facility]ererum or plasma albumin measurement (mass/volume)2020-06-28 16:38:00* Test Item Value Reference Range Interpretation Comments Albumin (test code = 1751-7) 3.8 3.5-5.0 [facility] CenterPlasma globulin measurement (mass/volume) 2020-06-28 16:38:00* Test Item Value Reference Range Interpretation Comments Globulin (test code = 60840-2) 3.6 2.3-3.5 [facility]ererum or plasma albumin/globulin mass fmeru4182-30-72 16:38:00* Test Item Value Reference Range Interpretation Comments Albumin/Globulin Ratio (test code = 1759-0) 1.1 0.8-2.0 [facility]ererum or plasma alkaline phosphatase measurement (enzymatic activity/volume)2020-06-28 16:38:00* Test Item Value Reference Range Interpretation Comments Alkaline Phosphatase (test code = 6768-6) 98 40-150 [facility] CenterBNP Xmg-pYsz5044-38-28 16:38:00* Test Item Value Reference Range Interpretation Comments B-Type Natriuretic Peptide (test code = 69256-0) 1292.4 0-100 [facility] CenterGLUBED2020-08-17 10:31:00* Test Item Value Reference Range Interpretation Comments GLUBED (test code = GLUBED) 120 mg/dL 74-106 H Performed by certified speed operator at [facility] Novel Coronavirus 10:06:00* Test Item Value Reference Range Interpretation Comments Novel Coronavirus 2019 Inhouse (test code = [id number]) Negative Negative Positive results are indicative of the presence lfGZOA-HzY-1 RNA, clinical correlation with patient historyand other [...] for the identification of SARS-CoV-2 RNA usingthe Pixtr000 System under the FDA Emergency UseAuthorization. The testing is performed by personneltrained in the procedures for the Purple Binder M2000 moleculardiagnostic SARS-CoV-2 assay in vitro. Novel Coronavirus 10:06:00* Test Item Value Reference Range Interpretation Comments Novel Coronavirus 2019 Inhouse (test code = JXELG18MZ) Negative Negative Positive results are indicative of the presence yoGPZC-WcU-1 RNA, clinical correlation with patient historyand other [...] for the identification of SARS-CoV-2 RNA usingthe Purple Binder M2000 System under the FDA Emergency UseAuthorization. The testing is performed by personneltrained in the procedures for the Purple Binder M2000 moleculardiagnostic SARS-CoV-2 assay in vitro. BASIC METABOLIC [id number] 12:00:00* Test Item Value Reference Range Interpretation [...] result is a direct measurement.========= BASIC METABOLIC JEAWT6039-63-03 11:48:00* Test Item Value Reference Range Interpretation [...] (test code = LDL) mg/dL 100-129 PR[facility] [id number] 11:37:00* Test Item Value Reference Range Interpretation [...] (2.5-3.5) IS PATIENT ON ANTICOAGULANTS? NTHROMBOPLASTIN TIME FRIYJQD0254-35-78 11:37:00* Test Item Value Reference Range Interpretation Comments THROMBOPLASTIN TIME PARTIAL (test code = PTT) 34.5 seconds 23.0-37. 0 N IS PATIENT ON ANTICOAGULANTS? NCBC W/AUTO RRPO6761-48-37 11:28:00* Test Item Value Reference Range Interpretation [...] NRBC#) 0.00 K/mm3 0.0-0.1 N CBC W/AUTO [id number] 11:26:00* Test Item Value Reference Range Interpretation [...] BA#) K/mm3 0.0-0.2 - XR CHEST 2 [id number] 10:23:00 FAX: Dontae Block MD [phone] [place]: O St: PRE FAX: Michael Kemp MD [phone] Name: MICHELLE LY [facility] : 1950 Age/S: 69/M [address] [facility] Unit #: [id number] Loc: [place] [address] Phys: Michael Brambila MD Acct: [id number] Dis Date: Status: PRE SDC PHONE #: [phone] Exam Date: 06/13/2020 1020 FAX #: [phone] Reason: PRE OP EXAMS: CPT CODE: [id number] XR CHEST 2 V 88233 HISTORY: Preop. COMPARISON: Chest x-ray from October 20, 2019. Location: [facility]. AP and lateral view of the chest: No acute infiltrates, effusion or congestion. Cardiomegaly. DJD of the dorsal spine. IMPRESSION: No acute infiltrates, effusion or congestion. at 1023 Reported and signed by: Kunal Joyner M.D. CC: Dontae Valverde MD; Michael Lyn Technologist: RT Niki(Ty) Trnscrd Date/Time/By: 06/13/2020 (1023) : By: LuxTH4 Orig Print D/T: S: 06/13/2020 (1026) PAGE 1 Signed Report GLUBED 2019-10-24 10:43:00* Test Item Value Reference Range Interpretation Comments GLUBED (test code = GLUBED) 179 MG/DL 70-110 H Performed by certified speed operator at [facility] BASIC METABOLIC FKEES0042-31-04 09:49:00* Test Item Value Reference Range Interpretation [...] code = CA) 8.7 mg/dL 8.0-10.5 N STGWFU6959-14-97 07:56:00* Test Item Value Reference Range Interpretation Comments GLUBED (test code = GLUBED) 119 MG/DL 70-110 H Performed by certified speed operator at [facility] [id number] 21:55:00* Test Item Value Reference Range Interpretation Comments GLUBED (test code = GLUBED) 180 MG/DL 70-110 H Performed by certified speed operator at [facility] DXCUUF6095-70-26 08:51:00* Test Item Value Reference Range Interpretation Comments GLUBED (test code = GLUBED) 122 MG/DL 70-110 H Performed by certified speed operator at [facility] - XR CHEST 2 [id number] 09:28:00 FAX: Michael Kemp MD [phone] [place]: [address]: PRE Name: MICHELLE LEES [facility] : [birth year] Age/S: 69/M [address] [place] [address] Unit #: [id number] Loc: [place] [address] Phys: Michael Brambila MD Acct: [id number] Dis Date: Status: PRE SDC PHONE #: [phone] Exam Date: 10/20/2019 0859 FAX #: [phone] Reason: PREOP PCI LAD AND CIR EXAMS: CPT CODE: [id number] XR CHEST 2 V 65110 CHEST RADIOGRAPHS - PA AND LATERAL : COMPARISON: September 22, 2019 CLINICAL HISTORY: P REOP PCI LAD AND CIR Cardiomediastinal silhouette is borderline in size. Lungs are clear. No vascular congestion or p neumothorax. Spondylotic changes are present in the thoracic spin e and lumbar spine. IMPRESSION: No acut e pulmonary abnormality. at 0928 Reported and signed by: Bhavesh pierre M.D. CC: Michael Brambila MD Technologist: RT Elizabeth(R) T rnscrd Date/Time/By: 10/20/2019 (927) : By: [email or web address] [facility] Print D/T: S: 10/20/2019 (9577) PAGE 1 Sign ed Report PROTHROMBIN [id number] 09:26:00* Test Item Value Reference Range Interpretation [...] Infarction (to prevent recurrent infarct). BASIC METABOLIC [id number] 09:25:00* Test Item Value Reference Range Interpretation [...] CA) 9.7 mg/dL 8.0-10.5 N BASIC METABOLIC [id number] 09:16:00* Test Item Value Reference Range Interpretation [...] CA) 9.7 mg/dL 8.0-10.5 N CBC W/AUTO [id number] 09:06:00* Test Item Value Reference Range Interpretation [...] DIFF REQUIRED (test code = MDIFF) NO [id number] 09:35:00* Test Item Value Reference Range Interpretation Comments GLUBED (test code = GLUBED) 226 MG/DL 70-110 H Performed by certified speed operator at [facility] BASIC METABOLIC EYDTQ6790-90-85 04:56:00* Test Item Value Reference Range Interpretation [...] CA) 8.3 mg/dL 8.0-10.5 N CBC W/AUTO [id number] 04:43:00* Test Item Value Reference Range Interpretation [...] DIFF REQUIRED (test code = MDIFF) NO [id number] 20:54:00* Test Item Value Reference Range Interpretation Comments GLUBED (test code = GLUBED) 250 MG/DL 70-110 H Performed by certified speed operator at [facility] [id number] 15:13:00* Test Item Value Reference Range Interpretation Comments GLUBED (test code = GLUBED) 144 MG/DL 70-110 H Performed by certified speed operator at [facility] BICLKG2034-88-58 09:01:00* Test Item Value Reference Range Interpretation Comments GLUBED (test code = GLUBED) 128 MG/DL 70-110 H Performed by certified speed operator at [facility] - XR CHEST 2 [id number] 10:59:00 FAX: Michael Kemp MD [phone] [place]: St: PRE Name: MICHELLE LEES [facility] [place] : [birth year] Age/S: 69/M [address] [place] [address] Unit #: [id number] Loc: [place] [address] Phys: Michael Brambila MD Acct: [id number] Dis Date: Status: PRE SDC PHONE #: [phone] Exam Date: 09/22/20191050 FAX #: [phone] Reason: PRE-OP PCI EXAMS: CPT CODE: [id number] XR CHEST 2 V 91324 EXAM: PA and lateral chest. EXAM DATE: September 22, 2019 CLINICAL HISTORY: PRE-OP PCI COMPARISON: June 05, 2012 Cardiomegaly is noted i ncreased since the prior exam.. The lungs appear free of acute disease. Degenerative changes are identified in the intrathoracic spine. IMPRESSION: Progressive cardiomegaly. No acute findings are identi fied. at 1054 Reported and signed by: Haritha Baltazar M.D. CC: Felice Brambila MD Technologist: Taylor alvarado, RT(R)(M) Trnscrd Date/Time/By: 09/22/2019 (3342 ) : By: Ary Orig Print D/T: S: 09/22/2019 (6612) PAGE 1 Signed Report BASIC METABOLIC [id number] 10:13:00* Test Item Value Reference Range Interpretation [...] CA) 9.3 mg/dL 8.0-10.5 N BASIC METABOLIC [id number] 10:09:00* Test Item Value Reference Range Interpretation [...] = CA) 9.3 mg/dL 8.0-10.5 N PROTHROMBIN [id number] 10:03:00* Test Item Value Reference Range Interpretation [...] Infarction (to prevent recurrent infarct). CBC W/AUTO [id number] 09:56:00* Test Item Value Reference Range Interpretation [...] REQUIRED (test code = MDIFF) NO Bedside Qpjalzp3524-31-73 07:38:00* Test Item Value Reference Range Interpretation Comments Bedside Glucose (test code = 15549-2) 144 70-120 H Meter ID: [id number] County HospitalCreatine Kinase MB 2019-09-14 12:11:00* Test Item Value Reference Range Interpretation Comments Creatine Kinase MB (test code = 26780-7) 3.00 0-5.0 [facility] CenterTroponin [id number] 12:11:00* Test Item Value Reference Range Interpretation Comments Troponin I (test code = JBN2922) < 0.001 0-0.300 [facility] CenterCreatine Xbcwwi4449-65-30 12:07:00* Test Item Value Reference Range Interpretation Comments Creatine Kinase (test code = 2157-6) 156 30-200 [facility] CenterTriglycerides Bilzt5920-39-55 05:28:00* Test Item Value Reference Range Interpretation Comments Triglycerides Level (test code = 2571-8) 108 0-149 [facility] CenterCholesterol Ygsic9666-31-14 05:28:00* Test Item Value Reference Range Interpretation Comments Cholesterol Level (test code = 2093-3) 188 0-199 Less than 200 mg/dL Low Bcfz712 - 239 mg/dL Borderline Jupa636 m g/dl and greater High Risk [facility] CenterLDL Quunrdircaf5952-13-76 05:28:00* Test Item Value Reference Range Interpretation Comments LDL Cholesterol (test code = 2089-1) 125 60-130 [facility] CenterHDL Obvznnaivno5159-80-64 05:28:00* Test Item Value Reference Range Interpretation Comments HDL Cholesterol (test code = 2085-9) 41 40-60 [facility] CenterCholesterol/HDL Zmomn7471-69-20 05:28:00 * Test Item Value Reference Range Interpretation Comments Cholesterol/HDL Ratio (test code = 9830-1) 4.6 3.9-4.7 [facility] CenterBlood Urea Vrlizsxi3289-16-58 05:27:00* Test Item Value Reference Range Interpretation Comments Blood Urea Nitrogen (test code = 3094-0) 22 7-26 [facility] CenterBUN/Creatinine Ztnct2872-80-76 05:27:00* Test Item Value Reference Range Interpretation Comments BUN/Creatinine Ratio (test code = 3097-3) 18 6-25 [facility] CenterAspartate Amino Transf (AST/SGOT) 2019-09-14 05:27:00* Test Item Value Reference Range Interpretation Comments Aspartate Amino Transf (AST/SGOT) (test code = Aspartate Amino Transf (AST/SGOT)) 41 5-34 H [facility] CenterAlanine Aminotransferase (ALT/SGPT) 2019-09-14 05:27:00* Test Item Value Reference Range Interpretation Comments Alanine Aminotransferase (ALT/SGPT) (test code = 1742-6) 70 0-55 H [facility] Centerodium Loqhf4674-20-05 05:02:00* Test Item Value Reference Range Interpretation Comments Sodium Level (test code = 2951-2) 138 136-145 [facility] CenterPotassium Ipuib3261-48-10 05:02:00* Test Item Value Reference Range Interpretation Comments Potassium Level (test code = 2823-3) 3.9 3.5-5.1 [facility] CenterChloride Uqmsu2847-25-71 05:02:00* Test Item Value Reference Range Interpretation Comments Chloride Level (test code = 2075-0) 102 98-107 [facility] CenterCarbon Dioxide Kgsej1056-20-11 05:02:00* Test Item Value Reference Range Interpretation Comments Carbon Dioxide Level (test code = 2028-9) 25 22-29 [facility] CenterAnion Vrj0837-44-81 05:02:00* Test Item Value Reference Range Interpretation Comments Anion Gap (test code = 74315-3) 14.9 8-16 [facility] CenterCreatinine2019-11-14 05:02:00* Test Item Value Reference Range Interpretation Comments Creatinine (test code = 2160-0) 1.19 0.72-1.25 [facility] CenterEstimat Glomerular Filtration Rate 2019-09-14 05:02:00* Test Item Value Reference Range Interpretation Comments Estimat Glomerular Filtration Rate (test code = 694662056) > 60 >60 Ranges were taken from the National Kidney Disease Education Program and the [facility] literature.Reference ranges:60 or greater: Erjdac39-56 ( for 3 consecutive months): Chronic kidney disease 15 or less: Kidney failureDallas Regional Medical CenterGlucose Hztyj0799-20-20 05:02:00* Test Item Value Reference Range Interpretation Comments Glucose Level (test code = UOL6508) 127 74-118 H [facility] CenterCalcium Mprgn1829-94-68 05:02:00* Test Item Value Reference Range Interpretation Comments Calcium Level (test code = 36443-5) 9.7 8.4-10.2 [facility] CenterTotal Qexvsrwuv1515-28-99 05:02:00* Test Item Value Reference Range Interpretation Comments Total Bilirubin (test code = 1975-2) 0.5 0.2-1.2 [facility] CenterTotal Mwynytu7734-20-84 05:02:00* Test Item Value Reference Range Interpretation Comments Total Protein (test code = 2885-2) 7.0 6.5-8.1 [facility] CenterAlbumin2019-11-14 05:02:00* Test Item Value Reference Range Interpretation Comments Albumin (test code = 1751-7) 3.6 3.5-5.0 [facility] CenterGlobulin2019-11-14 05:02:00* Test Item Value Reference Range Interpretation Comments Globulin (test code = 00081-7) 3.4 2.3-3.5 [facility] CenterAlbumin/Globulin Bthbn2780-57-02 05:02:00 * Test Item Value Reference Range Interpretation Comments Albumin/Globulin Ratio (test code = 1759-0) 1.1 0.8-2.0 [facility] CenterAlkaline Ombltngfabi2641-57-59 05:02:00* Test Item Value Reference Range Interpretation Comments Alkaline Phosphatase (test code = 6768-6) 81 40-150 [facility] CenterWhite Blood Ecsqe1944-31-37 04:40:00* Test Item Value Reference Range Interpretation Comments White Blood Count (test code = 6690-2) 6.34 4.8-10.8 [facility] CenterRed Blood Rubrj8043-12-63 04:40:00* Test Item Value Reference Range Interpretation Comments Red Blood Count (test code = 789-8) 4.35 4.3-5.7 [facility] CenterHemoglobin2019-11-14 04:40:00* Test Item Value Reference Range Interpretation Comments Hemoglobin (test code = 42244-3) 13.5 14.0-18.0 L [facility] CenterHematocrit2019-11-14 04:40:00* Test Item Value Reference Range Interpretation Comments Hematocrit (test code = 4544-3) 40.3 38.2-49.6 [facility] CenterMean Corpuscular Iihjob5484-68-09 04:40:00* Test Item Value Reference Range Interpretation Comments Mean Corpuscular Volume (test code = 787-2) 92.6 81-99 [facility] CenterMean Corpuscular Znkmeciidk4986-46-49 04:40:00* Test Item Value Reference Range Interpretation Comments Mean Corpuscular Hemoglobin (test code = 785-6) 31.0 28-32 [facility] CenterMean Corpuscular Hemoglobin Concent 2019-09-14 04:40:00* Test Item Value Reference Range Interpretation Comments Mean Corpuscular Hemoglobin Concent (test code = 786-4) 33.5 31-35 [facility] CenterRed Cell Distribution Wublm9275-71-60 04:40:00* Test Item Value Reference Range Interpretation Comments Red Cell Distribution Width (test code = 99632-6) 13.0 11.7 -14.4 [facility] CenterPlatelet Vzupk5874-41-13 04:40:00* Test Item Value Reference Range Interpretation Comments Platelet Count (test code = 777-3) 223 140-360 [facility] CenterNeutrophils (%) (Auto)2019-09-14 04:40:00 * Test Item Value Reference Range Interpretation Comments Neutrophils (%) (Auto) (test code = 24422-1) 72.5 38.7-80.0 [facility] CenterLymphocytes (%) (Auto)2019-09-14 04:40:00 * Test Item Value Reference Range Interpretation Comments Lymphocytes (%) (Auto) (test code = 736-9) 13.9 18.0-39.1 L [facility] CenterMonocytes (%) (Auto)2019-09-14 04:40:00* Test Item Value Reference Range Interpretation Comments Monocytes (%) (Auto) (test code = 5905-5) 8.8 4.4-11.3 [facility] CenterEosinophils (%) (Auto)2019-09-14 04:40:00 * Test Item Value Reference Range Interpretation Comments Eosinophils (%) (Auto) (test code = 713-8) 3.5 0.0-6.0 [facility] CenterBasophils (%) (Auto)2019-09-14 04:40:00* Test Item Value Reference Range Interpretation Comments Basophils (%) (Auto) (test code = 706-2) 0.8 0.0-1.0 [facility] CenterIM GRANULOCYTES %2019-09-14 04:40:00* Test Item Value Reference Range Interpretation Comments IM GRANULOCYTES % (test code = IM GRANULOCYTES %) 0.5 0.0- 1.0 [facility] CenterNeutrophils # (Auto)2019-09-14 04:40:00* Test Item Value Reference Range Interpretation Comments Neutrophils # (Auto) (test code = 751-8) 4.6 2.1-6.9 [facility] CenterLymphocytes # (Auto)2019-09-14 04:40:00* Test Item Value Reference Range Interpretation Comments Lymphocytes # (Auto) (test code = 35978-7) 0.9 1.0-3.2 L [facility] CenterMonocytes # (Auto)2019-09-14 04:40:00* Test Item Value Reference Range Interpretation Comments Monocytes # (Auto) (test code = 742-7) 0.6 0.2-0.8 [facility] CenterEosinophils # (Auto)2019-09-14 04:40:00* Test Item Value Reference Range Interpretation Comments Eosinophils # (Auto) (test code = 711-2) 0.2 0.0-0.4 [facility] CenterBasophils # (Auto)2019-09-14 04:40:00* Test Item Value Reference Range Interpretation Comments Basophils # (Auto) (test code = 704-7) 0.1 0.0-0.1 [facility] CenterAbsolute Immature Granulocyte (auto 2019-09-14 04:40:00* Test Item Value Reference Range Interpretation Comments Absolute Immature Granulocyte (auto (francia t code = Absolute Immature Granulocyte (auto) 0.03 0-0.1 [facility] CenterB-Type Natriuretic Rrgrdcb2478-60-88 09:23:00* Test Item Value Reference Range Interpretation Comments B-Type Natriuretic Peptide (test code = 10088-0) 793.9 0-100 H [facility] CenterMagnesium Nidog2466-49-20 09:19:00* Test Item Value Reference Range Interpretation Comments Magnesium Level (test code = 93288-6) 1.8 1.3-2.1 [facility] CenterProthrombin Grfp8908-95-36 09:09:00* Test Item Value Reference Range Interpretation Comments Prothrombin Time (test code = 5902-2) 14.0 11.9-14.5 [facility] CenterProthromb Time International Ratio 2019-09-13 09:09:00* Test Item Value Reference Range Interpretation Comments Prothromb Time International Ratio (test code = 6301-6) 1.03 Oral Anticoagulant Therapy INR Values:1. Low Intensity Therapy 1.5 - 2.02 . Moderate Intensity Therapy 2.0 - 3.03. High Intensity Therapy(1) 2.5 - 3. 54. High Intensity Therapy(2) 3.0 - 4.05. Panic Value INR > 5.0 [facility] CenterActivated Partial Thromboplast Time 2019-09-13 09:09:00* Test Item Value Reference Range Interpretation Comments Activated Partial Thromboplast Time (test code = 23131-1) 33.8 23.8-35.5 [facility] CenterUrine WJG3391-33-65 09:06:00* Test Item Value Reference Range Interpretation Comments Urine WBC (test code = 5821-4) 6-10 0-5 H [facility] Center[facility] CAP1122-67-74 09:06:00* Test Item Value Reference Range Interpretation Comments Urine RBC (test code = 16551-7) 0-5 0-5 [facility] Owzxfljv2196-44-74 09:06:00* Test Item Value Reference Range Interpretation Comments Urine Bacteria (test code = 80767-5) RARE NONE [facility] Epithelial Xpfbk0810-40-18 09:06:00 * Test Item Value Reference Range Interpretation Comments Urine Epithelial Cells (test code = 92027-4) FEW NONE [facility] Txbvl9572-25-30 09:01:00* Test Item Value Reference Range Interpretation Comments Urine Color (test code = 5778-6) YELLOW YELLOW [facility] Vkdpaqd9889-21-43 09:01:00* Test Item Value Reference Range Interpretation Comments Urine Clarity (test code = 32073-5) CLEAR CLEAR [facility] CenterU[facility] Specific Dzuoqbj5877-89-34 09:01:00 * Test Item Value Reference Range Interpretation Comments Urine Specific [place] (test code = 5811-5) <=1.005 1.010-1.02 5 [facility] zE6638-51-27 09:01:00* Test Item Value Reference Range Interpretation Comments Urine pH (test code = 38939-8) 6 5-7 [facility] Leukocyte Xfimajyy6413-40-22 09:01:00* Test Item Value Reference Range Interpretation Comments Urine Leukocyte Esterase (test code = 05471-3) NEGATIVE NEGATIV E [facility] Jivuiek9294-32-01 09:01:00* Test Item Value Reference Range Interpretation Comments Urine Nitrite (test code = 12085-3) NEGATIVE NEGATIVE [facility] Jzbatcl4771-69-03 09:01:00* Test Item Value Reference Range Interpretation Comments Urine Protein (test code = 42443-2) NEGATIVE NEGATIVE [facility] Glucose (UA)2019-09-13 09:01:00* Test Item Value Reference Range Interpretation Comments Urine Glucose (UA) (test code = 25714-3) NEGATIVE NEGATIVE [facility] Vfobebl1214-41-84 09:01:00* Test Item Value Reference Range Interpretation Comments Urine Ketones (test code = 03574-2) NEGATIVE NEGATIVE [facility] Wspquqgmyuri1070-88-28 09:01:00* Test Item Value Reference Range Interpretation Comments Urine Urobilinogen (test code = 45875-4) 0.2 0.2-1 [facility] Pbjdkutcr2939-60-66 09:01:00* Test Item Value Reference Range Interpretation Comments Urine Bilirubin (test code = 1977-8) NEGATIVE NEGATIVE [facility] Czmvj7979-67-33 09:01:00* Test Item Value Reference Range Interpretation Comments Urine Blood (test code = 80059-9) NEGATIVE NEGATIVE [facility] CenterCHEST SINGLE (PORTABLE)2019-09-13 08:54:00 [place] [address] Patient Name: MICHELLE LY MR #: [id number] : 1950 Age/Sex: 69/M Req #: [id number] Adm Physician: Ordered by: SHOSHANA SANCHEZ MD Report #: [id number] Location: ER Room/Bed: Procedure: [id number] DX/ CHEST SINGLE (PORTABLE) Exam Date: 09/13/19 [...] on 09/13/19855 COPY TO: SHOSHANA SANCHEZ MD Urine color jodlakynooxko0992-75-82 07:40:00* Test Item Value Reference Range Interpretation Comments Urine Color (test code = 5778-6) YELLOW YELLOW [facility] vcjildc2063-94-57 07:40:00* Test Item Value Reference Range Interpretation Comments Urine Clarity (test code = 06657-3) [facility]AR [facility] by Test strip 2019-09-13 07:40:00* Test Item Value Reference Range Interpretation Comments Urine Specific [place] (test code = 5811-5) <=1.005 1.010-1.02 5 [facility] Center[facility] pH measurement by automated test iyrpn4476-38-47 07:40:00* Test Item Value Reference Range Interpretation Comments Urine pH (test code = 02238-3) 6 5-7 [facility] CenterU[facility] leukocyte esterase detection by automated test odusu9856-41-13 07:40:00* Test Item Value Reference Range Interpretation Comments Urine Leukocyte Esterase (test code = 13200-6) NEGATIVE NEGATIV E [facility] CenterU[facility] nitrite detection by automated test xiize7250-20-70 07:40:00* Test Item Value Reference Range Interpretation Comments Urine Nitrite (test code = 30942-6) NEGATIVE NEGATIVE [facility] CenterU[facility] protein detection by automated test eddtb9974-81-85 07:40:00* Test Item Value Reference Range Interpretation Comments Urine Protein (test code = 64749-9) NEGATIVE NEGATIVE [facility] CenterU[facility] glucose detection by automated test sylpx0078-03-54 07:40:00* Test Item Value Reference Range Interpretation Comments Urine Glucose (UA) (test code = 29228-8) NEGATIVE NEGATIVE [facility] CenterU[facility] ketones detection by automated test gkpzd0964-77-79 07:40:00* Test Item Value Reference Range Interpretation Comments Urine Ketones (test code = 34440-2) NEGATIVE NEGATIVE [facility] CenterUrine urobilinogen measurement by test strip (mass/volume)2019-09-13 07:40:00* Test Item Value Reference Range Interpretation Comments Urine Urobilinogen (test code = 53699-9) 0.2 0.2-1 [facility] CenterU[facility] total bilirubin wrmgifsdp6173-42-02 07:40:00* Test Item Value Reference Range Interpretation Comments Urine Bilirubin (test code = 1977-8) NEGATIVE NEGATIVE [facility] CenterU[facility] erythrocytes cyulgpcdv1802-16-55 07:40:00* Test Item Value Reference Range Interpretation Comments Urine Blood (test code = 37557-9) NEGATIVE NEGATIVE [facility] CenterAutomated urine sediment leukocyte count by microscopy (number/high power field)2019-09-13 07:40:00* Test Item Value Reference Range Interpretation Comments Urine WBC (test code = 5821-4) 6-10 0-5 [facility] CenterErythrocytes detection in urine sediment by light vjfmciwajn2582-83-13 07:40:00* Test Item Value Reference Range Interpretation Comments Urine RBC (test code = 10506-4) 0-5 0-5 [facility] CenterBacteria detection in urine sediment by light mawyyzflgj6963-54-18 07:40:00* Test Item Value Reference Range Interpretation Comments Urine Bacteria (test code = 52419-8) RARE NONE [facility] CenterEpithelial cells detection in urine sediment by light guyijrwtee2356-67-06 07:40:00* Test Item Value Reference Range Interpretation Comments Urine Epithelial Cells (test code = 48613-0) FEW NONE [facility] Centererum or plasma magnesium measurement (mass/volume)2019-09-13 07:40:00* Test Item Value Reference Range Interpretation Comments Magnesium Level (test code = 37526-4) 1.8 1.3-2.1 [facility] CenterTriglycerides Sotgu6966-64-72 05:28:00* Test Item Value Reference Range Interpretation Comments Triglycerides Level (test code = 2571-8) 146 0-149 [facility] CenterCholesterol Xsxnq8658-00-60 05:28:00* Test Item Value Reference Range Interpretation Comments Cholesterol Level (test code = 2093-3) 224 0-199 H Less than 200 mg/dL Low Zjmd496 - 239 mg/dL Borderline Ukdm817 m g/dl and greater High Risk [facility] CenterLDL Kmhygxgopez2630-65-47 05:28:00* Test Item Value Reference Range Interpretation Comments LDL Cholesterol (test code = 2089-1) 147 60-130 H [facility] CenterHDL Klfxdrfcexg3542-92-88 05:28:00* Test Item Value Reference Range Interpretation Comments HDL Cholesterol (test code = 2085-9) 48 40-60 [facility] CenterCholesterol/HDL Hxcrz5665-83-59 05:28:00 * Test Item Value Reference Range Interpretation Comments Cholesterol/HDL Ratio (test code = 9830-1) 4.7 3.9-4.7 [facility] CenterCreatine Kinase BO4290-98-54 02:54:00* Test Item Value Reference Range Interpretation Comments Creatine Kinase MB (test code = 03743-3) 1.10 0-5.0 [facility] CenterTroponin M8083-99-25 02:54:00* Test Item Value Reference Range Interpretation Comments Troponin I (test code = GEH6346) 0.010 0-0.300 [facility] CenterCreatine Elroqa2024-73-34 02:27:00* Test Item Value Reference Range Interpretation Comments Creatine Kinase (test code = 2157-6) 93 30-200 [facility] CenterU[facility] XFX6438-07-29 19:15:00* Test Item Value Reference Range Interpretation Comments Urine WBC (test code = 5821-4) NONE 0-5 [facility] CenterU[facility] LCN1453-55-32 19:15:00* Test Item Value Reference Range Interpretation Comments Urine RBC (test code = 39979-8) NONE 0-5 [facility] CenterU[facility] Fuwvsrap2966-41-36 19:15:00* Test Item Value Reference Range Interpretation Comments Urine Bacteria (test code = 51757-8) NONE NONE [facility] CenterUrine Epithelial Ebdqk9297-86-22 19:15:00 * Test Item Value Reference Range Interpretation Comments Urine Epithelial Cells (test code = 98404-6) RARE NONE [facility] CenterU[facility] Layzp6834-18-26 19:15:00* Test Item Value Reference Range Interpretation Comments Urine Mucus (test code = 8247-9) FEW RARE H [facility] CenterUrine Jdffx5334-26-96 18:43:00* Test Item Value Reference Range Interpretation Comments Urine Color (test code = 5778-6) YELLOW YELLOW [facility] CenterUrine Yljqgzz4190-26-52 18:43:00* Test Item Value Reference Range Interpretation Comments Urine Clarity (test code = 17184-7) CLEAR CLEAR [facility] CenterU[facility] Specific Obasugf1843-29-19 18:43:00 * Test Item Value Reference Range Interpretation Comments Urine Specific [place] (test code = 5811-5) 1.020 1.010-1.02 5 [facility] CenterU[facility] dK5865-05-25 18:43:00* Test Item Value Reference Range Interpretation Comments Urine pH (test code = 37867-2) 5 5-7 [facility] CenterU[facility] Leukocyte Wbpjqlca7847-21-62 18:43:00* Test Item Value Reference Range Interpretation Comments Urine Leukocyte Esterase (test code = 5799-2) NEGATIVE NEGATIVE [facility] CenterU[facility] Ycrydsv7866-30-36 18:43:00* Test Item Value Reference Range Interpretation Comments Urine Nitrite (test code = 59921-4) NEGATIVE NEGATIVE [facility] CenterU[facility] Ezmdkcd0040-92-76 18:43:00* Test Item Value Reference Range Interpretation Comments Urine Protein (test code = 5804-0) NEGATIVE NEGATIVE [facility] CenterU[facility] Glucose (UA)2018-07-19 18:43:00* Test Item Value Reference Range Interpretation Comments Urine Glucose (UA) (test code = 2349-9) NEGATIVE NEGATIVE [facility] CenterU[facility] Wabdpqk2324-68-60 18:43:00* Test Item Value Reference Range Interpretation Comments Urine Ketones (test code = 42328-3) NEGATIVE NEGATIVE [facility] CenterU[facility] Ugamqwbrbivu5060-11-05 18:43:00* Test Item Value Reference Range Interpretation Comments Urine Urobilinogen (test code = 39194-5) 0.2 0.2-1 [facility] CenterU[facility] Fnzhmtwan0124-71-45 18:43:00* Test Item Value Reference Range Interpretation Comments Urine Bilirubin (test code = 1978-6) NEGATIVE NEGATIVE [facility] CenterU[facility] Nfjmk3115-64-15 18:43:00* Test Item Value Reference Range Interpretation Comments Urine Blood (test code = 20902-4) NEGATIVE NEGATIVE [facility] CenterCHEST SINGLE (NOT PORTABLE)2018-07-19 18:10:00 [place] [address] Patient Name: MICHELLE LY MR #: [id number] : 1950 Age/Sex: 67/M Req #: [id number] Adm Physician: Ordered by: BHARAT VELIZ MD Report #: [id number] Location: ER Room/Bed: Procedure: [id number] DX/CHEST SINGLE (NOT JOHNNY BLE) Exam Date: [...] COPY TO: BHARAT VELIZ MD B-Type Natriuretic Bygucmt8318-07-22 18:07:00* Test Item Value Reference Range Interpretation Comments B-Type Natriuretic Peptide (test code = 87371-0) 110.1 0-100 [facility]odium Tznpr0518-44-49 18:00:00* Test Item Value Reference Range Interpretation Comments Sodium Level (test code = 2951-2) 140 136-145 [facility] CenterPotassium Eohct6136-68-45 18:00:00* Test Item Value Reference Range Interpretation Comments Potassium Level (test code = 2823-3) 4.2 3.5-5.1 [facility] CenterChloride Veyra5908-86-12 18:00:00* Test Item Value Reference Range Interpretation Comments Chloride Level (test code = 2075-0) 104 98-107 [facility] CenterCarbon Dioxide Kuozn4609-76-13 18:00:00* Test Item Value Reference Range Interpretation Comments Carbon Dioxide Level (test code = 2028-9) 22 22-29 [facility] CenterAnion Nvf3631-91-43 18:00:00* Test Item Value Reference Range Interpretation Comments Anion Gap (test code = 59336-1) 18.2 8-16 H [facility] CenterBlood Urea Kakekfkr2019-89-22 18:00:00* Test Item Value Reference Range Interpretation Comments Blood Urea Nitrogen (test code = 3094-0) 17 7-26 [facility] CenterCreatinine2018-09-18 18:00:00* Test Item Value Reference Range Interpretation Comments Creatinine (test code = 2160-0) 1.02 0.72-1.25 [facility] CenterBUN/Creatinine Zzail8529-22-99 18:00:00* Test Item Value Reference Range Interpretation Comments BUN/Creatinine Ratio (test code = 3097-3) 17 6- [facility] CenterEstimat Glomerular Filtration Rate 2018-07-19 18:00:00* Test Item Value Reference Range Interpretation Comments Estimat Glomerular Filtration Rate (test code = 098387421) 60- >60 Ranges were taken from the National Kidney Disease Education Program and the [facility] Kidney Foundation literature.Reference ranges:60 or greater: Jfxfzb08-03 ( for 3 consecutive months): Chronic kidney disease 15 or less: Kidney failureD[facility] Regional Medical CenterGlucose Nzguq9171-35-23 18:00:00* Test Item Value Reference Range Interpretation Comments Glucose Level (test code = GYJ3094) 88 74-118 [facility] CenterCalcium Ievpz6485-66-71 18:00:00* Test Item Value Reference Range Interpretation Comments Calcium Level (test code = 76706-3) 9.8 8.4-10.2 [facility] CenterTotal Mqhubcysf4977-77-30 18:00:00* Test Item Value Reference Range Interpretation Comments Total Bilirubin (test code = 1975-2) 0.5 0.2-1.2 [facility] CenterAspartate Amino Transf (AST/SGOT) 2018-07-19 18:00:00* Test Item Value Reference Range Interpretation Comments Aspartate Amino Transf (AST/SGOT) (test code = Aspartate Amino Transf (AST/SGOT)) 37 5-34 H [facility] CenterAlanine Aminotransferase (ALT/SGPT) 2018-07-19 18:00:00* Test Item Value Reference Range Interpretation Comments Alanine Aminotransferase (ALT/SGPT) (test code = 1742-6) 61 0-55 H [facility] CenterTotal Ncoihrl5814-26-77 18:00:00* Test Item Value Reference Range Interpretation Comments Total Protein (test code = 2885-2) 7.9 6.5-8.1 [facility] CenterAlbumin2018-09-18 18:00:00* Test Item Value Reference Range Interpretation Comments Albumin (test code = 1751-7) 3.9 3.5-5.0 [facility] CenterGlobulin2018-09-18 18:00:00* Test Item Value Reference Range Interpretation Comments Globulin (test code = 95770-0) 4.0 2.3-3.5 H [facility] CenterAlbumin/Globulin Xxyzq8117-19-51 18:00:00 * Test Item Value Reference Range Interpretation Comments Albumin/Globulin Ratio (test code = 1759-0) 1.0 0.8-2.0 [facility] CenterAlkaline Yothvrjyjcw5077-57-76 18:00:00* Test Item Value Reference Range Interpretation Comments Alkaline Phosphatase (test code = 6768-6) 102 40-150 [facility] CenterProthrombin Hgas1343-49-52 17:48:00* Test Item Value Reference Range Interpretation Comments Prothrombin Time (test code = 5902-2) 12.6 11.9-14.5 [facility] CenterProthromb Time International Ratio 2018-07-19 17:48:00* Test Item Value Reference Range Interpretation Comments Prothromb Time International Ratio (test code = 6301-6) 1.02 Oral Anticoagulant Therapy INR Values:1. Low Intensity Therapy 1.5 - 2.02 . Moderate Intensity Therapy 2.0 - 3.03. High Intensity Therapy(1) 2.5 - 3. 54. High Intensity Therapy(2) 3.0 - 4.05. Panic Value INR > 5.0 [facility] CenterActivated Partial Thromboplast Time 2018-07-19 17:48:00* Test Item Value Reference Range Interpretation Comments Activated Partial Thromboplast Time (test code = 07769-5) 29.5 23.8-35.5 [facility] CenterWhite Blood Bxzaq0728-39-89 17:38:00* Test Item Value Reference Range Interpretation Comments White Blood Count (test code = 6690-2) 6.80 4.8-10.8 [facility] CenterRed Blood Xlszf0679-89-64 17:38:00* Test Item Value Reference Range Interpretation Comments Red Blood Count (test code = 789-8) 4.78 4.3-5.7 [facility] CenterHemoglobin2018-09-18 17:38:00* Test Item Value Reference Range Interpretation Comments Hemoglobin (test code = 07849-3) 15.3 14.0-18.0 [facility] CenterHematocrit2018-09-18 17:38:00* Test Item Value Reference Range Interpretation Comments Hematocrit (test code = 4544-3) 43.2 38.2-49.6 [facility] CenterMean Corpuscular Mjtyzu0203-28-64 17:38:00* Test Item Value Reference Range Interpretation Comments Mean Corpuscular Volume (test code = 787-2) 90.4 81-99 [facility] CenterMean Corpuscular Hibyryizye8490-47-03 17:38:00* Test Item Value Reference Range Interpretation Comments Mean Corpuscular Hemoglobin (test code = 785-6) 32.0 28-32 [facility] CenterMean Corpuscular Hemoglobin Concent 2018-07-19 17:38:00* Test Item Value Reference Range Interpretation Comments Mean Corpuscular Hemoglobin Concent (test code = 786-4) 35.4 31-35 H [facility] CenterRed Cell Distribution Lyfrl5836-43-26 17:38:00* Test Item Value Reference Range Interpretation Comments Red Cell Distribution Width (test code = 79407-5) 12.4 11.7 -14.4 [facility] CenterPlatelet Amren8752-75-04 17:38:00* Test Item Value Reference Range Interpretation Comments Platelet Count (test code = 777-3) 213 140-360 [facility] CenterNeutrophils (%) (Auto)2018-07-19 17:38:00 * Test Item Value Reference Range Interpretation Comments Neutrophils (%) (Auto) (test code = 26703-4) 55.2 38.7-80.0 [facility] CenterLymphocytes (%) (Auto)2018-07-19 17:38:00 * Test Item Value Reference Range Interpretation Comments Lymphocytes (%) (Auto) (test code = 736-9) 31.2 18.0-39.1 [facility] CenterMonocytes (%) (Auto)2018-07-19 17:38:00* Test Item Value Reference Range Interpretation Comments Monocytes (%) (Auto) (test code = 5905-5) 8.5 4.4-11.3 [facility] CenterEosinophils (%) (Auto)2018-07-19 17:38:00 * Test Item Value Reference Range Interpretation Comments Eosinophils (%) (Auto) (test code = 713-8) 4.1 0.0-6.0 [facility] CenterBasophils (%) (Auto)2018-07-19 17:38:00* Test Item Value Reference Range Interpretation Comments Basophils (%) (Auto) (test code = 706-2) 0.6 0.0-1.0 [facility] CenterIM GRANULOCYTES %2018-07-19 17:38:00* Test Item Value Reference Range Interpretation Comments IM GRANULOCYTES % (test code = IM GRANULOCYTES %) 0.4 0.0- 1.0 [facility] CenterNeutrophils # (Auto)2018-07-19 17:38:00* Test Item Value Reference Range Interpretation Comments Neutrophils # (Auto) (test code = 751-8) 3.8 2.1-6.9 [facility] CenterLymphocytes # (Auto)2018-07-19 17:38:00* Test Item Value Reference Range Interpretation Comments Lymphocytes # (Auto) (test code = 65732-2) 2.1 1.0-3.2 [facility] CenterMonocytes # (Auto)2018-07-19 17:38:00* Test Item Value Reference Range Interpretation Comments Monocytes # (Auto) (test code = 742-7) 0.6 0.2-0.8 [facility] CenterEosinophils # (Auto)2018-07-19 17:38:00* Test Item Value Reference Range Interpretation Comments Eosinophils # (Auto) (test code = 711-2) 0.3 0.0-0.4 [facility] CenterBasophils # (Auto)2018-07-19 17:38:00* Test Item Value Reference Range Interpretation Comments Basophils # (Auto) (test code = 704-7) 0.0 0.0-0.1 [facility] CenterAbsolute Immature Granulocyte (auto 2018-07-19 17:38:00* Test Item Value Reference Range Interpretation Comments Absolute Immature Granulocyte (auto (francia t code = Absolute Immature Granulocyte (auto) 0.03 0-0.1 [facility] CenterBEDSIDE GLUCOSE DTHTLEF2668-13-77 15:54:19391Iwaggpbz HermannBEDSIDE GLUCOSE IOHANYI2489-38-13 12:07:01167Fdswotuj PczvhilGGYSXHMKN2817-80-32 09:28:63127Jcoqajmi EgqnvswKWPYPTWCV1671-70-52 09:28:65540Zoidaybl LitkpumVWBAVTLOR0745-09-48 09:28:004.1[facility] YAKVNMPUI6364-78-71 09:28:0073[facility] XpqwvjvUPVWLVVGK0322-31-85 09:28:09443 [facility] HlaqiydQPZCIXPRU8717-42-01 09:28:0024[facility] HermannCHEMISTRY 2013-07-18 09:28:001.1[facility] WdeilpeRBCSLMULT3616-35-42 09:28:0028[facility] QgxkovdZOKVODDRY7021-02-89 09:28:009.0[facility] KfkslwxTINGNFJLN6681-31-48 09:28:0015.1[facility] IzbwkypBBCXOWGYIQ3725-96-29 09:28:00Normal (07/18/2013 04:28:00) [facility] UaclkohXCDTXDSXPH9316-49-13 09:28:00Normal (07/18/2013 04:28:00) [facility] NvkaeheIEJNJCYYQV7650-20-79 09:28:0076.1[facility] EFMULKISJA9184-40-84 09:28:000.9[facility] TmgwfwfQHOFMXILWN7844-26-73 09:28:001.5 [facility] UtaybijZCVUJXRRZM6135-52-04 09:28:000.1[facility] HermannHEMATOLOGY 2013-07-18 09:28:008.0[facility] XwwkryeSKIYSSADSS1278-70-84 09:28:0014.1[facility] KuegyztNVRQXBXGSX4690-14-51 09:28:000.0[facility] LnxioflWFQWCAXJRE0646-47-21 09:28:000.3[facility] PnbwvstAUPOAYXLBO1662-69-90 09:28:008.4[facility] Rafi DYIBJONXQD8696-99-71 09:28:001.1[facility] DhsotyyRSNABQCTAB7368-70-19 09:28:70396 [facility] KyirbxxWFMUKVCEAF8579-81-95 09:28:007.6[facility] HermannHEMATOLOGY 2013-07-18 09:28:0032.8[facility] EknaxoeVXNBNAQPEF2366-52-40 09:28:0013.6[facility] PaiuhckOPNYVDZYJC1099-15-86 09:28:005.01[facility] KcjkfcfEVURRRLKTK3695-10-13 09:28:0015.5[facility] YfnqkrnTEIEZTXIBT1397-41-37 09:28:00* Test Item Value Reference Range Interpretation Comments MCH (test code = MCH) 30.9 pg 27.0-31.0 N [facility] GjcrvtyDJUDOWKXZR9851-42-78 09:28:0047.1[facility] HermannHEMATOLOGY 2013-07-18 09:28:0094.0[facility] HjkmhjdJCSKSPJHJI1441-98-49 09:28:0010.5[facility] HermannBEDSIDE GLUCOSE ZRJIBMJ5225-70-43 22:14:65838Rzixnyqy HermannCHEMISTRY 2013-07-17 09:08:0014.2[facility] OsmqtqlXWJVYWOPQ7175-83-46 09:08:0065[facility] HqbgjakLQHGNEVHE5624-46-83 09:08:008.6[facility] PfivcdcMXXDOBLAR4380-21-89 09:08:0017[facility] PzkyyghCZFSVFRQL8125-20-52 09:08:13462Mqbjdlgy Rafi ALKHXUULH3348-32-26 09:08:0027[facility] UcntderBNGCKNUND4923-89-79 09:08:001.2 [facility] JyjhtviMXMQUDQXZ1467-07-06 09:08:41164Ghxtisbd HermannCHEMISTRY 2013-07-17 09:08:78184Lkuedilb QcnfpgjHJAIOVKKZ9183-59-77 09:08:004.2[facility] KoqqpfkXJNZLKMDU0238-11-40 09:08:004.53[facility] SwgsrikOPXACWDCW0967-95-55 09:08:08087Vuwqspft UoiqeizFRMBISQSS3303-40-95 09:08:0036[facility] HOZNLGTKP3578-13-81 09:08:0097[facility] QfbnfweQMXNOJBVS3915-27-28 09:08:73101 [facility] AygspsjCHJGXDSXQI0273-26-64 09:08:0076.1[facility] HermannHEMATOLOGY 2013-07-17 09:08:000.0[facility] IswedgyXGGOJVZUAW8094-02-40 09:08:000.2[facility] AvbhhdrCNJTBWVDXV3236-13-59 09:08:000.6[facility] ZkxjcxrWUDNPIFFHV2349-55-51 09:08:006.4[facility] NsdttzyLFSOTPQWAF8932-00-80 09:08:002.4[facility] NWIJWGOJYA6851-08-98 09:08:007.6[facility] CjylezfONHHZLGDRT6217-90-51 09:08:00 13.7[facility] JbxcchyWAOIAGOVXX5021-18-06 09:08:001.2[facility] HermannHEMATOLOGY 2013-07-17 09:08:000.2[facility] XkfbgreUBZVRTXVOO8959-19-37 09:08:007.9[facility] HxdjibtGDEYTXALOF6561-89-13 09:08:73295Yfjfkwrs CafxobuRSHFMDSWPP4180-41-01 09:08:008.4[facility] NmghkpmXTLJBRRCAI1906-60-38 09:08:004.61[facility] [place] WRHQDRLZRS6494-89-14 09:08:00* Test Item Value Reference Range Interpretation Comments MCH (test code = MCH) 30.8 pg 27.0-31.0 N [facility] PopyxqkAVTSUKNONY1167-05-75 09:08:0013.5[facility] HermannHEMATOLOGY 2013-07-17 09:08:0032.7[facility] McuyxsyIHTLHMOGUW9718-80-29 09:08:0094.0[facility] IgmzmblBBSCBCQRNK5114-73-84 09:08:0014.2[facility] WslbsqkWJAMKCPHSR0517-22-28 09:08:0043.3[facility] EzodwygPHBTWKDRPN4239-54-79 09:08:001.20[facility] RERYSMYZEX1020-02-10 09:08:00* Test Item Value Reference Range Interpretation Comments PT (test code = PT) 15.1 s 12.0-14.7 H [facility] EmdvrhoSRFWMTUBXH3015-24-04 09:08:00* Test Item Value Reference Range Interpretation Comments PTT (test code = PTT) 32.9 s 22.9-35.8 N [facility] QpvsnriQSGKFRNYJ5842-40-15 05:47:000.8[facility] HermannCHEMISTRY 2013-07-17 05:47:00<0.02[facility] SwafamvBSFYFFTYG0884-09-88 05:47:[id number] [id number] 05:47:001.1[facility] IpzunbtRAJGZFABV7238-08-79 23:48:492.2[facility] RllgvjwWJGWWIOWY0869-19-11 23:48:49<0.02[facility] [place] [id number] 23:48:68290Ubyeqlfh UsmfhbwGFZVYGAZQ5974-97-13 23:48:492.0 [facility] ZayhletSUGBZZKBO5417-44-15 23:48:272.1[facility] HermannCHEMISTRY 2013-07-16 23:48:278.0[facility] DsmmrduASYQXACBJ0976-98-17 23:48:242.790[facility] HkbmfxcZBCNBVVST1057-90-13 23:48:2435[facility] OedfdbwTFIAKILKM2311-46-65 23:48:2412.0[facility] HtlydzuBZCZOJVCL1542-89-41 23:48:244.2[facility] Rafi
--- NOTE | 2020-07-08 13:03 | Emergency Department Note ---
History of Present Illnes History of Present Illness Chief Complaint: Respiratory History of Present Illness This is a 69 year old male arrived to the ED with complaints of dyspne a, worse on exertion admitted to [facility] for this last week. Chief Complaint Comment PATIENT IN FROM HOME WITH COMPLAINTS OF SHORTNESS OF BREATH, WORSE ON EXERTION. PATIENT WITH A HISTORY OF CHF. STATES WAS SEEN AT [facility] ON WEDNESDAY, BUT LEFT BECAUSE HE DID NOT WANT TO WAIT FOR A ROOM. PATIENT ALERT AND ORIENTED, RESP EVEN AND NONLABORED, TACHYPNEIC, O2 SATS 98% ON ROOM AIR. Historian: Patient Arrival Mode: Car Radiation: Reports non-radiation Severity: mild Onset quality: gradual Duration (how long): day(s) Past Medical/Family History Physician Review I have reviewed the patient's past medical and family history. Any updates have been documented here. Past Medical History Recent Fever: No Clinical Suspicion of Infectio: No New/Unexplained Change in Ment: No Past Medical History: Hypertension, Diabetes, CHF, CVA, Hyperlipedemia Other Medical History: FATHERS SIDE OF FAMILY Past Surgical History: Knee Replacement, Back Surgery, Cataract Removal Other Surgery: "FLUID REMOVED FROM LUNG" Social History Smoking Cessation: Never Smoker Counseling Performed: No Alcohol Use: None Any Illegal Drug Use: No Other Last Tetanus: UNKNOWN Any Pre-Existing Lines (PICC,: No Review of Systems Review of Systems Constitutional: Reports no symptoms EENTM: Reports no symptoms Cardiovascular: Reports no symptoms Respiratory: Reports as per HPI, Reports dyspnea, Reports dyspnea on exertion Gastrointestinal: Reports no symptoms Genitourinary: Reports no symptoms Musculoskeletal: Reports no symptoms Integumentary: Reports no symptoms Neurological: Reports no symptoms Psychological: Reports no symptoms Endocrine: Reports no symptoms Hematological/Lymphatic: Reports no symptoms Physical Exam Related Data Allergies: Coded Allergies: No Known Allergies (Unverified , 07/08/20) Triage Vital Signs Vital Signs Date Time Temp Pulse Resp B/P (MAP) Pulse Ox O2 Delivery O2 Flow Rate FiO2 07/08/20 12:23 97.5 94 26 116/78 98 Room Air Vital signs reviewed: Yes Physical Exam CONSTITUTIONAL Constitutional: Present well-developed, Present well-nourished HENT HENT: Present normocephalic, Present atraumatic, Present oropharynx clear/moist, Present nose normal HENT L/R: Present left ext ear normal, Present right ext ear normal EYES Eyes: Reports PERRL, Reports conjunctivae normal NECK Neck: Present ROM normal PULMONARY Pulmonary: Present effort normal, Present respiratory distress CARDIOVASCULAR Cardiovascular: Present regular rhythm, Present heart sounds normal, Present capillary refill normal, Present tachycardia, Present LLE edema, Present RLE edema GASTROINTESTINAL Abdominal: Present soft, Present nontender, Present bowel sounds normal GENITOURINARY Genitourinary: Present exam deferred SKIN Skin: Present warm, Present dry MUSCULOSKELETAL Musculoskeletal: Present ROM normal NEUROLOGICAL Neurological: Present alert, Present oriented x 3, Present no gross motor or sensory deficits PSYCHOLOGICAL Psychological: Present mood/affect normal, Present judgement normal Results Laboratory Lab results reviewed: Yes Laboratory comments Laboratory Tests Test 07/08/20 12:30 White Blood Count 6.36 x10e3/uL (4.8-10.8) Red Blood Count 4.01 x10e6/uL (4.3-5.7) Hemoglobin 12.4 g/dL (14.0-18.0) Hematocrit 37.6 % (38.2-49.6) Mean Corpuscular Volume 93.8 fL (81-99) Mean Corpuscular Hemoglobin 30.9 pg (28-32) Mean Corpuscular Hemoglobin Concent 33.0 g/dL (31-35) Red Cell Distribution Width 13.8 % (11.7-14.4) Platelet Count 287 x10e3/uL (140-360) Neutrophils (%) (Auto) 72.2 % (38.7-80.0) Lymphocytes (%) (Auto) 12.6 % (18.0-39.1) Monocytes (%) (Auto) 11.3 % (4.4-11.3) Eosinophils (%) (Auto) 2.8 % (0.0-6.0) Basophils (%) (Auto) 0.6 % (0.0-1.0) Neutrophils # (Auto) 4.6 (2.1-6.9) Lymphocytes # (Auto) 0.8 (1.0-3.2) Monocytes # (Auto) 0.7 (0.2-0.8) Eosinophils # (Auto) 0.2 (0.0-0.4) Basophils # (Auto) 0.0 (0.0-0.1) Absolute Immature Granulocyte (auto 0.03 x10e3/uL (0-0.1) Sodium Level 136 mmol/L (136-145) Potassium Level 4.3 mmol/L (3.5-5.1) Chloride Level 103 mmol/L (98-107) Carbon Dioxide Level 20 mmol/L (22-29) Anion Gap 17.3 mmol/L (8-16) Blood Urea Nitrogen 28 mg/dL (7-26) Creatinine 1.72 mg/dL (0.72-1.25) Estimat Glomerular Filtration Rate 40 ML/MIN (60-) BUN/Creatinine Ratio 16 (6-25) Glucose Level 138 mg/dL (74-118) Calcium Level 8.9 mg/dL (8.4-10.2) Total Bilirubin 1.0 mg/dL (0.2-1.2) Aspartate Amino Transf (AST/SGOT) 40 IU/L (5-34) Alanine Aminotransferase (ALT/SGPT) 91 IU/L (0-55) Alkaline Phosphatase 119 IU/L (40-150) Creatine Kinase 93 IU/L (30-200) B-Type Natriuretic Peptide 1793.1 pg/mL (0-100) Total Protein 7.2 g/dL (6.5-8.1) Albumin 4.0 g/dL (3.5-5.0) Globulin 3.2 g/dL (2.3-3.5) Albumin/Globulin Ratio 1.3 (0.8-2.0) Imaging Imaging results reviewed: Yes Impressions IMPRESSION: Cardiomegaly with interstitial pulmonary edema. Developing multifocal infection can have a similar appearance in the proper clinical context. Signed by: Damon Pop MD on 07/08/2020 2:34 PM Assessment & Plan Medical Decision Making [facility] 69M arrived arrived to the ED with complaints of dyspnea on exertion Concerns of severe sepsis based on need for BIPAP at 1455. Blood cultures and lactic drawn Cefepime given Assessment & Plan Final Impression: (1) Pneumonia (2) Severe sepsis (3) CHF exacerbation Last Vital Signs Date Time Temp Pulse Resp B/P (MAP) Pulse Ox O2 Delivery O2 Flow Rate FiO2 07/08/20 12:23 97.5 94 26 116/78 98 Room Air Home Meds Reported Medications Multivit-Min/FA/Lycopen/Lutein (Centrum Silver Men Tablet) 1 Each Tablet, PO 06/29/20 Potassium Chloride (KLOR-CON M10) 10 Meq Tab.er.prt, PO DAILY 06/29/20 Atorvastatin Calcium* (LIPITOR*) 10 Mg Tablet, 20 MG PO QD17, TAB 06/29/20 Furosemide (FUROSEMIDE) 40 Mg Tablet, 40 MG PO Daily, #30 TAB 06/29/20 Clopidogrel Bisulfate* (PLAVIX) 75 Mg Tablet, 75 MG PO DAILY, #30 TAB 06/29/20 Discontinued Reported Medications Carvedilol (COREG) 3.125 Mg Tab, PO BID 06/29/20 Aspirin (ASPIRIN CHEW) 81 Mg Chew, 81 MG PO DAILY, #30 TAB 06/29/20 [place] DO Jul 08, 2020 13:02
[2020-07-08 14:06] LABS: BASOPHILS % 0.6 % (0.0-1.0); EOSINOPHILS # (AUTO) 0.2 (0.0-0.4); EOSINOPHILS % 2.8 % (0.0-6.0); HEMATOCRIT 37.6 % (38.2-49.6); HEMOGLOBIN 12.4 g/dL (14.0-18.0); LYMPHOCYTES # (AUTO) 0.8 (1.0-3.2); LYMPHOCYTES % 12.6 % (18.0-39.1); MEAN CORPUSCULAR HEMOGLOBIN 30.9 pg (28-32); MEAN CORPUSCULAR VOLUME 93.8 fL (81-99); MONOCYTES # (AUTO) 0.7 (0.2-0.8); MONOCYTES % 11.3 % (4.4-11.3); NEUTROPHILS # (AUTO) 4.6 (2.1-6.9); NEUTROPHILS % 72.2 % (38.7-80.0); PLATELET COUNT 287 x10e3/uL (140-360); RED BLOOD COUNT 4.01 x10e6/uL (4.3-5.7); RED CELL DISTRIBUTION WIDTH 13.8 % (11.7-14.4)
[2020-07-08 14:24] LABS: ALBUMIN/GLOBULIN RATIO 1.3 (0.8-2.0); ANION GAP 17.3 mmol/L (8-16); CALCIUM 8.9 mg/dL (8.4-10.2); CREATININE, SERUM 1.72 mg/dL (0.72-1.25); POTASSIUM 4.3 mmol/L (3.5-5.1)
--- NOTE | 2020-07-08 14:38 | Diagnostic Imaging Report ---
EXAMINATION: CHEST SINGLE (PORTABLE) INDICATION: Chest pain COMPARISON: Multiple prior chest radiographs including most recent on 06/28/2020 FINDINGS: TUBES and LINES: None. LUNGS: Normal lung volumes. There are prominent interstitial lung markings No consolidations. There is bibasilar atelectasis. PLEURA: No pleural effusion or pneumothorax. HEART AND MEDIASTINUM: The cardiac mediastinal silhouette is enlarged as before. BONES AND SOFT TISSUES: No acute osseous lesion. Soft tissues are unremarkable. UPPER ABDOMEN: No free air under the diaphragm. IMPRESSION: Cardiomegaly with interstitial pulmonary edema. Developing multifocal infection can have a similar appearance in the proper clinical context. Signed by: Damon Pop MD on 07/08/2020 2:34 PM
[2020-07-08] MEDS ORDERED: ASPIRIN 81 MG CHEW TAB PO ONE (14:45)
[2020-07-08] MEDS ORDERED: FUROSEMIDE INJ 10 MG/ML 4 ML VIAL IV ONE (14:45)
--- OUTSIDE RECORDS SUMMARY | 2020-07-08 14:52 | XMS REPORT | Continuity of Care Document ---
Author Author MICHELLE Kerr Social [employer] Address Unknown Phone Unavailable Care Team Providers Care [place] Name Role Phone [employer] Unavailable Un available Problems Problem Status Onset Date Classification Date Reported Comments Source S46.091A - INJ MUSC/TEND THE ROTATOR CUF Active 09/28/2017 [facility] [place] CHF -NEW ONSET, LF SIDED FACIAL TINGLING Active 07/16/2013 [facility] Right sided weakness Resolved Problem 07/20/2013 [facility] Right hemiparesis (disorder) R esolved Problem [facility] [place] CHF NOS Active [facility] Medications Medication Details Route Status Patient Instructions Ordering Provider Order Date Source Lasix 40 mg oral tablet 40 mg, 1 tab, Route: PO, Drug form: TAB, BID, Dosing Weight 91.818, kg, Start date: 07/18/13 17:00:00, Duration: 30 day, Stop date: 08/17/13 9:00:00 PO No Longer Active Daniel 07/18/2013 [facility] influenza virus vaccine, inactivated 0.5 ml, Route: IM, Drug Form: SUSP, Start date: 07/18/13 11:00:00, Stop date: 07/18/13 11:00:00 IM No Longer Active SYSTEM 07/02 [facility] Lasix 20 mg oral tablet 20 mg, 1 tab, PO, Daily, 30 tab, 0, 0, Substitution Allowed, TAB PO Active Jose Juan 07/18/2013 [facility] potassium chloride 10 mEq oral capsule, extended release 10 mEq, 1 cap, PO, BID, take it with fur osemide, 60 cap, Substitution Allowedtake it with furosemide PO Active Daniel 07/18/2013 [facility] lisinopril 5 mg oral tablet 5 mg, 1 tab, PO, Daily, 30 tab, Substitution Allowed, TAB PO Active Daniel 07/18/2013 [facility] glipiZIDE 2.5 mg oral tablet, extended release 2.5 mg, 1 tab, PO, Daily, 30 tab, Substitution Allowed, ERTAB PO Active Daniel 07/18/2013 [facility] Lasix 40 mg oral tablet 40 mg, 1 tab, PO, BID, 60 tab, Substitution Allowed, TAB PO No Longer Active Jose Juan 07/18/2013 [facility] carvedilol 6.25 mg oral tablet 6.25 mg, 1 tab, PO, BID, 60 tab, Substitution Allowed, TAB PO Active [facility] 07/18/2013 [facility] aspirin 81 mg tablet, enteric coated 81 mg, 1 tab, PO, Daily, 30 tab, Substitution Allowed, ECTAB PO Active [facility] 07/18/2013 [facility] Coreg 6.25 mg, 2 tab, Route: P O, Drug form: TAB, Q12H, Dosing Weight 91.818, kg, Start date: 07/17/13 21:00:00, Duration: 30 day, Stop date: 08/16/13 9:00:00 PO No Longer Active [facility] 07/18/2013 [facility] glipiZIDE 2.5 mg, 1 tab, Route : PO, Drug form: ERTAB, Daily, Dosing Weight 91.818, kg, Priority: NOW, Start date: 07/17/13 9:49:00, Duration: 30 day, Stop date: 08/16/13 9:00:00 PO No Longer Active [facility] 07/17/2013 [facility] pneumococcal 23-valent vaccine 0.5 ml, Route: IM, Drug Form: INJ, Daily, Start date: 07/17/13 9:00:00, Duration: 1 doses or times, Stop date: 07/17/13 9:00:00 IM No Longer Active SYSTEM 07/17/2013 [facility] furosemide 40 mg, 4 mL, Route: IVP, Drug form: INJ, BID, Dosing Weight 91.818, kg, Start date: 07/17/13 9:00:00, Duration: 30 day, Stop date: 08/15/13 17:00:00 IVP No Longer Active [facility] 07/17/2013 [facility] aspirin 81 mg tablet, enteric coated 81 mg, 1 tab, Route: PO, Drug form: ECTAB, Daily, Dosing Weight 91.818, kg, Start date: 07/17/13 9:00:00, Duration: 30 day, Stop date: 08/15/13 9:00:00 PO No Longer Active [facility] 07/17/2013 [facility] Saline Flush 0.9% 5 ml, Route: IVP, Drug Form: INJ, Dosing Weight 91.818, kg, Q12H, Start date: 07/16/13 21:00:00, Duration: 30 day, Stop date: 08/15/13 9:00:00 IVP No Longer Active [facility] 07/17/2013 [facility] nitroglycerin 0.4 mg sublingual tablet 0.4 mg, 1 tab, Route: SL, Drug form: TAB, Q5Min, PRN Chest Pain, Start date: 07/16/13 18:27:00, Duration: 30 day, Stop date: 08/15/13 18:26:00 SL No Longer Active [facility] 07/16/2013 [facility] atropine 0.5 mg, 5 mL, Route: IVP, Drug form: INJ, PRN, PRN Bradycardia, Start date: 07/16/13 18:27:00, Duration: 30 day, Stop date: 08/15/13 18:26:00 IVP No Longer Active [facility] 07/16/2013 [facility] lisinopril 5 mg, 1 tab, Route: PO, Drug form: TAB, Daily, Dosing Weight 91.818, kg, Priority: NOW, Start date: 07/16/13 18:14:00, Duration: 30 day, Stop date: 08/15/13 9:00:00 PO No Longer Active Jacobo 07/16/2013 [facility] temazepam 15 mg, 1 cap, Route: PO, Drug form: CAP, Bedtime, Dosing Weight 91.818, kg, PRN Insomnia, Start date: 07/16/13 18:11:00, Duration: 30 day, Stop date: 08/15/13 18:10:00 PO No Longer Active [facility] 07/16/2013 [facility] ondansetron 4 mg, 2 mL, Route: IVP, Drug form: INJ, Q8H, Dosing Weight 91.818, kg, PRN Nausea & Vomiting, Start date: 07/16/13 18:11:00, Duration: 30 day, Stop date: 08/15/13 18:10:00 IVP No Longer Active [facility] 07/16/2013 [facility] Saline Flush 0.9% 5 ml, Route: IVP, Drug Form: INJ, Dosing Weight 91.818, kg, PRN, PRN Line Flush, Start date: 07/16/13 18:11:00, Duration: 30 day, Stop date: 08/15/13 18:10:00 IVP No Longer Active Daniel 07/16/2013 [facility] Allergies, Adverse Reactions, Alerts No Known Medication Allergies Immunizations Immunization Date Given Site Status Last Updated Comments Source influenza virus vaccine, inactivated 07/18/2013 completed Faye [facility] influenza virus vaccine, inactivated 07/18/2013 Right deltoid completed Faye [facility] [place] pneumococcal 23-valent vaccine 07/17/2013 completed Elizabeth machado [facility] pneumococcal 23-valent vaccine 07/17/2013 Left Deltoid completed Smooth [facility] [place] Results Order Name Results Value Reference Range Date Interpretation Comments Source BEDSIDE GLUCOSE TESTING Gluc POC Com ment 1 Notify RN/MD 07/18/2013 NA [facility] BEDSIDE GLUCOSE TESTING Gluc POC 104 70 - 99 07/18/2013 [place] <sup>1</sup>Interpretive Data: Upper Reportable Limit: 200 mg/dL. [facility] BEDSIDE GLUCOSE TESTING Gluc POC 100 70 - 99 07/18/2013 [place] <sup>2</sup>Interpretive Data: Upper Reportable Limit: 200 mg/dL. [facility] CHEMISTRY Sodium Lvl 141 135 - 145 07/18/2013 Normal [facility] CHEMISTRY Chloride Lvl 102 95 - 109 07/18/2013 Normal [facility] CHEMISTRY Potassium Lvl 4.1 3.5 - 5.1 07/18/2013 Normal [facility] CHEMISTRY eGFR 73 07/18/2013 NA <sup>4</sup>Result [...] should be multiplied by the estimated BMI. [facility] CHEMISTRY Glucose Lvl 128 70 - 99 07/18/2013 [place] <sup>6</sup>Interpretive Data: Adult ref erence range values reflect the clinical guidelines
of the [place] [employer]. [facility] CHEMISTRY BUN 24 7 - 22 07/18/2013 [place] [facility] CHEMISTRY Creatinine Lvl 1.1 0.5 - 1.4 07/18/2013 Normal [facility] CHEMISTRY CO2 28 24 - 32 07/18/2013 Normal [facility] CHEMISTRY Calcium Lvl 9.0 8.5 - 10.5 07/18/2013 Normal [facility] CHEMISTRY AGAP 15.1 10.0 - 20.0 07/18/2013 Normal [facility] HEMATOLOGY RBC Morph Krystal l (07/18/2013 04:28:00) 07/18/2013 Normal [facility] HEMATOLOGY Plt Morph Krystal l (07/18/2013 04:28:00) 07/18/2013 Normal [facility] HEMATOLOGY Segs 76.1 45.0 - 75.0 07/18/2013 [facility] HEMATOLOGY Monocytes # 0.9 0.0 - 0.8 07/18/2013 [facility] HEMATOLOGY Lymphocytes # 1.5 1.0 - 5.5 07/18/2013 Normal [facility] HEMATOLOGY Eosinophils # 0.1 0.0 - 0.5 07/18/2013 Normal [facility] HEMATOLOGY Segs-Bands # 8.0 1.5 - 8.1 07/18/2013 Normal [facility] HEMATOLOGY Lymphocytes 14.1 20.0 - 40.0 07/18/2013 LOW [facility] HEMATOLOGY Basophils # 0.0 0.0 - 0.2 07/18/2013 Normal [facility] HEMATOLOGY Basophils 0.3 0.0 - 1.0 07/18/2013 Normal [facility] HEMATOLOGY Monocytes 8.4 2.0 - 12.0 07/18/2013 Normal [facility] HEMATOLOGY Eosinophils 1.1 0.0 - 4.0 07/18/2013 Normal [facility] HEMATOLOGY Platelet 232 133 - 450 07/18/2013 Normal [facility] HEMATOLOGY MPV 7.6 7.4 - 10.4 07/18/2013 Normal [facility] HEMATOLOGY MCHC 32.8 32.0 - 36.0 07/18/2013 Normal [facility] HEMATOLOGY RDW 13.6 11.5 - 14.5 07/18/2013 Normal [facility] HEMATOLOGY RBC 5.01 4.70 - 6.10 07/18/2013 Normal [facility] HEMATOLOGY Hgb 15.5 14.0 - 18.0 07/18/2013 Normal [facility] HEMATOLOGY MCH 30.9 27.0 - 31.0 07/18/2013 Normal [facility] [place]note 2] Hct 47.1 42.0 - 54.0 07/18/2013 Normal [facility] HEMATOLOGY MCV 94.0 80.0 - 94.0 07/18/2013 Normal [facility] HEMATOLOGY WBC 10.5 3.7 - 10.4 07/18/2013 [place] [facility] BEDSIDE GLUCOSE TESTING Gluc POC 119 70 - 99 07/17/2013 [place] <sup>3</sup>Interpretive Data: Upper Reportable Limit: 200 mg/dL. [facility] BEDSIDE GLUCOSE TESTING Gluc POC Com ment 1 Notify ROSARIO/ 07/17/2013 NA [facility] CHEMISTRY AGAP 14.2 10.0 - 20.0 07/17/2013 Normal [facility] CHEMISTRY eGFR 65 07/17/2013 NA <sup>5</sup>Result [...] should be multiplied by the estimated BMI. [facility] CHEMISTRY Calcium Lvl 8.6 8.5 - 10.5 07/17/2013 Normal [facility] CHEMISTRY BUN 17 7 - 22 07/17/2013 Normal [facility] CHEMISTRY Glucose Lvl 129 70 - 99 07/17/2013 [place] <sup>7</sup>Interpretive Data: Adult ref erence range values reflect the clinical guidelines
of the [place] [employer]. [place] CHEMISTRY CO2 27 24 [...] Monocytes 7.6 2.0 - 12.0 07/17/2013 Normal [facility] HEMATOLOGY Lymphocytes 13.7 20.0 - 40.0 07/17/2013 LOW [facility] HEMATOLOGY Lymphocytes # 1.2 1.0 - 5.5 07/17/2013 Normal [facility] HEMATOLOGY Basophils 0.2 0.0 - 1.0 07/17/2013 Normal [facility] HEMATOLOGY MPV 7.9 7.4 - 10.4 07/17/2013 Normal [facility] HEMATOLOGY Platelet 214 133 - 450 07/17/2013 Normal [facility] HEMATOLOGY WBC 8.4 3.7 - 10.4 07/17/2013 Normal [facility] HEMATOLOGY RBC 4.61 4.70 - 6.10 07/17/2013 LOW [facility] HEMATOLOGY MCH 30.8 27.0 - 31.0 07/17/2013 Normal [facility] HEMATOLOGY RDW 13.5 11.5 - 14.5 07/17/2013 Normal [facility] HEMATOLOGY MCHC 32.7 32.0 - 36.0 07/17/2013 Normal [facility] HEMATOLOGY MCV 94.0 80.0 - 94.0 07/17/2013 Normal [facility] HEMATOLOGY Hgb 14.2 14.0 - 18.0 07/17/2013 Normal [facility] HEMATOLOGY Hct 43.3 42.0 - 54.0 07/17/2013 Normal [facility] HEMATOLOGY INR 1.20 0.85 - 1.17 07/17/2013 [place] <sup>8</sup>Interpretive Data: RECOMMEND ED RANGES FOR PROTIME INR:
2.0-3.0 for most medical and surgical thromboembolic states.
2.5-3.5 for artificial heart valves and recurrent embolism.

INR SHOULD BE USED ONLY FOR PATIENTS ON STABLE ANTICOAGULANT THERAPY. [facility] HEMATOLOGY PT 15.1 12.0 - 14.7 07/17/2013 HI [facility] HEMATOLOGY PTT 32.9 22.9 - 35.8 07/17/2013 Normal <sup>9</sup>Interpretive Data: Heparin T herapeutic Range: 57 - 92 Seconds [facility] CHEMISTRY CK MB Index 0.8 0.0 - 2.5 07/17/2013 Normal [facility] CHEMISTRY Troponin-I <0.02 0.00 - 0.40 07/17/2013 Normal [facility] CHEMISTRY Total CK 139 12 - 191 07/17/2013 Normal [facility] CHEMISTRY CK MB 1.1 0.5 - 3.6 07/17/2013 Normal [facility] CHEMISTRY CK MB 2.2 0.5 - 3.6 07/16/2013 Normal [facility] CHEMISTRY Troponin-I <0.02 0.00 - 0.40 07/16/2013 Normal [facility] CHEMISTRY Total CK 108 12 - 191 07/16/2013 Normal [facility] CHEMISTRY CK MB Index 2.0 0.0 - 2.5 07/16/2013 Normal [facility] CHEMISTRY Magnesium Lvl 2.1 1.8 - 2.4 07/16/2013 Normal [facility] CHEMISTRY Hgb A1C 8.0 <=5.6 07/16/2013 HI [facility] CHEMISTRY TSH 2.790 0.360 - 3.740 07/16/2013 Normal [facility] CHEMISTRY T3 Uptake 35 31 - 39 07/16/2013 Normal [facility] CHEMISTRY T4 12.0 4.7 - 13.3 07/16/2013 Normal [facility] CHEMISTRY FTI 4.2 07/16/2013 NA [facility] Pathology Reports No Data Provided for [...] Exam: Pain Comparison Exam: None Discussion: On turbine room attendant view, there are no acute bony abnormalities [...] Comments Source Diastolic (mm Hg) 62 07/18/2013 [facility] Respitory Rate 18 07/18/2013 [facility] Temperature Oral (F) 99.1 F 07/18/2013 [facility] Heart Rate 70 07/18/2013 [facility] Systolic (mm Hg) 100 07/18/2013 [facility] Respitory Rate 12 07/18/2013 [facility] Respitory Rate 18 07/18/2013 [facility] Systolic (mm Hg) 124 07/18/2013 [facility] Diastolic (mm Hg) 74 07/18/2013 [facility] Heart Rate 73 07/18/2013 [facility] Temperature Oral (F) 98.5 F 07/18/2013 [facility] Diastolic (mm Hg) 78 07/18/2013 [facility] Heart Rate 62 07/18/2013 [facility] Temperature Oral (F) 98.4 F 07/18/2013 [facility] Systolic (mm Hg) 131 07/18/2013 [facility] Weight 91.818 07/16/2013 [facility] Height 170.18 cm 07/16/2013 [facility] Encounters Location Location Details Encounter Type Encounter Number Reason For Visit Attending Provider ADM Date DC Date Status Source [facility] Inpatient [id number] CHF -NEW ONSET, L F SIDED FACIAL [place] IWONA SHETTY 07/16/2013 07/18/2013 Active [facility] [place] [facility] [id number] Nolberto Baltazar 10/22/2017 10/23/2017 ASHER Rider [...]
--- OUTSIDE RECORDS SUMMARY | 2020-07-08 14:53 | XMS REPORT | Continuity of Care Document ---
Author Author [facility] t Organization [facility] Address [facility] [place] [address] Phone Unavailable Care Team Providers Care Microelectronics Assembler Name Role Phone ELLY COLÓN, MD HODGES PCP Li CORONA Attphys Unavailable Venus SANCHEZ Attphys Unavailable Macrina VELIZ BHARAT Attphys Unavailable Micki Baltazar Attphys Payers Payer Name Policy Type Policy Number Effective Date Expiration Date [id number]00 [facility] [id number] 2017 00:00:[address] [facility] Problems Condition Name Condition Details Condition Category Status Onset Date Resolution Date Last Treatment Date Treating Clinician Comments Source S46.091A - INJ MUSC/TEND THE ROTATOR CUF S46.091A - INJ MUSC/TEND THE ROTATOR CUF Active 09/28/2017 [facility] Diagnosis Active 2017-09-28 00:01:00 2017-10-22 08:39:00 M emorivivienne Mckee CHF -NEW ONSET, LF SIDED FACIAL [place]INGL[place] CHF -NEW ONSET, LF SIDED FACIAL [place] Active 07/16/2013 [facility] Ac tive 2013-07-16 14:13:00 2013-07-24 21:49:00 M emorivivienne Mckee Chest pain Chest pain Problem Active C [facility] Congestive heart failure CHF (congestive heart failure) Problem Active [facility] Non-ST elevation myocardial infarction (NSTEMI) Problem Active [facility] Right sided weakness Righ t sided weakness Resolved Problem 07/20/2013 Nick Problem Resolved 2013-07-20 21:51: 18 Zuleyma Mckee Right hemiparesis (disorder) R ight hemiparesis (disorder) Resolved Problem 10/25/2017 ASHER Jamesa Problem Resolved 2017-10-25 01:27:14 [facility] NOS CHF NOS Active [facility] Diagnosis Acti ve 2013-07-24 21:49:00 Zuleyma trotter Allergies, Adverse Reactions, Alerts Allergy Name Allergy Type Status Severity Reaction(s) Onset Date Inacti ve Date Treating Clinician Comments Source No Known Allergies DA Active U 2019-09-22 00:00:00 [facility] No Known Allergies DA Active U 2012-06-05 00:00:00 [facility] Social History Social Habit Start Date Stop Date Quantity Comments Source Sex Assigned At 1950 00:00:00 1950 00:00:[address] [facility] Medications Ordered Medication Name Filled Medication Name Start Date Stop Da te Current Medication? Ordering Clinician Indication Dosage Frequency Signature (SIG) Comments Components Source Lasix 40 mg oral tablet 2013-07-18 22:00:00 No Home Olivares iqmargie Daniel 40 mg, 1 tab, Route: PO, Drug form: TAB, BID, Dosing Weight 91.818, kg, Start date: 07/18/13 17:00:00, Duration: 30 day, Stop date: 08/17/13 9:00:00 [facility] influenza virus vaccine, inactivated 2013-07-18 16:00:00 No SYSTEM SYSTEM 0.5 ml, Route: IM, Drug Form : SUSP, Start date: 07/18/13 11:00:00, Stop date: 07/18/13 11:00:00 [facility] Lasix 20 mg oral tablet 2013-07-18 15:54:48 Yes Clementina Manzano 20 mg, 1 tab, PO, Daily, 30 tab, 0, 0, Substitution Allowed, TAB [facility] potassium chloride 10 mEq oral capsule, extended release 2013-07-18 15:32:54 Yes Home Amauri Daniel 10 mEq, 1 cap, PO, BID, take it with furosemide, 60 cap, Substitution Allowedtake it with furosemide [facility] Rafi lisinopril 5 mg oral tablet 2013-07-18 15:30:05 Yes Home Amauri Daniel 5 mg, 1 tab, PO, Daily, 30 tab, Substitution Allowed, TAB [facility] glipiZIDE 2.5 mg oral tablet, extended release 2013-07-18 15:30:02 Yes Home Amauri Daniel 2.5 mg, 1 tab, PO, Daily, 30 tab, Substitution Allowed, ERTAB [facility] Lasix 40 mg oral tablet 2013-07-18 15:29:59 No Anishdeseanreese Nagel Jose Juan 40 mg, 1 tab, PO, BID, 60 tab, Substitution Allowed, TAB [facility] carvedilol 6.25 mg oral tablet 2013-07-18 15:29:55 Yes Home Amauri Daniel 6.25 mg, 1 tab, PO, BID, 60 tab, Substitution Allowed, TAB [facility] aspirin 81 mg tablet, enteric coated 2013-07-18 15:29:49 Yes Home Amauri Daniel 81 mg, 1 tab, PO, Daily, 30 tab, Substit ution Allowed, ECTAB [facility] Rafi Coreg 2013-07-18 02:00:00 No Home Amauri Daniel 6.25 mg, 2 tab, Route: PO, Drug form: TAB, Q12H, Dosing Weight 91.818, kg, Start date: 07/17/13 21:00:00, Duration: 30 day, Stop date: 08/16/13 9:00:00 [facility] glipiZIDE 2013-07-17 14:49:00 No Home Amauri Daniel 2.5 mg, 1 tab, Route: PO, Drug form: ERTAB, Daily, Dosing Weight 91.818, kg, Priority: NOW, Start date: 07/17/13 9:49:00, Duration: 30 day, Stop date: 08/16/13 9:00:00 [facility] pneumococcal 23-valent vaccine 2013-07-17 14:00:00 No S YSTEM SYSTEM 0.5 ml, Route: IM, Drug Form: INJ, Daily, Start date: 07/17/13 9:00:00, Duration: 1 doses or times, Stop date: 07/17/13 9:00:00 [facility] furosemide 2013-07-17 14:00:00 No Home Amauri Daniel 40 mg, 4 mL, Route: IVP, Drug form: INJ, BID, Dosing Weight 91.818, kg, Start date: 07/17/13 9:00:00, Duration: 30 day, Stop date: 08/15/13 17:00:00 [facility] aspirin 81 mg tablet, enteric coated 2013-07-17 14:00:00 No Home Amauri Daniel 81 mg, 1 tab, Ro chadwick: PO, Drug form: ECTAB, Daily, Dosing Weight 91.818, kg, Start date: 07/17/13 9:00:00, Duration: 30 day, Stop date: 08/15/13 9:00:00 [facility] Saline Flush 0.9% 2013-07-17 02:00:00 No Home Amauri M ok 5 ml, Route: IVP, Drug Form: INJ, Dosing Weight 91.818, kg, Q12H, Start date: 07/16/13 21:00:00, Duration: 30 day, Stop date: 08/15/13 9:00:00 [facility] nitroglycerin 0.4 mg sublingual tablet 2013-07-16 23:27:00 No Home Amauri Daniel 0.4 mg, 1 tab, R oute: SL, Drug form: TAB, Q5Min, PRN Chest Pain, Start date: 07/16/13 18:27:00, Duration: 30 day, Stop date: 08/15/13 18:26:00 [facility] atropine 2013-07-16 23:27:00 No Home Amauri Daniel 0.5 mg, 5 mL, Route: IVP, Drug form: INJ, PRN, PRN Bradycardia, Start date: 07/16/13 18:27:00, Duration: 30 day, Stop date: 08/15/13 18:26:00 [facility] lisinopril 2013-07-16 23:14:00 No Kun Cassius Jacobo 5 mg, 1 tab, Route: PO, Drug form: TAB, Daily, Dosing Weight 91.818, kg, Priority: NOW, Start date: 07/16/13 18:14:00, Duration: 30 day, Stop date: 08/15/13 9:00:00 [facility] temazepam 2013-07-16 23:11:00 No Home Amauri Daniel 15 mg, 1 cap, Route: PO, Drug form: CAP, Bedtime, Dosing Weight 91.818, kg, PRN Insomnia, Start date: 07/16/13 18:11:00, Duration: 30 day, Stop date: 08/15/13 18:10:00 [facility] ondansetron 2013-07-16 23:11:00 No Home Amauri Daniel 4 mg, 2 mL, Route: IVP, Drug form: INJ, Q8H, Dosing Weight 91.818, kg, PRN Nausea & Vomiting, Start date: 07/16/13 18:11:00, Duration: 30 day, Stop date: 08/15/13 18:10:00 [facility] Saline Flush 0.9% 2013-07-16 23:11:00 No Home Amauri M ok 5 ml, Route: IVP, Drug Form: INJ, Dosing Weight 91.818, kg, PRN, PRN Line Flush, Start date: 07/16/13 18:11:00, Duration: 30 day, Stop date: 08/15/13 18:10:00 [facility] Aspirin (Aspirin Chew) 81 Mg CHEW Aspirin (Aspirin Chew) 81 Mg CHEW Yes [address] [facility] Atorvastatin Calcium (Lipitor*) 10 Mg TABLET Atorvasta tin Calcium (Lipitor*) 10 Mg TABLET Yes 20 Daily At 1700 [facility] Carvedilol (Coreg) 3.125 Mg TAB Carvedilol (Coreg) 3.125 Mg TAB Yes Twice A Day [facility] Clopidogrel Bisulfate (Plavix) 75 Mg TABLET Clopidogre l Bisulfate (Plavix) 75 Mg TABLET Yes [address] [facility] Furosemide Furosemide Yes 40 Daily [facility] Multivit-Min/Fa/Lycopen/Lutein (Centrum Silver Men Tab let) 1 Each TABLET Multivit-Min/Fa/Lycopen/Lutein (Centrum Silver Men Tablet) [address] [facility] Potassium Chloride (Klor-Con M10) 10 Meq TAB.ER.PRT Po tassium Chloride (Klor-Con M10) 10 Meq TAB.ER.PRT Yes Daily [facility] Enalapril Maleate Enalapril Maleate 2020-06-29 00:00:00 No 20 Twice A Day [facility] Metformin Hcl Metformin Hcl 2020-06-29 00:00:[address] [facility] Sitagliptin Phosphate (Ferdinanduvia) 100 Mg TABLET Sitaglip tin Phosphate (Ferdinanduvia) 100 Mg TABLET 2020-06-29 00:00:[address] [facility] Vital Signs Vital Name Observation Time Observation Value Comments Source Body Temperature 2020-06-29 08:00:00 97.9 [degF] [facility] Weight 2020-06-28 23:47:00 190 [lb_av] [facility] BMI (Body Mass Index) 2020-06-28 23:47:00 29.8 kg/m2 [facility] Diastolic (mm Hg) 2013-07-18 17:00:00 Mem [facility] Respitory Rate 2013-07-18 17:00:00 [facility] [place] Temperature Oral (F) 2013-07-18 17:00:00 99.1 F [facility] Heart Rate 2013-07-18 17:00:00 [facility] Systolic (mm Hg) 2013-07-18 17:00:00 Giovanni rial [place] Respitory Rate 2013-07-18 15:47:00 Memori [facility] Respitory Rate 2013-07-18 13:00:00 [facility] [place] Systolic (mm Hg) 2013-07-18 13:00:00 Giovanni rial [facility] Diastolic (mm Hg) 2013-07-18 13:00:00 Mem orial [facility] Heart Rate 2013-07-18 13:00:00 [facility] Temperature Oral (F) 2013-07-18 13:00:00 98.5 F [facility] Diastolic (mm Hg) 2013-07-18 09:38:00 Mem gavino [facility] Heart Rate 2013-07-18 09:38:00 [facility] [place] Temperature Oral (F) 2013-07-18 09:38:00 98.4 F [facility] Systolic (mm Hg) 2013-07-18 09:38:00 Giovanni Mckee Weight 2013-07-16 22:24:00 [facility] [place] Height 2013-07-16 22:24:00 170.18 cm [facility] [place] Procedures Procedure Date / Time Performed Performing Clinician Loreto erica FLUOROSCOPY OF MULT COR ART USING L OSM CONTRAST 2019-09-15 00:0 0:00 [facility] MEASURE OF CARDIAC SAMPL & PRESSURE, L HEART, PERC APPROACH 2019-09-15 00:00:00 [facility] Plan of Care Planned Activity Planned Date Details Comments Source Instructions Heart Healthy Diet [facility] Encounters Start Date/Time End Date/Time Encounter Type Admission Type Attendi [facility] Facility Care Department Encounter ID Source 2020-06-28 17:51:00 2020-06-29 13:02:00 Discharged Inpatient [facility] [id number] [facility] dical [place] 2019-09-13 08:24:00 2019-09-16 08:55:00 Discharged Inpatient 1 SHOSHANA SANCHEZ [facility] [id number] [facility] 2018-07-19 20:06:00 2018-07-20 14:30:00 Discharged Inpatient (obs) 1 BHARAT VELIZ [facility] [id number] [facility] 2017-10-22 08:30:00 2017-10-22 23:59:00 Outpatient Nolberto Baltazar MHHOIP MHHOIP [id number] Results Test Description Test Time Test Comments Results Result Comments Source CHEST SINGLE (PORTABLE) 2020-07-08 14:33:00 [facility] [address] [address] Patient Name: MICHELLE LY MR #: [id number] : 1950 Age/Sex: 69/M Req #: [id number] Adm Physician: Ordered by: SANTA CORONA DO Report #: [id number] Location: ER Room/Bed: Procedure: [id number] DX/CHEST SINGLE (PORTABLE) Exam Date: 07/08/20 Exam Time: 1410 REPORT STATUS: Signed EXAMINATION: CHEST SINGLE (PORTABLE) INDICATION: Chest pain COMPARISON: Multiple prior chest radiographs including most recent on 06/28/2020 FINDINGS: TUBES and LINES: None. LUNGS: Normal lung volumes. There are prominent interstitial lung markings No consolidations. There is bibasilar atelectasis. PLEURA: No pleural effusion or pneumothorax. HEART AND MEDIASTINUM: The cardiac mediastinal silhouette is enlarged as before. BONES AND SOFT TISSUES: No acute osseous lesion. Soft tissues are unremarkable. UPPER ABDOMEN: No free air under the diaphragm. IMPRESSION: Cardiomegaly with interstitial pulmonary edema. Developing multifocal infection can have a similar appearance in the proper clinical context. Signed by: Myles Rees MD on 07/08/2020 2:34 PM Dictated By: MYLES REES MD 1434 Transcribed By: SERAFIN on 07/08/20 1434 COPY TO: SANTA CORONA DO TROPONIN-I 2020-07-06 04:20:00 Test Item TROPONIN-I (test code = TROPI) 0.217 ng/mL 0-0.045 HH Results called to [id number] by [email or web address] 07/06/20 0419Critical results verified and read back by Nurse? Y COMMENTS TO CREPE LAMINATOR OPERATOR: COLLECT 3 HOURS AFTER PREVIOUS SAMPLECOVID 19 INHOUSE [id number] 20:14:00* Test Item Value Reference Range Interpretation Comments COVID 19 INHOUSE AG (test code = [id number]) NEGATIVE B-TYPE NATRIURETIC [id number] 19:44:00* Test Item Value Reference Range Interpretation Comments B-TYPE NATRIURETIC PEPTIDE (test code = BNP) 2660.17 pgram/mL 0-100 H BASIC METABOLIC [id number] 19:39:00* Test Item Value Reference Range Interpretation [...] code = CA) 8.9 mg/dL 8.5-10.1 N [id number] 19:39:00* Test Item Value Reference Range Interpretation Comments TROPONIN-I (test code = TROPI) 0.234 ng/mL 0-0.045 HH Results called to [id number] by ANASTACIA 07/05/20 1936Critical results verified and read back by Nurse? Y PROTHROMBIN [id number] 19:30:00* Test Item Value Reference Range Interpretation [...] (2.5-3.5) IS PATIENT ON ANTICOAGULANTS? NTHROMBOPLASTIN TIME [id number] 19:30:00* Test Item Value Reference Range Interpretation Comments THROMBOPLASTIN TIME PARTIAL (test code = PTT) 31.3 seconds 23.0-37. 0 N IS PATIENT ON ANTICOAGULANTS? N- XR CHEST 1 [id number] 19:30:00 FAX: Dontae Block MD [phone] [place]: B St: [facility] FAX: Devi Shen DO Name: MICHELLE LY [facility] : 1950 Age/S: 69/M [address] [facility] Unit #: [id number] Loc: [place] [address] Phys: Devi Shen DO Acct: [id number] Dis Date: Status: REG ER PHONE #: [phone] Exam Date: 07/05/20201917 FAX #: [phone] Reason: Shortness of Breath EXAMS: CPT CODE: [id number] XR CHEST 1 V 88824 REASON FOR EXAM: Shortness of Breath EXAM ORDER DATE: 07/05/2020 6:36 PM Ordering: DO Venus Fernandez ttending:Devi Shen DO Location:[facility] PROCEDURE: - XR C HEST 1 [...] RT(R) Trnscrd Date/Time/By: 01/2020 (1929) : By: WilliamL Orig Print D/T: S: 07/05/2020 (1932) PAGE 1 Signed Report BASIC METABOLIC [id number] 19:24:00* Test Item Value Reference Range Interpretation [...] code = CA) 8.9 mg/dL 8.5-10.1 N [id number] 19:24:00* Test Item Value Reference Range Interpretation Comments TROPONIN-I (test code = TROPI) ng/mL 0-0.045 CBC W/O [id number] 19:14:00* Test Item Value Reference Range Interpretation [...] MPV) 9.3 fL 6.7-11.0 N CBC W/O [id number] 19:11:00* Test Item Value Reference Range Interpretation [...] Interpretation Comments Bedside Glucose (test code = 09785-6) 139 70-120 Meter ID: [id number] [place] leukocytes automated count (number/volume)2020-06-29 04:25:00* Test Item Value Reference Range Interpretation Comments White Blood Count (test code = 6690-2) 5.89 4.8-10.8 [facility] erythrocytes automated count (number/volume)2020-06-29 04:25:00* Test Item Value Reference Range Interpretation Comments Red Blood Count (test code = 789-8) 3.87 4.3-5.7 [facility] hemoglobin measurement (moles/volume)2020-06-29 04:25:00* Test Item Value Reference Range Interpretation Comments Hemoglobin (test code = 46360-0) 11.8 14.0-18.0 [facility] Hospital[facility] blood hematocrit (volume fraction)2020-06-29 04:25:00* Test Item Value Reference Range Interpretation Comments Hematocrit (test code = 4544-3) 36.6 38.2-49.6 [facility] Hospital[facility] erythrocyte mean corpuscular [id number] 04:25:00* Test Item Value Reference Range Interpretation Comments Mean Corpuscular Volume (test code = 787-2) 94.6 81-99 [facility] erythrocyte mean corpuscular hemoglobin (mass per erythrocyte)2020-06-29 04:25:00* Test Item Value Reference Range Interpretation Comments Mean Corpuscular Hemoglobin (test code = 785-6) 30.5 28-32 [facility] HospitalAutom[facility] erythrocyte mean corpuscular hemoglobin concentration measurement (mass/volume)2020-06-29 04:25:00* Test Item Value Reference Range Interpretation Comments Mean Corpuscular Hemoglobin Concent (test code = 786-4) 32.2 31-35 [facility] HospitalRDW [id number] 04:25:00* Test Item Value Reference Range Interpretation Comments Red Cell Distribution Width (test code = 90778-7) 13.4 11.7 -14.4 [facility] HospitalAutom[facility] blood platelet count (count/volume)2020-06-29 04:25:00* Test Item Value Reference Range Interpretation Comments Platelet Count (test code = 777-3) 249 140-360 [facility] neutrophil count as percentage of total xybbwlhmxf9969-73-37 04:25:00* Test Item Value Reference Range Interpretation Comments Neutrophils (%) (Auto) (test code = 32617-8) 67.5 38.7-80.0 [facility] Hospital[facility] blood lymphocyte count as percentage ot total ucocxnfuvt5117-11-14 04:25:00* Test Item Value Reference Range Interpretation Comments Lymphocytes (%) (Auto) (test code = 736-9) 18.8 18.0-39.1 [facility] Hospital[facility] blood monocyte count as percentage of total pmgjbrnwgj0460-33-95 04:25:00* Test Item Value Reference Range Interpretation Comments Monocytes (%) (Auto) (test code = 5905-5) 10.5 4.4-11.3 [facility] Hospital[facility] blood eosinophil count as percentage of total tigbwkahfq8407-29-75 04:25:00* Test Item Value Reference Range Interpretation Comments Eosinophils (%) (Auto) (test code = 713-8) 2.4 0.0-6.0 [facility] HospitalAutom[facility] blood basophil count as percentage of total pwbrxknsyq6989-46-18 04:25:00* Test Item Value Reference Range Interpretation Comments Basophils (%) (Auto) (test code = 706-2) 0.5 0.0-1.0 [facility] HospitalFluoroscopic procedure less than one hour [id number] 04:25:00* Test Item Value Reference Range Interpretation Comments IM GRANULOCYTES % (test code = IM GRANULOCYTES %) 0.3 0.0- 1.0 [facility] Hospital[facility] blood neutrophil count 2020-06-29 04:25:00* Test Item Value Reference Range Interpretation Comments Neutrophils # (Auto) (test code = 751-8) 4.0 2.1-6.9 [facility] Hospital[facility] lymphocytes count (number/volume) 2020-06-29 04:25:00* Test Item Value Reference Range Interpretation Comments Lymphocytes # (Auto) (test code = 78494-4) 1.1 1.0-3.2 [facility] monocytes automated count (number/volume)2020-06-29 04:25:00* Test Item Value Reference Range Interpretation Comments Monocytes # (Auto) (test code = 742-7) 0.6 0.2-0.8 [facility] HospitalAutomated blood eosinophil count 2020-06-29 04:25:00* Test Item Value Reference Range Interpretation Comments Eosinophils # (Auto) (test code = 711-2) 0.1 0.0-0.4 [facility] HospitalAutomated blood basophil count (count/volume)2020-06-29 04:25:00* Test Item Value Reference Range Interpretation Comments Basophils # (Auto) (test code = 704-7) 0.0 0.0-0.1 [facility] HospitalFluoroscopic procedure less than one hour [id number] 04:25:00* Test Item Value Reference Range Interpretation Comments Absolute Immature Granulocyte (auto (francia t code = Absolute Immature Granulocyte (auto) 0.02 0-0.1 [facility] sodium measurement (moles/volume)2020-06-29 04:25:00* Test Item Value Reference Range Interpretation Comments Sodium Level (test code = 2951-2) 140 136-145 [facility] or plasma potassium measurement (moles/volume)2020-06-29 04:25:00* Test Item Value Reference Range Interpretation Comments Potassium Level (test code = 2823-3) 4.5 3.5-5.1 [facility] or plasma chloride measurement (moles/volume)2020-06-29 04:25:00* Test Item Value Reference Range Interpretation Comments Chloride Level (test code = 2075-0) 104 98-107 [facility] or plasma carbon dioxide, total measurement (moles/volume)2020-06-29 04:25:00* Test Item Value Reference Range Interpretation Comments Carbon Dioxide Level (test code = 2028-9) 21 22-29 [facility]um or plasma anion [id number] 04:25:00* Test Item Value Reference Range Interpretation Comments Anion Gap (test code = 05553-8) 19.5 8-16 [facility] or plasma urea nitrogen measurement (mass/volume)2020-06-29 04:25:00* Test Item Value Reference Range Interpretation Comments Blood Urea Nitrogen (test code = 3094-0) 33 7-26 [facility] or plasma creatinine measurement (mass/volume)2020-06-29 04:25:00* Test Item Value Reference Range Interpretation Comments Creatinine (test code = 2160-0) 1.65 0.72-1.25 [facility] or plasma urea nitrogen/creatinine mass [id number] 04:25:00* Test Item Value Reference Range Interpretation Comments BUN/Creatinine Ratio (test code = 3097-3) 20 6-25 [facility] HospitalEstimated glomerular filtration rate (GFR) hdtomwogxyuzq5272-45-76 04:25:00* Test Item Value Reference Range Interpretation Comments Estimat Glomerular Filtration Rate (test code = 481113853) 42 >60 Ranges were taken from the National Kidney Disease Education Program and the [facility] Kidney Foundation literature.Reference ranges:60 or greater: Smfcgf64-89 ( for 3 consecutive months): Chronic kidney disease 15 or less: Kidney failureSt. Luke's Health – The Woodlands HospitalGlucose qbunsafbgsi5857-57-56 04:25:00* Test Item Value Reference Range Interpretation Comments Glucose Level (test code = EJK2049) 110 74-118 [facility]lake[facility] or plasma calcium measurement (mass/volume)2020-06-29 04:25:00* Test Item Value Reference Range Interpretation Comments Calcium Level (test code = 02919-9) 9.4 8.4-10.2 [facility]lake[facility]um or plasma triglyceride measurement (mass/volume)2020-06-29 04:25:00* Test Item Value Reference Range Interpretation Comments Triglycerides Level (test code = 2571-8) 117 0-149 [facility]lakeerum or plasma cholesterol measurement (mass/volume)2020-06-29 04:25:00* Test Item Value Reference Range Interpretation Comments Cholesterol Level (test code = 2093-3) 121 0-199 Less than 200 mg/dL Low Lfys904 - 239 mg/dL Borderline Suff263 m g/dl and greater High Risk [facility]lake[facility]um or plasma cholesterol in LDL measurement (mass/volume) 2020-06-29 04:25:00* Test Item Value Reference Range Interpretation Comments LDL Cholesterol (test code = 2089-1) 65 60-130 [facility] or plasma cholesterol in HDL measurement (mass/volume)2020-06-29 04:25:00* Test Item Value Reference Range Interpretation Comments HDL Cholesterol (test code = 2085-9) 33 40-60 [facility]lakeerum or plasma total cholesterol/cholesterol in HDL mass [id number] 04:25:00* Test Item Value Reference Range Interpretation Comments Cholesterol/HDL Ratio (test code = 9830-1) 3.7 3.9-4.7 [facility] plasma creatine kinase measurement (enzymatic activity/volume)2020-06-29 04:25:00* Test Item Value Reference Range Interpretation Comments Creatine Kinase (test code = 2157-6) 185 30-200 [facility] or plasma creatine kinase MB measurement (mass/volume)2020-06-29 04:25:00* Test Item Value Reference Range Interpretation Comments Creatine Kinase MB (test code = 55779-8) 5.10 0-5.0 Results called to RJ ENRIQUE at 0653 on 06/29/20 by Trenton Bran. RB [place].[facility] HospitalTroponin I measurement by highly sensitive enzyme yzeyqcpfeza4698-83-14 04:25:00* Test Item Value Reference Range Interpretation Comments Troponin I (test code = 89282-9) 1.790 0-0.300 Elevated result called to RJ ENRIQUE at 0650 on 06/29/[address] [facility] HospitalCHEST SINGLE (PORTABLE)2020-06-28 17:27:00 [place] [address] Patient Name: MICHELLE LY MR #: [id number] : 1950 Age/Sex: 69/M Req #: [id number] Adm Physician: Ordered by: SANTA CORONA DO Report #: [id number] Location: ER Room/Bed: Procedure: [id number] DX/CHEST SI NGLE (PORTABLE) Exam Date: 06/28/20 [...] P M Dictated By: MYLES REES MD 173 Transcribed By: SERAFIN on 06/28/20 173 COPY TO: SANTA [place] DO Prothrombin time (PT) in platelet poor plasma by coagulation rvrfb4543-61-61 16:58:00* Test Item Value Reference Range Interpretation Comments Prothrombin Time (test code = 5902-2) 14.1 11.9-14.5 [facility] HospitalINR in Platelet poor plasma by Coagulation whaxd6670-56-11 16:58:00* Test Item Value Reference Range Interpretation Comments Prothromb Time International Ratio (test code = 6301-6) 1.04 Oral Anticoagulant Therapy INR Values:1. Low Intensity Therapy 1.5 - 2.02 . Moderate Intensity Therapy 2.0 - 3.03. High Intensity Therapy(1) 2.5 - 3. 54. High Intensity Therapy(2) 3.0 - 4.05. Panic Value INR > 5.0 [facility] HospitalActivated partial thromboplastin time (aPTT) in platelet poor plasma by coagulation ldkpx9294-12-39 16:58:00* Test Item Value Reference Range Interpretation Comments Activated Partial Thromboplast Time (test code = 66980-9) 31.5 23.8-35.5 [facility] total bilirubin measurement (mass/volume)2020-06-28 16:38:00* Test Item Value Reference Range Interpretation Comments Total Bilirubin (test code = 1975-2) 0.6 0.2-1.2 [facility] HospitalFluoroscopic procedure less than one hour nxpofsag3435-93-92 16:38:00* Test Item Value Reference Range Interpretation Comments Aspartate Amino Transf (AST/SGOT) (test code = Aspartate Amino Transf (AST/SGOT)) 51 5-34 [facility] alanine aminotransferase measurement (enzymatic activity/volume)2020-06-28 16:38:00* Test Item Value Reference Range Interpretation Comments Alanine Aminotransferase (ALT/SGPT) (test code = 1742-6) 67 0-55 [facility] plasma protein measurement (mass/volume)2020-06-28 16:38:00* Test Item Value Reference Range Interpretation Comments Total Protein (test code = 2885-2) 7.4 6.5-8.1 [facility] or plasma albumin measurement (mass/volume)2020-06-28 16:38:00* Test Item Value Reference Range Interpretation Comments Albumin (test code = 1751-7) 3.8 3.5-5.0 [facility] HospitalPlasma globulin measurement (mass/volume) 2020-06-28 16:38:00* Test Item Value Reference Range Interpretation Comments Globulin (test code = 56233-3) 3.6 2.3-3.5 [facility] or plasma albumin/globulin mass hahwc1489-17-66 16:38:00* Test Item Value Reference Range Interpretation Comments Albumin/Globulin Ratio (test code = 1759-0) 1.1 0.8-2.0 [facility] or plasma alkaline phosphatase measurement (enzymatic activity/volume)2020-06-28 16:38:00* Test Item Value Reference Range Interpretation Comments Alkaline Phosphatase (test code = 6768-6) 98 40-150 [facility] HospitalBNP Csz-jUjq5478-46-28 16:38:00* Test Item Value Reference Range Interpretation Comments B-Type Natriuretic Peptide (test code = 75834-5) 1292.4 0-100 [facility] HospitalGLUBED2020-08-17 10:31:00* Test Item Value Reference Range Interpretation Comments GLUBED (test code = GLUBED) 120 mg/dL 74-106 H Performed by certified churn operator margarine at [facility] Novel Coronavirus 10:06:00* Test Item Value Reference Range Interpretation Comments Novel Coronavirus 2018 Inhouse (test code = JESWK10NM) Negative Negative Positive results are indicative of the presence sgNYZP-PgO-7 RNA, clinical correlation with patient historyand other [...] for the identification of SARS-CoV-2 RNA usingthe [employer] M2000 System under the FDA Emergency UseAuthorization. The testing is performed by personneltrained in the procedures for the Eso M2000 moleculardiagnostic SARS-CoV-2 assay in vitro. Novel Coronavirus 10:06:00* Test Item Value Reference Range Interpretation Comments Novel Coronavirus 2018 Inhouse (test code = ABUON20PV) Negative Negative Positive results are indicative of the presence exGBBG-JgA-0 RNA, clinical correlation with patient historyand other [...] for the identification of SARS-CoV-2 RNA usingthe [employer] M2000 System under the FDA Emergency UseAuthorization. The testing is performed by personneltrained in the procedures for the Seo M2000 moleculardiagnostic SARS-CoV-2 assay in vitro. BASIC METABOLIC QWVQM4190-65-73 12:00:00* Test Item Value Reference Range Interpretation [...] RELATED TO RISK LEVELS ASRECOMMENDED BY THE MARITO. HEART, LUNG, AND BLOOD INST. HDL CHOLESTEROL (test code = HDL) 40 mg/dL 40-60 N LIPOPROTEIN LDL (test code = LDL) 100 mg/dL 100-129 N Reference Interval: mg/dL mmol/L Optimal <100 <2.6Near/above optimal 100-129 2.6- 3.3Borderline High 130-159 3.4-4.1High 160-189 4.1-4.9Very High >=190 >=4.9========= This LDL result is a direct measurement.========= BASIC METABOLIC GADKJ3729-39-16 11:48:00* Test Item Value Reference Range Interpretation [...] (test code = LDL) mg/dL 100-129 PROTHROMBIN [id number] 11:37:00* Test Item Value Reference Range Interpretation [...] (2.5-3.5) IS PATIENT ON ANTICOAGULANTS? NTHROMBOPLASTIN TIME RRFYMIF2708-30-36 11:37:00* Test Item Value Reference Range Interpretation Comments THROMBOPLASTIN TIME PARTIAL (test code = PTT) 34.5 seconds 23.0-37. 0 N IS PATIENT ON ANTICOAGULANTS? NCBC W/AUTO CMED5174-95-08 11:28:00* Test Item Value Reference Range Interpretation [...] NRBC#) 0.00 K/mm3 0.0-0.1 N CBC W/AUTO [id number] 11:26:00* Test Item Value Reference Range Interpretation [...] BA#) K/mm3 0.0-0.2 - XR CHEST 2 [id number] 10:23:00 FAX: Dontae Block MD [phone] [place]: O St: PRE FAX: Y Michael Brambila MD [phone] Name: MICHELLE LY [facility] : 1950 Age/S: 69/M [address] [facility] Unit #: [id number] Loc: [place] [address] Phys: Michael Brambila MD Acct: [id number] Dis Date: Status: PRE SDC PHONE #: [phone] Exam Date: 06/13/2020 1020 FAX #: [phone] Reason: PRE OP EXAMS: CPT CODE: [id number] XR CHEST 2 V 65504 HISTORY: Preop. COMPARISON: Chest x-ray from October 20, 2019. Location: [facility]. AP and lateral view of the [...] 179 MG/DL 70-110 H Performed by certified churn operator margarine at [facility] BASIC METABOLIC DSRHS6589-00-40 09:49:00* Test Item Value Reference Range Interpretation [...] code = CA) 8.7 mg/dL 8.0-10.5 N [id number] 07:56:00* Test Item Value Reference Range Interpretation Comments GLUBED (test code = GLUBED) 119 MG/DL 70-110 H Performed by certified churn operator margarine at [facility] MGFFTU2180-10-01 21:55:00* Test Item Value Reference Range Interpretation Comments GLUBED (test code = GLUBED) 180 MG/DL 70-110 H Performed by certified churn operator margarine at [facility] CQHBJW2877-60-23 08:51:00* Test Item Value Reference Range Interpretation Comments GLUBED (test code = GLUBED) 122 MG/DL 70-110 H Performed by certified churn operator margarine at [facility] - XR CHEST 2 [id number] 09:28:00 FAX: Michael Kemp MD [phone] [place]: St: PRE Name: Elizabeth MARGARITAMICHELLE BARNES [facility] : [birth year] Age/S: 69/M [address] [place] [address] Unit #: [id number] Loc: [place] [address] Phys: Michael Brambila MD Acct: [id number] Dis Date: Status: PRE [facility] PHONE #: [phone] Exam Date: 10/20/2019 0859 FAX #: [phone] Reason: PREOP PCI LAD AND CIR EXAMS: CPT CODE: [id number] XR CHEST 2 V 10342 CHEST RADIOGRAPHS - PA AND LATERAL : [...] By: [email or web address] Orig Print D/T: S: 10/20/2019 (0176) PAGE 1 Sign ed Report PROTHROMBIN [id number] 09:26:00* Test Item Value Reference Range Interpretation [...] Infarction (to prevent recurrent infarct). BASIC METABOLIC [id number] 09:25:00* Test Item Value Reference Range Interpretation [...] CA) 9.7 mg/dL 8.0-10.5 N BASIC METABOLIC [id number] 09:16:00* Test Item Value Reference Range Interpretation [...] CA) 9.7 mg/dL 8.0-10.5 N CBC W/AUTO [id number] 09:06:00* Test Item Value Reference Range Interpretation [...] DIFF REQUIRED (test code = MDIFF) NO [id number] 09:35:00* Test Item Value Reference Range Interpretation Comments GLUBED (test code = GLUBED) 226 MG/DL 70-110 H Performed by certified churn operator margarine at [facility] BASIC METABOLIC EUWNK8570-87-82 04:56:00* Test Item Value Reference Range Interpretation [...] CA) 8.3 mg/dL 8.0-10.5 N CBC W/AUTO [id number] 04:43:00* Test Item Value Reference Range Interpretation [...] DIFF REQUIRED (test code = MDIFF) NO [id number] 20:54:00* Test Item Value Reference Range Interpretation Comments GLUBED (test code = GLUBED) 250 MG/DL 70-110 H Performed by certified churn operator margarine at [facility] [id number] 15:13:00* Test Item Value Reference Range Interpretation Comments GLUBED (test code = GLUBED) 144 MG/DL 70-110 H Performed by certified churn operator margarine at [facility] [id number] 09:01:00* Test Item Value Reference Range Interpretation Comments GLUBED (test code = GLUBED) 128 MG/DL 70-110 H Performed by certified churn operator margarine at [facility] - XR CHEST 2 [id number] 10:59:00 FAX: Michael Kemp MD [phone] [place]: St: PRE Name: MICHELLE LEES [facility] : [birth year] Age/S: 69/M [address] [place] [address] Blvd Unit #: [id number] Loc: [place] [address] Phys: Michael Brambila MD Acct: [id number] Dis Date: Status: PRE SDC PHONE #: [phone] Exam Date: 09/22/20191050 FAX #: [phone] Reason: PRE-OP PCI EXAMS: CPT CODE: [id number] XR CHEST 2 V 30614 EXAM: PA and lateral chest. EXAM DATE: September 22, 2019 CLINICAL HISTORY: PRE-OP PCI COMPARISON: June 05, 2012 Cardiomegaly is noted i ncreased since the prior exam.. The lungs appear free of acute disease. Degenerative changes are identified in the intrathoracic spine. IMPRESSION: Progressive cardiomegaly. No acute findings are identi fied. at 1059 Reported and signed by: Haritha Baltazar M.D. CC: Felice Brambila MD Technologist: Taylor alvarado RT(R)(M) Trnscrd Date/Time/By: 09/22/2019 (1184 ) : By: LuxCER Orig Print D/T: S: 09/22/2019 (6472) PAGE 1 Signed Report BASIC METABOLIC [id number] 10:13:00* Test Item Value Reference Range Interpretation [...] CA) 9.3 mg/dL 8.0-10.5 N BASIC METABOLIC [id number] 10:09:00* Test Item Value Reference Range Interpretation [...] = CA) 9.3 mg/dL 8.0-10.5 N PROTHROMBIN [id number] 10:03:00* Test Item Value Reference Range Interpretation [...] Infarction (to prevent recurrent infarct). CBC W/AUTO [id number] 09:56:00* Test Item Value Reference Range Interpretation [...] REQUIRED (test code = MDIFF) NO Bedside Ndngmif5198-99-61 07:38:00* Test Item Value Reference Range Interpretation Comments Bedside Glucose (test code = 79054-7) 144 70-120 H Meter ID: [id number] [facility]Creat[facility] Kin[facility] MB 2019-09-14 12:11:00* Test Item Value Reference Range Interpretation Comments Creatine Kinase MB (test code = 08329-8) 3.00 0-5.0 [facility] HospitalTroponin [id number] 12:11:00* Test Item Value Reference Range Interpretation Comments Troponin I (test code = DIT3365) < 0.001 0-0.300 [facility] HospitalCreatine Szvydl5580-33-99 12:07:00* Test Item Value Reference Range Interpretation Comments Creatine Kinase (test code = 2157-6) 156 30-200 [facility] HospitalTriglycerides Qtavn7458-34-43 05:28:00* Test Item Value Reference Range Interpretation Comments Triglycerides Level (test code = 2571-8) 108 0-149 [facility] HospitalCholesterol Rzjsd4119-27-68 05:28:00* Test Item Value Reference Range Interpretation Comments Cholesterol Level (test code = 2093-3) 188 0-199 Less than 200 mg/dL Low Qhmv451 - 239 mg/dL Borderline Djed616 m g/dl and greater High Risk [facility] HospitalLDL Vbehisufumv8618-21-23 05:28:00* Test Item Value Reference Range Interpretation Comments LDL Cholesterol (test code = 2089-1) 125 60-130 [facility] HospitalHDL Japjoahhdoh7283-41-51 05:28:00* Test Item Value Reference Range Interpretation Comments HDL Cholesterol (test code = 2085-9) 41 40-60 [facility] HospitalCholesterol/HDL Tmjib6134-95-90 05:28:00 * Test Item Value Reference Range Interpretation Comments Cholesterol/HDL Ratio (test code = 9830-1) 4.6 3.9-4.7 [facility] HospitalBlood Urea Opopmkvn0374-80-95 05:27:00* Test Item Value Reference Range Interpretation Comments Blood Urea Nitrogen (test code = 3094-0) 22 7-26 [facility] HospitalBUN/Creatinine Glsll3363-05-61 05:27:00* Test Item Value Reference Range Interpretation Comments BUN/Creatinine Ratio (test code = 3097-3) 18 6-25 [facility] HospitalAspartate Amino Transf (AST/SGOT) 2019-09-14 05:27:00* Test Item Value Reference Range Interpretation Comments Aspartate Amino Transf (AST/SGOT) (test code = Aspartate Amino Transf (AST/SGOT)) 41 5-[address] [facility] HospitalAlanine Aminotransferase (ALT/SGPT) 2019-09-14 05:27:00* Test Item Value Reference Range Interpretation Comments Alanine Aminotransferase (ALT/SGPT) (test code = 1742-6) 70 0-55 H [facility]lake[facility] Rzfpt3915-55-69 05:02:00* Test Item Value Reference Range Interpretation Comments Sodium Level (test code = 2951-2) 138 136-145 [facility] HospitalPotassium Yleax0721-57-35 05:02:00* Test Item Value Reference Range Interpretation Comments Potassium Level (test code = 2823-3) 3.9 3.5-5.1 [facility] HospitalChloride Jjlwb8636-42-52 05:02:00* Test Item Value Reference Range Interpretation Comments Chloride Level (test code = 2075-0) 102 98-107 [facility] HospitalCarbon Dioxide Ktcqs2827-52-21 05:02:00* Test Item Value Reference Range Interpretation Comments Carbon Dioxide Level (test code = 2028-9) 25 22-29 [facility] HospitalAnion Zvm3473-05-49 05:02:00* Test Item Value Reference Range Interpretation Comments Anion Gap (test code = 88730-4) 14.9 8-16 [facility] HospitalCreatinine2019-11-14 05:02:00* Test Item Value Reference Range Interpretation Comments Creatinine (test code = 2160-0) 1.19 0.72-1.25 [facility] HospitalEstimat Glomerular Filtration Rate 2019-09-14 05:02:00* Test Item Value Reference Range Interpretation Comments Estimat Glomerular Filtration Rate (test code = 796480639) > 60 >60 Ranges were taken from the National Kidney Disease Education Program and the [facility] Kidney Foundation literature.Reference ranges:60 or greater: Qrasep70-60 ( for 3 consecutive months): Chronic kidney disease 15 or less: Kidney failureSt. Luke's Health – The Woodlands HospitalGlucose Urkvt9061-59-87 05:02:00* Test Item Value Reference Range Interpretation Comments Glucose Level (test code = SAH2104) 127 74-[address] [facility] HospitalCalcium Yqltp7264-70-78 05:02:00* Test Item Value Reference Range Interpretation Comments Calcium Level (test code = 34318-8) 9.7 8.4-10.2 [facility] HospitalTotal Bmqwxuehg7763-60-10 05:02:00* Test Item Value Reference Range Interpretation Comments Total Bilirubin (test code = 1975-2) 0.5 0.2-1.2 [facility] HospitalTotal Orvhvab5961-78-31 05:02:00* Test Item Value Reference Range Interpretation Comments Total Protein (test code = 2885-2) 7.0 6.5-8.1 [facility] HospitalAlbumin2019-11-14 05:02:00* Test Item Value Reference Range Interpretation Comments Albumin (test code = 1751-7) 3.6 3.5-5.0 [facility] HospitalGlobulin2019-11-14 05:02:00* Test Item Value Reference Range Interpretation Comments Globulin (test code = 23700-2) 3.4 2.3-3.5 [facility] HospitalAlbumin/Globulin Mzwjj4843-46-03 05:02:00 * Test Item Value Reference Range Interpretation Comments Albumin/Globulin Ratio (test code = 1759-0) 1.1 0.8-2.0 [facility] HospitalAlkaline Mtkjaigvtle9169-89-55 05:02:00* Test Item Value Reference Range Interpretation Comments Alkaline Phosphatase (test code = 6768-6) 81 40-150 [facility] HospitalWhite Blood Dzhqj7498-48-86 04:40:00* Test Item Value Reference Range Interpretation Comments White Blood Count (test code = 6690-2) 6.34 4.8-10.8 [facility] HospitalRed Blood Xhsgi8314-41-21 04:40:00* Test Item Value Reference Range Interpretation Comments Red Blood Count (test code = 789-8) 4.35 4.3-5.7 [facility] HospitalHemoglobin2019-11-14 04:40:00* Test Item Value Reference Range Interpretation Comments Hemoglobin (test code = 92222-0) 13.5 14.0-18.[address] [facility] HospitalHematocrit2019-11-14 04:40:00* Test Item Value Reference Range Interpretation Comments Hematocrit (test code = 4544-3) 40.3 38.2-49.6 [facility] HospitalMean Corpuscular Pkepof9749-21-86 04:40:00* Test Item Value Reference Range Interpretation Comments Mean Corpuscular Volume (test code = 787-2) 92.6 81-99 [facility] HospitalMean Corpuscular Mysdteiclq2051-65-20 04:40:00* Test Item Value Reference Range Interpretation Comments Mean Corpuscular Hemoglobin (test code = 785-6) 31.0 28-32 [facility] HospitalMean Corpuscular Hemoglobin Concent 2019-09-14 04:40:00* Test Item Value Reference Range Interpretation Comments Mean Corpuscular Hemoglobin Concent (test code = 786-4) 33.5 31-35 [facility] HospitalRed Cell Distribution Uplob6619-05-45 04:40:00* Test Item Value Reference Range Interpretation Comments Red Cell Distribution Width (test code = 32533-5) 13.0 11.7 -14.4 [facility] HospitalPlatelet Ddgiw8395-30-95 04:40:00* Test Item Value Reference Range Interpretation Comments Platelet Count (test code = 777-3) 223 140-360 [facility] HospitalNeutrophils (%) (Auto)2019-09-14 04:40:00 * Test Item Value Reference Range Interpretation Comments Neutrophils (%) (Auto) (test code = 90153-5) 72.5 38.7-80.0 [facility] HospitalLymphocytes (%) (Auto)2019-09-14 04:40:00 * Test Item Value Reference Range Interpretation Comments Lymphocytes (%) (Auto) (test code = 736-9) 13.9 18.0-39.[address] [facility] HospitalMonocytes (%) (Auto)2019-09-14 04:40:00* Test Item Value Reference Range Interpretation Comments Monocytes (%) (Auto) (test code = 5905-5) 8.8 4.4-11.3 [facility] HospitalEosinophils (%) (Auto)2019-09-14 04:40:00 * Test Item Value Reference Range Interpretation Comments Eosinophils (%) (Auto) (test code = 713-8) 3.5 0.0-6.0 [facility] HospitalBasophils (%) (Auto)2019-09-14 04:40:00* Test Item Value Reference Range Interpretation Comments Basophils (%) (Auto) (test code = 706-2) 0.8 0.0-1.0 [facility] HospitalIM GRANULOCYTES %2019-09-14 04:40:00* Test Item Value Reference Range Interpretation Comments IM GRANULOCYTES % (test code = IM GRANULOCYTES %) 0.5 0.0- 1.0 [facility] HospitalNeutrophils # (Auto)2019-09-14 04:40:00* Test Item Value Reference Range Interpretation Comments Neutrophils # (Auto) (test code = 751-8) 4.6 2.1-6.9 [facility] HospitalLymphocytes # (Auto)2019-09-14 04:40:00* Test Item Value Reference Range Interpretation Comments Lymphocytes # (Auto) (test code = 70980-9) 0.9 1.0-3.[address] [facility] HospitalMonocytes # (Auto)2019-09-14 04:40:00* Test Item Value Reference Range Interpretation Comments Monocytes # (Auto) (test code = 742-7) 0.6 0.2-0.8 [facility] HospitalEosinophils # (Auto)2019-09-14 04:40:00* Test Item Value Reference Range Interpretation Comments Eosinophils # (Auto) (test code = 711-2) 0.2 0.0-0.4 [facility] HospitalBasophils # (Auto)2019-09-14 04:40:00* Test Item Value Reference Range Interpretation Comments Basophils # (Auto) (test code = 704-7) 0.1 0.0-0.1 [facility] HospitalAbsolute Immature Granulocyte (auto 2019-09-14 04:40:00* Test Item Value Reference Range Interpretation Comments Absolute Immature Granulocyte (auto (francia t code = Absolute Immature Granulocyte (auto) 0.03 0-0.1 [facility] HospitalB-Type Natriuretic Ynemhnl8765-14-96 09:23:00* Test Item Value Reference Range Interpretation Comments B-Type Natriuretic Peptide (test code = 73577-2) 793.9 0-[address] [facility] HospitalMagnesium Yxnex6984-68-77 09:19:00* Test Item Value Reference Range Interpretation Comments Magnesium Level (test code = 41917-0) 1.8 1.3-2.1 [facility] HospitalProthrombin Czvf1610-99-05 09:09:00* Test Item Value Reference Range Interpretation Comments Prothrombin Time (test code = 5902-2) 14.0 11.9-14.5 [facility] HospitalProthromb Time International Ratio 2019-09-13 09:09:00* Test Item Value Reference Range Interpretation Comments Prothromb Time International Ratio (test code = 6301-6) 1.03 Oral Anticoagulant Therapy INR Values:1. Low Intensity Therapy 1.5 - 2.02 . Moderate Intensity Therapy 2.0 - 3.03. High Intensity Therapy(1) 2.5 - 3. 54. High Intensity Therapy(2) 3.0 - 4.05. Panic Value INR > 5.0 [facility] HospitalActivated Partial Thromboplast Time 2019-09-13 09:09:00* Test Item Value Reference Range Interpretation Comments Activated Partial Thromboplast Time (test code = 15973-0) 33.8 23.8-35.5 [facility] HospitalUrine [id number] 09:06:00* Test Item Value Reference Range Interpretation Comments Urine WBC (test code = 5821-4) 6-10 0-[address] [facility] HospitalUrine SIX9081-59-05 09:06:00* Test Item Value Reference Range Interpretation Comments Urine RBC (test code = 28939-9) 0-5 0-5 [facility] HospitalUrine Xksyztut4115-52-29 09:06:00* Test Item Value Reference Range Interpretation Comments Urine Bacteria (test code = 68568-0) RARE NONE [facility] HospitalUrine Epithelial Gujml2874-08-29 09:06:00 * Test Item Value Reference Range Interpretation Comments Urine Epithelial Cells (test code = 52387-4) FEW NONE [facility] HospitalUrine Oirxe3278-60-28 09:01:00* Test Item Value Reference Range Interpretation Comments Urine Color (test code = 5778-6) YELLOW YELLOW [facility] HospitalUrine Jnlhvfy8438-86-50 09:01:00* Test Item Value Reference Range Interpretation Comments Urine Clarity (test code = 19872-3) CLEAR CLEAR [facility] HospitalUrine Specific Orvpesq9472-76-79 09:01:00 * Test Item Value Reference Range Interpretation Comments Urine Specific [place] (test code = 5811-5) <=1.005 1.010-1.[address] [facility] HospitalUrine nT0852-00-22 09:01:00* Test Item Value Reference Range Interpretation Comments Urine pH (test code = 13637-1) 6 5-7 [facility] HospitalUrine Leukocyte Mmrneiru8169-00-14 09:01:00* Test Item Value Reference Range Interpretation Comments Urine Leukocyte Esterase (test code = 37427-8) NEGATIVE NEGATIV E [facility] HospitalUrine Jyawgfx7288-39-22 09:01:00* Test Item Value Reference Range Interpretation Comments Urine Nitrite (test code = 88534-1) NEGATIVE NEGATIVE [facility] HospitalUrine Xriefmc8346-71-41 09:01:00* Test Item Value Reference Range Interpretation Comments Urine Protein (test code = 34571-0) NEGATIVE NEGATIVE [facility] HospitalUrine Glucose (UA)2019-09-13 09:01:00* Test Item Value Reference Range Interpretation Comments Urine Glucose (UA) (test code = 77937-0) NEGATIVE NEGATIVE [facility] HospitalUrine Wksybzl0425-01-65 09:01:00* Test Item Value Reference Range Interpretation Comments Urine Ketones (test code = 08824-9) NEGATIVE NEGATIVE [facility] HospitalUrine Kwburqxjfcoe0003-84-72 09:01:00* Test Item Value Reference Range Interpretation Comments Urine Urobilinogen (test code = 36966-1) 0.2 0.2-1 [facility] HospitalU[facility] Momexmypf1449-83-69 09:01:00* Test Item Value Reference Range Interpretation Comments Urine Bilirubin (test code = 1977-8) NEGATIVE NEGATIVE [facility] HospitalUrine Zixdy4844-32-90 09:01:00* Test Item Value Reference Range Interpretation Comments Urine Blood (test code = 38325-1) NEGATIVE NEGATIVE [facility] HospitalCHEST SINGLE (PORTABLE)2019-09-13 08:54:00 [place] [address] Patient Name: MICHELLE LY MR #: [id number] : 1950 Age/Sex: 69/M Req #: [id number] Adm Physician: Ordered by: SHOSHANA SANCHEZ MD Report #: [id number] Location: Room/Bed: Procedure: [id number] DX/ CHEST SINGLE (PORTABLE) Exam Date: 09/13/19 [...] COPY TO: SHOSHANA SANCHEZ MD Urine color cxsojmpmgfpwf3283-15-79 07:40:00* Test Item Value Reference Range Interpretation Comments Urine Color (test code = 5778-6) YELLOW YELLOW [facility] HospitalUrine gkhqaoy3206-57-35 07:40:00* Test Item Value Reference Range Interpretation Comments Urine Clarity (test code = 66097-0) [facility] by Test strip 2019-09-13 07:40:00* Test Item Value Reference Range Interpretation Comments Urine Specific [place] (test code = 5811-5) <=1.005 1.010-1.[address] [facility] HospitalUrine pH measurement by automated test omyjv9212-32-27 07:40:00* Test Item Value Reference Range Interpretation Comments Urine pH (test code = 65399-0) 6 5-7 [facility] HospitalUrine leukocyte esterase detection by automated test ipfkv8611-17-64 07:40:00* Test Item Value Reference Range Interpretation Comments Urine Leukocyte Esterase (test code = 69062-1) NEGATIVE NEGATIV E [facility] HospitalUrine nitrite detection by automated test xatsf4505-47-76 07:40:00* Test Item Value Reference Range Interpretation Comments Urine Nitrite (test code = 81671-5) NEGATIVE NEGATIVE [facility] HospitalUrine protein detection by automated test gxviu0990-71-45 07:40:00* Test Item Value Reference Range Interpretation Comments Urine Protein (test code = 29479-7) NEGATIVE NEGATIVE [facility] HospitalUrine glucose detection by automated test teybw9053-01-45 07:40:00* Test Item Value Reference Range Interpretation Comments Urine Glucose (UA) (test code = 37639-0) NEGATIVE NEGATIVE [facility] HospitalUrine ketones detection by automated test zorng2570-78-03 07:40:00* Test Item Value Reference Range Interpretation Comments Urine Ketones (test code = 37986-9) NEGATIVE NEGATIVE [facility] HospitalUrine urobilinogen measurement by test strip (mass/volume)2019-09-13 07:40:00* Test Item Value Reference Range Interpretation Comments Urine Urobilinogen (test code = 26565-9) 0.2 0.2-1 [facility] HospitalUrine total bilirubin dfhvqbnzl9328-01-81 07:40:00* Test Item Value Reference Range Interpretation Comments Urine Bilirubin (test code = 1977-8) NEGATIVE NEGATIVE [facility] HospitalUrine erythrocytes ppnmitbep9292-31-69 07:40:00* Test Item Value Reference Range Interpretation Comments Urine Blood (test code = 56922-8) NEGATIVE NEGATIVE [facility] HospitalAutomated urine sediment leukocyte count by microscopy (number/high power field)2019-09-13 07:40:00* Test Item Value Reference Range Interpretation Comments Urine WBC (test code = 5821-4) 6-10 0-5 [facility] HospitalErythrocytes detection in urine sediment by light ibscrwnluv0623-34-62 07:40:00* Test Item Value Reference Range Interpretation Comments Urine RBC (test code = 56332-7) 0-5 0-5 [facility] HospitalBacteria detection in urine sediment by light hbeekugdmg8869-04-25 07:40:00* Test Item Value Reference Range Interpretation Comments Urine Bacteria (test code = 13573-2) RARE NONE [facility] HospitalEpithelial cells detection in urine sediment by light gacvhseagm9317-44-05 07:40:00* Test Item Value Reference Range Interpretation Comments Urine Epithelial Cells (test code = 17838-6) FEW NONE [facility]lakeerum or plasma magnesium measurement (mass/volume)2019-09-13 07:40:00* Test Item Value Reference Range Interpretation Comments Magnesium Level (test code = 39612-8) 1.8 1.3-2.1 [facility] HospitalTriglycerides Zrpxn7272-10-40 05:28:00* Test Item Value Reference Range Interpretation Comments Triglycerides Level (test code = 2571-8) 146 0-149 [facility] HospitalCholesterol Lfekw0949-79-62 05:28:00* Test Item Value Reference Range Interpretation Comments Cholesterol Level (test code = 2093-3) 224 0-199 H Less than 200 mg/dL Low Tyiz167 - 239 mg/dL Borderline Qcdh164 m g/dl and greater High Risk [facility] HospitalLDL Bjftpkuervg0642-92-34 05:28:00* Test Item Value Reference Range Interpretation Comments LDL Cholesterol (test code = 2089-1) 147 60-[address] [facility] HospitalHDL Pqvyfjbbydv4353-50-39 05:28:00* Test Item Value Reference Range Interpretation Comments HDL Cholesterol (test code = 2085-9) 48 40-60 [facility] HospitalCholesterol/HDL Zdbuf9092-45-64 05:28:00 * Test Item Value Reference Range Interpretation Comments Cholesterol/HDL Ratio (test code = 9830-1) 4.7 3.9-4.7 [facility] HospitalCreatine Kinase JT6808-42-04 02:54:00* Test Item Value Reference Range Interpretation Comments Creatine Kinase MB (test code = 68936-4) 1.10 0-5.0 [facility] HospitalTroponin B0655-52-51 02:54:00* Test Item Value Reference Range Interpretation Comments Troponin I (test code = XOC7138) 0.010 0-0.300 [facility] HospitalCreatine Fxwlgs6780-56-48 02:27:00* Test Item Value Reference Range Interpretation Comments Creatine Kinase (test code = 2157-6) 93 30-200 [facility] HospitalUrine MTF8644-21-95 19:15:00* Test Item Value Reference Range Interpretation Comments Urine WBC (test code = 5821-4) NONE 0-5 [facility] HospitalUrine WEG7070-53-31 19:15:00* Test Item Value Reference Range Interpretation Comments Urine RBC (test code = 43922-4) NONE 0-5 [facility] HospitalUrine Tlafdxko5358-76-47 19:15:00* Test Item Value Reference Range Interpretation Comments Urine Bacteria (test code = 22465-6) NONE NONE [facility] HospitalUrine Epithelial Iitii3319-00-56 19:15:00 * Test Item Value Reference Range Interpretation Comments Urine Epithelial Cells (test code = 18258-8) RARE NONE [facility] HospitalUrine Ddlty1992-06-92 19:15:00* Test Item Value Reference Range Interpretation Comments Urine Mucus (test code = 8247-9) FEW RARE H [facility] HospitalUrine Zneyu6633-16-96 18:43:00* Test Item Value Reference Range Interpretation Comments Urine Color (test code = 5778-6) YELLOW YELLOW [facility] HospitalUrine Lzgysfa2127-40-65 18:43:00* Test Item Value Reference Range Interpretation Comments Urine Clarity (test code = 19263-4) CLEAR CLEAR [facility] HospitalUrine Specific Gckmsxy8859-89-00 18:43:00 * Test Item Value Reference Range Interpretation Comments Urine Specific [place] (test code = 5811-5) 1.020 1.010-1.[address] [facility] HospitalUrine aJ8835-88-43 18:43:00* Test Item Value Reference Range Interpretation Comments Urine pH (test code = 81206-0) 5 5-7 [facility] HospitalUrine Leukocyte Fgfuxzmg3495-25-19 18:43:00* Test Item Value Reference Range Interpretation Comments Urine Leukocyte Esterase (test code = 5799-2) NEGATIVE NEGATIVE [facility] HospitalUrine Dccvbnc3917-24-05 18:43:00* Test Item Value Reference Range Interpretation Comments Urine Nitrite (test code = 39406-8) NEGATIVE NEGATIVE [facility] HospitalUrine Dhlgtet1140-10-36 18:43:00* Test Item Value Reference Range Interpretation Comments Urine Protein (test code = 5804-0) NEGATIVE NEGATIVE [facility] HospitalUrine Glucose (UA)2018-07-19 18:43:00* Test Item Value Reference Range Interpretation Comments Urine Glucose (UA) (test code = 2349-9) NEGATIVE NEGATIVE [facility] HospitalUrine Ygmhqvd4218-09-25 18:43:00* Test Item Value Reference Range Interpretation Comments Urine Ketones (test code = 13052-4) NEGATIVE NEGATIVE [facility] HospitalUrine Vbolbryixgqb3833-21-23 18:43:00* Test Item Value Reference Range Interpretation Comments Urine Urobilinogen (test code = 71709-0) 0.2 0.2-1 [facility] HospitalUrine Adeebnvwj5856-78-94 18:43:00* Test Item Value Reference Range Interpretation Comments Urine Bilirubin (test code = 1978-6) NEGATIVE NEGATIVE [facility] HospitalUrine Mdsds8392-33-16 18:43:00* Test Item Value Reference Range Interpretation Comments Urine Blood (test code = 92659-8) NEGATIVE NEGATIVE [facility] HospitalCHEST SINGLE (NOT PORTABLE)2018-07-19 18:10:00 [facility] [address] [place] [address] Patient Name: MICHELLE LY MR #: [id number] : 1950 Age/Sex: 67/M Req #: [id number] Adm Physician: Ordered by: BHARAT VELIZ MD Report #: [id number] Location: ER Room/Bed: Procedure: [id number] DX/CHEST SINGLE (NOT JOHNNY BLE) Exam Date: [...] COPY TO: BHARAT VELIZ MD B-Type Natriuretic Gzfmvbo4249-18-99 18:07:00* Test Item Value Reference Range Interpretation Comments B-Type Natriuretic Peptide (test code = 33217-9) 110.1 0-100 H [facility]lakeodium Pzixd9283-21-62 18:00:00* Test Item Value Reference Range Interpretation Comments Sodium Level (test code = 2951-2) 140 136-145 [facility] HospitalPotassium Cpggy5265-72-42 18:00:00* Test Item Value Reference Range Interpretation Comments Potassium Level (test code = 2823-3) 4.2 3.5-5.1 [facility] HospitalChloride Cbdyy9742-65-94 18:00:00* Test Item Value Reference Range Interpretation Comments Chloride Level (test code = 2075-0) 104 98-107 [facility] HospitalCarbon Dioxide Zivoh9839-10-09 18:00:00* Test Item Value Reference Range Interpretation Comments Carbon Dioxide Level (test code = 2028-9) 22 22-29 [facility] HospitalAnion Urk0259-07-01 18:00:00* Test Item Value Reference Range Interpretation Comments Anion Gap (test code = 14740-6) 18.2 8-[address] [facility] HospitalBlood Urea Ujrahunx2589-99-25 18:00:00* Test Item Value Reference Range Interpretation Comments Blood Urea Nitrogen (test code = 3094-0) 17 7-26 [facility] HospitalCreatinine2018-09-18 18:00:00* Test Item Value Reference Range Interpretation Comments Creatinine (test code = 2160-0) 1.02 0.72-1.25 [facility] HospitalBUN/Creatinine Hvybx8679-06-12 18:00:00* Test Item Value Reference Range Interpretation Comments BUN/Creatinine Ratio (test code = 3097-3) 17 6-25 [facility] HospitalEstimat Glomerular Filtration Rate 2018-07-19 18:00:00* Test Item Value Reference Range Interpretation Comments Estimat Glomerular Filtration Rate (test code = 399028371) 60- >60 Ranges were taken from the National Kidney Disease Education Program and the [facility] Kidney Foundation literature.Reference ranges:60 or greater: Atzjim54-65 ( for 3 consecutive months): Chronic kidney disease 15 or less: Kidney failureSt. Luke's Health – The Woodlands HospitalGlucose Pvcso6223-45-71 18:00:00* Test Item Value Reference Range Interpretation Comments Glucose Level (test code = ABB1086) 88 74-118 [facility] HospitalCalcium Mvlxy3807-09-87 18:00:00* Test Item Value Reference Range Interpretation Comments Calcium Level (test code = 99043-4) 9.8 8.4-10.2 [facility] HospitalTotal Setquovit4539-75-41 18:00:00* Test Item Value Reference Range Interpretation Comments Total Bilirubin (test code = 1975-2) 0.5 0.2-1.2 [facility] HospitalAspartate Amino Transf (AST/SGOT) 2018-07-19 18:00:00* Test Item Value Reference Range Interpretation Comments Aspartate Amino Transf (AST/SGOT) (test code = Aspartate Amino Transf (AST/SGOT)) 37 5-[address] [facility] HospitalAlanine Aminotransferase (ALT/SGPT) 2018-07-19 18:00:00* Test Item Value Reference Range Interpretation Comments Alanine Aminotransferase (ALT/SGPT) (test code = 1742-6) 61 0-[address] [facility] HospitalTotal Cmohrar7614-43-48 18:00:00* Test Item Value Reference Range Interpretation Comments Total Protein (test code = 2885-2) 7.9 6.5-8.1 [facility] HospitalAlbumin2018-09-18 18:00:00* Test Item Value Reference Range Interpretation Comments Albumin (test code = 1751-7) 3.9 3.5-5.0 [facility] HospitalGlobulin2018-09-18 18:00:00* Test Item Value Reference Range Interpretation Comments Globulin (test code = 75532-0) 4.0 2.3-3.[address] [facility] HospitalAlbumin/Globulin Miqnf8122-31-86 18:00:00 * Test Item Value Reference Range Interpretation Comments Albumin/Globulin Ratio (test code = 1759-0) 1.0 0.8-2.0 [facility] HospitalAlkaline Lhhejnkbswa3840-18-15 18:00:00* Test Item Value Reference Range Interpretation Comments Alkaline Phosphatase (test code = 6768-6) 102 40-150 [facility] HospitalProthrombin Muji4757-29-92 17:48:00* Test Item Value Reference Range Interpretation Comments Prothrombin Time (test code = 5902-2) 12.6 11.9-14.5 [facility] HospitalProthromb Time International Ratio 2018-07-19 17:48:00* Test Item Value Reference Range Interpretation Comments Prothromb Time International Ratio (test code = 6301-6) 1.02 Oral Anticoagulant Therapy INR Values:1. Low Intensity Therapy 1.5 - 2.02 . Moderate Intensity Therapy 2.0 - 3.03. High Intensity Therapy(1) 2.5 - 3. 54. High Intensity Therapy(2) 3.0 - 4.05. Panic Value INR > 5.0 [facility] HospitalActivated Partial Thromboplast Time 2018-07-19 17:48:00* Test Item Value Reference Range Interpretation Comments Activated Partial Thromboplast Time (test code = 45066-4) 29.5 23.8-35.5 [facility] HospitalWhite Blood Hjwws8539-41-61 17:38:00* Test Item Value Reference Range Interpretation Comments White Blood Count (test code = 6690-2) 6.80 4.8-10.8 [facility] HospitalRed Blood Smhje0029-37-76 17:38:00* Test Item Value Reference Range Interpretation Comments Red Blood Count (test code = 789-8) 4.78 4.3-5.7 [facility] HospitalHemoglobin2018-09-18 17:38:00* Test Item Value Reference Range Interpretation Comments Hemoglobin (test code = 49488-9) 15.3 14.0-18.0 [facility] HospitalHematocrit2018-09-18 17:38:00* Test Item Value Reference Range Interpretation Comments Hematocrit (test code = 4544-3) 43.2 38.2-49.6 [facility] HospitalMean Corpuscular Zzhosd8864-93-40 17:38:00* Test Item Value Reference Range Interpretation Comments Mean Corpuscular Volume (test code = 787-2) 90.4 81-99 [facility] HospitalMean Corpuscular Lzqzdnjdcr3097-18-98 17:38:00* Test Item Value Reference Range Interpretation Comments Mean Corpuscular Hemoglobin (test code = 785-6) 32.0 28-32 [facility] HospitalMean Corpuscular Hemoglobin Concent 2018-07-19 17:38:00* Test Item Value Reference Range Interpretation Comments Mean Corpuscular Hemoglobin Concent (test code = 786-4) 35.4 31-[address] [facility] HospitalRed Cell Distribution Qkvvk0677-64-32 17:38:00* Test Item Value Reference Range Interpretation Comments Red Cell Distribution Width (test code = 49970-5) 12.4 11.7 -14.4 [facility] HospitalPlatelet Mqckj6023-36-76 17:38:00* Test Item Value Reference Range Interpretation Comments Platelet Count (test code = 777-3) 213 140-360 [facility] HospitalNeutrophils (%) (Auto)2018-07-19 17:38:00 * Test Item Value Reference Range Interpretation Comments Neutrophils (%) (Auto) (test code = 59713-1) 55.2 38.7-80.0 [facility] HospitalLymphocytes (%) (Auto)2018-07-19 17:38:00 * Test Item Value Reference Range Interpretation Comments Lymphocytes (%) (Auto) (test code = 736-9) 31.2 18.0-39.1 [facility] HospitalMonocytes (%) (Auto)2018-07-19 17:38:00* Test Item Value Reference Range Interpretation Comments Monocytes (%) (Auto) (test code = 5905-5) 8.5 4.4-11.3 [facility] HospitalEosinophils (%) (Auto)2018-07-19 17:38:00 * Test Item Value Reference Range Interpretation Comments Eosinophils (%) (Auto) (test code = 713-8) 4.1 0.0-6.0 [facility] HospitalBasophils (%) (Auto)2018-07-19 17:38:00* Test Item Value Reference Range Interpretation Comments Basophils (%) (Auto) (test code = 706-2) 0.6 0.0-1.0 [facility] HospitalIM GRANULOCYTES %2018-07-19 17:38:00* Test Item Value Reference Range Interpretation Comments IM GRANULOCYTES % (test code = IM GRANULOCYTES %) 0.4 0.0- 1.0 [facility] HospitalNeutrophils # (Auto)2018-07-19 17:38:00* Test Item Value Reference Range Interpretation Comments Neutrophils # (Auto) (test code = 751-8) 3.8 2.1-6.9 [facility] HospitalLymphocytes # (Auto)2018-07-19 17:38:00* Test Item Value Reference Range Interpretation Comments Lymphocytes # (Auto) (test code = 65642-3) 2.1 1.0-3.2 [facility] HospitalMonocytes # (Auto)2018-07-19 17:38:00* Test Item Value Reference Range Interpretation Comments Monocytes # (Auto) (test code = 742-7) 0.6 0.2-0.8 [facility] HospitalEosinophils # (Auto)2018-07-19 17:38:00* Test Item Value Reference Range Interpretation Comments Eosinophils # (Auto) (test code = 711-2) 0.3 0.0-0.4 [facility] HospitalBasophils # (Auto)2018-07-19 17:38:00* Test Item Value Reference Range Interpretation Comments Basophils # (Auto) (test code = 704-7) 0.0 0.0-0.1 [facility] HospitalAbsolute Immature Granulocyte (auto 2018-07-19 17:38:00* Test Item Value Reference Range Interpretation Comments Absolute Immature Granulocyte (auto (francia t code = Absolute Immature Granulocyte (auto) 0.03 0-0.1 [facility] HospitalBEDSIDE GLUCOSE BNOUBRW1512-90-39 15:54:96894Urceagft HermannBEDSIDE GLUCOSE YEOGTNQ9505-50-00 12:07:26085Rbbxfeat QtqpyleEYYARBFQQ4420-42-40 09:28:68887Hkynjdiw RywyaaeQLFWNJVPI6444-12-47 09:28:32151Orrzdefc IypazcsHIVXUVIHK2366-16-99 09:28:004.1[facility] PDKKNJDGP7326-87-96 09:28:0073[facility] GynmgkgTJNLMVDKG2792-41-71 09:28:84460 [facility] LpqqfegDFXNMXGVX6678-80-09 09:28:0024[facility] HermannCHEMISTRY 2013-07-18 09:28:001.1[facility] QmpqeyvPOXBPOJZB6283-28-97 09:28:0028[facility] IgoetwaLHELKWAQO0913-76-55 09:28:009.0[facility] EejazyaZQEQCFONO1833-36-95 09:28:0015.1[facility] ZrtoxsnJJSHKPAQBX6533-30-84 09:28:00Normal (07/18/2013 04:28:00) [facility] WdeassgPUMBQSMKGM1259-54-31 09:28:00Normal (07/18/2013 04:28:00) [facility] YvlwodmXCHZKCJDED6278-37-84 09:28:0076.1[facility] OXRXQSCFGC6688-13-73 09:28:000.9[facility] RehoajmZPUGAORJXY2490-19-18 09:28:001.5 [facility] PmvmwemGMJWAUCNIE0552-89-91 09:28:000.1[facility] HermannHEMATOLOGY 2013-07-18 09:28:008.0[facility] VwugfyhJZPUORLCWT3062-01-07 09:28:0014.1[facility] TsmjqbiCVMLKCCWWD1130-19-23 09:28:000.0[facility] EvcdwvbWXBMODOWGG6713-18-43 09:28:000.3[facility] ZduuhzmROBRAGWKMR6114-53-62 09:28:008.4[facility] BVJHMYHYMN6713-70-45 09:28:001.1[facility] KcmmmakXMJIHMRNBK1297-52-39 09:28:75486 [facility] VygmfkeTPFPQCJCIH9066-62-73 09:28:007.6[facility] HermannHEMATOLOGY 2013-07-18 09:28:0032.8[facility] BhquguyVFQGLOABWX3875-26-50 09:28:0013.6[facility] IbptzxaELKOJEPEKK2227-35-36 09:28:005.01[facility] FlnkslyWKFROYWBQW3849-42-51 09:28:0015.5[facility] EpxodtyHYMZJDEEKF9086-36-66 09:28:00* Test Item Value Reference Range Interpretation Comments MCH (test code = MCH) 30.9 pg 27.0-31.0 N [facility] JqnsksgCLRUHEDSCA2278-89-88 09:28:0047.1[facility] HermannHEMATOLOGY 2013-07-18 09:28:0094.0[facility] RjiebiwYMDLMXEWJY3765-81-64 09:28:0010.5[facility] HermannBEDSIDE GLUCOSE AHBKDTB5386-66-29 22:14:18544Lyqvrrkz HermannCHEMISTRY 2013-07-17 09:08:0014.2[facility] DsjvouqKWQEGKBVW2543-28-20 09:08:0065[facility] RifdrcvOSUAXAXOA7517-26-64 09:08:008.6[facility] DjkzsjxZUJWTXQDZ3632-15-14 09:08:0017[facility] HparghmCILRJBJVH0857-91-84 09:08:70387Zwyakcue [place] JUWHJVJVE2272-39-23 09:08:0027[facility] SeriukcZTWNAFQWN4014-45-73 09:08:001.2 [facility] KpwazkcATSKFNCDO3398-61-58 09:08:92316Ibvxcrri HermannCHEMISTRY 2013-07-17 09:08:01647Avesnvwl UmjamlwNOCMZONIP6069-42-64 09:08:004.2[facility] UggdrnpQEJBJDXXC3624-69-09 09:08:004.53[facility] JcogjarXVIZVNCVF1401-98-78 09:08:27246Gmcjlyox TmtlwqrMRIRYXPPU0313-35-60 09:08:0036[facility] XUFIGJCBT1456-83-56 09:08:0097[facility] PhoicjzGMIKPCRHD3920-87-56 09:08:02267 [facility] GjreogjLVWHMUVELX6661-90-90 09:08:0076.1[facility] HermannHEMATOLOGY 2013-07-17 09:08:000.0[facility] IcvpxfyKLVAXNBPOB2131-02-23 09:08:000.2[facility] NoquzhiFQRDUYBJMH0965-02-95 09:08:000.6[facility] YlznbxxKKRLYDYXYL1990-19-84 09:08:006.4[facility] JvanjswTJHDFHECCW6964-19-02 09:08:002.4[facility] ODPFDEINER1599-98-98 09:08:007.6[facility] QkycmkyCYNGPFGOPG1024-63-27 09:08:00 13.7[facility] RutiiupLWTMNECVUW1671-65-12 09:08:001.2[facility] HermannHEMATOLOGY 2013-07-17 09:08:000.2[facility] YehjvglNRJWWOLDET0578-53-95 09:08:007.9[facility] MxkouewBWKXHXKRTS2318-38-93 09:08:82431Jhcxkzft EgwcrnbPIBBOZPDQN9559-72-47 09:08:008.4[facility] MuhdclpLATNIXHHGH9148-20-78 09:08:004.61[facility] YBRJNVQXDK1693-25-91 09:08:00* Test Item Value Reference Range Interpretation Comments MCH (test code = MCH) 30.8 pg 27.0-31.0 N [facility] RozdlioTAAZNZILFH8471-58-74 09:08:0013.5[facility] HermannHEMATOLOGY 2013-07-17 09:08:0032.7[facility] HowbfnfIUFGSVNCYY8064-66-07 09:08:0094.0[facility] VabsyptZLAVMBMEOU5741-47-29 09:08:0014.2[facility] CjyvysjEKFDFTXQGX3300-83-81 09:08:0043.3[facility] CliwuyhQUPVSJITBN8539-29-38 09:08:001.20[facility] QNBGNKHTXQ6264-02-11 09:08:00* Test Item Value Reference Range Interpretation Comments PT (test code = PT) 15.1 s 12.0-14.7 [facility] [facility] [id number] 09:08:00* Test Item Value Reference Range Interpretation Comments PTT (test code = PTT) 32.9 s 22.9-35.8 [facility] [id number] 05:47:000.8[facility]ann[facility]MI[facility]Y 2013-07-17 05:47:00<0.02[facility] [id number] 05:47:47469Nprzqcfs MjptyndPYYNDWUCK6743-63-09 05:47:001.1[facility] VqxfdksGQBSNJGVU0864-67-80 23:48:492.2[facility] [id number] 23:48:49<0.02[facility] Rafi [id number] 23:48:04911Denblkri FdalcxyXIPBWMZFW6340-70-83 23:48:492.0 [facility] [id number] 23:48:272.1[facility] HermannCHEMISTRY 2013-07-16 23:48:278.0[facility] [id number] 23:48:242.790[facility] [id number] 23:48:2435[facility] AquanezWHAKJWZUL9919-51-96 23:48:2412.0[facility] VraworjTEVUQRLCH2803-94-49 23:48:244.2[facility]
[2020-07-08] MEDS ORDERED: CEFEPIME 1GM/NS 0.9% 50 ML 50 ML IV SCH (14:58)
[2020-07-08 15:11] LABS: CREATINE KINASE MB 2.1 ng/mL (0-5.0)
[2020-07-08] MEDS ORDERED: VANCOMYCIN 1GM/NS 250 ML 250 ML IV ONE (15:15)
--- NOTE | 2020-07-08 15:15 | NUR ---
bedside report received from Gage Mcmullen RN
--- NOTE | 2020-07-08 15:32 | NUR ---
spoke to Cheryl from Lab, requested COVID swabs
[2020-07-08] MEDS: ENOXAPARIN SOD INJ 40 MG/0.4 ML SYR SC SCH (16:29)
[2020-07-08] MEDS ORDERED: FUROSEMIDE INJ 10 MG/ML 4 ML VIAL IV SCH (17:00)
--- NOTE | 2020-07-08 17:01 | NUR ---
BiPap disconnected at this time per Dr. Ryder's order
--- NOTE | 2020-07-08 17:25 | NUR ---
RECEIVED REPORT FROM ANA PONCE.
--- NOTE | 2020-07-08 17:55 | NUR ---
COMPLETED BEDSIDE SHIFT REPORT AND ROUNDING WITH ONCOMING NIGHT NURSE. PATIENT IN STABLE CONDITION, NO S/S OF DISTRESS NOTED. NO PAIN VOICED. RESPIRATIONS EVEN AND NON LABORED. TELEMETRY APPLIED. IV SITES ASYMPTOMATIC AND PATENT, TRANSPARENT DRESSING C/D/I. BED IN LOWEST POSITION AND LOCKED, SIDE RAILS X 2 , NON SKID SOCKS APPLIED. CALL LIGHT WITHIN REACH.
--- NOTE | 2020-07-08 19:36 | NUR ---
NOTIFIED DR. CABALLERO THAT THE PATIENT WAS ADMITTED.
--- NOTE | 2020-07-08 19:37 | NUR ---
PATIENT ARRIVED ON THE UNIT @ 1755 VIA WHEELCHAIR FROM THE ER. PATIENT IN STABLE CONDITION, NO S/S OF DISTRESS NOTED. RESPIRATIONS EVEN AND NON-LABORED ON 2 LPM/NC. NO PAIN VOICED. IV SITE ASYMPTOMATIC AND PATENT, TRANSPARENT DRESSING C/D/I. BED IN LOWEST POSITION AND LOCKED, SIDE RAILS X 2, NON SKID SOCKS APPLIED. CALL LIGHT WITHIN REACH.
[2020-07-08 20:00] VITALS: BP 112/73
[2020-07-08 20:36] VITALS: BP 112/73
[2020-07-08 21:10] LABS: CREATINE KINASE MB 1.7 ng/mL (0-5.0)
[2020-07-08] MEDS ORDERED: ONDANSETRON HCL 4 MG ORAL DISINTEGRATING TAB PO PRN (22:15)
[2020-07-08] MEDS ORDERED: AZITHROMYCIN 500MG/NS 250 ML 250 ML IV ONE (22:15)
[2020-07-08] MEDS ORDERED: ACETAMINOPHEN 325 MG TAB PO PRN (22:15)
[2020-07-09] VITALS (8 sets, daily range): BP systolic 91–106; BP diastolic 14–82
--- NOTE | 2020-07-09 01:44 | Diagnostic Imaging Report ---
EXAM: CT Chest WITHOUT contrast INDICATION: Congestive heart failure, rule out pneumonia COMPARISON: Chest x-ray 07/08/2020 TECHNIQUE: Chest was scanned utilizing a multidetector helical scanner from the lung apex through the level of the adrenal glands without administration of IV contrast. Absence of intravenous contrast decreases sensitivity for detection of lymphadenopathy and vascular pathology. Coronal and sagittal reformations were obtained. Routine protocol was performed. IV CONTRAST: None COMPLICATIONS: None RADIATION DOSE: Total DLP: 474 mGy*cm Estimated effective dose: (DLP x 0.014 x size factor) mSv CTDIvol has been reviewed. It is below the limits set by the Radiation Protocol Committee (RPC). Dose modulation, iterative reconstruction, and/or weight based adjustment of the mA/kV was utilized to reduce the radiation dose to as low as reasonably achievable. FINDINGS: LINES/ TUBES: None. LUNGS AND AIRWAYS: Bibasilar dependent groundglass opacities and low lung volumes mild interlobular septal thickening in the right lung. Airways are normal. PLEURA: Moderate right and small left pleural effusions. HEART AND MEDIASTINUM: The thyroid gland is normal. No mediastinal, hilar or axillary lymphadenopathy. Coronary artery stents. The heart is mildly enlarged. There is a small pericardial effusion. Aortic valve calcifications. UPPER ABDOMEN: Unremarkable. BONES: Degenerative changes. SOFT TISSUES: Unremarkable. IMPRESSION: Mild cardiomegaly, mild pulmonary interstitial edema, small pericardial effusion, and moderate right and small left pleural effusions. Bibasilar groundglass opacities can be due to atelectasis or pneumonia and/or edema. Coronary artery disease with stents and calcific aortic valve disease. Signed by: Tim Garcia DO on 07/09/2020 1:41 AM
[2020-07-09] MEDS ORDERED: AZITHROMYCIN 500MG/NS 250 ML 250 ML IV ONE (02:00)
[2020-07-09] MEDS: POTASSIUM CHLORIDE 10MEQ EA PO SCH ×3 (02:05→16:22)
[2020-07-09] MEDS: ONDANSETRON HCL INJ 2MG/ML 2ML 2 MG/ML VIAL IV PRN ×3 (03:19→22:30)
--- NOTE | 2020-07-09 07:00 | NUR ---
BEDSIDE SHIFT REPORT RECEIVED FROM THE COMMUNICATIONS CLERK RN. EDUCATED PT ABOUT FALL PRECAUTIONS. PT VERBALIZED UNDERSTANDING. CALL LIGHT WITH IN EASY REACH. INSTRUCTED PT TO USE CALL LIGHT FOR ALL THE NEEDS. BED IS LOW AND LOCKED. SIDE RAILS X2. BED ALARM IS ON. PT DENIES NEEDS AT THIS TIME.
[2020-07-09 07:32] LABS: ANION GAP 17.3 mmol/L (8-16); CALCIUM 8.4 mg/dL (8.4-10.2); CREATININE, SERUM 1.64 mg/dL (0.72-1.25); POTASSIUM 4.3 mmol/L (3.5-5.1)
[2020-07-09 07:59] LABS: CREATINE KINASE MB 1.2 ng/mL (0-5.0)
[2020-07-09] MEDS: CEFTRIAXONE SOD 1 GM/NS 50 ML 50 ML IV SCH (09:00)
[2020-07-09] MEDS: FUROSEMIDE INJ 10 MG/ML 4 ML VIAL IV SCH ×4 (09:00→21:36)
[2020-07-09] MEDS: CLOPIDOGREL BISULFATE 75 MG TAB PO SCH (09:11)
[2020-07-09] MEDS ORDERED: SODIUM CHLORIDE 0.9% 250ML 250 ML ONE (09:21)
[2020-07-09] MEDS ORDERED: FUROSEMIDE INJ 10 MG/ML 4 ML VIAL IV ONE (10:00)
--- NOTE | 2020-07-09 10:13 | History and Physical ---
CHIEF COMPLAINT: Recurrent congestive heart failure, systolic dysfunction. PRIMARY CARE PHYSICIAN: Lesley Valverde MD HISTORY OF PRESENT ILLNESS: A 69-year-old male, noncompliant to his furosemide. He was here recently and was sent home on June 20, for increasing his Lasix twice a day, but he is only taking once a day and also the fact that he was supposed to have bypass graft surgery and he went to see his surgeon and apparently, he did not follow instruction to show up in [facility] ER for admission. The patient subsequently presented to [place] and then signed out against medical advice and that was on July 05. Now, the patient came in on July 08, with increasing shortness of breath, congestive heart failure again, pleural effusion. BNP greater than 1500. The patient is giving IV furosemide for diuresis. He was supposed to have bypass graft surgery. The patient is otherwise stable at this time. PAST MEDICAL HISTORY: Aortic valve calcification. Congestive heart failure. Bilateral pleural effusion. Coronary artery disease with stents. Hypertension. Dyslipidemia. Chronic kidney disease. PAST SURGICAL HISTORY: Coronary stents. SOCIAL HISTORY: The patient does not smoke or use alcohol. No regular drugs. ALLERGIES: NO KNOWN ALLERGIES. HOME MEDICATION: Lipitor 10 mg daily, Plavix 75 mg daily, Lasix 40 mg daily, multivitamin, and potassium. PHYSICAL EXAMINATION: VITAL SIGNS: Temperature is 97, blood pressure 112/73, pulse rate 80, respirations 18. GENERAL: The patient is not in acute distress. He is awake. HEENT: Normocephalic and atraumatic. Anicteric. NECK: Supple grossly. PULMONARY: Bilateral rales at the bases. CARDIOVASCULAR: S1, S2. Regular rate and rhythm. ABDOMEN: Soft, mildly obese. EXTREMITIES: No cyanosis, positive for edema. NEUROLOGIC: No focal deficit. IMAGING STUDIES: CT scan showed cardiomegaly, pulmonary interstitial edema, small pericardial effusion, moderate right and small left pleural effusion, bibasilar ground-glass opacity due to atelectasis versus pneumonia. LABORATORY: Chemistry; sodium 137, potassium 4.3, chloride 104, bicarb 20, BUN 31 and creatinine 1.6, glucose 153. BNP is 1890. WBC 6.4, hemoglobin 12.4, hematocrit 37.6, and platelet is 287. IMPRESSION: 1. Acute on chronic systolic dysfunction, congestive heart failure, ejection fraction less than 25% previously. The patient has LifeVest, for which he is not wearing. 2. Multiple vessel coronary disease, required bypass graft surgery. He did see his surgeon and pending for bypass graft surgery at the [facility]. PLAN: Continue with diuresis. Discussed with the patient regarding the need for his followup for bypass graft surgery. Consultation with Dr. Michael Brambila. Repeat echocardiogram. Treat the patient empirically for possible basilar pneumonia. Aggressive diuresis as well. We will monitor the patient closely. Repeat lab work, electrolytes, and correction if needed. MD DAVE Correa/MODL /[id number]
--- NOTE | 2020-07-09 11:29 | Consultation ---
DATE OF CONSULTATION: Cardiology Consult HISTORY OF PRESENT ILLNESS: Jacques Hoskins is a 69-year-old male with primary history of hypertension, diabetes, CAD with stent placements x7 in 2018 and 2019, admitted complaining of worsening shortness of breath on exertion and generalized fatigue, started about four months ago and accompanied with orthopnea, PND or paroxysmal nocturnal dyspnea, and bilateral lower extremity edema. The patient denies any chest pain. No dizziness or any GI symptoms. MEDICAL HISTORY: As mentioned above, hypertension, diabetes, CAD, and CHF. PAST SURGICAL HISTORY: CAD with stent placement in October 2019 and November 2019, lower back surgery 40 years ago and knee surgery 30 years ago. Four years ago, a thoracentesis. SOCIAL HISTORY: Quit smoking 30 years ago and then quit EtOH use 30 years ago. Denies any illicit drug use. FAMILY HISTORY: Parents positive with heart disease and diabetes. ALLERGIES: NO KNOWN DRUG ALLERGIES. MEDICATIONS: Atorvastatin 20 mg p.o. daily, clopidogrel 75 mg p.o. daily, furosemide 40 mg daily, potassium 10 mEq tab daily, Coreg or carvedilol, and enalapril. REVIEW OF SYSTEMS: A detailed 12-point review of system was performed and was negative except as noted in HPI above. LABORATORIES: WBC 6.36, hemoglobin 12.4, and hematocrit 37.6. Sodium 137, potassium is 4.3, chloride 104, CO2 of 20, BUN 31, creatinine is 1.64, and glucose 153. CK 79, CK-MB 1.20, and troponin 0.147, 0.124. BNP 1890.5. IMAGING: Chest x-ray; impression, cardiomegaly with interstitial pulmonary edema. Developing multifocal infection, no pleural effusion or pneumothorax. PHYSICAL EXAMINATION: VITAL SIGNS: 97.4 temperature, pulse is 83, respiratory rate is 20, blood pressure is 99/77, and pulse oximetry 100% on 2 L nasal cannula. GENERAL: The patient is well developed and well nourished, in no acute respiratory distress. SKIN: Normal in appearance, texture, and cool. Cool temperature in the lower extremities. HEENT: The patient's cranium is normocephalic and atraumatic. Pupils are equally round and reactive to light and accommodation. Nonicteric. Ears are normal. Mucosa is moist. Throat is clear. NECK: Supple. Full range of motion. No cervical lymphadenopathy. JVP measures approximately 8 cm with the patient at 45 degrees. RESPIRATORY: Normal respiratory effort. LUNGS: Diminished breath sounds throughout lung harmon. Decreased air entry at the bases with few crackles at the bases. CARDIOVASCULAR: S1 and S2 are audible. Regular rate and rhythm. No significant murmurs heard. GI: It is firm, nontender, nondistended. Bowel sounds are present. EXTREMITIES: +4 pitting edema. No cyanosis. No clubbing. NEUROVASCULAR: Motor intact. Pulses are weak. NEUROLOGIC: Motor and sensory examination of the upper and lower extremities is normal. Reflexes are normal and symmetrical. ASSESSMENT AND PLAN: The patient is a 69-year-old male whose recent cardiac cath demonstrated severe three-vessel coronary artery disease with in-stent restenosis, who was referred to a cardiovascular surgeon at [place] for coronary artery bypass graft evaluation, now readmitted for acute on chronic congestive heart failure. 1. Diurese with IV Lasix and monitor intake and output and replace electrolytes as needed. 2. Repeat echocardiogram. 3. Continue with beta emigdio and JULIA inhibitor. 4. Obtain routine blood chemistries and check lipid panel. 5. Blood pressure and glucose control, congestive heart failure education, fluid and sodium restriction, telemetry monitoring. 6. The patient is needing another CT Surgery referral per patient's request. Further recommendation will follow according to the patient's clinical course. Thank you for this consultation. We will continue to follow. Dictated by Mercedes Dumont NP MD KATERIN Whitney/ASHVIN /[id number]
--- NOTE | 2020-07-09 16:00 | Consultation ---
DATE OF CONSULTATION: 07/09/2020 REASON FOR CONSULT: Coronary artery disease, evaluation for coronary artery bypass surgery; referred by Dr. Michael Brambila. AGRICULTURAL EQUIPMENT TEST ENGINEER: Trung Morse MD HISTORY OF PRESENT ILLNESS: I saw and evaluated this patient on July 09, 2020. He is a 69-year-old male with a long history of hypertension, diabetes, and coronary artery disease. Apparently, his dyspnea at the end of last year and in September and October, he felt that he had multiple stents placed, possibly as many as 6 or 7. Initially, after stent placement, his dyspnea improved. He was able to improve his health, but then over the last 3 months, the dyspnea has increased. Presently, he has orthopnea and is unable to lie flat. He has peripheral edema & is dyspneic with minimal exertion. He does not have chest pain. He has been in the ER at both [place] and at [facility]. Diuresis improved his dyspnea on several occasions. No recent myocardial infarction. He has a history of stroke 15 years ago, but no recent neurologic problems. No clear history of shalini myocardial infarction. He has diabetes, but it is diet controlled. He quit smoking 30 years ago and also quit drinking alcohol 30 years ago. Multiple family members have coronary artery disease. Catheterization was performed several months ago at [facility] by Dr. Brambila. This apparently revealed that the patient needed 3-vessel CABG. He visited with a surgeon, but was dissatisfied, now requests further evaluation. PAST MEDICAL HISTORY: Positive for hypertension, diabetes, coronary artery disease, and multiple coronary artery stent placement. PAST SURGICAL HISTORY: Positive for knee surgery. He had a thoracentesis about 4 years ago. SOCIAL HISTORY: Quit smoking 30 years ago and also quit alcohol 30 years ago. No IV drugs. He is retired. FAMILY HISTORY: Multiple family members have heart disease and diabetes. Several siblings have had myocardial infarction. ALLERGIES: NONE KNOWN. MEDICATIONS: At home include atorvastatin, clopidogrel, Lasix, potassium, Coreg, carvedilol, and enalapril. REVIEW OF SYSTEMS: GENERAL: Positive for fatigue and malaise. NEUROLOGIC: Negative for focal weakness in extremities or dysarthria. HEENT: Negative for decreased vision or decreased hearing. CARDIAC: Negative for chest pain or palpitations. Positive for dyspnea. PULMONARY: Positive for dyspnea. Negative for wheezing. GI: No diarrhea. : Negative for hematuria or dysuria. ENDOCRINE: No polyuria or polydipsia. VASCULAR: Negative for claudication. SKIN: Negative for rashes or itching. HEMATOLOGIC: Negative for clotting or bleeding. INFECTIOUS: Negative for fevers or sweats. PSYCHIATRIC: Negative for depression or anxiety. PHYSICAL EXAMINATION: GENERAL: Well-developed, well-nourished man, sitting up in a chair. When he lies down, he becomes dyspneic. VITAL SIGNS: Blood pressure 140/70. NECK: Supple. Nontender. He has 1 to 2 fingerbreadths JVD. CARDIAC: Regular rate and rhythm. Normal S1 and S2. I could not appreciate any murmur. LUNGS: Clear to auscultation and percussion bilaterally. No rales or wheezing. ABDOMEN: Globoid benign. Good bowel sounds. No hepatosplenomegaly. BACK: No CVA tenderness. No muscular spasm. EXTREMITIES: No cyanosis or clubbing. He has 2+ edema in the feet. 1+ edema in the calves bilaterally. There is pitting edema on the feet. VASCULAR: Carotids 2+/2+ bilaterally. No carotid bruits. Radials are 2+/2+ bilaterally. Brachials 2+/2+ bilaterally. Ulnar is 1+/2+ bilaterally. Femorals 1+/2+ bilaterally. No pulses palpable distal to either femoral artery in either lower extremity. SKIN: No rashes or nonhealing ulcers. MUSCULOSKELETAL: Full range of motion at all joints. No joint swelling. NEUROLOGIC: Cranial nerves II through XII intact. Sensation intact to light touch and pinprick bilaterally. Strength 5/5 in all extremities. LYMPHATICS: Negative for cervical, clavicular, femoral adenopathy. LABORATORY DATA: Chest CT scan report shows mild cardiomegaly with mild pulmonary interstitial edema. There is a small pericardial effusion. Coronary artery stenting is appreciated. Chest x-ray shows cardiomegaly with some pulmonary edema. White count 6.3, hemoglobin 12.4, hematocrit 37.6, and platelet count 287,000. Sodium 137, potassium 4.3, BUN 31, creatinine 1.64. Cardiac enzymes are normal. IMPRESSION: Severe coronary artery disease, also marked congestive heart failure. He is being treated with diuresis. Cardiac catheterization is requested. I have discussed the case with Dr. Brambila. Coronary bypass grafting has been recommended. We will review the cardiac catheterization and make arrangements for transfer to [facility] once the patient decides he wants to proceed. Thank you very much for asking us see this nice man. MD TWAN Pulido/ASHVIN /[id number]
[2020-07-09] MEDS: ENOXAPARIN SOD INJ 40 MG/0.4 ML SYR SC SCH (16:22)
[2020-07-09] MEDS: ATORVASTATIN 40 MG TAB PO SCH (16:22)
[2020-07-09] MEDS ORDERED: ATORVASTATIN 20 MG TAB PO SCH (17:00)
--- NOTE | 2020-07-09 19:00 | NUR ---
BEDSIDE SHIFT REPORT GIVEN TO THE SUPERVISOR HARD CANDY RN. PT DENIED FURTHER NEEDS.
[2020-07-09] MEDS: AZITHROMYCIN 250MG/NS 100 ML 100 ML IV SCH (20:27)
[2020-07-09] MEDS ORDERED: FUROSEMIDE INJ 10 MG/ML 4 ML VIAL IV SCH (21:00)
[2020-07-10] VITALS (8 sets, daily range): BP systolic 99–105; BP diastolic 69–80
[2020-07-10] MEDS: FUROSEMIDE INJ 10 MG/ML 4 ML VIAL IV SCH ×3 (06:17→22:12)
--- NOTE | 2020-07-10 06:50 | NUR ---
Received report from glass products inspector nurse. Pt is awake sitting in chair. NO distress noted. Call light is in reach and bedside table is within reach. Will continue to monitor pt.
--- NOTE | 2020-07-10 07:21 | NUR ---
Bedside report given to dayshift RN. Pt alert and awake. No needs at this time. Care transferred.
[2020-07-10] MEDS ORDERED: SODIUM CHLORIDE 0.9% 250ML 250 ML ONE (08:40)
[2020-07-10] MEDS: CEFTRIAXONE SOD 1 GM/NS 50 ML 50 ML IV SCH (08:41)
[2020-07-10] MEDS: POTASSIUM CHLORIDE 10MEQ EA PO SCH ×2 (08:42→16:14)
[2020-07-10] MEDS: CLOPIDOGREL BISULFATE 75 MG TAB PO SCH (08:42)
[2020-07-10] MEDS: CARVEDILOL 3.125 MG TAB PO SCH ×2 (08:43→09:11)
--- NOTE | 2020-07-10 09:00 | NUR ---
2 DAY OBS.. SPOKE W DR. CABALLERO REGARDING INPT. STATES THE PT NEEDS A CABG, BUT WANTS TO SPEAK W DR. CARRINGTON BEFORE DECIDING IF HE WANTS TO GO HOME OR BE TRANSFERRED TO [facility] FOR SURGERY. WILL CONT TO FOLLOW.
--- NOTE | 2020-07-10 14:00 | NUR ---
paged Dr. Bronson about pt discharge, waiting for call back
--- NOTE | 2020-07-10 15:47 | NUR ---
Nutrition Screen Note RD Recommendation for Physician: -Continue cardiac diet Plan of Care: RD following, monitoring for tolerance and adequacy Nutrition reason for involvement: Diagnosis - CHF Primary Diagnose(s): CHF exacerbation PMH: aortic valve calcification. Congestive heart failure. Bilateral pleural effusion. Coronary artery disease with stents. Hypertension. Dyslipidemia. Chronic kidney disease. Ht: 67 in Wt: 194.05 lb BMI: 30.4 kg/m2 IBW:[address] Assessment: (07/10/20) Chart reviewed. Labs and meds reviewed. Pt is a 69 year old male admitted with CHF exacerbation. Pt reports a good appetite and has been eating all of his meals. Pt stated he usually weighs 190-195 lbs. No N/V/D/C or chewing/swallowing issues. Pt declined the need for diet education. Will continue to monitor. Current Diet: cardiac/1.6 L fluid restriction Malnutrition Evaluation (07/10/20) The patient does not meet criteria for a specified degree of malnutrition at this time. Will re-evaluate at follow-up as appropriate. Diet Education Needs Assessment: pt declined the need for diet education Nutrition Care Level: low Signed: Devi Pinedo, RD, LD
[2020-07-10] MEDS: ATORVASTATIN 40 MG TAB PO SCH (16:14)
[2020-07-10] MEDS: ENOXAPARIN SOD INJ 40 MG/0.4 ML SYR SC SCH (16:15)
--- NOTE | 2020-07-10 19:29 | NUR ---
bedside Shift report given to night manager nurse. Notified nurse to call Dr. Morse once Dr. Aiyana ozuna pt for D/C
[2020-07-10] MEDS: AZITHROMYCIN 250MG/NS 100 ML 100 ML IV SCH (21:00)
[2020-07-10] MEDS ORDERED: AZITHROMYCIN 500MG/NS 250 ML 125 ML IV ONE (22:30)
[2020-07-11] VITALS: BP 101/74
[2020-07-11 04:20] VITALS: BP 104/74
[2020-07-11] MEDS: FUROSEMIDE INJ 10 MG/ML 4 ML VIAL IV SCH (06:07)
--- NOTE | 2020-07-11 07:13 | NUR ---
Bedside report given to dayshift RN. Pt alert and awake. No needs at this time. Care transferred.
[2020-07-11] MEDS: CEFTRIAXONE SOD 1 GM/NS 50 ML 50 ML IV SCH (07:39)
[2020-07-11 08:00] VITALS: BP 97/68
[2020-07-11] MEDS: POTASSIUM CHLORIDE 10MEQ EA PO SCH (08:40)
[2020-07-11] MEDS: CLOPIDOGREL BISULFATE 75 MG TAB PO SCH (08:41)
[2020-07-11] MEDS: CARVEDILOL 3.125 MG TAB PO SCH ×2 (08:41→09:00)
--- NOTE | 2020-07-11 08:47 | NUR ---
3 DAY OBS. SPOKE Karson SANDERS RN. STATES DR. CARRINGTON DID NOT SEE THE PT ON YESTERDAY. STATES THEY HAVE CALLED DR. CARRINGTON SEVERAL TIMES, BUT HE HAS NOT RETURNED THEIR CALL. STATES THE PT SAYS HE IS GOING HOME REGARDLESS. STATES SHE WILL CALL CABALLERO TO GET THE PT HOME SOON. CALL TO DR. CARRINGTON TO SPEAK WITH THE PT ABOUT HIS CHOICES. AWAITING CALL BACK.
[2020-07-11 08:53] VITALS: BP 97/68
--- NOTE | 2020-07-11 09:30 | Discharge Summary ---
PRIMARY CARE PHYSICIAN: Dr. Lesley Valverde. CONSULTANTS: 1. Dr. Michael Brambila. 2. Dr. Jose Ramon Bronson. The patient under observation. FINAL DIAGNOSES: 1. Nbcjp-hc-hcjpofe systolic dysfunction congestive heart failure with exacerbation. The patient is noncompliant to medication and fluid restriction. 2. Multivessel disease. The patient needs coronary artery bypass graft surgery. The patient refuses transfer to [facility] for surgery and he want to go home first and then he will follow up with Dr. Bronson. 3. Cardiomyopathy. The patient has LifeVest already, but he refused to wear it. SUMMARY: The patient is 69-year-old male, noncompliant to his medical management. The patient did see his cardiovascular surgeon, Dr. Lynn at [facility] and arrangement was made for the patient to be admitted for coronary artery bypass graft surgery, but apparently he did not like the conversation he had with Dr. Lynn. Therefore, he refused to follow up and did not have his surgical plan. He then came to [facility] for acute exacerbation of congestive heart failure, and then he signed out against medical advice because he was waiting in the ER room for too long. The patient now came to [facility] here with recurrent gzqmq-ji-kadbblw systolic dysfunction congestive heart failure. Here, his ejection fraction was less than 20%. The patient subsequently received diuresis and he did better. He saw Dr. Bronson and he did not want to be transferred to [facility] for his bypass surgery. He want to go home first and then follow up with Dr. Bronson. All instructions are given to the patient. The patient was told that he need to be compliant, get his surgical plan, and also wear his LifeVest. On his medication, we will increase his Lasix 40 mg twice a day and add on Aldactone 25 mg b.i.d. We will discontinue his potassium for now. The patient is stable. He will be discharged home today and he will follow closely as an outpatient with his family physician, his accident examiner, Dr. Michael Brambila, and also cardiovascular, Dr. Jose Ramon Bronson. The patient is stable, discharged home today with adjustment. MD DAVE Correa/ASHVIN /[id number]
[2020-07-11 09:40] LABS: ANION GAP 18.3 mmol/L (8-16); CALCIUM 8.6 mg/dL (8.4-10.2); CREATININE, SERUM 1.7 mg/dL (0.72-1.25); POTASSIUM 4.3 mmol/L (3.5-5.1)
--- NOTE | 2020-07-11 09:43 | NUR ---
CALL RECEIVED FROM DR. CARRINGTON. STATES HE JUST GOT OUT OF THE OR. INQUIRED IF THE PT IS WANTING SURGERY. CALL TO THE PT'S ROOM. PT STATES HE WILL F/U AN OUTPATIENT. STATES HE IS NOT CLEAR ON WHAT IT IS HE NEEDS AT THIS POINT. DR. CARRINGTON AWARE THE PT TO F/U AN OUTPT.
[2020-07-11] MEDS ORDERED: ALDACTONE25 MG PO (10:15)
[2020-07-11 12:00] VITALS: BP 96/68
--- NOTE | 2020-07-11 13:49 | NUR ---
Pt discharged, discharged teachings were given with prescriptions. IV discontinued with tip intact. Pt was transported to private vehicle. Pt is stable, no distress noted.
== END 2020-07-11 13:49 | disposition home or self-care (01) ==
LOC: ER 12:44 → ERHOLD 14:49 → MED/SURG3 17:37
PROVIDERS: ADMIT Internal Medicine; ATTEND Internal Medicine
DX: I11.0 Hypertensive heart disease with heart failure (principal); I50.23 Acute on chronic systolic (congestive) heart failure; I42.9 Cardiomyopathy, unspecified; I25.10 Atherosclerotic heart disease of native coronary artery without angina pectoris; Z11.59 Encounter for screening for other viral diseases; Z95.5 Presence of coronary angioplasty implant and graft
CPT/HCPCS: 36415 ×3; 71045; 71250; 80048 ×2; 80053; 82550 ×2; 82553 ×2; 82948; 83605; 83880 ×2; 84484 ×2; 85025; 87040; 93005; 93306; 94660; 99284; G0378 ×4; J0456 ×2; J0692; J0696 ×3; J1650 ×3; J1940 ×4; J2405; J3370; J7050 ×2; U0002

== ENCOUNTER → 2021-04-28 | Outpatient (CLI) | payer MEDICARE ==
[~2021-04-28] MED LIST changes: +ALDACTONE25 MG PO
== END ==
LOC: RAD 15:15
PROVIDERS: ATTEND Internal Medicine
DX: M54.5 Low back pain (principal)
CPT/HCPCS: 72110